=== PATIENT | female | born 1990 | race Caucasian/White ===

== ENCOUNTER 2017-03-15 13:04 | Outpatient (CLI) | payer OTHER, SELFPAY | END 2017-03-15 13:45 | disposition home or self-care (01) | LOC: WPOUT 13:05 → WP 13:06 | PROVIDERS: Family Provider Family Medicine; PCP Family Medicine; Visit Provider Obstetrics & Gynecology | DX: Z39.1 Encounter for care and examination of lactating mother (principal) | CPT/HCPCS: 96152 ==

== ENCOUNTER → 2017-04-11 11:10 | Outpatient (CLI) | payer OTHER, SELFPAY ==
[2017-04-11 12:10] LABS: Platelet Count 112 K/mm3 (150-450)
== END ==
PROVIDERS: Family Provider Family Medicine; PCP Family Medicine; Visit Provider Obstetrics & Gynecology
DX: D69.59 Other secondary thrombocytopenia (principal)
CPT/HCPCS: 36415; 85049

== ENCOUNTER → 2018-04-13 16:50 | Outpatient (CLI) | payer OTHER, SELFPAY ==
[2018-04-12 11:21] VITALS: BMI 21.3
[2018-04-18 08:17] LABS: HPV Reflexed? NOT INDICATED
== END ==
PROVIDERS: Visit Provider Obstetrics & Gynecology
DX: Z12.4 Encounter for screening for malignant neoplasm of cervix (principal)
CPT/HCPCS: 87624; 88175; G0145

== ENCOUNTER → 2018-11-09 13:09 | Outpatient (CLI) | payer OTHER, SELFPAY ==
[2018-04-12 11:21] VITALS: BMI 21.3
--- NOTE | 2018-11-09 13:13 | US_ITS ---
STUDY: THYROID ULTRASOUND REASON FOR EXAM: Female, 28 years old. Graves disease TECHNIQUE: Ultrasound evaluation of the thyroid was performed with real-time and static roca-scale imaging. COMPARISON: None. FINDINGS: RIGHT LOBE: The right lobe of the thyroid gland measures 4.5 x 1.4 x 1.4 cm. There is a homogeneous echotexture. There are no demonstrated solid, cystic or complex lesions. LEFT LOBE: The left lobe of the thyroid gland measures 4.1 x 1.6 x 1.1 cm. There is a homogeneous echotexture. There are no demonstrated solid, cystic or complex lesions. ISTHMUS: The isthmus measures 2 mm . The regional lymph nodes are normal. US/Thyroid IMPRESSION: Normal ultrasound examination of the thyroid. Electronically Signed: Neel Delacruz MD at 17:08 EDT , Service support ,
== END ==
PROVIDERS: Family Provider Family Medicine; PCP Family Medicine; Referring Provider Family Medicine; Visit Provider Family Medicine
DX: E05.00 Thyrotoxicosis with diffuse goiter without thyrotoxic crisis or storm (principal)
CPT/HCPCS: 76536

== ENCOUNTER → 2018-12-04 07:10 | Outpatient (CLI) | payer OTHER, SELFPAY ==
[2018-04-12 11:21] VITALS: BMI 21.3
[2018-12-04 08:06] LABS: Glucose 75GTT - Fasting 87 mg/dL (70-99)
[2018-12-04 09:18] LABS: Insulin 75GTT - Fasting 2.9 mU/L (2.6-37.6)
[2018-12-04 09:39] LABS: Glucose 75GTT - 60 minutes 155 mg/dL (100-160)
[2018-12-04 09:39] LABS: Glucose 75GTT - 30 minutes 139 mg/dL (100-160)
[2018-12-04 09:49] LABS: Insulin 75GTT - 60 min 28.4 mU/L (Not Estab)
[2018-12-04 10:20] LABS: Glucose 75GTT - 120 minutes 94 mg/dL (70-140)
[2018-12-04 10:28] LABS: Insulin 75GTT - 120 min 21.3 mU/L (Not Estab.)
== END ==
PROVIDERS: Family Provider Family Medicine; PCP Family Medicine; Referring Provider Obstetrics & Gynecology; Visit Provider Obstetrics & Gynecology
DX: N91.1 Secondary amenorrhea (principal)
CPT/HCPCS: 36415; 82951; 82952; 83525

== ENCOUNTER → 2019-02-19 10:00 | Outpatient (CLI) | payer OTHER, SELFPAY ==
[2018-04-12 11:21] VITALS: BMI 21.3
== END ==
PROVIDERS: Visit Provider Obstetrics & Gynecology
DX: N91.1 Secondary amenorrhea (principal)
CPT/HCPCS: 36415; 82670

== ENCOUNTER → 2019-02-23 09:05 | Outpatient (CLI) | payer OTHER, SELFPAY ==
[2018-04-12 11:21] VITALS: BMI 21.3
[2019-02-23 12:09] LABS: Estradiol 29.6 pg/mL
== END ==
PROVIDERS: Visit Provider Obstetrics & Gynecology
DX: N91.2 Amenorrhea, unspecified (principal); E23.3 Hypothalamic dysfunction, not elsewhere classified
CPT/HCPCS: 36415; 82670

== ENCOUNTER → 2019-02-26 10:56 | Outpatient (CLI) | payer OTHER, SELFPAY ==
[2018-04-12 11:21] VITALS: BMI 21.3
[2019-02-26 14:05] LABS: Estradiol 30.1 pg/mL
== END ==
PROVIDERS: Visit Provider Obstetrics & Gynecology
DX: N91.2 Amenorrhea, unspecified (principal); E23.3 Hypothalamic dysfunction, not elsewhere classified
CPT/HCPCS: 36415; 82670

== ENCOUNTER → 2019-03-15 15:33 | Outpatient (CLI) | payer OTHER, SELFPAY ==
[2018-04-12 11:21] VITALS: BMI 21.3
[2019-03-15 17:45] LABS: Progesterone Level 3.22 ng/mL (See Comment)
== END ==
PROVIDERS: PCP Family Medicine; Referring Provider Obstetrics & Gynecology; Visit Provider Obstetrics & Gynecology
DX: N91.2 Amenorrhea, unspecified (principal)
CPT/HCPCS: 36415; 84144

== ENCOUNTER → 2019-04-10 16:18 | Outpatient (CLI) | payer OTHER, SELFPAY ==
[2018-04-12 11:21] VITALS: BMI 21.3
[2019-04-10 17:59] LABS: Progesterone Level 1.67 ng/mL (See Comment)
== END ==
PROVIDERS: PCP Family Medicine; Visit Provider Obstetrics & Gynecology
DX: N97.0 Female infertility associated with anovulation (principal)
CPT/HCPCS: 36415; 84144

== ENCOUNTER → 2019-05-15 14:25 | Outpatient (CLI) | payer OTHER, SELFPAY ==
[2019-04-12 13:27] VITALS: BMI 22.1
[2019-05-15 16:22] LABS: Anion Gap 3 (5-15); BUN 29 mg/dL (7-18); BUN/Creat Ratio 47.4 RATIO (10-20); Calcium,Total 8.4 mg/dL (8.5-10.1); Chloride 109 mmol/L (98-107); Creatinine, Serum 0.61 mg/dL (0.55-1.02); EST Glomerular Filtration Rate 122 mL/min (>60); Est Glom Filt Rate - Afr Amer 147 mL/min (>60); Glucose 55 mg/dL (74-106); Potassium 4.1 mmol/L (3.5-5.1); Sodium Level 142 mmol/L (136-145)
[2019-05-15 16:27] LABS: hCG Titer Quant., Serum < 1 mIU/mL (1-3)
== END ==
PROVIDERS: PCP Family Medicine; Referring Provider Internal Medicine Hematology & Oncology; Visit Provider Obstetrics & Gynecology
DX: N91.2 Amenorrhea, unspecified (principal); D69.3 Immune thrombocytopenic purpura; D69.6 Thrombocytopenia, unspecified; D75.89 Other specified diseases of blood and blood-forming organs
CPT/HCPCS: 36415; 80048; 84702

== ENCOUNTER → 2019-12-17 09:19 | Outpatient (CLI) | payer OTHER, SELFPAY ==
[2019-04-12 13:27] VITALS: BMI 22.1
[2019-12-17 11:41] LABS: hCG Titer Quant., Serum 408 mIU/mL (1-3)
[2019-12-17 14:05] LABS: Progesterone Level 26.68 ng/mL (See Comment)
== END ==
PROVIDERS: PCP Family Medicine; Visit Provider Obstetrics & Gynecology
DX: N91.2 Amenorrhea, unspecified (principal)
CPT/HCPCS: 36415; 82670; 84144; 84702

== ENCOUNTER → 2019-12-24 10:50 | Outpatient (CLI) | payer OTHER, SELFPAY ==
[2019-04-12 13:27] VITALS: BMI 22.1
[2019-12-24 11:26] LABS: Progesterone Level 21.75 ng/mL (See Comment)
[2019-12-24 11:50] LABS: hCG Titer Quant., Serum 5371 mIU/mL (1-3)
[2019-12-25 12:58] LABS: Estradiol 354.6 pg/mL
== END ==
PROVIDERS: PCP Family Medicine; Visit Provider Obstetrics & Gynecology
DX: N91.2 Amenorrhea, unspecified (principal); N97.0 Female infertility associated with anovulation; E02 Subclinical iodine-deficiency hypothyroidism
CPT/HCPCS: 36415; 82670; 82672; 84144; 84702

== ENCOUNTER → 2019-12-31 16:13 | Outpatient (CLI) | payer OTHER, SELFPAY ==
[2019-04-12 13:27] VITALS: BMI 22.1
[2019-12-31 18:04] LABS: Estradiol 346.5 pg/mL
[2019-12-31 18:20] LABS: hCG Titer Quant., Serum 34583 mIU/mL (1-3)
[2019-12-31 19:19] LABS: Progesterone Level > 60.00 ng/mL (See Comment)
== END ==
PROVIDERS: PCP Family Medicine; Visit Provider Obstetrics & Gynecology
DX: N91.2 Amenorrhea, unspecified (principal); N97.0 Female infertility associated with anovulation; E02 Subclinical iodine-deficiency hypothyroidism; Z79.899 Other long term (current) drug therapy
CPT/HCPCS: 36415; 82670; 84144; 84702

== ENCOUNTER → 2020-01-08 10:50 | Outpatient (CLI) | payer OTHER, SELFPAY ==
[2019-04-12 13:27] VITALS: BMI 22.1
[2020-01-08 13:44] LABS: Color, Urine Yellow (Yellow); Glucose, Dipstick Normal (Normal); Ketone-Dipstick Negative (Negative); Leukocyte Esterase-Dipstick 25 /ul (Negative); Nitrite-Dipstick Negative (Negative); Occult Blood-Urine Negative /ul (Negative); Protein-Dipstick Negative (Negative); Urine Bilirubin Dipstick Negative (Negative); Urine Clarity Clear (Clear); Urine Urobilinogen Normal (Normal)
[2020-01-08 13:58] LABS: Absolute Lymphocyte Count 1.46 X10^3/uL (0.83-4.51); Absolute Neutrophil Count 3.5 X10^3/uL (2.0-7.7); Basophil# 0.02 X10^3/uL; Basophil% 0.4 % (0-1); Eosinophil# 0.02 X10^3/uL; Eosinophils% 0.4 % (0-5); Hemoglobin 13.3 g/dL (12.0-15.0); Lymphocyte # 1.46 X10^3/ul (4.0); Lymphocyte % 27.2 % (19-41); Mean Corp Hgb Conc 31.7 g/dL (32-36); Mean Corpuscular Hgb 32.9 pg (27.0-32.0); Mean Platelet Vol. 13.2 fl (6.2-12.0); Monocyte# 0.32 X10^3/uL; NRBC Flagged by Analyzer 0 % (0-5); Neutrophil # 3.54 X10^3/uL (2.7-7.7); Platelet Count 116 K/mm3 (150-450); RBC Distribution Width SD 46.3 fl (35.1-43.9); Red Blood Count 4.04 M/mm3 (4.2-5.4); White Blood Count 5.4 K/mm3 (4.4-11.0)
[2020-01-08 13:59] LABS: Amphetamine Urine VISTA NEGATIVE (<1000 ng/mL); Barbiturate Urine VISTA NEGATIVE (< 200 ng/mL); Benzodiazepine Urine VISTA NEGATIVE (< 200 ng/mL); Cocaine Urine VISTA NEGATIVE (< 300 ng/mL); Ecstacy Urine VISTA NEGATIVE (< 500 ng/mL); Methadone Urine VISTA NEGATIVE (< 300 ng/mL); PCP Urine VISTA NEGATIVE (< 25 ng/mL); THC Urine VISTA NEGATIVE (< 50 ng/mL); Vista UDS pH Range 5
[2020-01-08 14:05] LABS: Thyroid Stim Hormone (TSH) 1.53 uIU/mL (0.358-3.74)
[2020-01-08 14:36] LABS: HIV - WCH Non-Reactive (Nonreactive); Hepatitis B Surface Antigen Non-Reactive (Nonreactive); Hepatitis C Antibody Non-Reactive (Nonreactive); Rubella IgG Reactive (Nonreactive)
[2020-01-10 02:51] LABS: Prenatal RPR NONREACTIVE (NONREACTIVE)
[2020-01-10 20:07] LABS: Chlamydia By Nucleic Acid AMP Negative (Negative)
[2020-01-10 21:31] LABS: Gonococcus By Nucleic Acid AMP Negative (Negative)
== END ==
PROVIDERS: PCP Family Medicine; Visit Provider Obstetrics & Gynecology
DX: Z34.81 Encounter for supervision of other normal pregnancy, first trimester (principal)
CPT/HCPCS: 36415; 80307; 81002; 84443; 85025; 86703; 86762; 86803; 87340; 87491; 87591

== ENCOUNTER → 2020-03-04 14:48 | Outpatient (CLI) | payer OTHER, SELFPAY ==
[2019-04-12 13:27] VITALS: BMI 22.1
[2020-03-04 15:48] LABS: Hematocrit 37.3 % (37-47); Hemoglobin 12.1 g/dL (12.0-15.0); Mean Corp Hgb Conc 32.4 g/dL (32-36); Mean Corpuscular Hgb 32.8 pg (27.0-32.0); Mean Corpuscular Volume 101.1 fL (81-99); Mean Platelet Vol. 12.6 fl (6.2-12.0); Platelet Count 131 K/mm3 (150-450); RBC Distribution Width CV 12.7 % (11.6-14.6); RBC Distribution Width SD 47.1 fl (35.1-43.9); Red Blood Count 3.69 M/mm3 (4.2-5.4); White Blood Count 7.4 K/mm3 (4.4-11.0)
[2020-03-05 09:45] LABS: Absolute Lymphocyte Count 1.79 X10^3/uL (0.83-4.51); Absolute Neutrophil Count 5.5 X10^3/uL (2.0-7.7); Basophil# 0.02 X10^3/uL; Basophil% 0.3 % (0-1); Eosinophil# 0.04 X10^3/uL; Eosinophils% 0.5 % (0-5); Lymphocyte # 1.79 X10^3/ul (4.0); Lymphocyte % 23.2 % (19-41); Monocyte# 0.37 X10^3/uL; Monocyte% 4.8 % (0-10); NRBC Flagged by Analyzer 0 % (0-5); Neutrophil # 5.48 X10^3/uL (2.7-7.7); Neutrophil % 71.1 % (47-70)
== END ==
PROVIDERS: PCP Family Medicine; Visit Provider Obstetrics & Gynecology
DX: D69.6 Thrombocytopenia, unspecified (principal)
CPT/HCPCS: 36415; 85025; 85027

== ENCOUNTER → 2020-05-26 09:59 | Outpatient (CLI) | payer OTHER, SELFPAY ==
[2020-03-05 11:11] VITALS: BMI 23.6
[2020-05-26 11:32] LABS: Hematocrit 38.3 % (37-47); Hemoglobin 12.4 g/dL (12.0-15.0); Mean Corp Hgb Conc 32.4 g/dL (32-36); Mean Corpuscular Hgb 33.9 pg (27.0-32.0); Mean Corpuscular Volume 104.6 fL (81-99); Mean Platelet Vol. 12.9 fl (6.2-12.0); Platelet Count 108 K/mm3 (150-450); RBC Distribution Width CV 12.8 % (11.6-14.6); RBC Distribution Width SD 48.8 fl (35.1-43.9); Red Blood Count 3.66 M/mm3 (4.2-5.4); White Blood Count 7.2 K/mm3 (4.4-11.0)
[2020-05-26 11:39] LABS: Glucose Challenge Gest 1H 50g 76 mg/dL (70-140)
== END ==
PROVIDERS: PCP Family Medicine; Visit Provider Student in an Organized Health Care Education/Training Program
DX: Z34.82 Encounter for supervision of other normal pregnancy, second trimester (principal)
CPT/HCPCS: 36415; 82950; 85027

== ENCOUNTER → 2020-07-09 13:45 | Outpatient (CLI) | payer OTHER, SELFPAY ==
[2020-03-05 11:11] VITALS: BMI 23.6
[2020-07-09 15:08] LABS: T4 Total, Thyroxin 11.2 ug/dL (4.8-13.9); Thyroid Stim Hormone (TSH) 1.72 uIU/mL (0.358-3.74)
[2020-07-10 11:32] LABS: T4 Free Direct 0.91 ng/dL (0.76-1.46)
== END ==
PROVIDERS: PCP Family Medicine; Visit Provider Obstetrics & Gynecology
DX: O99.283 Endocrine, nutritional and metabolic diseases complicating pregnancy, third trimester (principal); E02 Subclinical iodine-deficiency hypothyroidism; Z3A.00 Weeks of gestation of pregnancy not specified
CPT/HCPCS: 36415; 84436; 84439; 84443

== ENCOUNTER → 2020-07-25 14:24 | Outpatient (CLI) | payer OTHER, SELFPAY ==
[2020-03-05 11:11] VITALS: BMI 23.6
[2020-07-25 14:44] LABS: Platelet Count 132 K/mm3 (150-450)
== END ==
PROVIDERS: PCP Family Medicine; Visit Provider Obstetrics & Gynecology
DX: Z36.85 Encounter for antenatal screening for Streptococcus B (principal); O99.119 Other diseases of the blood and blood-forming organs and certain disorders involving the immune mechanism complicating pregnancy, unspecified trimester; D69.6 Thrombocytopenia, unspecified; Z3A.00 Weeks of gestation of pregnancy not specified
CPT/HCPCS: 36415; 85049; 87081

== ENCOUNTER 2020-08-10 20:34 | Outpatient (CLI) | payer OTHER, SELFPAY ==
[2020-03-05 11:11] VITALS: BMI 23.6
[2020-08-10 20:55] VITALS: BP 107/55; PULSE 71
[2020-08-10 20:56] VITALS: TEMP 36.4; O2SAT 98
[2020-08-10 21:12] VITALS: BMI 27.1
[2020-08-10 21:55] LABS: ROM Internal Control Test YES-OK TO RESULT pt. (Internal QC); ROM Patient Test Negative (Negative)
--- NOTE | 2020-08-24 14:28 | OB.TRI.HP_ITS ---
HPI - General HPI Narrative ARMANI MAHONEY, is a 29 F who presents at 38 3/7wga with c/o leaking of fluid PFSH PFSH Medical History (Updated 08/27/20 @ 08:[address] Abby Don MD) Thrombocytopenia Home Medications vit,[id number] 1 tab PO DAILY 04/12/19 [History Last Taken 08/09/20 20:00] naltrexone 50 mg PO DAILY 03/05/20 [History Last Taken Unknown] cetirizine [Zyrtec] 10 mg PO DAILY 08/10/20 [History Last Taken 08/09/20 20:00] levothyroxine [Synthroid] 50 mcg PO DAILY 08/10/20 [History Last Taken 08/10/20 08:00] Allergy/AdvReac Type Severity Reaction Status Date / Time No Known Allergies Allergy Verified 08/10/20 21:14 Family History Father Skin cancer Grandfather Colon cancer Uncle Colon cancer Surgical History (Updated 03/05/20 @ 13:[address] Ozzy Murry MD) No history of previous surgery [place] teeth extracted Social History Smoking Status: Never smoker History Elective abortions Hx Para 0 Spontaneous abortions Hx # Term Pregnancies Ectopic pregnancies Hx # Pregnancies Multiple births # of living children NST FHR Rate Baby A Baseline: 130 Variability:: Moderate Accelerations:: 15 x 15 Decelerations:: None NST Reactive:: Yes FHR Category:: Category I Uterine Activity:: 0/10 Assessment & Plan (1) 38 weeks gestation of : PLAN: ROM plus negative No contractions d/c home
== END 2020-08-10 22:40 | disposition home or self-care (01) ==
LOC: WPOUT 20:42 → WP 20:43
PROVIDERS: PCP Family Medicine; Visit Provider Obstetrics & Gynecology
DX: O99.113 Other diseases of the blood and blood-forming organs and certain disorders involving the immune mechanism complicating pregnancy, third trimester (principal); D69.6 Thrombocytopenia, unspecified; Z3A.38 38 weeks gestation of pregnancy
CPT/HCPCS: 59025; 59050; 84112; 99218; G0378

== ENCOUNTER 2020-08-29 00:22 | Inpatient (IN) | payer OTHER, SELFPAY ==
[2020-08-29] VITALS (33 sets, daily range): BP systolic 85–132; BP diastolic 41–86; PULSE 53–112; RESP 14–18; TEMP 36.2–36.8; O2SAT 91–100; BMI 25.8
[2020-08-29] MEDS: Lactated Ringers 1,000 ML 50 ML IV (01:30)
[2020-08-29 02:10] LABS: Absolute Lymphocyte Count 1.99 X10^3/uL (0.83-4.51); Absolute Neutrophil Count 6.2 X10^3/uL (2.0-7.7); Basophil# 0.02 X10^3/uL; Basophil% 0.2 % (0-1); Eosinophil# 0.03 X10^3/uL; Eosinophils% 0.3 % (0-5); Hematocrit 43.4 % (37-47); Hemoglobin 13.9 g/dL (12.0-15.0); Lymphocyte # 1.99 X10^3/ul (0.83-4.51); Lymphocyte % 22.7 % (19-41); Mean Corpuscular Hgb 32.8 pg (27.0-32.0); Mean Corpuscular Volume 102.4 fL (81-99); Mean Platelet Vol. 13.5 fl (6.2-12.0); Monocyte# 0.47 X10^3/uL; Monocyte% 5.4 % (0-10); NRBC Flagged by Analyzer 0 % (0-5); Neutrophil # 6.24 X10^3/uL (2.7-7.7); Neutrophil % 71.1 % (47-70); Platelet Count 102 K/mm3 (150-450); RBC Distribution Width CV 12.6 % (11.6-14.6); Red Blood Count 4.24 M/mm3 (4.2-5.4); White Blood Count 8.8 K/mm3 (4.4-11.0)
--- NOTE | 2020-08-29 02:52 | HP.PCM.OB_ITS ---
HPI - General General Date of Admission: 08/29/20 HPI Narrative IDALMIS MAHONEY, is a 29 F who presents at 41 1/7 weeks gestation in labor. Maternal Data Information EROS Calculator Estimated Delivery Date Method Current WG Current Estimate 08/21/20 LMP (Certain) 41w 1d [facility] Medical History (Updated 08/29/20 @ 03:[address] Abby Don MD) Thrombocytopenia Home Medications vit,[id number] 1 tab PO DAILY 04/12/19 [History Last Taken 08/28/20 22:00 1 tablet] naltrexone 50 mg PO DAILY 03/05/20 [History Last Taken Unknown] cetirizine [Zyrtec] 10 mg PO DAILY 08/10/20 [History Last Taken 08/28/20 22:00 10 mg] levothyroxine [Synthroid] 50 mcg PO DAILY 08/10/20 [History Last Taken 08/28/20 06:00 50 mg] Allergy/AdvReac Type Severity Reaction Status Date / Time No Known Allergies Allergy Verified 08/10/20 21:14 Family History Father Skin cancer Grandfather Colon cancer Uncle Colon cancer Surgical History No history of previous surgery Brickeys teeth extracted Social History Smoking Status: Never smoker History 2 Elective abortions 0 Hx Para 1 Spontaneous abortions 0 Hx # Term Pregnancies 1 Ectopic pregnancies 0 Hx # Pregnancies 0 Multiple births 0 # of living children 1 Past Pregnancies Del. Date Name GA/Weeks Outcome Route Bth Weight Gen Labor Lgth Anesthesia Del Locatn Provider FOB 02/24/17 Idamarie 40 live - full term 6lb 4oz Female 23 none [facility] Alanna Sotomayor NST FHR Rate Baby A Baseline: 120 Variability:: Moderate Accelerations:: 15 x 15 Decelerations:: None NST Reactive:: Yes FHR Category:: Category I Uterine Activity:: 3-4/10 min Vital Signs Vital Signs Vital Signs: 08/29/20 00:30 08/29/20 00:51 08/29/20 00:53 Temperature 97.9 F 97.9 F Temperature Source Temporal Pulse Rate 63 Blood Pressure BP Systolic BP Diastolic Pulse Ox 97 08/29/20 01:30 08/29/20 02:30 08/29/20 02:31 Temperature 97.5 F L 97.5 F L Temperature Source Temporal Pulse Rate Blood Pressure 116/86 H 109/76 BP Systolic 116 109 BP Diastolic 86 76 Pulse Ox 08/29/20 02:32 Temperature Temperature Source Pulse Rate 62 Blood Pressure BP Systolic BP Diastolic Pulse Ox 100 Weight Weight: 74.8 kg Body Mass Index (BMI) 25.8 Physical Exam Const alert, oriented x3 and no apparent distress HEENT normocephalic Resp normal respiratory effort, normal air movement and clear to auscultation bilaterally Cardio regular rate and regular rhythm GI normal to inspection, nondistended, normoactive bowel sounds, soft to palpation, non-tender and non-distended Inspection: gravid Narrative: /-1 per RN exam Labs Labs Labs: Blood Type A POSITIVE Antibody Screen NEGATIVE Hct 43.4 % (37-47) Hgb 13.9 g/dL (12.0-15.0) VZV IgG Antibody 3255 index (Immune >165) Rubella IgG Antibody Reactive (Nonreactive) Hep Bs Antigen Non-Reactive (Nonreactive) Neisseria gonorrhoeae DNA (AISHA) Negative (Negative) HIV 1&2 Antibody Non-Reactive (Nonreactive) Glucose 1 Hr 50 gm 76 mg/dL (70-140) Group B Strep DNA Negative (Negative) Rhogam given: No ACOG ANTEPARTUM RECORD - HISTORY AND PHYSICAL (08/29/2020) Name: DENZEL IDALMIS History of this : This is a 29 year old [id number] presents at 41 wks + 1 days gestation. OB Physician: Abby Don MD [facility] Phys[facility]: [facility] ...................................................................... : 1990 Age: 29 Address: [address] [place] [address] Phone: ([phone] Insurance Carrier: [employer] [phone] Emergency Contact: BRAN DENZEL [phone] ...................................................................... Final EROS: 08/21/20 By Ultrasound: 6 weeks 4 days PARITY: (G-Total Pregnancies P-Fullterm,Premature,Induced AB,Spont AB, Ectopics, Multiple,Living) EROS CONFIRMATION: By LMP: 11/15/19 Final EROS: 08/21/20 OB PROBLEM LIST: Carrier screening declined. Had Tdap and Covid vaccine No plans for an epidural Plt 116 --> 131 --> 108 Thrombocytopenia followed by Hematology Pt's Great Grandfather was Confucianism, no hx of Eloy-Sachs ALLERGIES: No Known Allergies MEDICATIONS: Colace 100 mg capsule 1 PO QD 28 mg-800 mcg tablet 1 PO QD Supplement (s) [No Strength] Synthroid 50 mcg tablet 1 tab PO daily triamcinolone acetonide 0.025 % topical cream apply thin layer to affected areas and massage in over 2 minutes 1 to 2 times daily as needed SOCIAL HISTORY: Smoking - Never Alcohol Use - denies drinking Diet - balanced Diet Lifestyle - low stress lifestyle and Exercise - very active 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 Spouse-Sig Other Phone No - [phone] Children Name(s) - Giancarlo PRIOR DELIVERY HISTORY DEL DATE GEST LAB WT LB WT OZ TYPE ANES LABOR TX 10 Mar 10 40 23 6 4 Vag None No ANTEPARTUM FLOW CHART VISIT GE RTC FU F F MD U U DATE WK MD WKS HT PN HR M SS BP ED WT MD GL D EF ST __ ____ ___ __ __ ___ __ __ __ ___ __ __ __ ___ __ 08 Demar 41 SHM 1 37 V + + 104/60 168 tr - 3+ 50 -3 06 Demar 40 SHM 1 37 V + + 100/72 0 169 - - 3 50 -3 29 Ulysses 39 SHM 1 37 V + + 100/70 0 170 ne ne 2 50 -3 22 Ulysses 38 SHM 1 38 V + + 120/66 0 167 15 Uylsses 37 SHM 1 37 V + + 118/68 0 172 - - 08 Ulysses 36 SHM 1 36 V + + 102/70 0 168 ne ne 04 Ulysses 36 SHM 1 35 V + + 110/68 sl 172 tr - 19 May 33 SHM 2 32 V + + 112/70 0 168 ne ne 04 May 31 CM 2 31 + + 102/60 sl 166 ne ne 20 Apr 29 CM 2 29 + + 102/60 0 167 - - 05 Apr 27 CM 2 + + 102/60 0 159 11 Mar 24 CM 4 24 + + 102/62 0 161 - - 10 Feb 19 SHM 4 20 + + 90/60 0 159 - - 12 John 15 SHM 4 15 + + 106/60 0 154 - - 16 Jan 31 SHM 5 on US 96/58 0 152 - - ANTEPARTUM NOTE(S): Aug 28 2020: wants membrane sweep Aug 26 2020: wants to discuss recommendations Aug 19 2020: Aug 12 2020: will l eave specimen prior to leaving, doing nwell Aug 05 2020: doing well Jul 29 2020: Jul 25 2020: GBS today Jul 09 2020: feeling well Jun 24 2020: Jun 10 2020: May 26 2020: May 01 2020: Apr 02 2020: feeling well. US today. AM Mar 04 2020: Feb 06 2020: COMPREHENSIVE ANTEPARTUM NOTE(S): Aug 28 2020: Cervix SOFT, midposition. Membranes stripped again today. Return for NST tomorrow. Aug 26 2020: Cervix POSTERIOR, MODERATE. Membranes stripped. US - LUKAS 10cm with BPP 09/28 performed by myself. Discussed with pt and r/b IOL at 41wga versus expectant management including low but increased risk for loss. Pt and considering options further. Plan for NST in 3-4 days if undelivered. Labor, FM precautions. Aug 19 2020: Idalmis is her for PNV. Started with some ctx earlier today. They were pretty regular but they have stopped. No LOF. Continues to have good FM. Would like cervix check then will decide if to proceed with IOL. LSS Aug 12 2020: Was seen in L triage on 08/10/20 and ruled out for ROM. Exam 1cm dilation then. Deferred today. -5lb, pt denies, nausea, vomiting, diarrhea. Will monitor. Aug 05 2020: Reviewed FM, labor, SROM. GBS negative and Plt ct increased from prior. LMT Jul 31 2020: H taken to OB. tkg Jul 29 2020: Idalmis is here for PNV. Feeling well with good FM. Voices no concerns today. No edema noted at this visit. Did receive her second COVID vaccine with no problems. Urine neg/neg. LSS Jul 29 2020: GBS neg, plt 132 reviewed. Discussed indications for IOL. Will d/c LDN at 37weeks later this week. Inquires about use of LDN . Recommend resuming LDN after 12 months nursing and increasing to higher doses as needed at that time based on cycle. Jul 25 2020: Platelet count today. Reviewed TFTs wnl. Plan to d/c Naltrexone next week. GBS obtained. , her mom and MIL with alternate staying home the first few weeks after childbirth for support. Jul 09 2020: Reviewed PTL, FM. Had Tdap and Covid vaccine. No complaints or concerns today. LMT Jul 09 2020: TFTs today. Will do platelets at next visit. Jun 24 2020: Idalmis is here for PNV. States she is feeling well with good FM. Some slight swelling in lower legs but none in hands. Did receive first covid vaccine with no reaction. No concerns today. Urine neg/neg. LSS Jun 24 2020: 31/5w. Thrombocytopenia - repeat CBC 36w. Resolved previa. Repeat thyroid labs next visit. F/u 2w. CM Jun 10 2020: Idalmis reports feeling well. Good FM. Received TDap 05/27/20. Plans Moderns COVID Vaccine 06/12/20 @ [facility]. [facility] Jun 10 2020: 29/5w visit. COVID updates given. Resolved previa. F/u 2w. CM May 26 2020: Idalmis is here w/her . Good FM. 1 Hr Glucose, CBC drawn this morning. US to follow posterior marginal previa. May 26 2020: 27/4w visit. Growth AGA, previa resolved. Planning to get COVID vaccine. Discussed TDAP and timing at length. Thrombocytopenia. CBC drawn today with glucola. F/u 2w. CM May 01 2020: Idalmis reporting good FM. Glucoal bottle and instructions given to be done next visit. Voicing no concerns. May 01 2020: 24/0w visit. Thrombocytopenia - plan for CBC at 28 and 36w. Saw heme, no further input. Glucola bottle given. F/u 4w. CM Apr 02 2020: Anatomy US today, wnl. EFW 40th%. Placenta 5mm from os. Discussed findings and bleeding precautions. Pt to maintain current activity level. Repeat US at 28-32 weeks to reassess placentation. Saw vice president of finance after last visit and plt count 131 - Heme not concerned. Will plan no epidural again per patient preference and due to ?platelet count. Discussed COVID19 vaccination r/b, limitations of curren Mar 04 2020: Idalmis is her for 15 + 5 PNV. Reports she is feeling well with no concerns. States that she might be feeling baby move but not sure. No edema present. She has questions about COVID and being . Medications and allergies reviewed. ZENA Mar 04 2020: No complaints. CBC today, will f/u with Hematology tomorrow - ITP vs. gestational thrombocytopenia. Discussed COVID19 related precautions. Aneuploidy screening and msAFP declined. Anatomy scan next visit. Feb 07 2020: TELEHEALTH NOB VISIT, 30 MINUTE DURATION. Idalmis is a 29 year old with an EROS of 08/21/2020, current GA is 12 w 0 d. She resides with he , Bran, and their nearly 3 year old daughter, Giancarlo. She states that they are all very happy and excited about the . Past history updated. Idalmis plans delivery without an epidural at [facility], and she will breast feed. She state st Feb 06 2020: Idalmis is her with So for 1 + 6 PNV. US done today. Reports she is feeling well with no complaints. No edema present. Expressed wanting to know how long she should be on the progesterone. Medications and allergies reviewed. [facility] New Feb 06 2020: US c/w dates, EROS 08/21/20. Feels well, no complaints. d/c progesterone in 1 week. Traveling for holidays - discussed precautions. Reviewed labs significant for recurrent gestational thrombocytopenia. Idalmis is followed by Hematology and will reach out to them for additional f/u this . Ruled out for immune causes previously. REVIEW OF SYSTEMS: GENERAL - Denies fever, or chills SKIN - Denies rash, new skin lesions, or change in moles EYES - Denies blurred vision, or change in visual acuity EARS - Denies ear pain, or difficulty hearing NOSE - Denies nasal congestion, discharge, or bleeding MOUTH - Denies sore throat, or difficulty swallowing NECK - Denies pain or swelling RESPIRATORY - Denies shortness of breath, cough, wheezing CARDIOVASCULAR - Denies palpitations, chest pain, orthopnea, PND, peripheral edema, syncope or claudication GASTROINTESTINAL - Denies nausea, vomiting, diarrhea, constipation, Denies abdominal pain, melena and or bright red blood GENITOURINARY - Denies dysuria, frequency of urination, urgency, or hesitancy MUSCULOSKELETAL - Denies joint or muscle pain, or back pain NEUROLOGICAL - Denies localized numbness, weakness, or tingling PSYCHIATRIC - Denies depression, anxiety, substance abuse or suicide attempts ENDOCRINE - Denies heat or cold intolerance, weight loss or gain, increasing thirst HEMATO-IMMUNOLOGIC - Denies easy bruising, bleeding, oral ulcerations or recurrent infections GENETICS SCREENING: Age 35+ years: No Thalassemia: No Neural Tube Defect: No Down Syndrome: No ELOY-SACHS: No Sickle Cell Disease: No Hemophilia: No Musc. Dystrophy: No Cystic Fibrosis: No-declines screening Musa Chorea: No Mental Retardation: No Fragile X: No Other genetic: No Other defects: No SABs/still births: No Drugs since LMP: No Comments: pts brother CF carrier INFECTION HISTORY: High risk AIDS: No High risk Hepatitis: No Exposed to TB: No Exposed to Herpes: No Rash/viral illness since LMP: No History of STD: No MENSTRUAL HISTORY: *Menarche (Age Onset): 14* PAST SUMMARY: PARITY: 1. Total Pregnancies............ 2 2. Full Term Pregnancies........ 1 3. Premature.................... 0 4. Abortions - Induced.......... 0 5. Abortions - Spontaneous...... 0 6. Ectopics..................... 0 7. Multiple Births.............. 0 8. Living Children.............. 1 PAST #1: Date of :.................. 03/02/17 Gestation Weeks:................ 40 Length of labor(hours):......... 23 Sex:............................ F Weight-lbs:............... 6 Weight-oz:................ 4 Type of Delivery:............... Vag Type of Anesthesia:............. None Place of Delivery:.............. [place] Treatment of Labor?:.... No Comment: PHYSICAL EXAMINATION General Appearence: 29 yo female in no acute distress Vital Signs: AF, VSS Heart: RRR without rubs or gallops Lungs: CTA x 2 Breasts: deferred Abdomen: gravid Pelvis: Cervix: Presentation: cephalic Station: Fetus: Size: AGA Movement: present Heart: present LAB TEST(S) ORDERED SINCE:11/25/19 01/10/2020 RPR 01/10/2020 CHLAMYDIA/GC AISHA APTIMA 01/08/2020 URINE DRUG SCREEN (VISTA) 01/08/2020 URINALYSIS, ROUTINE (DIPSTICK) 01/08/2020 THYROID STIM HORMONE (TSH) 01/08/2020 RUBELLA IGG 01/08/2020 T AND S-NO CHARGE W/PNP 01/08/2020 HIV - [facility] 01/08/2020 HEPATITIS C ANTIBODY 01/08/2020 HEPATITIS B SURFACE ANTIGEN 01/08/2020 CBC W/DIFF, AUTOMATED 12/31/2019 PROGESTERONE LEVEL 12/31/2019 HCG TITER QUANT., SERUM 12/31/2019 ESTRADIOL 12/25/2019 ESTRADIOL 12/24/2019 PROGESTERONE LEVEL 12/24/2019 HCG TITER QUANT., SERUM 12/17/2019 PROGESTERONE LEVEL 12/17/2019 HCG TITER QUANT., SERUM 12/17/2019 ESTRADIOL 08/29/2020 COVID 19 AG RAPID (RN COLLECT) 08/29/2020 CBC W/DIFF, AUTOMATED 08/11/2020 (ROM) RUPTURE OF MEMBRANES 07/28/2020 RULE OUT BETA STREP (GRP. B) 07/25/2020 PLATELET COUNT 07/10/2020 T4 FREE DIRECT 07/09/2020 THYROID STIM HORMONE (TSH) 07/09/2020 T4 TOTAL, THYROXIN 05/26/2020 GLUCOSE CHALLENGE GEST 1H 50G 05/26/2020 CBC-COMPLETE BLOOD CNT NO DIFF 03/05/2020 CBC W/DIFF, AUTOMATED 03/04/2020 CBC-COMPLETE BLOOD CNT NO DIFF == ==== Order Observation Description Value Ref_Range A* Site == ==== COVID 19 AG RAP NOTE JAMES CBC W/DIFF, AUT NOTE JAMES CBC W/DIFF, AUT WBC 8.8 K/mm3 4.4-11.0 ML CBC W/DIFF, AUT RBC 4.24 M/mm3 4.2-5.4 ML CBC W/DIFF, AUT HGB 13.9 g/dL 12.0-15.0 ML CBC W/DIFF, AUT HCT 43.4 37-47 ML CBC W/DIFF, AUT MCV 102.4 fL 81-99 H ML CBC W/DIFF, AUT MCH 32.8 pg 27.0-32.0 H ML CBC W/DIFF, AUT MCHC 32.0 g/dL 32-36 ML CBC W/DIFF, AUT RDW CV 12.6 11.6-14.6 ML CBC W/DIFF, AUT RDW SD 47.0 fl 35.1-43.9 H ML CBC W/DIFF, AUT PLT 102 K/mm3 150-450 L ML CBC W/DIFF, AUT MPV 13.5 fl 6.2-12.0 H ML CBC W/DIFF, AUT NEUT% 71.1 47-70 H ML CBC W/DIFF, AUT LY% 22.7 19-41 ML CBC W/DIFF, AUT MONO% 5.4 0-10 ML CBC W/DIFF, AUT EO% 0.3 0-5 ML CBC W/DIFF, AUT BASO% 0.2 0-1 ML CBC W/DIFF, AUT IG% 0.300 0.0-0.9 ML IG% - Immature Granulocytes (promyelocytes, myelocytes and metamyelocytes) > 1% indicates that a LEFT SHIFT is Present. CBC W/DIFF, AUT ABSOLUTE NEUT 6.2 X10 3/uL 2.0-7.7 ML CBC W/DIFF, AUT ABSOLUTE LYMPH 1.99 X10 3/uL 0.83-4.51 ML CBC W/DIFF, AUT NUCLEATED RBC 0 0-5 ML (ROM) RUPTURE O NOTE JAMES (ROM) RUPTURE O ROM Negative Negative ML Amniotic fluid not present indicates No Rupture of Membranes at time of specimen collection. (ROM) RUPTURE O NOTE JAMES (ROM) RUPTURE O C-LINE PRESENT? Internal QC ML This specimen has been REJECTED due to Laboratory criteria: MisHandled. [facility] has been notified of need of recollection. 08/10/202120 Nyasia Clapper (ROM) RUPTURE O ROM Negative ML This specimen has been REJECTED due to Laboratory criteria: MisHandled. [facility] has been notified of need of recollection. 08/10/202120 Nyasia Clapper (ROM) RUPTURE O RECORD KIT LOT# ML This specimen has been REJECTED due to Laboratory criteria: MisHandled. [facility] has been notified of need of recollection. 08/10/202120 Nyasia Clapper PLATELET COUNT NOTE JAMES PLATELET COUNT PLT 132 K/mm3 150-450 L ML RULE OUT BETA S NOTE JAMES T4 FREE DIRECT NOTE JAMES T4 FREE DIRECT T4 FREE DIRECT 0.91 ng/dL 0.76-1.46 ML THYROID STIM HO NOTE JAMES THYROID STIM HO TSH 1.72 uIU/mL 0.358-3.74 ML T4 TOTAL, THYRO NOTE JAMES T4 TOTAL, THYRO T4 THYROXIN 11.2 ug/dL 4.8-13.9 ML GLUCOSE CHALLEN NOTE JAMES GLUCOSE CHALLEN GLU GEST 50G 1H 76 mg/dL 70-140 ML CBC-COMPLETE BL NOTE JAMES CBC-COMPLETE BL WBC 7.2 K/mm3 4.4-11.0 ML CBC-COMPLETE BL RBC 3.66 M/mm3 4.2-5.4 L ML CBC-COMPLETE BL HGB 12.4 g/dL 12.0-15.0 ML CBC-COMPLETE BL HCT 38.3 37-47 ML CBC-COMPLETE BL MCV 104.6 fL 81-99 H ML CBC-COMPLETE BL MCH 33.9 pg 27.0-32.0 H ML CBC-COMPLETE BL MCHC 32.4 g/dL 32-36 ML CBC-COMPLETE BL RDW CV 12.8 11.6-14.6 ML CBC-COMPLETE BL RDW SD 48.8 fl 35.1-43.9 H ML CBC-COMPLETE BL PLT 108 K/mm3 150-450 L ML CBC-COMPLETE BL MPV 12.9 fl 6.2-12.0 H ML CBC W/DIFF, AUT NOTE JAMES CBC W/DIFF, AUT WBC 7.4 K/mm3 4.4-11.0 ML CBC W/DIFF, AUT RBC 3.69 M/mm3 4.2-5.4 L ML CBC W/DIFF, AUT HGB 12.1 g/dL 12.0-15.0 ML CBC W/DIFF, AUT HCT 37.3 % 37-47 ML CBC W/DIFF, AUT MCV 101.1 fL 81-99 H ML CBC W/DIFF, AUT MCH 32.8 pg 27.0-32.0 H ML CBC W/DIFF, AUT MCHC 32.4 g/dL 32-36 ML CBC W/DIFF, AUT RDW CV 12.7 % 11.6-14.6 ML CBC W/DIFF, AUT RDW SD 47.1 fl 35.1-43.9 H ML CBC W/DIFF, AUT PLT 131 K/mm3 150-450 L ML CBC W/DIFF, AUT MPV 12.6 fl 6.2-12.0 H ML CBC W/DIFF, AUT NEUT% 71.1 % 47-70 H ML CBC W/DIFF, AUT LY% 23.2 % 19-41 ML CBC W/DIFF, AUT MONO% 4.8 % 0-10 ML CBC W/DIFF, AUT EO% 0.5 % 0-5 ML CBC W/DIFF, AUT BASO% 0.3 % 0-1 ML CBC W/DIFF, AUT IM GRAN % 0.100 % 0.0-0.9 ML IG% - Immature Granulocytes (promyelocytes, myelocytes and metamyelocytes) > 1% indicates that a LEFT SHIFT is Present. CBC W/DIFF, AUT ABSOLUTE NEUT 5.5 X10 3/uL 2.0-7.7 ML CBC W/DIFF, AUT ABSOLUTE LYMPH 1.79 X10 3/uL 0.83-4.51 ML CBC W/DIFF, AUT NRBC, FLAGGED 0 % 0-5 ML CBC-COMPLETE BL NOTE JAMES CBC-COMPLETE BL WBC 7.4 K/mm3 4.4-11.0 ML CBC-COMPLETE BL RBC 3.69 M/mm3 4.2-5.4 L ML CBC-COMPLETE BL HGB 12.1 g/dL 12.0-15.0 ML CBC-COMPLETE BL HCT 37.3 % 37-47 ML CBC-COMPLETE BL MCV 101.1 fL 81-99 H ML CBC-COMPLETE BL MCH 32.8 pg 27.0-32.0 H ML CBC-COMPLETE BL MCHC 32.4 g/dL 32-36 ML CBC-COMPLETE BL RDW CV 12.7 % 11.6-14.6 ML CBC-COMPLETE BL RDW SD 47.1 fl 35.1-43.9 H ML CBC-COMPLETE BL PLT 131 K/mm3 150-450 L ML CBC-COMPLETE BL MPV 12.6 fl 6.2-12.0 H ML CHLAMYDIA/GC NA NOTE JAMES CHLAMYDIA/GC NA CHLAMY,NUC ACID Negative Negative LC CHLAMYDIA/GC NA GC BY NUC ACID Negative Negative LC Performed at: = - [facility] [address], [place] [id number] Tassel Snipper: Jaqui Doshi MD, Phone: [phone] RPR NOTE JAMES RPR RPR NONREACTIVE NONREACTIVE ML Reason for Type AND Screen/Red Cells: Surgery? [facility]~[address] [place], [address]~ T AND BLOOD TYPE GEL A POSITIVE N ML T AND AB SCREEN GEL NEGATIVE N ML HEPATITIS C ANT NOTE JAMES HEPATITIS C ANT HEPATITIS C AB Non-Reactive Nonreactive ML Non Reactive: < 0.8 Equivocal: >/= 0.8 to < 1.0 Reactive: >/= 1.0 The CDC recommends that a reactive/equivocal HCV antibody result be followed up by the HCV Nucleic Acid Amplification test ([id number]) HEPATITIS B RIGOBERTO NOTE JAMES HEPATITIS B RIGOBERTO HEPB SURFACE AG Non-Reactive Nonreactive ML HIV - [facility] NOTE JAMES HIV - [facility] HIV - [facility] Non-Reactive Nonreactive ML RUBELLA IGG NOTE JAMES RUBELLA IGG RUBELLA IGG Reactive Nonreactive ML Antibody Results Interpretation of Immune Status Non Reactive Presumed Non-Immune Equivocal Equivocal Reactive Presumed Immune THYROID STIM HO NOTE JAMES THYROID STIM HO TSH 1.53 uIU/mL 0.358-3.74 ML URINE DRUG SCRE NOTE JAMES URINE DRUG SCRE TO BE CONFIRMED ML CONFIRMATORY TESTING FOR ALL POSITIVE URINE DRUG SCREEN RESULTS WILL ONLY BE SENT OUT UPON PHYSICIAN ORDER. VISTA Urine Drug Screen methods provide only preliminary analytical test results. A more specific alternate chemical method must be used in order to obtain a confirmed analytical result. Gas chromatography/mass spectrometery (GC/MS) is the preferred confirmatory method. Clinical consideration and professional judgement should be applied to any drug of abuse test result, particularly when preliminary positive results are used. URINE TCA TESTING MUST BE ORDERED SEPARATELY. USE TEST MNEMONIC: UTCA URINE DRUG SCRE VISTA UDS PH 5 ML URINE DRUG SCRE AMPHETAMINES NEGATIVE <1000 ng/mL ML URINE DRUG SCRE BARBITIURATES NEGATIVE < 200 ng/mL ML URINE DRUG SCRE BENZODIAZIPINE NEGATIVE < 200 ng/mL ML URINE DRUG SCRE COCAINE NEGATIVE < 300 ng/mL ML URINE DRUG SCRE ECSTACY NEGATIVE < 500 ng/mL ML URINE DRUG SCRE METHADONE NEGATIVE < 300 ng/mL ML URINE DRUG SCRE OPIATES NEGATIVE < 300 ng/mL ML URINE DRUG SCRE PCP NEGATIVE < 25 ng/mL ML URINE DRUG SCRE THC NEGATIVE < 50 ng/mL ML CBC W/DIFF, AUT NOTE JAMES CBC W/DIFF, AUT WBC 5.4 K/mm3 4.4-11.0 ML CBC W/DIFF, AUT RBC 4.04 M/mm3 4.2-5.4 L ML CBC W/DIFF, AUT HGB 13.3 g/dL 12.0-15.0 ML CBC W/DIFF, AUT HCT 42.0 % 37-47 ML CBC W/DIFF, AUT MCV 104.0 fL 81-99 H ML CBC W/DIFF, AUT MCH 32.9 pg 27.0-32.0 H ML CBC W/DIFF, AUT MCHC 31.7 g/dL 32-36 L ML CBC W/DIFF, AUT RDW CV 12.0 % 11.6-14.6 ML CBC W/DIFF, AUT RDW SD 46.3 fl 35.1-43.9 H ML CBC W/DIFF, AUT PLT 116 K/mm3 150-450 L ML CBC W/DIFF, AUT MPV 13.2 fl 6.2-12.0 H ML CBC W/DIFF, AUT NEUT% 66.0 % 47-70 ML CBC W/DIFF, AUT LY% 27.2 % 19-41 ML CBC W/DIFF, AUT MONO% 6.0 % 0-10 ML CBC W/DIFF, AUT EO% 0.4 % 0-5 ML CBC W/DIFF, AUT BASO% 0.4 % 0-1 ML CBC W/DIFF, AUT IM GRAN % 0.000 % 0.0-0.9 ML IG% - Immature Granulocytes (promyelocytes, myelocytes and metamyelocytes) > 1% indicates that a LEFT SHIFT is Present. CBC W/DIFF, AUT ABSOLUTE NEUT 3.5 X10 3/uL 2.0-7.7 ML CBC W/DIFF, AUT ABSOLUTE LYMPH 1.46 X10 3/uL 0.83-4.51 ML CBC W/DIFF, AUT NRBC, FLAGGED 0 % 0-5 ML URINALYSIS, ROU NOTE JAMES URINALYSIS, ROU COLOR Yellow Yellow ML URINALYSIS, ROU CLARITY Clear Clear ML URINALYSIS, ROU GLUCOSE, UR Normal mg/dl Normal ML URINALYSIS, ROU BILIRUBIN URINE Negative mg/dL Negative ML URINALYSIS, ROU KETONE UR Negative mg/dl Negative ML URINALYSIS, ROU SP.GR. DIPSTX 1.020 1.002-1.030 ML URINALYSIS, ROU PH UR 6.0 5.0 - 8.0 ML URINALYSIS, ROU PROT DIPSTX Negative mg/dl Negative ML URINALYSIS, ROU UROBILI Normal mg/dl Normal ML URINALYSIS, ROU NITRITE UR Negative Negative ML URINALYSIS, ROU OCCULT BLOOD-UR Negative /ul Negative ML URINALYSIS, ROU LEUK ESTERASE 25 /ul Negative H ML PROGESTERONE LE NOTE JAMES PROGESTERONE LE PROGESTERONE > 60.00 ng/mL See Comment ML Progesterone Reference Table: UNITS Female: Follicular 0.15 - 1.40 ng/mL Luteal 3.34 - 25.56 ng/mL Mid-luteal 4.44 - 28.03 ng/mL Postmenopausal 0.0 - 0.73 ng/mL : 1st Trimester 11.22 - 90.00 ng/mL 2nd Trimester 25.55 - 89.40 ng/mL 3rd Trimester 48.40 -422.50 ng/mL HCG TITER QUANT NOTE JAMES HCG TITER QUANT HCG QUANT. 52916 mIU/mL 1-3 H ML hCG levels with Gestational Age Gestational Age hCG mIU/mL (IU/L) 0.2 - 1 week 5 - 50 1-2 weeks 50 - 500 2-3 weeks 100 - 5000 3-4 weeks 500 - 17284 4-5 weeks 1000 - 24493 5-6 weeks 23641 - 100,000 6-8 weeks 49514 - 200,000 2-3 months 60605 - 100,000 ESTRADIOL NOTE JAMES ESTRADIOL ESTRADIOL 346.5 pg/mL ML NORMAL REFERENCE RANGES FEMALE FOLLICULAR 21.4 - 164.8 pg/mL MID-CYCLE PEAK 49.9 - 367.2 pg/mL LUTEAL 40.2 - 259.0 pg/mL POST-MENOPAUSAL ON MHT <11.0 - 462.1 pg/mL NOT ON MHT <11.0 - 58.3 pg/mL MALE <11.0 - 52.5 pg/mL NOTE: [facility] HAS CONFIRMED THE DRUG FULVETRANT (FASLODEX) MAY CAUSE FALSELY ELEVATED ESTRADIOL RESULTS WHEN USING THIS TEST METHOD. IF PATIENT IS TAKING FULVESTRANT AN ALTERNATIVE METHOD SHOULD BE USED TO DETERMINE ESTRADIOL CONCENTRATION. ESTRADIOL NOTE JAMES ESTRADIOL ESTRADIOL 354.6 pg/mL ML NORMAL REFERENCE RANGES FEMALE FOLLICULAR 21.4 - 164.8 pg/mL MID-CYCLE PEAK 49.9 - 367.2 pg/mL LUTEAL 40.2 - 259.0 pg/mL POST-MENOPAUSAL ON MHT <11.0 - 462.1 pg/mL NOT ON MHT <11.0 - 58.3 pg/mL MALE <11.0 - 52.5 pg/mL NOTE: [facility] HAS CONFIRMED THE DRUG FULVETRANT (FASLODEX) MAY CAUSE FALSELY ELEVATED ESTRADIOL RESULTS WHEN USING THIS TEST METHOD. IF PATIENT IS TAKING FULVESTRANT AN ALTERNATIVE METHOD SHOULD BE USED TO DETERMINE ESTRADIOL CONCENTRATION. HCG TITER QUANT NOTE JAMES HCG TITER QUANT HCG QUANT. 5371 mIU/mL 1-3 H ML hCG levels with Gestational Age Gestational Age hCG mIU/mL (IU/L) 0.2 - 1 week 5 - 50 1-2 weeks 50 - 500 2-3 weeks 100 - 5000 3-4 weeks 500 - 51631 4-5 weeks 1000 - 53738 5-6 weeks 27490 - 100,000 6-8 weeks 25548 - 200,000 2-3 months 96179 - 100,000 PROGESTERONE LE NOTE JAMES PROGESTERONE LE PROGESTERONE 21.75 ng/mL See Comment ML Progesterone Reference Table: UNITS Female: Follicular 0.15 - 1.40 ng/mL Luteal 3.34 - 25.56 ng/mL Mid-luteal 4.44 - 28.03 ng/mL Postmenopausal 0.0 - 0.73 ng/mL : 1st Trimester 11.22 - 90.00 ng/mL 2nd Trimester 25.55 - 89.40 ng/mL 3rd Trimester 48.40 -422.50 ng/mL PROGESTERONE LE NOTE JAMES PROGESTERONE LE PROGESTERONE 26.68 ng/mL See Comment ML Progesterone Reference Table: UNITS Female: Follicular 0.15 - 1.40 ng/mL Luteal 3.34 - 25.56 ng/mL Mid-luteal 4.44 - 28.03 ng/mL Postmenopausal 0.0 - 0.73 ng/mL : 1st Trimester 11.22 - 90.00 ng/mL 2nd Trimester 25.55 - 89.40 ng/mL 3rd Trimester 48.40 -422.50 ng/mL HCG TITER QUANT NOTE JAMES HCG TITER QUANT HCG QUANT. 408 mIU/mL 1-3 H ML hCG levels with Gestational Age Gestational Age hCG mIU/mL (IU/L) 0.2 - 1 week 5 - 50 1-2 weeks 50 - 500 2-3 weeks 100 - 5000 3-4 weeks 500 - 85164 4-5 weeks 1000 - 10427 5-6 weeks 57566 - 100,000 6-8 weeks 44652 - 200,000 2-3 months 03698 - 100,000 ESTRADIOL NOTE JAMES ESTRADIOL ESTRADIOL 232.0 pg/mL ML NORMAL REFERENCE RANGES FEMALE FOLLICULAR 21.4 - 164.8 pg/mL MID-CYCLE PEAK 49.9 - 367.2 pg/mL LUTEAL 40.2 - 259.0 pg/mL POST-MENOPAUSAL ON MHT <11.0 - 462.1 pg/mL NOT ON MHT <11.0 - 58.3 pg/mL MALE <11.0 - 52.5 pg/mL NOTE: [facility] HAS CONFIRMED THE DRUG FULVETRANT (FASLODEX) MAY CAUSE FALSELY ELEVATED ESTRADIOL RESULTS WHEN USING THIS TEST METHOD. IF PATIENT IS TAKING FULVESTRANT AN ALTERNATIVE METHOD SHOULD BE USED TO DETERMINE ESTRADIOL CONCENTRATION. *Negative results from patients with symptom onset beyond five days should be treated as presumptive and confirmed by a molecular assay if clinically necessary. Negative results should not be used as the sole basis for treatment or for patient management. COVID 19 AG RAPID (RN COLLECT) *Positive results do not differentiate between SARS-CoV and SARS-CoV-2. If differentation of the specific SARS virus is desired an additional sample and an additional order is required. COVID 19 AG RAPID (RN COLLECT) * This test has not been FDA cleared or approved; the test has been authorized by FDA under an Emergency Use Authorization (EAU) for use by laboratories certified under CLIA that meet the requirements to perform moderate, high, or waived complexity tests. COVID 19 AG RAPID (RN COLLECT) Normal Reference Range: Negative Testing performed on Spurfly[employer] analyzer JUSTIN (lateral flow immunofluorescent assay) SARS-CoV-2 (COVID 19) Negative Group B Beta Streptococcus is not isolated. == ==== Impression /Plan: 41 wks + 1 days intrauterine . Preparations in progress for delivery. Assessment & Plan (1) 41 weeks gestation of : COMMENT: in labor PLAN: Expectant management Cat I FHR (2) Immune thrombocytopenic purpura: PLAN: Plt 102 Pt plans no epidural.
[2020-08-29] MEDS: Oxytocin 30 units/NS 500 ml 30 UNITS/500 ML IV.SOLN 334 UNITS IV (05:32)
--- NOTE | 2020-08-29 05:52 | EX.PCM.OBRPT ---
Assessment & Plan (1) 41 weeks gestation of : (2) (spontaneous vaginal delivery): Maternal Data Information EROS Calculator Estimated Delivery Date Method Current WG Current Estimate 08/21/20 LMP (Certain) 41w 1d Vaginal Delivery Maternal Presentation Maternal Presentation: Active Labor Operative Information Date of Procedure: 08/29/20 Pre-Operative Diagnosis: 41 1/7 weeks gestation Post-Operative Diagnosis: 41 1/7 weeks gestation Surgery / Procedure Performed: Spontaneous Vaginal Delivery Type of Anesthesia: None Estimated Blood Loss: 250 ml Findings Time of Membrane Rupture: 0454h 08/29/20 Amniotic Fluid Description: Clear Placental Delivery Description: Spontaneous Placenta Disposition: [facility] Cord Vessel Description: 3 Vessels Cord Entanglement: None Nuchal Cord Compression: With compression A Gender: Female (1 minute): 9 (5 minute): 9 Delayed Cord Clamping: Yes Post Vaginal Delivery Medications Given After Delivery: IV Pitocin Episiotomy Description: None Laceration: None Complication Complications: None
--- NOTE | 2020-08-29 05:55 | PCM.DC ---
Discharge Instructions Diet Discharge Diet: No restrictions Activity Discharge Activity: Return to Normal Activity May resume sexual activity in: 4-6 weeks Lifting Restrictions: 20-25lb Dressing / Incision Call your doctor if your incision/area has: Sudden Increased Bleeding and Foul Smelling Discharge Call your doctor if you observe: Inability to urinate, Shortness of breath, Chest pain, Calf discomfort and Uncontrolled pain Follow Up Care Please Follow Up With: Abby Don MD When: 3 weeks for telehealth follow up 6 weeks for visit Test Results: Test results from this visit will be discussed in further detail at your follow-up appointment, if applicable. Discharge Plan Admission Admit Date/Time: 08/29/20 00:22 Primary Reason for Your Visit: Vaginal delivery Attending Provider: Abby Douglas Primary Care Provider: Vern Leyva Instructions Patient Instructions: After a Vaginal Discharge Orders/Prescriptions Prescriptions: New ibuprofen 600 mg tablet 600 mg PO Q8H PRN (Reason: pain) Qty: 30 RF: 0 Continued vit,[id number] 1 TABLET tablet 1 tab PO DAILY RF: 0 levothyroxine [Synthroid] 50 mcg Tablet 50 mcg PO DAILY RF: 0 Zyrtec 10 mg Capsule 10 mg PO DAILY RF: 0 Discontinued naltrexone 50 MG tablet 50 mg PO DAILY RF: 0 Referrals / Follow Up: Vern Leyva MD [Primary Care Provider] - Disposition Disposition (needs filled in before D/C Order can be placed): Home, Self Care
[2020-08-29] MEDS: 0.9% Saline Lock 10 ML Syringe IV (08:14)
--- NOTE | 2020-08-29 19:45 | NURSING ---
1830- passed large clot when up to bathroom, back to bed, fundus firm u/1 with no active bleeding. aware to call nurse if further clots or increased bleeding
[2020-08-30 04:45] VITALS: BP 104/54; PULSE 61; RESP 14; TEMP 36.4
[2020-08-30 08:37] VITALS: BP 103/59; PULSE 64; RESP 16; TEMP 36.3
--- NOTE | 2020-08-30 10:27 | PN.OBGYN_ITS ---
Subjective Subjective No overnight complaints. Pain well controlled. Objective Data Objective Data Vital Signs: Vital Signs Temp Pulse Resp BP Pulse Ox 97.3 F L 64 16 103/59 L 100 08/30/20 08:37 08/30/20 08:37 08/30/20 08:37 08/30/20 08:37 08/29/20 07:50 Oxygen Delivery Method Room Air Weight: 164 lb 14.492 oz Body Mass Index (BMI) 25.8 Intake & Output: Intake and Output for Last 24 Hours 08/28/20 08/29/20 08/30/20 23:59 23:59 23:59 Intake Total 1303.33 / 1303.33 Output Total 1550 / 1550 Balance -246.67 / -246.67 Lab / Micro Data Result Diagrams: 08/29/20 01:30 Micro: Microbiology 08/29/20 02:00 Mucosa - Nose SARS-CoV-2 Antigen (Rapid) - Final Physical Exam Const alert, oriented x3, no apparent distress, average body habitus, healthy appearing and well nourished HEENT normocephalic and moist oral mucous membranes Head and Scalp: atraumatic Face and Sinus: normal facial exam Neck full ROM Resp normal respiratory effort, no retractions and no use of accessory muscles GI normal to inspection, nondistended, normoactive bowel sounds Narrative: Uterus firm and below umbilicus Extremity normal to inspection, full ROM and no clubbing, cyanosis or edema Skin no rashes or lesions noted Psych mental status grossly normal, affect normal, speech normal and activity/motor behavior normal Assessment & Plan (1) (spontaneous vaginal delivery): PLAN: day 1. Breast-feeding. Pain well controlled. 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 Follow-up telehealth in 2 weeks, follow-up in office 4 to 6 weeks
--- NOTE | 2020-08-30 10:27 | PCM.DC ---
Discharge Instructions Diet Discharge Diet: No restrictions Activity May resume sexual activity in: 4-6 weeks Dressing / Incision Call your doctor if your incision/area has: Sudden Increased Bleeding and Foul Smelling Discharge Call your doctor if you observe: Inability to urinate, Shortness of breath, Chest pain, Calf discomfort and Uncontrolled pain Follow Up Care Please Follow Up With: Abby Don MD Test Results: Test results from this visit will be discussed in further detail at your follow-up appointment, if applicable. Discharge Plan Admission Admit Date/Time: 08/29/20 00:22 Primary Reason for Your Visit: Vaginal delivery Attending Provider: Abby Douglas Primary Care Provider: Vern Leyva Instructions Patient Instructions: After a Vaginal Discharge Orders/Prescriptions Prescriptions: New ibuprofen 600 mg tablet 600 mg PO Q8H PRN (Reason: pain) Qty: 30 RF: 0 Continued vit,[id number] 1 TABLET tablet 1 tab PO DAILY RF: 0 levothyroxine [Synthroid] 50 mcg Tablet 50 mcg PO DAILY RF: 0 Zyrtec 10 mg Capsule 10 mg PO DAILY RF: 0 Discontinued naltrexone 50 MG tablet 50 mg PO DAILY RF: 0 Referrals / Follow Up: Vern Leyva MD [Primary Care Provider] - Disposition Discharge Orders: Discharge Patient (Routine); Ordered 08/30/20 Ordered By: Dr. Karan Catherine
--- NOTE | 2020-09-04 15:51 | NURSING ---
Mother's nursing well , milk in. Really liked Aminah Odell
== END 2020-08-30 11:35 | disposition home or self-care (01) | DRG 807 ==
PROVIDERS: Admitting Provider Obstetrics & Gynecology; PCP Family Medicine; Visit Provider Obstetrics & Gynecology
DX: O99.12 Other diseases of the blood and blood-forming organs and certain disorders involving the immune mechanism complicating childbirth (principal); Z37.0 Single live birth; D69.6 Thrombocytopenia, unspecified; O69.1XX0 Labor and delivery complicated by cord around neck, with compression, not applicable or unspecified; Z3A.41 41 weeks gestation of pregnancy
CPT/HCPCS: 59025; 59050; 85025; 86850; 86900; 86901; 87426; 99218; J7120; A4216; G0378

== ENCOUNTER → 2020-10-14 12:05 | Outpatient (CLI) | payer OTHER, SELFPAY ==
[2020-10-14 14:34] LABS: T4 Free Direct 0.79 ng/dL (0.76-1.46); Thyroid Stim Hormone (TSH) 1.02 uIU/mL (0.358-3.74)
== END ==
PROVIDERS: PCP Family Medicine; Visit Provider Obstetrics & Gynecology
DX: E03.9 Hypothyroidism, unspecified (principal)
CPT/HCPCS: 36415; 84439; 84443

== ENCOUNTER → 2021-08-25 | Outpatient (CLI) | payer OTHER, SELFPAY ==
[2021-08-25 09:40] LABS: T3 Total - Triiodothyronine 0.79 ng/mL (0.6-1.81)
[2021-08-25 09:45] LABS: Estradiol 23.2 pg/mL; Follicle Stimulating Hormone 7.1 mIU/mL; Prolactin 2.9 ng/mL; T4 Free Direct 0.66 ng/dL (0.76-1.46); Thyroid Stim Hormone (TSH) 2.37 uIU/mL (0.358-3.74)
[2021-08-29 02:07] LABS: Insulin Like Growth Factor 237 ng/mL (84-281)
[2021-08-30 13:06] LABS: DHEA Sulfate 52.2 ug/dL (84.8-378.0)
[2021-08-30 13:31] LABS: Sex Hormone-binding Globulin 51.7 nmol/L (24.6-122.0); T3 Reverse 8.9 ng/dL (9.2-24.1)
== END | disposition home or self-care (01) ==
LOC: LAB 08:00
PROVIDERS: PCP Family Medicine; Visit Provider Obstetrics & Gynecology
DX: N91.2 Amenorrhea, unspecified (principal); E23.3 Hypothalamic dysfunction, not elsewhere classified; D35.2 Benign neoplasm of pituitary gland
CPT/HCPCS: 36415; 82533; 82627; 82670; 83001; 84146; 84270; 84305; 84403; 84439; 84443; 84480; 84482; 82626

== ENCOUNTER → 2021-10-15 | Outpatient (CLI) | payer OTHER, SELFPAY ==
--- NOTE | 2021-10-15 07:32 | MRI_ITS ---
STUDY: MRI BRAIN WITH AND WITHOUT CONTRAST (ATTENTION PITUITARY GLAND) REASON FOR EXAM: Female, 31 years old. PITUITARY ADENOMA TECHNIQUE: Standardized multiplanar fat and water weighted pulse sequences were obtained. 12 mL of IV Clariscan was administered for the contrast portion of the examination. COMPARISON: None. FINDINGS: Normal size of the pituitary gland for the patient?s age and gender. Normal enhancement of the pituitary gland, without a demonstrated intrapituitary lesion. Normal infundibular stalk and suprasellar cistern. Normal optic chiasm and hypothalamus. Normal size of the ventricles and extra-axial spaces for the patient''s age. Normal white matter tracts of the supratentorial brain. Normal bilateral basal ganglia. Normal thalami. Normal flow voids within the major intracranial circulation suggesting patency by spin echo criteria. Normal venous enhancement. There is no enhancing intra-axial or extra-axial abnormality. There is no extra-axial fluid accumulation. Normal tectal plate and pineal gland. Normal midbrain, danny and medulla. Normal cerebellum. Normal basal cisterns. Normal bilateral temporal bones. Normal bilateral internal auditory canals. No demonstrated orbital abnormality, within the constraints of a routine brain study. Normal visualized paranasal sinuses. Normal calvarium and skull base. Normal visualized upper cervical spine. Normal visualized soft tissue structures. MRI/Brain W/WO Contrast IMPRESSION: 1. Normal unenhanced and enhanced MRI of the brain and pituitary gland. 2. No interval change when compared to 09/18/2014. Electronically Signed: Woody Puckett MD at 9:50 EDT ,
== END | disposition home or self-care (01) ==
PROVIDERS: PCP Family Medicine; Referring Provider Obstetrics & Gynecology; Visit Provider Obstetrics & Gynecology
DX: D35.2 Benign neoplasm of pituitary gland (principal)
CPT/HCPCS: 70553; A9575

== ENCOUNTER → 2022-01-20 | Outpatient (CLI) | payer OTHER, SELFPAY | END | disposition home or self-care (01) | LOC: LAB 12:52 | PROVIDERS: PCP Family Medicine; Visit Provider Obstetrics & Gynecology | DX: N91.2 Amenorrhea, unspecified (principal) | CPT/HCPCS: 36415; 84144 ==

== ENCOUNTER 2022-05-18 07:58 | Outpatient (CLI) | payer OTHER, SELFPAY ==
[2022-05-18 09:16] LABS: Progesterone Level 21.11 ng/mL (See Comment)
== END 2022-05-18 23:59 | disposition home or self-care (01) ==
LOC: LAB 08:01
PROVIDERS: PCP Family Medicine; Referring Provider Obstetrics & Gynecology
DX: R87.1 Abnormal level of hormones in specimens from female genital organs (principal)
CPT/HCPCS: 36415; 84144

== ENCOUNTER 2022-08-15 10:59 | Emergency (ER) | payer OTHER, SELFPAY ==
[2022-08-15 11:00] VITALS: BP 107/79; PULSE 60; RESP 15; TEMP 36.8; O2SAT 100; BMI 21.6
--- NOTE | 2022-08-15 11:09 | EX.ED.DYSGE1 ---
HPI <RAVEN Cano - Last Filed: 08/15/22 17:13> History of Present Illness Chief Complaint: Abd Pain Narrative Narrative: 31-year-old female presents with right lower pelvic pain. She had transient pain in this area couple days ago but today at 7 AM the pain returned and is sharp and severe. She is nauseous with no vomiting. No fever or chills. She is having normal urination and today some loose nonbloody stools. She takes hCG trigger shots monthly to induce ovulation and took 1 on 08/10. She has never had an issue with these before and was not sure if it is related. She has no abdominal surgical history. Does not smoke or drink alcohol frequently. PFSH <RAVEN Cano - Last Filed: 08/15/22 17:13> [facility], [facility] Medical History Macrocytic anemia Thrombocytopenia Home Medications vits,calcium no.78-iron fumarate-folic acid 29 mg-1 mg tablet 1 tab PO DAILY Check with primary doctor 04/12/19 [History Last Taken 08/28/20 22:00 1 tablet] cetirizine 10 mg capsule (Zyrtec) 10 mg PO DAILY Check with primary doctor 08/10/20 [History Last Taken 08/28/20 22:00 10 mg] ibuprofen 600 mg tablet 600 mg PO Q8H PRN pain #30 tabs 08/29/20 [Rx Last Taken Unknown] naltrexone 50 mg tablet 4.5 mg PO DAILY 09/24/21 [History Last Taken Unknown] hydrocodone-acetaminophen 5-325mg 5mg-325mg 1 tab PO Q6H PRN PRN Pain 3 days #10 TABLETS 08/15/22 [Rx Last Taken Unknown] Allergy/AdvReac Type Severity Reaction Status Date / Time No Known Allergies Allergy Verified 08/15/22 11:02 Family History Father Skin cancer Grandfather Colon cancer Uncle Colon cancer Surgical History History of removal of skin mole No history of previous surgery [place] teeth extracted Social History Smoking Status: Never smoker ROS <RAVEN Cano - Last Filed: 08/15/22 17:13> ROS ED ROS Narrative Constitutional: Negative for fever, chills, malaise. CVS: Negative for palpitations, chest pain, syncope. Respiratory: Negative for shortness of breath, cough. GI: Positive for abdominal pain, nausea, diarrhea. Negative for vomiting, constipation, melena, hematochezia. : Negative for dysuria, hematuria or frequency. EXAM <RAVEN Cano - Last Filed: 08/15/22 17:13> Physical Exam Narrative Exam Narrative: CONST: Patient appears uncomfortable but nontoxic. EYES: Normal inspection. NECK: Normal inspection. RESP: No respiratory distress, CTAB. CVS: Regular rate and rhythm, no murmur, no gallop. ABD: Soft and nontender, no guarding or rebound, nondistended, no hepatosplenomegaly.. SKIN: Color normal, no rash, warm, dry, intact. EXTREMITIES: Normal appearance, no pedal edema. NEURO: Oriented x4. PSYCH: Normal affect. Const Vital Signs: 08/15/22 11:00 08/15/22 13:06 08/15/22 15:21 Temperature 98.2 F Temperature Source Temporal Pulse Rate 60 60 60 Respiratory Rate 15 16 16 Blood Pressure 107/79 114/70 114/65 Blood Pressure Mean 88 84 81 Pulse Ox 100 99 98 Oxygen Delivery Method Room Air Room Air Room Air <Dr. Mio Kingston MD - Last Filed: 08/15/22 11:39> Physical Exam Const Vital Signs: 08/15/22 11:00 08/15/22 13:06 08/15/22 15:21 Temperature 98.2 F Temperature Source Temporal Pulse Rate 60 60 60 Respiratory Rate 15 16 16 Blood Pressure 107/79 114/70 114/65 Blood Pressure Mean 88 84 81 Pulse Ox 100 99 98 Oxygen Delivery Method Room Air Room Air Room Air MDM <RAVEN Cano - Last Filed: 08/15/22 17:13> MDM MDM Narrative Medical decision making narrative: Patient presents with right lower pelvic pain. She appears well and nontoxic and is afebrile with normal vital signs. She appears uncomfortable but there is no reproducible RLQ tenderness. CBC is within normal limits other than chronic macrocytosis. BMP unremarkable. Serum test is positive although since she is taking hCG trigger shots to cause ovulation this may be a false positive. Quant is 102. Ultrasound shows right ovarian cyst, no intrauterine sac identified. I spoke with the on-call HORTICULT[employer] SERVICES SUPERVISOR Dr. Harjinder Don who takes care of the patient. She states the test is positive due to the shots and its not likely this is an early or ectopic. She added LFTs which are normal. Urinalysis is also negative. I prescribed [place] for pain and OB is comfortable with close follow-up in the office and will contact her tomorrow. Patient was discharged in stable condition. Differential: Ovarian cyst, ectopic , appendicitis, kidney stone, UTI I considered a CT of her abdomen/pelvis but pain is very low in the pelvic region and she has a normal white count and I do not suspect acute appendicitis. Lab Data Labs: Laboratory Results - last 24 hr 08/15/22 08/15/22 08/15/22 11:10 11:10 11:10 WBC 5.2 RBC 4.32 Hgb 14.1 Hct 43.8 MCV 101.4 H MCH 32.6 H MCHC 32.2 RDW Std Deviation 45.3 H RDW Coeff of [place] 12.0 Plt Count 107 L MPV 12.3 H Immature Gran % (Auto) 0.200 Neut % (Auto) 81.1 H Lymph % (Auto) 14.4 L [place] % (Auto) 3.7 Eos % (Auto) 0.2 Baso % (Auto) 0.4 Absolute Neuts (auto) 4.2 Absolute Lymphs (auto) 0.75 L Nucleated RBC % 0 Sodium 139 Potassium 3.9 Chloride 107 Carbon Dioxide 25.0 Anion Gap 7 BUN 25 H Creatinine 0.72 Estim Creat Clear Calc 108.07 Est GFR (MDRD) Af Amer 120 Est GFR (MDRD) Non-Af 99 BUN/Creatinine Ratio 34.9 H Glucose 133 H Calcium 8.4 L Total Bilirubin Direct Bilirubin AST ALT Alkaline Phosphatase Total Protein Albumin Globulin HCG, Quant Serum , Qual POSITIVE H Urine Color Urine Clarity Urine pH Ur Specific [place] Urine Protein Urine Glucose (UA) Urine Ketones Urine Occult Blood Urine Nitrite Urine Bilirubin Urine Urobilinogen Ur Leukocyte Esterase Urine RBC Urine WBC Ur Squamous Epith Cells Urine Bacteria Urine Mucus 08/15/22 08/15/22 08/15/22 11:10 11:10 14:25 WBC RBC Hgb Hct MCV MCH MCHC RDW Std Deviation RDW Coeff of [place] Plt Count MPV Immature Gran % (Auto) Neut % (Auto) Lymph % (Auto) [place] % (Auto) Eos % (Auto) Baso % (Auto) Absolute Neuts (auto) Absolute Lymphs (auto) Nucleated RBC % Sodium Potassium Chloride Carbon Dioxide Anion Gap BUN Creatinine Estim Creat Clear Calc Est GFR (MDRD) Af Amer Est GFR (MDRD) Non-Af BUN/Creatinine Ratio Glucose Calcium Total Bilirubin 0.40 Direct Bilirubin 0.12 AST 24 ALT 28 Alkaline Phosphatase 39 L Total Protein 7.3 Albumin 4.1 Globulin 3.2 HCG, Quant 102 H Serum , Qual Urine Color Yellow Urine Clarity Clear Urine pH 6.0 Ur Specific [place] 1.020 Urine Protein 15 H Urine Glucose (UA) Normal Urine Ketones 15 H Urine Occult Blood Negative Urine Nitrite Negative Urine Bilirubin Negative Urine Urobilinogen Normal Ur Leukocyte Esterase Negative Urine RBC 0 SEEN Urine WBC 0 SEEN Ur Squamous Epith Cells 0 SEEN Urine Bacteria 0 SEEN Urine Mucus 0 SEEN Radiography Diagnostic Testing: Clinical Impression(s) from Imaging Studies Obstetrics Ultrasound 08/15/22 11:32 IMPRESSION: No intrauterine gestational sac identified. Recommend correlation with serial beta hCG levels and follow-up ultrasound to assess for ectopic or spontaneous miscarriage versus very early intrauterine . 2.4 cm right ovarian corpus luteal cyst with moderate free fluid in the pelvis. Ruptured ectopic not excluded. Electronically Signed: Delmy Kirkpatrick MD at 13:49 EDT Reading Location ID and State: [facility] Tel , Service support , ADDENDUM: 08/15/22 1415 IMPRESSION: No intrauterine gestational sac identified. Recommend correlation with serial beta hCG levels and follow-up ultrasound to assess for ectopic or spontaneous miscarriage versus very early intrauterine . 2.4 cm right ovarian corpus luteal cyst with moderate free fluid in the pelvis. Ruptured ectopic not excluded. N.B. : Quynh Aranda OT, confirmed on 08/15/2022 14:08:35 (ET) that the healthcare facility has received the radiology report. Electronically Signed: Delmy Kirkpatrick MD at 13:49 EDT , <Dr. Mio Kingston MD - Last Filed: 08/15/22 11:39> [facility] Lab Data Attestation: I reviewed the patient's lab results. Labs: Laboratory Results - last 24 hr 08/15/22 08/15/22 08/15/22 11:10 11:10 11:10 WBC 5.2 RBC 4.32 Hgb 14.1 Hct 43.8 MCV 101.4 H MCH 32.6 H MCHC 32.2 RDW Std Deviation 45.3 H RDW Coeff of [place]alle 12.0 Plt Count 107 L MPV 12.3 H Immature Gran % (Auto) 0.200 Neut % (Auto) 81.1 H Lymph % (Auto) 14.4 L [place] % (Auto) 3.7 Eos % (Auto) 0.2 Baso % (Auto) 0.4 Absolute Neuts (auto) 4.2 Absolute Lymphs (auto) 0.75 L Nucleated RBC % 0 Sodium 139 Potassium 3.9 Chloride 107 Carbon Dioxide 25.0 Anion Gap 7 BUN 25 H Creatinine 0.72 Estim Creat Clear Calc 108.07 Est GFR (MDRD) Af Amer 120 Est GFR (MDRD) Non-Af 99 BUN/Creatinine Ratio 34.9 H Glucose 133 H Calcium 8.4 L Total Bilirubin Direct Bilirubin AST ALT Alkaline Phosphatase Total Protein Albumin Globulin HCG, Quant Serum , Qual POSITIVE H Urine Color Urine Clarity Urine pH Ur Specific [place] Urine Protein Urine Glucose (UA) Urine Ketones Urine Occult Blood Urine Nitrite Urine Bilirubin Urine Urobilinogen Ur Leukocyte Esterase Urine RBC Urine WBC Ur Squamous Epith Cells Urine Bacteria Urine Mucus 08/15/22 08/15/22 08/15/22 11:10 11:10 14:25 WBC RBC Hgb Hct MCV MCH MCHC RDW Std Deviation RDW Coeff of [place]alle Plt Count MPV Immature Gran % (Auto) Neut % (Auto) Lymph % (Auto) [place] % (Auto) Eos % (Auto) Baso % (Auto) Absolute Neuts (auto) Absolute Lymphs (auto) Nucleated RBC % Sodium Potassium Chloride Carbon Dioxide Anion Gap BUN Creatinine Estim Creat Clear Calc Est GFR (MDRD) Af Amer Est GFR (MDRD) Non-Af BUN/Creatinine Ratio Glucose Calcium Total Bilirubin 0.40 Direct Bilirubin 0.12 AST 24 ALT 28 Alkaline Phosphatase 39 L Total Protein 7.3 Albumin 4.1 Globulin 3.2 HCG, Quant 102 H Serum , Qual Urine Color Yellow Urine Clarity Clear Urine pH 6.0 Ur Specific [place] 1.020 Urine Protein 15 H Urine Glucose (UA) Normal Urine Ketones 15 H Urine Occult Blood Negative Urine Nitrite Negative Urine Bilirubin Negative Urine Urobilinogen Normal Ur Leukocyte Esterase Negative Urine RBC 0 SEEN Urine WBC 0 SEEN Ur Squamous Epith Cells 0 SEEN Urine Bacteria 0 SEEN Urine Mucus 0 SEEN Radiography Diagnostic Testing: Clinical Impression(s) from Imaging Studies Obstetrics Ultrasound 08/15/22 11:32 IMPRESSION: No intrauterine gestational sac identified. Recommend correlation with serial beta hCG levels and follow-up ultrasound to assess for ectopic or spontaneous miscarriage versus very early intrauterine . 2.4 cm right ovarian corpus luteal cyst with moderate free fluid in the pelvis. Ruptured ectopic not excluded. Electronically Signed: Delmy Kirkpatrick MD at 13:49 EDT , ADDENDUM: 08/15/22 1415 IMPRESSION: No intrauterine gestational sac identified. Recommend correlation with serial beta hCG levels and follow-up ultrasound to assess for ectopic or spontaneous miscarriage versus very early intrauterine . 2.4 cm right ovarian corpus luteal cyst with moderate free fluid in the pelvis. Ruptured ectopic not excluded. N.B. : Quynh Aranda OT, confirmed on 08/15/2022 14:08:35 (ET) that the healthcare facility has received the radiology report. Electronically Signed: Delmy Kirkpatrick MD at 13:49 EDT , Treatment and Re-Evaluation Comments:: Seen and evaluated independently and in conjunction with physician assistant administrator. Agree with notes above unless documented otherwise. Gradual onset of right pelvic pain day or 2 ago but much worse today. Is on Clomid, and hCG trigger shots, she did the shot 5 days ago. She has been doing the cycle since February but never had pain like this. Menstrual cycles are irregular, last 1 started just over 3 weeks ago July 22. No vaginal discharge or bleeding. No urinary symptoms. Exam: No distress but uncomfortable in pain, really no tenderness in the right lower quadrant or anywhere else. Soft nondistended no palpable mass. No CVA tenderness. Labs and ultrasound. Her hCG qualitative is positive, this is potentially due to the shots of hCG she is getting, in order to evaluate for ectopic we will add a quant and evaluate ultrasound and discussed with OB. Kidney stone, GI etiologies also in the differential thought to be less likely but possible. Poor exam for appendicitis. Discharge Plan Triage Chief Complaint: Abd Pain ED Midlevel Provider: Yulia Duran ED Provider: Mio Kingston Dx/Rx/DC Orders Clinical Impression: Pelvic pain, Cyst of right ovary Instructions: Ovarian Cysts Prescriptions: New hydrocodone-acetaminophen 5-325 mg tablet 1 tab PO Q6H PRN PRN (Reason: Pain) 3 Days Qty: 10 0RF No Action naltrexone 50 mg tablet 4.5 mg PO DAILY vit,[id number] 1 TABLET tablet 1 tab PO DAILY Zyrtec 10 mg Capsule 10 mg PO DAILY ibuprofen 600 mg tablet 600 mg PO Q8H PRN (Reason: pain) Qty: 30 0RF Primary Care Provider: Vern Leyva Referrals: Vern Leyva MD [Primary Care Provider] - Activity Restrictions/Additional Instructions: Your ultrasound showed a right sided ovarian cyst. Please follow up with your OBGYN or return to ER if symptoms worsen. Disposition Disposition: Home, Self Care
[2022-08-15] MEDS: Ondansetron 4 MG/2 ML Vial IV (11:18)
[2022-08-15] MEDS: 0.9% Normal Saline 1,000 ML 999 ML IV (11:18)
[2022-08-15] MEDS: Morphine 4 MG/ML Syringe IV ×2 (11:18→13:15)
[2022-08-15 11:20] LABS: Absolute Lymphocyte Count 0.75 X10^3/uL (0.83-4.51); Absolute Neutrophil Count 4.2 X10^3/uL (2.0-7.7); Basophil# 0.02 X10^3/uL; Basophil% 0.4 % (0-1); Eosinophil# 0.01 X10^3/uL; Eosinophils% 0.2 % (0-5); Hematocrit 43.8 % (37-47); Hemoglobin 14.1 g/dL (12.0-15.0); Lymphocyte # 0.75 X10^3/ul (0.83-4.51); Lymphocyte % 14.4 % (19-41); Mean Corp Hgb Conc 32.2 g/dL (32-36); Mean Corpuscular Hgb 32.6 pg (27.0-32.0); Mean Corpuscular Volume 101.4 fL (81-99); Mean Platelet Vol. 12.3 fl (6.2-12.0); Monocyte# 0.19 X10^3/uL; Monocyte% 3.7 % (0-10); NRBC Flagged by Analyzer 0 % (0-5); Neutrophil # 4.22 X10^3/uL (2.7-7.7); Neutrophil % 81.1 % (47-70); Platelet Count 107 K/mm3 (150-450); RBC Distribution Width SD 45.3 fl (35.1-43.9); Red Blood Count 4.32 M/mm3 (4.2-5.4); White Blood Count 5.2 K/mm3 (4.4-11.0)
[2022-08-15 11:26] LABS: Internal QC Validated? YES +Cl - CLEAR BKGD; Pregnancy, Serum, hCG Quali. POSITIVE Negative
[2022-08-15 11:30] LABS: Anion Gap 7 (5-15); BUN 25 mg/dL (7-18); BUN/Creat Ratio 34.9 RATIO (10-20); Calcium,Total 8.4 mg/dL (8.5-10.1); Chloride 107 mmol/L (98-107); Creatinine, Serum 0.72 mg/dL (0.55-1.02); EST Glomerular Filtration Rate 99 mL/min (>60); Est Glom Filt Rate - Afr Amer 120 mL/min (>60); Estimated Creatinine Clearance 108.07 ml/min; Glucose 133 mg/dL (74-106); Potassium 3.9 mmol/L (3.5-5.1); Sodium Level 139 mmol/L (136-145)
--- NOTE | 2022-08-15 11:32 | US_ITS ---
ACR Level 3 findings have been noted. An addendum which confirms receipt of the report will follow. HISTORY: pelvic pain. LMP 07/24/2022. TECHNIQUE: Transvaginal pelvic ultrasound was performed. 109 images. COMPARISON: None. FINDINGS: UTERUS: 8.9 x 4.8 x 6.3 cm. ENDOMETRIAL COMPLEX: 10 mm in thickness. No intrauterine gestational sac identified. RIGHT OVARY: 2.7 x 5.5 x 3.4 cm with vascular flow demonstrated. 2.4 cm complex cyst. LEFT OVARY: 2 x 4.1 x 6.3 cm with vascular flow demonstrated. No adnexal masses. FREE FLUID: Moderate free fluid particularly in the right adnexal region. US/Transvaginal w/Preg US IMPRESSION: No intrauterine gestational sac identified. Recommend correlation with serial beta hCG levels and follow-up ultrasound to assess for ectopic or spontaneous miscarriage versus very early intrauterine . 2.4 cm right ovarian corpus luteal cyst with moderate free fluid in the pelvis. Ruptured ectopic not excluded. Electronically Signed: Delmy Kirkpatrick MD at 13:49 EDT ,
[2022-08-15 11:51] LABS: hCG Titer Quant., Serum 102 mIU/mL (1-3)
[2022-08-15 13:06] VITALS: BP 114/70; PULSE 60; RESP 16; O2SAT 99
[2022-08-15 13:59] LABS: AST(SGOT) 24 U/L (15-37); Alanine Aminotransfer ALT/SGPT 28 U/L (13-56); Albumin, Serum 4.1 g/dL (3.2-5.0); Alkaline Phosphatase 39 U/L (45-117); Bilirubin, Direct 0.12 mg/dL (0.00-0.30); Globulin 3.2 g/dL (2.2-4.2); Protein, Total 7.3 g/dL (6.4-8.2)
[2022-08-15] MEDS: Ketorolac 30 MG/ML Syringe IV (14:06)
[2022-08-15 14:32] LABS: Bacteria 0 SEEN /hpf (None Seen); Mucous, Urine 0 SEEN /hpf (<or=2+); Red Blood Cells-Urine 0 SEEN /hpf (0-5); Squamous Epithelial Cells - UA 0 SEEN /hpf (5-10); White Blood Cells 0 SEEN /hpf (0-5)
[2022-08-15 14:36] LABS: Color, Urine Yellow (Yellow); Glucose, Dipstick Normal (Normal); Ketone-Dipstick 15 mg/dl (Negative); Leukocyte Esterase-Dipstick Negative /ul (Negative); Nitrite-Dipstick Negative (Negative); Occult Blood-Urine Negative /ul (Negative); Protein-Dipstick 15 mg/dl (Negative); Urine Bilirubin Dipstick Negative (Negative); Urine Clarity Clear (Clear); Urine Urobilinogen Normal (Normal)
[2022-08-15 15:21] VITALS: BP 114/65; PULSE 60; RESP 16; O2SAT 98
== END 2022-08-15 15:48 | disposition home or self-care (01) ==
PROVIDERS: Obstetrics & Gynecology; Physician Assistant; Emergency Provider Emergency Medicine; PCP Family Medicine; Visit Provider Emergency Medicine
DX: N83.201 Unspecified ovarian cyst, right side (principal); R10.2 Pelvic and perineal pain
CPT/HCPCS: 76817; 80048; 80076; 81001; 84702; 84703; 85025; 93976; 96361; 96372; 96374; 96375; 99282; J7030; A4216; J2405

== ENCOUNTER 2022-08-15 23:42 | Emergency (ER) | payer OTHER, SELFPAY ==
[2022-08-15 23:43] VITALS: BP 117/58; PULSE 52; RESP 16; TEMP 36.8; O2SAT 95; BMI 22.5
[2022-08-16] MEDS: Ondansetron 4 MG/2 ML Vial IV ×2 (00:51→02:49)
[2022-08-16] MEDS: 0.9% Normal Saline 1,000 ML 999 ML IV (00:51)
--- NOTE | 2022-08-16 00:51 | EX.ED.DYSGE1 ---
HPI History of Present Illness Chief Complaint: Abd Pain Informant: patient and spouse/S.O. Narrative Narrative: Patient is a 31-year-old female with no significant past medical history other than she has been having difficulty becoming and is currently undergoing fertility treatment. She was seen earlier today secondary to abdominal pain and found to have a ruptured right-sided ovarian cyst. She states that this evening she spiked a low-grade temperature of approximately 99 and had increasing right-sided pain and was concerned about her appendix and secondary to this returns for repeat evaluation. She states she has been no vaginal bleeding or discharge she denies any dysuria or nausea or vomiting but does admit to loose stool/diarrhea PFSH PFSH Medical History Macrocytic anemia Ovarian cyst Thrombocytopenia Home Medications vits,calcium no.78-iron fumarate-folic acid 29 mg-1 mg tablet 1 tab PO DAILY Check with primary doctor 04/12/19 [History Last Taken 08/28/20 22:00 1 tablet] cetirizine 10 mg capsule (Zyrtec) 10 mg PO DAILY Check with primary doctor 08/10/20 [History Last Taken 08/28/20 22:00 10 mg] ibuprofen 600 mg tablet 600 mg PO Q8H PRN pain #30 tabs 08/29/20 [Rx Last Taken Unknown] naltrexone 50 mg tablet 4.5 mg PO DAILY 09/24/21 [History Last Taken Unknown] hydrocodone-acetaminophen 5-325mg 5mg-325mg 1 tab PO Q6H PRN PRN Pain 3 days #10 TABLETS 08/15/22 [Rx Last Taken Unknown] oxycodone-acetaminophen 5 mg-325 mg tablet (Percocet) 1 tab PO Q6H PRN pain 3 days #12 tabs 08/16/22 [Rx Last Taken Unknown] Allergy/AdvReac Type Severity Reaction Status Date / Time No Known Allergies Allergy Verified 08/15/22 11:02 Family History Father Skin cancer Grandfather Colon cancer Uncle Colon cancer Surgical History History of removal of skin mole No history of previous surgery [place] teeth extracted Social History (Reviewed 08/04/22 @ 10:31 by Maricarmen Crabtree Smoking Status: Never smoker ROS ROS ED Constitutional Constitutional ED: Reports fever(s) and subjective; Denies chills ENT ENT ED: Denies sore throat Cardiovascular Cardiovascular: Denies chest pain Respiratory/Chest Respiratory/Chest: Denies cough or dyspnea Gastrointestinal Gastrointestinal: Reports abdominal pain and diarrhea; Denies nausea or vomiting Genitourinary Genitourinary ED: Denies dysuria, hematuria or urinary frequency Musculoskeletal Musculoskeletal: Denies myalgias Integumentary Denies rash Neurologic Neurologic: Denies headache(s) Hematologic/Lymphatic Hematologic/Lymphatic: Denies easy bleeding or easy bruising EXAM Physical Exam Const Vital Signs: 08/15/22 23:43 Temperature 98.3 F Temperature Source Temporal Pulse Rate 52 L Respiratory Rate 16 Blood Pressure 117/58 L Blood Pressure Mean 77 Pulse Ox 95 Positive well nourished and well developed General Appearance ED: well developed HEENT HEENT Narrative: Normocephalic atraumatic Eyes PERRL and EOMs intact bilaterally General Eye ED: Negative for scleral icterus Neck supple Resp normal respiratory effort and clear to auscultation bilaterally Cardio regular rate and regular rhythm GI normal to inspection, nondistended, normoactive bowel sounds, non-tender, non-distended and no masses GI Narrative: No voluntary guarding or rigidity. No pulsatile mass or fluid wave. No pain with palpation over top McBurney's point. Negative heel strike psoas and obturator signs Auscultation: normoactive bowel sounds Palpation: soft Back/Spine no CVA tenderness Extremity normal to inspection Neuro oriented x3 and CN's II-XII intact bilaterally Sensorium / Orientation: alert Psych mental status grossly normal Skin no rashes or lesions noted General Skin Exam: Negative for jaundice MDM MDM MDM Narrative Medical decision making narrative: Patient presented to the ER with stable vitals. She was seen earlier today and ultrasound showed ovarian cyst with free fluid along the right side concerning for ruptured ovarian cyst versus ectopic. There is also concerned this could be a presentation for spontaneous bacterial peritonitis acute appendicitis or kidney stone. Based on the patient's history of fertility treatment and recent hCG injection we did repeat basic blood work. Her white count went from 5.1-6.3 which is not clinically significant. Moreover her lactic acid and procalcitonin are normal going against infection. Urine does not show any sterile pyuria either going against acute appendicitis. Patient does not have any CVA pain going against acute kidney stone. Also on exam I could palpate and McBurney's point without any rigidity or guarding and she was negative heel strike psoas and obturator signs going against acute appendicitis as well. Patient did have improvement of her pain with morphine and Dilaudid and this correlates with the fact has been roughly 24 hours since her naltrexone use. I discussed the case with her [employer] MECHANICAL TECHNICIAN. She is in agreement at this time that as I have low concern that this is an infectious process and the patient's pain has been improving that she can follow-up on an outpatient basis. I discussed this treatment option/plan with the patient and her spouse and both are agreeable to it. History & Record Review Discussion w/independent historian: Patient Lab Data Attestation: I reviewed the patient's lab results. Labs: Laboratory Results - last 24 hr 08/16/22 08/16/22 08/16/22 00:25 00:25 00:25 WBC 6.3 RBC 4.04 L Hgb 13.1 Hct 39.8 MCV 98.5 MCH 32.4 H MCHC 32.9 RDW Std Deviation 43.6 RDW Coeff of [place] 11.9 Plt Count 112 L MPV 12.9 H Immature Gran % (Auto) 0.300 Neut % (Auto) 78.7 H Lymph % (Auto) 15.9 L [place] % (Auto) 4.8 Eos % (Auto) 0.0 Baso % (Auto) 0.3 Absolute Neuts (auto) 5.0 Absolute Lymphs (auto) 1.00 Nucleated RBC % 0 Sodium 139 Potassium 4.1 Chloride 108 H Carbon Dioxide 25.0 Anion Gap 6 BUN 15 Creatinine 0.65 Estim Creat Clear Calc 119.71 Est GFR (MDRD) Af Amer 135 Est GFR (MDRD) Non-Af 112 BUN/Creatinine Ratio 23.2 H Glucose 111 H Lactic Acid 1.1 Calcium 7.9 L Total Bilirubin 0.50 Direct Bilirubin 0.18 AST 20 ALT 23 Alkaline Phosphatase 34 L Total Protein 6.1 L Albumin 3.2 Globulin 2.9 Lipase 28 Procalcitonin HCG, Quant Urine Color Urine Clarity Urine pH Ur Specific [place] Urine Protein Urine Glucose (UA) Urine Ketones Urine Occult Blood Urine Nitrite Urine Bilirubin Urine Urobilinogen Ur Leukocyte Esterase Urine RBC Urine WBC Ur Squamous Epith Cells Urine Bacteria Urine Mucus 08/16/22 08/16/22 08/16/22 00:25 00:25 01:35 WBC RBC Hgb Hct MCV MCH MCHC RDW Std Deviation RDW Coeff of [place] Plt Count MPV Immature Gran % (Auto) Neut % (Auto) Lymph % (Auto) [place] % (Auto) Eos % (Auto) Baso % (Auto) Absolute Neuts (auto) Absolute Lymphs (auto) Nucleated RBC % Sodium Potassium Chloride Carbon Dioxide Anion Gap BUN Creatinine Estim Creat Clear Calc Est GFR (MDRD) Af Amer Est GFR (MDRD) Non-Af BUN/Creatinine Ratio Glucose Lactic Acid Calcium Total Bilirubin Direct Bilirubin AST ALT Alkaline Phosphatase Total Protein Albumin Globulin Lipase Procalcitonin < 0.01 HCG, Quant 66 H Urine Color Yellow Urine Clarity Clear Urine pH 6.5 Ur Specific [place] 1.010 Urine Protein 15 H Urine Glucose (UA) Normal Urine Ketones 15 H Urine Occult Blood Negative Urine Nitrite Negative Urine Bilirubin Negative Urine Urobilinogen Normal Ur Leukocyte Esterase Negative Urine RBC 0 SEEN Urine WBC 0 SEEN Ur Squamous Epith Cells 0-5 SEEN Urine Bacteria 0 SEEN Urine Mucus 0 SEEN Discharge Plan Triage Chief Complaint: Abd Pain ED Provider: Jez Goodwin Dx/Rx/DC Orders Clinical Impression: Cyst of right ovary Instructions: ED Ovarian Cyst Prescriptions: New oxycodone-acetaminophen [Percocet] 5-325 mg tablet 1 tab PO Q6H PRN (Reason: pain) 3 Days Qty: 12 0RF No Action naltrexone 50 mg tablet 4.5 mg PO DAILY vit,[id number] 1 TABLET tablet 1 tab PO DAILY Zyrtec 10 mg Capsule 10 mg PO DAILY ibuprofen 600 mg tablet 600 mg PO Q8H PRN (Reason: pain) Qty: 30 0RF hydrocodone-acetaminophen 5-325 mg tablet 1 tab PO Q6H PRN PRN (Reason: Pain) 3 Days Qty: 10 0RF Primary Care Provider: Vern Leyva Referrals: Vern Leyva MD [Primary Care Provider] - Abby Douglas MD [Med Staff - Active Staff] - Activity Restrictions/Additional Instructions: Please stop taking your naltrexone as well as the [place]. Begin taking the oxycodone/Percocet as directed for improved pain control. Contact your OPTO MECHANICAL TECHNICIAN office today to schedule an appointment for later this week and return to the ER should you have any further concerns. Disposition Disposition: Home, Self Care
[2022-08-16] MEDS: Morphine 4 MG/ML Syringe IV (00:52)
[2022-08-16 00:55] LABS: Basophil# 0.02 X10^3/uL; Basophil% 0.3 % (0-1); Hematocrit 39.8 % (37-47); Hemoglobin 13.1 g/dL (12.0-15.0); Lymphocyte % 15.9 % (19-41); Mean Corp Hgb Conc 32.9 g/dL (32-36); Mean Corpuscular Hgb 32.4 pg (27.0-32.0); Mean Corpuscular Volume 98.5 fL (81-99); Mean Platelet Vol. 12.9 fl (6.2-12.0); Monocyte% 4.8 % (0-10); NRBC Flagged by Analyzer 0 % (0-5); Neutrophil # 4.95 X10^3/uL (2.7-7.7); Neutrophil % 78.7 % (47-70); Platelet Count 112 K/mm3 (150-450); RBC Distribution Width CV 11.9 % (11.6-14.6); RBC Distribution Width SD 43.6 fl (35.1-43.9); Red Blood Count 4.04 M/mm3 (4.2-5.4); White Blood Count 6.3 K/mm3 (4.4-11.0)
[2022-08-16 01:12] LABS: AST(SGOT) 20 U/L (15-37); Alanine Aminotransfer ALT/SGPT 23 U/L (13-56); Albumin, Serum 3.2 g/dL (3.2-5.0); Alkaline Phosphatase 34 U/L (45-117); Anion Gap 6 (5-15); BUN 15 mg/dL (7-18); BUN/Creat Ratio 23.2 RATIO (10-20); Bilirubin, Direct 0.18 mg/dL (0.00-0.30); Calcium,Total 7.9 mg/dL (8.5-10.1); Chloride 108 mmol/L (98-107); Creatinine, Serum 0.65 mg/dL (0.55-1.02); EST Glomerular Filtration Rate 112 mL/min (>60); Est Glom Filt Rate - Afr Amer 135 mL/min (>60); Estimated Creatinine Clearance 119.71 ml/min; Globulin 2.9 g/dL (2.2-4.2); Glucose 111 mg/dL (74-106); Lactic Acid 1.1 mmol/L (0.4-1.9); Lipase 28 U/L (13-75); Potassium 4.1 mmol/L (3.5-5.1); Protein, Total 6.1 g/dL (6.4-8.2); Sodium Level 139 mmol/L (136-145)
[2022-08-16 01:14] LABS: hCG Titer Quant., Serum 66 mIU/mL (1-3)
[2022-08-16 01:26] LABS: Procalcitonin < 0.01 ng/mL (0.00-0.09)
[2022-08-16 01:41] LABS: Bacteria 0 SEEN /hpf (None Seen); Mucous, Urine 0 SEEN /hpf (<or=2+); Red Blood Cells-Urine 0 SEEN /hpf (0-5); White Blood Cells 0 SEEN /hpf (0-5)
[2022-08-16 01:45] LABS: Color, Urine Yellow (Yellow); Glucose, Dipstick Normal (Normal); Ketone-Dipstick 15 mg/dl (Negative); Leukocyte Esterase-Dipstick Negative /ul (Negative); Nitrite-Dipstick Negative (Negative); Occult Blood-Urine Negative /ul (Negative); Protein-Dipstick 15 mg/dl (Negative); Urine Bilirubin Dipstick Negative (Negative); Urine Clarity Clear (Clear); Urine Urobilinogen Normal (Normal); Urine pH 6.5 (5.0 - 8.0)
[2022-08-16 01:58] LABS: Squamous Epithelial Cells - UA 0-5 SEEN /hpf (5-10)
[2022-08-16] MEDS: HYDROmorphone 1 MG/ML Syringe IV (02:51)
== END 2022-08-16 03:10 | disposition home or self-care (01) ==
PROVIDERS: Emergency Provider Emergency Medicine; PCP Family Medicine; Visit Provider Emergency Medicine
DX: N83.201 Unspecified ovarian cyst, right side (principal); R19.7 Diarrhea, unspecified
CPT/HCPCS: 80048; 80076; 81001; 83605; 83690; 84145; 84702; 85025; 96361; 96374; 96375; 96376; 99283; J7030; A4216; J2405

== ENCOUNTER → 2022-08-17 | Outpatient (CLI) | payer OTHER, SELFPAY ==
[2022-08-17 11:06] LABS: Progesterone Level 20.23 ng/mL (See Comment)
[2022-08-17 11:19] LABS: hCG Titer Quant., Serum 43 mIU/mL (1-3)
[2022-08-17 11:20] LABS: Estradiol 96.1 pg/mL
== END | disposition home or self-care (01) ==
LOC: LAB 10:16
PROVIDERS: PCP Family Medicine; Referring Provider Obstetrics & Gynecology; Visit Provider Obstetrics & Gynecology
DX: N91.2 Amenorrhea, unspecified (principal)
CPT/HCPCS: 36415; 82670; 84144; 84702

== ENCOUNTER → 2022-08-20 | Outpatient (CLI) | payer OTHER, SELFPAY ==
[2022-08-20 14:23] LABS: hCG Titer Quant., Serum 15 mIU/mL (1-3)
== END | disposition home or self-care (01) ==
LOC: LAB 13:02
PROVIDERS: PCP Family Medicine; Referring Provider Obstetrics & Gynecology; Visit Provider Obstetrics & Gynecology
DX: O02.81 Inappropriate change in quantitative human chorionic gonadotropin (hCG) in early pregnancy (principal)
CPT/HCPCS: 36415; 84702

== ENCOUNTER → 2022-11-29 | Outpatient (CLI) | payer OTHER, SELFPAY ==
[2022-11-29 08:28] LABS: Follicle Stimulating Hormone 6.7 mIU/mL; Free T3 1.7 pg/mL (2.18-3.98); Luteinizing Hormone 2.6 mIU/mL; T4 Free Direct 0.68 ng/dL (0.76-1.46); Thyroid Stim Hormone (TSH) 3.21 uIU/mL (0.358-3.74)
[2022-11-29 08:29] LABS: hCG Titer Quant., Serum < 1 mIU/mL (1-3)
[2022-11-29 09:11] LABS: Progesterone Level 0.26 ng/mL (See Comment); T3 Total - Triiodothyronine 0.82 ng/mL (0.6-1.81)
[2022-11-30 15:16] LABS: Estradiol 18.2 pg/mL
[2022-12-01 08:25] LABS: Ferritin 34 ng/mL (8-252); Iron 67 ug/dL (50-170); Iron Binding Capacity,Total 315 ug/dL (250-450); PERCENT IRON SATURATION 21.3 % (15.0-55.0)
[2022-12-03 10:09] LABS: DHEA Sulfate 72.5 ug/dL (84.8-378.0); Testosterone, Free < 0.05 ng/dL (0.10-0.85); Testosterone, Total < 3 ng/dL (8-60)
== END | disposition home or self-care (01) ==
LOC: LAB 07:05
PROVIDERS: PCP Family Medicine; Referring Provider Obstetrics & Gynecology; Visit Provider Obstetrics & Gynecology
DX: E23.6 Other disorders of pituitary gland (principal); E03.9 Hypothyroidism, unspecified; E28.9 Ovarian dysfunction, unspecified
CPT/HCPCS: 36415; 82627; 82670; 82728; 83001; 83002; 83540; 83550; 84144; 84402; 84403; 84439; 84443; 84480; 84481; 84702; 82626

== ENCOUNTER → 2022-12-13 | Outpatient (CLI) | payer OTHER, SELFPAY ==
--- NOTE | 2022-12-13 12:03 | RAD_ITS ---
INDICATION: INFERTILITY MANAGEMENT EXAMINATION/TECHNIQUE: Routine hysterosalpingography was performed. Total Fluoroscopic Time: 12 AND number of Fluoroscopic Images: 1 OR Radiation dosage index: 13.81 mGy COMPARISON: No relevant prior comparison study available FINDINGS: The uterine cavity contour is unremarkable. There are no filling defects or abnormalities. Both fallopian tubes are patent with free peritoneal spillage bilaterally. RAD/Salpingogram IMPRESSION: Negative hysterosalpingogram. Electronically Signed: James Beebe MD at 14:09 EDT ,
== END | disposition home or self-care (01) ==
PROVIDERS: PCP Family Medicine; Referring Provider Obstetrics & Gynecology; Visit Provider Obstetrics & Gynecology
DX: Z31.9 Encounter for procreative management, unspecified (principal)
CPT/HCPCS: 58340; 74740; Q9967

== ENCOUNTER → 2023-01-12 | Outpatient (CLI) | payer OTHER, SELFPAY ==
[2023-01-12 14:48] LABS: Estradiol 16.5 pg/mL; Follicle Stimulating Hormone 8.8 mIU/mL; Free T3 2.2 pg/mL (2.18-3.98); T4 Free Direct 1.03 ng/dL (0.76-1.46); Thyroid Stim Hormone (TSH) 0.19 uIU/mL (0.358-3.74)
[2023-01-13 12:05] LABS: Luteinizing Hormone 4.1 mIU/mL
[2023-01-20 17:07] LABS: Sex Hormone-binding Globulin 34.9 nmol/L (24.6-122.0); Testosterone, % Free 2.33 % (0.50-2.80); Testosterone, Free 1.28 ng/dL (0.10-0.85); Testosterone, Total 55 ng/dL (8-60)
== END | disposition home or self-care (01) ==
LOC: LAB 11:42
PROVIDERS: PCP Family Medicine; Referring Provider Obstetrics & Gynecology; Visit Provider Obstetrics & Gynecology
DX: E03.9 Hypothyroidism, unspecified (principal); R79.89 Other specified abnormal findings of blood chemistry
CPT/HCPCS: 36415; 82627; 82670; 83001; 83002; 84270; 84402; 84403; 84439; 84443; 84481; 82626

== ENCOUNTER → 2023-03-04 | Outpatient (CLI) | payer OTHER, SELFPAY ==
[2023-03-14 10:07] LABS: Anti-Cardiolipin Ab, IgG, Qn < 9 GPL U/mL (0-14); Anti-Cardiolipin Ab, IgM, Qn < 9 MPL U/mL (0-12); Testosterone, % Free 2.84 % (0.50-2.80); Testosterone, Total 14 ng/dL (8-60); Thyroid Peroxidase AB < 9 IU/mL (0-34)
== END | disposition home or self-care (01) ==
LOC: LAB 12:03
PROVIDERS: PCP Family Medicine; Referring Provider Obstetrics & Gynecology; Visit Provider Obstetrics & Gynecology
DX: E28.1 Androgen excess (principal); E03.9 Hypothyroidism, unspecified
CPT/HCPCS: 36415; 82627; 84402; 84403; 86147; 86376; 82626

== ENCOUNTER → 2023-03-19 | Outpatient (CLI) | payer OTHER, SELFPAY ==
[2023-03-19 11:08] LABS: hCG Titer Quant., Serum 46 mIU/mL (1-3)
[2023-03-19 11:14] LABS: Estradiol 68.6 pg/mL
[2023-03-21 09:01] LABS: Progesterone Level 18.45 ng/mL (See Comment)
== END | disposition home or self-care (01) ==
LOC: LAB 10:08
PROVIDERS: PCP Family Medicine; Referring Provider Obstetrics & Gynecology; Visit Provider Obstetrics & Gynecology
DX: N91.2 Amenorrhea, unspecified (principal)
CPT/HCPCS: 36415; 82627; 82670; 84144; 84702; 82626

== ENCOUNTER → 2023-03-21 | Outpatient (CLI) | payer OTHER, SELFPAY ==
[2023-03-21 08:44] LABS: hCG Titer Quant., Serum 99 mIU/mL (1-3)
== END | disposition home or self-care (01) ==
LOC: LAB 07:40
PROVIDERS: PCP Family Medicine; Referring Provider Obstetrics & Gynecology; Visit Provider Obstetrics & Gynecology
DX: N91.2 Amenorrhea, unspecified (principal)
CPT/HCPCS: 36415; 84702

== ENCOUNTER → 2023-03-23 | Outpatient (CLI) | payer OTHER, SELFPAY ==
[2023-03-23 09:52] LABS: hCG Titer Quant., Serum 253 mIU/mL (1-3)
== END | disposition home or self-care (01) ==
LOC: LAB 08:19
PROVIDERS: PCP Family Medicine; Visit Provider Obstetrics & Gynecology
DX: N91.2 Amenorrhea, unspecified (principal)
CPT/HCPCS: 36415; 84702

== ENCOUNTER → 2023-03-25 | Outpatient (CLI) | payer OTHER, SELFPAY ==
[2023-03-25 10:28] LABS: Estradiol 100.7 pg/mL
[2023-03-25 10:31] LABS: Progesterone Level 25.09 ng/mL (See Comment)
[2023-03-25 10:50] LABS: hCG Titer Quant., Serum 658 mIU/mL (1-3)
== END | disposition home or self-care (01) ==
LOC: LAB 09:33
PROVIDERS: PCP Family Medicine; Referring Provider Obstetrics & Gynecology; Visit Provider Obstetrics & Gynecology
DX: N91.2 Amenorrhea, unspecified (principal)
CPT/HCPCS: 36415; 82670; 84144; 84702

== ENCOUNTER → 2023-04-01 | Outpatient (CLI) | payer OTHER, SELFPAY ==
[2023-04-01 08:37] LABS: hCG Titer Quant., Serum 7034 mIU/mL (1-3)
[2023-04-01 17:19] LABS: Estradiol 248.3 pg/mL
== END | disposition home or self-care (01) ==
LOC: LAB 07:01
PROVIDERS: PCP Family Medicine; Referring Provider Obstetrics & Gynecology; Visit Provider Obstetrics & Gynecology
DX: N91.2 Amenorrhea, unspecified (principal)
CPT/HCPCS: 36415; 82627; 82670; 84144; 84702; 82626

== ENCOUNTER → 2023-04-08 | Outpatient (CLI) | payer OTHER, SELFPAY ==
[2023-04-08 09:14] LABS: Estradiol 772.6 pg/mL
== END | disposition home or self-care (01) ==
LOC: LAB 07:34
PROVIDERS: PCP Family Medicine; Referring Provider Obstetrics & Gynecology; Visit Provider Obstetrics & Gynecology
DX: N91.2 Amenorrhea, unspecified (principal)
CPT/HCPCS: 36415; 82670; 84144; 84403

== ENCOUNTER → 2023-04-11 | Outpatient (CLI) | payer OTHER, SELFPAY ==
--- NOTE | 2023-04-11 18:12 | US_ITS ---
INDICATION: Dates EXAMINATION: Ultrasound US OB Transvaginal TECHNIQUE: Transvaginal (for optimal evaluation of the adnexa) pelvic ultrasound was performed. Grayscale, spectral waveform, and color flow Doppler evaluation of the adnexa. COMPARISON: None. LMP: [02/22/2023 Beta-hCG: Unknown FINDINGS: UTERUS: 10.5 x 7.4 x 7.2 cm. RIGHT OVARY: 3.7 x 1.8 x 1.7 cm. Normal. LEFT OVARY: 4.0 x 2.7 x 2.2 cm. Normal. FREE FLUID: None. INTRAUTERINE GESTATIONAL SAC: Single. Mean sac diameter 2.48 cm corresponding 7 weeks 4 days EGA. YOLK SAC: Identified POLE: Identified CRL 0.94 cm. ESTIMATED GESTATION AGE: 7 weeks 0 days. HEART MOTION: 154 bpm. PLACENTA: Not visualized due to age. SUBCHORIONIC HEMORRHAGE: Small. AMNIOTIC FLUID: Qualitatively normal. US/Transvaginal w/Preg US IMPRESSION: Single live intrauterine . Estimated gestational age is 7 weeks 0 days with EROS 11/28/2023. Electronically Signed: Olegario Chand MD at 19:56 EST ,
== END | disposition home or self-care (01) ==
PROVIDERS: PCP Family Medicine; Visit Provider Obstetrics & Gynecology
DX: N91.1 Secondary amenorrhea (principal)
CPT/HCPCS: 76817

== ENCOUNTER → 2023-04-21 | Outpatient (CLI) | payer OTHER, SELFPAY ==
[2023-04-26 05:07] LABS: Chlamydia By Nucleic Acid AMP Negative (Negative); Gonococcus By Nucleic Acid AMP Negative (Negative)
[2023-04-26 15:08] LABS: HPV APTIMA, High Risk Negative (Negative)
== END | disposition home or self-care (01) ==
LOC: LABSPEC 15:47
PROVIDERS: PCP Family Medicine; Referring Provider Advanced Practice Midwife; Visit Provider Advanced Practice Midwife
DX: Z34.90 Encounter for supervision of normal pregnancy, unspecified, unspecified trimester (principal)
CPT/HCPCS: 87491; 87591; 87624; 88175; G0145

== ENCOUNTER → 2023-04-22 | Outpatient (CLI) | payer OTHER, SELFPAY ==
[2023-04-22 06:43] LABS: Absolute Lymphocyte Count 1.52 X10^3/uL (0.83-4.51); Absolute Neutrophil Count 3.8 X10^3/uL (2.0-7.7); Basophil# 0.03 X10^3/uL; Basophil% 0.5 % (0-1); Eosinophil# 0.04 X10^3/uL; Eosinophils% 0.7 % (0-5); Hematocrit 40.6 % (37-47); Hemoglobin 13.4 g/dL (12.0-15.0); Lymphocyte # 1.52 X10^3/ul (0.83-4.51); Lymphocyte % 26.5 % (19-41); Mean Corpuscular Hgb 32.4 pg (27.0-32.0); Mean Corpuscular Volume 98.1 fL (81-99); Mean Platelet Vol. 12.4 fl (6.2-12.0); Monocyte# 0.34 X10^3/uL; Monocyte% 5.9 % (0-10); NRBC Flagged by Analyzer 0 % (0-5); Neutrophil % 66.2 % (47-70); Platelet Count 129 K/mm3 (150-450); RBC Distribution Width CV 12.7 % (11.6-14.6); RBC Distribution Width SD 45.7 fl (35.1-43.9); Red Blood Count 4.14 M/mm3 (4.2-5.4); White Blood Count 5.7 K/mm3 (4.4-11.0)
[2023-04-22 07:17] LABS: T4 Free Direct 0.85 ng/dL (0.76-1.46); Thyroid Stim Hormone (TSH) 0.59 uIU/mL (0.358-3.74)
[2023-04-22 09:58] LABS: HIV - WCH Non-Reactive (Nonreactive); Hepatitis B Surface Antigen Non-Reactive (Nonreactive); Hepatitis C Antibody Non-Reactive (Nonreactive); Rubella IgG Reactive (Nonreactive); Syphilis Antibodies Non-reactive
== END | disposition home or self-care (01) ==
LOC: LAB 06:10
PROVIDERS: PCP Family Medicine; Referring Provider Advanced Practice Midwife; Visit Provider Advanced Practice Midwife
DX: O99.280 Endocrine, nutritional and metabolic diseases complicating pregnancy, unspecified trimester (principal); E03.9 Hypothyroidism, unspecified; Z3A.00 Weeks of gestation of pregnancy not specified
CPT/HCPCS: 36415; 84439; 84443; 85025; 86703; 86762; 86780; 86803; 86850; 86900; 86901; 87340

== ENCOUNTER → 2023-05-31 | Outpatient (CLI) | payer OTHER, SELFPAY ==
[2023-05-31 09:57] LABS: Absolute Lymphocyte Count 1.39 X10^3/uL (0.83-4.51); Absolute Neutrophil Count 5.5 X10^3/uL (2.0-7.7); Basophil# 0.02 X10^3/uL; Basophil% 0.3 % (0-1); Eosinophil# 0.04 X10^3/uL; Eosinophils% 0.5 % (0-5); Hematocrit 37.3 % (37-47); Hemoglobin 12.2 g/dL (12.0-15.0); Lymphocyte # 1.39 X10^3/ul (0.83-4.51); Lymphocyte % 19.1 % (19-41); Mean Corp Hgb Conc 32.7 g/dL (32-36); Mean Corpuscular Hgb 32.4 pg (27.0-32.0); Mean Corpuscular Volume 99.2 fL (81-99); Mean Platelet Vol. 12.2 fl (6.2-12.0); Monocyte# 0.31 X10^3/uL; Monocyte% 4.3 % (0-10); NRBC Flagged by Analyzer 0 % (0-5); Neutrophil % 75.5 % (47-70); Platelet Count 120 K/mm3 (150-450); RBC Distribution Width CV 13.1 % (11.6-14.6); RBC Distribution Width SD 47.6 fl (35.1-43.9); Red Blood Count 3.76 M/mm3 (4.2-5.4); White Blood Count 7.3 K/mm3 (4.4-11.0)
== END | disposition home or self-care (01) ==
PROVIDERS: Advanced Practice Midwife; PCP Family Medicine; Referring Provider Registered Nurse; Visit Provider Registered Nurse
DX: E03.9 Hypothyroidism, unspecified (principal); D69.6 Thrombocytopenia, unspecified
CPT/HCPCS: 36415; 85025

== ENCOUNTER → 2023-06-28 | Outpatient (CLI) | payer OTHER, SELFPAY | END | disposition home or self-care (01) | PROVIDERS: PCP Family Medicine; Visit Provider Obstetrics & Gynecology | DX: O99.280 Endocrine, nutritional and metabolic diseases complicating pregnancy, unspecified trimester (principal); Z3A.00 Weeks of gestation of pregnancy not specified; E03.9 Hypothyroidism, unspecified; O99.119 Other diseases of the blood and blood-forming organs and certain disorders involving the immune mechanism complicating pregnancy, unspecified trimester; D75.839 Thrombocytosis, unspecified | CPT/HCPCS: 87086 ==

== ENCOUNTER → 2023-07-25 | Outpatient (CLI) | payer OTHER, SELFPAY ==
[2023-07-25 13:01] LABS: Absolute Lymphocyte Count 1.32 X10^3/uL (0.83-4.51); Absolute Neutrophil Count 5.8 X10^3/uL (2.0-7.7); Basophil# 0.02 X10^3/uL; Basophil% 0.3 % (0-1); Eosinophil# 0.03 X10^3/uL; Eosinophils% 0.4 % (0-5); Hematocrit 38.1 % (37-47); Hemoglobin 12.1 g/dL (12.0-15.0); Lymphocyte # 1.32 X10^3/ul (0.83-4.51); Lymphocyte % 17.4 % (19-41); Mean Corp Hgb Conc 31.8 g/dL (32-36); Mean Corpuscular Hgb 33.5 pg (27.0-32.0); Mean Corpuscular Volume 105.5 fL (81-99); Mean Platelet Vol. 12.8 fl (6.2-12.0); Monocyte# 0.39 X10^3/uL; Monocyte% 5.1 % (0-10); NRBC Flagged by Analyzer 0 % (0-5); Neutrophil # 5.81 X10^3/uL (2.7-7.7); Neutrophil % 76.4 % (47-70); Platelet Count 121 K/mm3 (150-450); RBC Distribution Width CV 12.8 % (11.6-14.6); RBC Distribution Width SD 49.7 fl (35.1-43.9); Red Blood Count 3.61 M/mm3 (4.2-5.4); White Blood Count 7.6 K/mm3 (4.4-11.0)
[2023-07-25 14:23] LABS: Thyroid Stim Hormone (TSH) 1.06 uIU/mL (0.358-3.74)
== END | disposition home or self-care (01) ==
LOC: LAB 11:43
PROVIDERS: PCP Family Medicine; Referring Provider Obstetrics & Gynecology; Visit Provider Obstetrics & Gynecology
DX: E03.9 Hypothyroidism, unspecified (principal); D69.6 Thrombocytopenia, unspecified
CPT/HCPCS: 36415; 84443; 85025

== ENCOUNTER → 2023-08-24 | Outpatient (CLI) | payer OTHER, SELFPAY ==
[2023-08-24 08:43] LABS: Absolute Lymphocyte Count 1.36 X10^3/uL (0.83-4.51); Absolute Neutrophil Count 6.2 X10^3/uL (2.0-7.7); Basophil# 0.03 X10^3/uL; Basophil% 0.4 % (0-1); Eosinophil# 0.05 X10^3/uL; Eosinophils% 0.6 % (0-5); Hematocrit 35.9 % (37-47); Hemoglobin 11.7 g/dL (12.0-15.0); Lymphocyte # 1.36 X10^3/ul (0.83-4.51); Lymphocyte % 16.9 % (19-41); Mean Corp Hgb Conc 32.6 g/dL (32-36); Mean Corpuscular Volume 104.4 fL (81-99); Monocyte# 0.37 X10^3/uL; Monocyte% 4.6 % (0-10); NRBC Flagged by Analyzer 0 % (0-5); Neutrophil # 6.18 X10^3/uL (2.7-7.7); Neutrophil % 76.9 % (47-70); Platelet Count 125 K/mm3 (150-450); RBC Distribution Width CV 12.7 % (11.6-14.6); RBC Distribution Width SD 48.9 fl (35.1-43.9); Red Blood Count 3.44 M/mm3 (4.2-5.4)
[2023-08-24 09:05] LABS: Glucose Challenge Gest 1H 50g 85 mg/dL (70-140)
[2023-08-25 16:01] LABS: HIV - WCH Non-Reactive (Nonreactive); Syphilis Antibodies Non-reactive
== END | disposition home or self-care (01) ==
LOC: PAVLAB 08:06
PROVIDERS: PCP Family Medicine; Referring Provider Obstetrics & Gynecology; Visit Provider Obstetrics & Gynecology
DX: O09.90 Supervision of high risk pregnancy, unspecified, unspecified trimester (principal); Z3A.00 Weeks of gestation of pregnancy not specified; Z13.1 Encounter for screening for diabetes mellitus
CPT/HCPCS: 36415; 82950; 85025; 86703; 86780

== ENCOUNTER 2023-10-27 15:30 | Outpatient (CLI) | payer OTHER, SELFPAY | END 2023-10-27 23:59 | disposition home or self-care (01) | LOC: LABSPEC 15:31 | PROVIDERS: PCP Family Medicine; Referring Provider Advanced Practice Midwife; Visit Provider Advanced Practice Midwife | DX: O09.93 Supervision of high risk pregnancy, unspecified, third trimester (principal); Z3A.36 36 weeks gestation of pregnancy | CPT/HCPCS: 87081 ==

== ENCOUNTER → 2023-10-28 | Outpatient (CLI) | payer OTHER, SELFPAY ==
--- NOTE | 2023-10-28 12:16 | US_ITS ---
STUDY: SECOND AND THIRD TRIMESTER OBSTETRICAL ULTRASOUND - LIMITED REASON FOR EXAM: Female, 33 years old AMA -- GROWTH LMP: PRIOR ULTRASOUND: None. TECHNIQUE: Transabdominal TECHNICAL QUALITY: April 11, 2023. FINDINGS: There is a single intrauterine fetus. The fetus is in a breech presentation. There is demonstrated cardiac activity with a heart rate of 136 bpm. There is a normal amniotic fluid volume. The largest amniotic fluid pocket measures 7.52 x 3.6 cm. The amniotic fluid index (LUKAS) is 25.4 cm. The placenta is anterior There are Grade 2 placental changes. The cervix measures 3.3 cm in length. BIOMETRY: BPD: 9.18 cm: 37 weeks, 2 days HC: 34.25 cm: 39 weeks, 4 days AC: 32.79 cm: 36 weeks, 5 days FL: 6.73 cm: 34 weeks, 4 days Age by LMP: 36 weeks, 2 days. EROS by LMP: November 23, 2023. age by prior US: 35 weeks, 6 days. EROS by prior US: November 26, 2023. age by current US: 37 weeks, 2 days. EROS by current US: November 16, 2023. Estimated weight: 2922 grams, +/- 438 grams, 54.96 percentile. US/OB Limited With Biometrics IMPRESSION: Viable intrauterine gestation with fetus currently in breech position approximating 37-38 weeks gestational age Electronically Signed: Neel Delacruz MD at 20:54 EDT ,
== END | disposition home or self-care (01) ==
LOC: OPUS 12:16
PROVIDERS: PCP Family Medicine; Referring Provider Obstetrics & Gynecology; Visit Provider Obstetrics & Gynecology
DX: O09.522 Supervision of elderly multigravida, second trimester (principal); Z3A.00 Weeks of gestation of pregnancy not specified
CPT/HCPCS: 76816

== ENCOUNTER 2023-11-17 11:00 | Outpatient (CLI) | payer OTHER, SELFPAY ==
[2023-11-17 11:17] VITALS: RESP 16; TEMP 36.8
[2023-11-17 11:20] VITALS: BP 112/67; PULSE 67
[2023-11-17] MEDS: Lactated Ringers 1,000 ML 999 ML IV (11:51)
[2023-11-17 11:53] VITALS: BMI 27.1
--- NOTE | 2023-11-17 23:27 | OB.TRI.HP_ITS ---
HPI - General HPI Narrative ARMANI MAHONEY, is a 33 y/o @ 39 weeks 1 day who presents to L&D for contractions. Maternal Data Information EROS Calculator Estimated Delivery Date Method Current WG Current Estimate 11/23/23 Ultrasound #1 39w 5d Other Estimates 11/29/23 LMP (Certain) 38w 6d PFSH PFS Medical History Blood disorder Non-smoker Thyroid disease (11/22/19) Skin cancer (11/21/20) Macrocytosis without anemia Ovarian cyst Thrombocytopenia Home Medications ?Medication ?Instructions ?Recorded ?Last Taken ?Type vits,calcium no.78-iron 1 tab PO DAILY Check with primary 04/12/19 08/28/20 22:00 History fumarate-folic acid 29 mg-1 mg doctor 1 tablet tablet cholecalciferol (vitamin D3) 50 50 mcg PO DAILY 04/12/23 Unknown History mcg (2,000 unit) capsule levothyroxine 75 mcg tablet 75 mcg PO DAILY 04/21/23 Unknown History (Synthroid) Allergy/AdvReac Type Severity Reaction Status Date / Time No Known Allergies Allergy Verified 11/17/23 11:26 Family History Father Skin cancer Grandfather Colon cancer Uncle Colon cancer Surgical History History of removal of skin mole [place] teeth extracted Social History adopted: No household members: spouse and children number of children: 2 current occupational status: employed 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 [employer] current occupational exposures/hazards: No pets and animals: Yes pets and animals: dog(s) and farm animals history of recent travel: Yes ([place] in [place]) out of state: Yes out of country: No sexually active: Yes Smoking Status: Never smoker alcohol intake: never substance use type: does not use diet: low carbohydrate well-balanced diet: daily or most days caffeine: No eating out: rarely or never during the past year weight has: remained stable what type of physical activity do you participate in: walking and weight training frequency: daily duration: 45-60 minutes/day corina/samaritan: Muslim seatbelt use: always do you feel safe at home: Yes additional social history: [employer] History 3 Elective abortions 0 Hx Para 2 Spontaneous abortions 0 Hx # Term Pregnancies 2 Ectopic pregnancies 0 Hx # Pregnancies 0 Multiple births 0 # of living children 2 Past Pregnancies Del. Date Name GA/Weeks Outcome Route Bth Weight Gen Labor Lgth Anesthesia Del Locatn Provider FOB 02/24/17 Idamarie 40 live - full term 6lb 4oz Female 23 none [facility] Seals Bran 08/29/20 Tamara 41 live - full term 7#12oz Female n one [facility] Lorrie Arian Bran Visit Details Expected Delivery Route/Plan Labor Preferences- CB/BF classes: no labor support person: Bran labor intervention preferences: [] pain management options preferred: limited cut cord/dad catch: yes : yes PP control planned: yes discussed possible routes of delivery and associated risks: [] special requests: [] Plans Covid status: [] Flu vaccine: [] Tdap vaccine:given Rhogam: na LARC form signed: yes movement and labor precautions reviewed. Problem list reviewed and updated with the most current plan of care details and appropriate orders placed. Relevant counseling for the gestational age provided. Continue routine care and follow up unless otherwise noted in visit notes/problem list details OB Flowsheet Initial Weight: 153 lb Date -?-?-?-?-?-?-?-?-?-?-?-?- EGA Weight BP Urine Prot -?-?-?-?-?-?-?-?-?-?-?-?- Glucose FHR FuHt Pres Dilation -?-?-?-?-?-?-?-?-?-?-?-?- Effaced St Visit Note 04/21/23 -?-?-?-?-?-?-?-?-?-?-?-?- 9w 1d 153 lb (+0 oz) 103/45 -?-?-?-?-?-?-?-?-?-?-?-?- 175 -?-?-?-?--?-?-?-?-?-?-?-?- KW- CRL not cons with dates. EROS changed. Declines NIPT. NAltrexone and progesterone ordered by Dr Harjinder Don. Thyroid labs ordered. 05/06/23 -?-?-?-?-?-?-?-?--?-?-?-?- 11w 2d 153 lb 4 oz (+4 oz) 114/66 Negative -?-?-?-?-?-?-?-?-?-?-?-?- Negative 160 -?-?-?-?-?-?-?-?-?-?-?-?- LC- pt with x1 h x of lower abdominal cramping. no vb. traveling on tuesday- wanted reassurance for wellbeing. 05/16/23 -?-?-?-?-?-?-?-?-?-?-?-?- 12w 5d 154 lb 8 oz (+1 lb 8 oz) 97/63 Negative -?-?-?-?-?-?-?-?-?-?-?-?- Negative 160 -?-?-?-?-?-?-?-?-?-?-?-?- LC- no vb/crampi ng. 1st trimester screening with MFM obtained. 05/31/23 -?-?-?-?-?-?-?-?-?-?-?-?- 14w 6d 154 lb 2 oz (+1 lb 2 oz) 94/61 -?-?-?-?-?-?-?-?-?-?-?-?- 150 -?-?-?-?-?-?-?-?-?-?-?-?- KW- work in for spotting while on vacation. one episode of light pink spotting and went to ER in [place]. reports everything normal on US. No additional bleeding or cramping. 06/28/23 -?-?-?-?-?-?-?-?-?-?-?-?- 18w 6d 158 lb 8 oz (+5 lb 8 oz) 92/56 Negative -?-?-?-?-?-?-?-?-?-?-?-?- Negative 145 -?-?-?-?-?-?-?-?-?-?-?-?- JV- no lof, vagi nal bleeding, or cramping. does not have her anatomy scan until 22 weeks and is ok with this. needs cbc and tsh 07/27/23 -?-?-?-?-?-?-?-?-?-?-?-?- 23w 0d 163 lb (+10 lb) 96/57 Negative -?-?-?-?-?-?-?-?-?-?-?-?- Negative 150 -?-?-?-?-?-?-?-?-?-?-?-?- SM- discussed me dications with patient, will stop DHEA. discussed ITP diagnosis, need approval for delivery here. 08/24/23 -?-?-?-?-?-?-?-?-?-?-?--?- 27w 0d 165 lb (+12 lb) 94/60 Negative -?-?-?-?-?-?-?-?-?-?-?-?- Negative 148 -?-?-?-?-?-?-?-?-?-?-?-?- MH-No VB, LOF. G ood FM. 28 wk labs pending. Larc done 09/05/23 -?-?-?-?-?-?-?-?-?-?-?-?- 28w 5d 164 lb 4 oz (+11 lb 4 oz) 95/60 Negative -?-?-?-?-?-?-?-?-?-?-?-?- Negative 140 29 -?-?-?-?-?-?-?-?-?-?-?-?- kw-no vb/lof/ctx . good fm. tdap today. 09/28/23 -?-?-?-?-?-?-?-?-?-?-?-?- 32w 0d 196 lb (+43 lb) 93/63 Negative -?-?-?-?-?-?-?-?-?-?-?-?- Negative 130 32 -?-?-?-?-?-?-?-?-?-?-?-?- SM- no vb lof go od fm no regular ctx growth US ordered 10/13/23 -?-?-?-?-?-?-?-?-?-?-?-?- 34w 1d 170 lb (+17 lb) 95/66 Negative -?-?-?-?-?-?-?-?-?-?-?-?- Negative 120 34 -?-?-?-?-?-?-?-?-?-?-?-?- KW- no vb/lof/ct x. good fm. US next tuesday. 10/27/23 -?-?-?-?-?-?-?-?-?-?-?-?- 36w 1d 172 lb (+19 lb) 96/62 Negative -?-?-?-?-?-?-?-?-?-?-?-?- Negative 135 36 -?-?-?-?-?-?-?-?-?-?-?-?- KW- no vb/lof/ct x. good fm. GBS today. US tomorrow. FMLA forms to nursing. 11/02/23 -?-?-?-?-?-?-?-?-?-?-?-?- 37w 0d 172 lb (+19 lb) 106/67 Negative -?-?-?-?-?-?-?-?-?-?-?-?- Negative 140 37 Cephalic -?-?-?-?-?-?-?-?-?-?-?-?- SM- no vb lof go od fm no regular ctx infant spontaneously converted 11/09/23 -?-?-?-?-?-?-?-?-?--?-?-?- 38w 0d 171 lb (+18 lb) 108/66 Negative -?-?-?-?-?-?-?-?-?-?-?-?- Negative 140 37 Cephalic 1 -?-?-?-?-?-?-?-?-?-?-?-?- 20 -4 SM- no vb lof good fm no regular ctx 11/17/23 -?-?-?-?-?-?-?-?-?-?-?-?- 39w 1d 174 lb 8 oz (+21 lb 8 oz) 111/68 Negative -?-?-?-?-?-?-?-?-?-?-?-?- Negative 139 38 Cephalic 1 -?-?-?-?-?-?-?-?-?-?-?-?- 50 -3 JV- no lof , vaginal bleeding, or dec fm. patient declines membrane sweep today or IOL. NST is reactive but having contractions every 30 seconds. sending to L&D for IV fluids. I would like to plan for IOL by tuesday next week. She wants to come in tuesday or tuesday for a membrane sweep. ROS Constitutional Constitutional: Reports systems reviewed and no addt'l complaints, except as documented Gastrointestinal Gastrointestinal: Denies bloating, constipation, cramping, diarrhea, nausea or vomiting Genitourinary Genitourinary: Reports other Details: Denies vaginal odor, vaginal bleeding, or vaginal discharge ; Denies difficulty urinating or flank pain NST FHR Rate Baby A Baseline: 140 Variability:: Moderate Accelerations:: 15 x 15 Decelerations:: None NST Reactive:: Yes FHR Category:: Category I Assessment & Plan (1) Chronic ITP (idiopathic thrombocytopenia): COMMENT: has seen heme onc in the past, mild, last two deliveries were here and didn't want regional anesthesia but may not be approved for delivery here because of anesthesia. consult placed, 08/02/23 approved for delivery at [facility] if >100K. 28w:121k. Recheck 4 wk (2) AMA (advanced maternal age) multigravida 35+: QUALIFIERS: Trimester: second trimester Qualified Code(s): O09.522 - Supervision of elderly multigravida, second trimester COMMENT: discussed NST at 39 weeks IOL by 40, HC measuring large. (3) Supervision of high-risk : QUALIFIERS: Trimester: second trimester Qualified Code(s): O09.92 - Supervision of high risk , unspecified, second trimester COMMENT: PRR, , EROS 11/29/23, PC Tamara Mondragon, Bran. Head 90%ile, breech (4) : QUALIFIERS: Weeks of gestation: 39 weeks Qualified Code(s): Z3A.39 - 39 weeks gestation of COMMENT: GBS neg, declines genetic & carrier testing (5) Hypothyroidism: QUALIFIERS: Hypothyroidism type: acquired Qualified Code(s): E03.9 - Hypothyroidism, unspecified COMMENT: synthroid Labs with NOB (6) Infertility: COMMENT: 2yrs to conceive used letrazole and Naltrexone- had MFM consult. Harjinder Don to wean off of Naltrexone. (7) Macrocytosis without anemia: (8) False labor after 37 completed weeks of gestation: PLAN: Plan false labor, reactive NST. ok to dc to home Charges/Coding Multi Select Codes Urinary/Genital Urinary/Genital CPT Codes: 22909-20 non-stress test Interp
== END 2023-11-17 13:11 | disposition home or self-care (01) ==
LOC: WPOUT 11:07 → WP 11:07
PROVIDERS: PCP Family Medicine; Referring Provider Obstetrics & Gynecology; Visit Provider Obstetrics & Gynecology
DX: O47.1 False labor at or after 37 completed weeks of gestation (principal); D69.3 Immune thrombocytopenic purpura; O99.113 Other diseases of the blood and blood-forming organs and certain disorders involving the immune mechanism complicating pregnancy, third trimester; O09.523 Supervision of elderly multigravida, third trimester; O99.283 Endocrine, nutritional and metabolic diseases complicating pregnancy, third trimester; E03.9 Hypothyroidism, unspecified; D75.89 Other specified diseases of blood and blood-forming organs; Z3A.39 39 weeks gestation of pregnancy; O09.03 Supervision of pregnancy with history of infertility, third trimester
CPT/HCPCS: 96360; 59025; 59050; 99221; J7120; G0378

== ENCOUNTER → 2023-11-22 | Outpatient (CLI) | payer OTHER, SELFPAY ==
[2023-11-22 09:46] LABS: Hematocrit 39.4 % (37-47); Hemoglobin 12.7 g/dL (12.0-15.0); Mean Corp Hgb Conc 32.2 g/dL (32-36); Mean Corpuscular Hgb 33.9 pg (27.0-32.0); Mean Corpuscular Volume 105.1 fL (81-99); Mean Platelet Vol. 12.5 fl (6.2-12.0); Platelet Count 122 K/mm3 (150-450); RBC Distribution Width CV 12.3 % (11.6-14.6); RBC Distribution Width SD 48.1 fl (35.1-43.9); Red Blood Count 3.75 M/mm3 (4.2-5.4); White Blood Count 8.5 K/mm3 (4.4-11.0)
== END | disposition home or self-care (01) ==
LOC: LAB 09:11
PROVIDERS: PCP Family Medicine; Referring Provider Obstetrics & Gynecology; Visit Provider Obstetrics & Gynecology
DX: D69.3 Immune thrombocytopenic purpura (principal)
CPT/HCPCS: 36415; 85027

== ENCOUNTER 2023-11-25 07:19 | Inpatient (IN) | payer OTHER, SELFPAY ==
[2023-11-25] VITALS (20 sets, daily range): BP systolic 104–129; BP diastolic 54–70; PULSE 56–75; RESP 14–16; TEMP 36.6–36.9; O2SAT 95–100; BMI 27.4
--- NOTE | 2023-11-25 07:37 | HP.PCM.OB_ITS ---
HPI - General General Date of Admission: 11/25/23 Date of Service: 11/25/23 HPI Narrative ARMANI MAHONEY, is a 33 F 40.2 weeks who presents to unit for induction of labor due to AMA and ITP. plts stable with last cbc. admission orders placed. Maternal Data Information EROS Calculator Estimated Delivery Date Method Current WG Current Estimate 11/23/23 Ultrasound #1 40w 2d Other Estimates 11/29/23 LMP (Certain) 39w 3d Final EROS: 11/23/23 Final EROS Source: US >20 weeks Gestational age: 40.2 PFSH PFS Medical History Blood disorder Non-smoker Thyroid disease (11/22/19) Skin cancer (11/21/20) Macrocytosis without anemia Ovarian cyst Thrombocytopenia Home Medications ?Medication ?Instructions ?Recorded ?Last Taken ?Type vits,calcium no.78-iron 1 tab PO DAILY Check with primary 04/12/19 11/24/23 08:30 History fumarate-folic acid 29 mg-1 mg doctor tablet cholecalciferol (vitamin D3) 50 50 mcg PO DAILY 04/12/23 11/24/23 08:30 History mcg (2,000 unit) capsule levothyroxine 75 mcg tablet 75 mcg PO DAILY 04/21/23 11/25/23 06:00 History (Synthroid) Allergy/AdvReac Type Severity Reaction Status Date / Time No Known Allergies Allergy Verified 11/25/23 07:20 Family History Father Skin cancer Grandfather Colon cancer Uncle Colon cancer Surgical History History of removal of skin mole [place] teeth extracted Social History adopted: No household members: spouse and children number of children: 2 current occupational status: employed 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 [employer] current occupational exposures/hazards: No pets and animals: Yes pets and animals: dog(s) and farm animals history of recent travel: Yes ([place] in February) out of state: Yes out of country: No sexually active: Yes Smoking Status: Never smoker alcohol intake: never substance use type: does not use diet: low carbohydrate well-balanced diet: daily or most days caffeine: No eating out: rarely or never during the past year weight has: remained stable what type of physical activity do you participate in: walking and weight training frequency: daily duration: 45-60 minutes/day corina/bahai: Confucianism seatbelt use: always do you feel safe at home: Yes additional social history: Bran[employer] History 3 Elective abortions 0 Hx Para 2 Spontaneous abortions 0 Hx # Term Pregnancies 2 Ectopic pregnancies 0 Hx # Pregnancies 0 Multiple births 0 # of living children 2 Past Pregnancies Del. Date Name GA/Weeks Outcome Route Bth Weight Gen Labor Lgth Anesthesia Del Locatn Provider FOB 02/24/17 Idamarie 40 live - full term 6lb 4oz Female 23 none [facility] Seals Bran 08/29/20 Tamara 41 live - full term 7#12oz Female n one [facility] Lorrie Sotomayor Visit Details Expected Delivery Route/Plan Labor Preferences- CB/BF classes: no labor support person: Bran labor intervention preferences: [] pain management options preferred: limited cut cord/dad catch: yes : yes PP control planned: yes discussed possible routes of delivery and associated risks: [] special requests: [] Plans Covid status: [] Flu vaccine: [] Tdap vaccine:given Rhogam: na LARC form signed: yes movement and labor precautions reviewed. Problem list reviewed and updated with the most current plan of care details and appropriate orders placed. Relevant counseling for the gestational age provided. Continue routine care and follow up unless otherwise noted in visit notes/problem list details OB Flowsheet Initial Weight: 153 lb Date -?-?-?-?-?-?-?-?-?-?-?-?- EGA Weight BP Urine Prot -?-?-?-?-?-?-?-?-?-?-?-?- Glucose FHR FuHt Pres Dilation -?-?-?-?-?-?-?-?-?-?-?-?- Effaced St Visit Note 04/21/23 -?-?-?-?-?-?-?-?-?-?-?-?- 9w 1d 153 lb (+0 oz) 103/45 -?-?-?-?-?-?-?-?-?-?-?-?- 175 -?-?-?-?-?-?-?-?-?-?-?-?- KW- CRL not cons with dates. EROS changed. Declines NIPT. NAltrexone and progesterone ordered by Dr Harjinder Don. Thyroid labs ordered. 05/06/23 -?-?-?-?-?-?-?-?-?-?-?-?- 11w 2d 153 lb 4 oz (+4 oz) 114/66 Negative -?-?-?-?-?-?-?-?-?-?-?-?- Negative 160 -?-?-?-?-?-?-?-?-?-?-?-?- LC- pt with x1 h x of lower abdominal cramping. no vb. traveling on tuesday- wanted reassurance for wellbeing. 05/16/23 -?-?-?-?-?-?-?-?-?-?-?-?- 12w 5d 154 lb 8 oz (+1 lb 8 oz) 97/63 Negative -?-?-?-?-?-?-?-?-?-?-?-?- Negative 160 -?-?-?-?-?-?-?-?-?-?-?-?- LC- no vb/crampi ng. 1st trimester screening with MFM obtained. 05/31/23 -?-?-?-?-?-?-?-?-?-?-?-?- 14w 6d 154 lb 2 oz (+1 lb 2 oz) 94/61 -?-?-?-?-?-?-?-?-?-?-?-?- 150 -?-?-?--?-?-?-?-?-?-?-?-?- KW- work in for spotting while on vacation. one episode of light pink spotting and went to ER in [place]. reports everything normal on US. No additional bleeding or cramping. 06/28/23 -?-?-?-?-?-?-?-?-?-?-?-?- 18w 6d 158 lb 8 oz (+5 lb 8 oz) 92/56 Negative -?-?-?-?-?-?-?-?-?-?-?-?- Negative 145 -?-?-?-?-?-?-?-?-?-?-?-?- JV- no lof, vagi nal bleeding, or cramping. does not have her anatomy scan until 22 weeks and is ok with this. needs cbc and tsh 07/27/23 -?-?-?-?-?-?-?-?-?-?-?-?- 23w 0d 163 lb (+10 lb) 96/57 Negative -?-?-?-?-?-?-?-?-?-?-?-?- Negative 150 -?-?-?-?-?-?-?-?-?-?-?-?- SM- discussed me dications with patient, will stop DHEA. discussed ITP diagnosis, need approval for delivery here. 08/24/23 -?-?-?-?-?-?-?-?-?-?-?-?- 27w 0d 165 lb (+12 lb) 94/60 Negative -?-?-?-?-?-?-?-?-?-?-?-?- Negative 148 -?-?-?-?-?-?-?-?-?-?-?-?- MH-No VB, LOF. G ood FM. 28 wk labs pending. Larc done 09/05/23 -?-?-?-?-?-?-?-?-?-?-?-?- 28w 5d 164 lb 4 oz (+11 lb 4 oz) 95/60 Negative -?-?-?-?-?-?-?-?-?-?-?-?- Negative 140 29 -?-?-?-?-?-?-?-?-?-?-?-?- kw-no vb/lof/ctx . good fm. tdap today. 09/28/23 -?-?-?-?-?-?-?-?-?-?-?-?- 32w 0d 196 lb (+43 lb) 93/63 Negative -?-?-?-?-?-?-?-?-?-?-?-?- Negative 130 32 -?-?-?-?-?-?-?-?-?-?-?-?- SM- no vb lof go od fm no regular ctx growth US ordered 10/13/23 -?-?-?-?-?-?-?-?-?-?-?-?- 34w 1d 170 lb (+17 lb) 95/66 Negative -?-?-?-?-?-?-?-?-?-?-?-?- Negative 120 34 -?-?-?-?-?-?-?-?-?-?-?-?- KW- no vb/lof/ct x. good fm. US next tuesday. 10/27/23 -?-?-?-?-?-?-?-?-?-?-?-?- 36w 1d 172 lb (+19 lb) 96/62 Negative -?-?-?-?-?-?-?-?-?-?-?-?- Negative 135 36 -?-?-?-?-?-?-?-?-?-?-?-?- KW- no vb/lof/ct x. good fm. GBS today. US tomorrow. FMLA forms to nursing. 11/02/23 -?-?-?-?-?-?-?-?-?-?-?-?- 37w 0d 172 lb (+19 lb) 106/67 Negative -?-?-?-?-?-?-?-?-?-?-?-?- Negative 140 37 Cephalic -?-?-?-?-?-?-?-?-?-?-?-?- SM- no vb lof go od fm no regular ctx infant spontaneously converted 11/09/23 -?-?-?-?-?-?-?-?-?-?-?-?- 38w 0d 171 lb (+18 lb) 108/66 Negative -?-?-?-?-?-?-?-?-?-?-?-?- Negative 140 37 Cephalic 1 -?-?-?-?-?-?-?-?-?-?-?-?- 20 -4 SM- no vb lof good fm no regular ctx 11/17/23 -?-?-?-?-?-?-?-?-?-?-?-?- 39w 1d 174 lb 8 oz (+21 lb 8 oz) 111/68 Negative -?-?-?-?-?-?-?-?-?-?-?-?- Negative 139 38 Cephalic 1 -?-?-?-?-?-?-?-?-?-?-?-?- 50 -3 JV- no lof , vaginal bleeding, or dec fm. patient declines membrane sweep today or IOL. NST is reactive but having contractions every 30 seconds. sending to L&D for IV fluids. I would like to plan for IOL by tuesday next week. She wants to come in tuesday or tuesday for a membrane sweep. 11/22/23 -?-?-?-?-?-?-?-?-?-?-?-?- 39w 6d 172 lb (+19 lb) 118/72 Negative -?-?-?-?-?-?-?-?-?-?-?-?- Negative 140 Cephalic 1 -?-?-?-?-?-?-?-?-?-?-?-?- 70 -2 JV- needs stat cbc to determine need for plts before we can strip membranes or set up IOL. NST reactive. Patient is hesitant to have iOL and wants membrane strip. will need to return tomorrow for that pending plts. 11/23/23 -?-?-?-?-?-?-?-?-?-?-?-?- 40w 0d 175 lb (+22 lb) 103/67 Negative -?--?-?-?-?-?-?-?-?-?-?-?- Negative 140 36 3 -?-?-?-?-?-?-?-?-?-?-?-?- 50 -3 SM- no vb lof good fm no regular ctx SM- no vb lof good fm no reg ular ctx membranes swept LUKAS- 11cm NST FHR Rate Baby A Baseline: 135 Variability:: Moderate Accelerations:: 15 x 15 Decelerations:: None NST Reactive:: Yes FHR Category:: Category I Uterine Activity:: irritability ROS Constitutional Constitutional: Denies change in weight, fatigue, fever(s), headache(s), poor appetite or weakness Eyes Eyes: Denies blurry vision, change in vision, floaters, seeing flashes or spots in vision ENT HEENT: Denies dizziness, headache(s), loss taste/smell or sore throat Cardiovascular Cardiovascular: Denies chest pain, dizziness, dyspnea, irregular heart rhythm, lightheadedness, palpitations or rapid heart rate Respiratory/Chest Respiratory/Chest: Denies change in mental status, chest tightness, cough, dyspnea or breast pain Gastrointestinal Gastrointestinal: Denies anorexia, chewing difficulty, constipation, diarrhea or weight changes Genitourinary Genitourinary: Denies difficulty urinating, dysuria, flank pain, genital pain, urinary frequency or urinary urgency Musculoskeletal Musculoskeletal: Denies back pain, difficulty walking, extremity pain, joint pain, muscle cramps or muscle weakness Integumentary Integumentary: Denies lesions or unusual bruising Neurologic Neurologic: Denies abnormal movements, abnormal speech, dizziness, numbness, seizure-like activity, syncope or weakness Psychiatric Psychiatric: Denies behavioral changes, change in appetite, confusion, depression, homicidal ideation, suicidal ideation or suicidal thoughts Endocrine Endocrinology: Denies excessive sweating, polydipsia or polyuria Hematologic/Lymphatic Hematologic/Lymphatic: Denies anemia Allergic/Immunologic Allergic/Immunologic: Denies itchy eyes, lip swelling, throat swelling, tongue swelling or wheezing Vital Signs Vital Signs Vital Signs: 11/25/23 07:25 11/25/23 07:25 11/25/23 07:26 Pulse Rate 72 72 Blood Pressure 117/69 BP Systolic 117 BP Diastolic 69 Pulse Ox 11/25/23 07:26 Pulse Rate Blood Pressure BP Systolic BP Diastolic Pulse Ox 100 Weight Weight: 175 lb 4.28 oz Body Mass Index (BMI) 27.4 Physical Exam Const alert, oriented x3 and no apparent distress General Appearance: cooperative Orientation / Consciousness: awake HEENT normocephalic Neck full ROM Lymph Lymphatic: no lymphadenopathy noted Chest inspection of chest normal Resp normal respiratory effort and normal air movement Effort and Inspection: able to speak in complete sentences and symmetric chest movement GI soft to palpation and non-tender Inspection: gravid Palpation: soft; Negative for tender external exam normal Manual OB Exam: dilated 4, effaced 70 and station -2 Back/Spine normal to inspection Extremity normal to inspection and full ROM Skin no rashes or lesions noted Psych mental status grossly normal Appearance: grossly normal Speech: normal speech Labs Labs Labs: Blood Type A POSITIVE Antibody Screen NEGATIVE Hct 39.4 % (37-47) Hgb 12.7 g/dL (12.0-15.0) Obstetrics Ultrasound Syphilis Total Ab Non-reactive VZV IgG Antibody 3255 index (Immune >165) Rubella IgG Antibody Reactive (Nonreactive) Hep Bs Antigen Non-Reactive (Nonreactive) Hepatitis C Antibody Non-Reactive (Nonreactive) Hepatitis C Ab (EIA) <0.1 s/co ratio (0.0-0.9) Chlamydia DNA (AISHA) Negative (Negative) N.gonorrhoeae DNA (AISHA) Negative (Negative) HIV 1&2 Antibody Non-Reactive (Nonreactive) Glucose 1 Hr 50 gm 85 mg/dL (70-140) Group B Strep DNA Negative (Negative) Rhogam given: No Miscellaneous Test Assessment & Plan (1) Encounter for induction of labor: PLAN: Patient presents IOL, plan management for with pitocin/AROM. Pain management: plans no epidural. GBS negative. Management of any complications: see above I have reviewed the [facility] and made any clinically relevant updates. Dr Rivera aware of assessment and plan. Agrees with admission (2) Chronic ITP (idiopathic thrombocytopenia): COMMENT: has seen heme onc in the past, mild, last two deliveries were here and didn't want regional anesthesia but may not be approved for delivery here because of anesthesia. consult placed, 08/02/23 approved for delivery at [facility] if >100K. 28w:121k. Recheck 4 wk (3) AMA (advanced maternal age) multigravida 35+: QUALIFIERS: Trimester: second trimester Qualified Code(s): O09.522 - Supervision of elderly multigravida, second trimester COMMENT: discussed NST at 39 weeks IOL by 40, HC measuring large. (4) Supervision of high-risk : QUALIFIERS: Trimester: second trimester Qualified Code(s): O09.92 - Supervision of high risk , unspecified, second trimester COMMENT: PRR, , EROS 11/29/23, PC MelvajennaTamara, Bran. Head 90%ile, breech (5) : QUALIFIERS: Weeks of gestation: 40 weeks Qualified Code(s): Z3A.40 - 40 weeks gestation of COMMENT: GBS neg, declines genetic & carrier testing (6) Hypothyroidism: QUALIFIERS: Hypothyroidism type: acquired Qualified Code(s): E03.9 - Hypothyroidism, unspecified COMMENT: synthroid Labs with NOB (7) Infertility: COMMENT: 2yrs to conceive used letrazole and Naltrexone- had MFM consult. Harjinder Don to wean off of Naltrexone. (8) Macrocytosis without anemia: Charges/Coding Multi Select Codes Urinary/Genital Urinary/Genital CPT Codes: No Charge
[2023-11-25] MEDS: Lactated Ringers 1,000 ML 50 ML IV (07:40)
[2023-11-25] MEDS: Oxytocin 15 Units/NS 250ml 15 UNITS/250 ML IV.SOLN 2 UNITS IV (07:41)
[2023-11-25 07:53] LABS: Absolute Lymphocyte Count 1.52 X10^3/uL (0.83-4.51); Absolute Neutrophil Count 6.3 X10^3/uL (2.0-7.7); Basophil# 0.03 X10^3/uL; Basophil% 0.4 % (0-1); Eosinophil# 0.04 X10^3/uL; Eosinophils% 0.5 % (0-5); Hematocrit 41.8 % (37-47); Hemoglobin 13.6 g/dL (12.0-15.0); Lymphocyte # 1.52 X10^3/ul (0.83-4.51); Lymphocyte % 18.3 % (19-41); Mean Corp Hgb Conc 32.5 g/dL (32-36); Mean Corpuscular Hgb 34.2 pg (27.0-32.0); Mean Platelet Vol. 12.4 fl (6.2-12.0); Monocyte# 0.38 X10^3/uL; Monocyte% 4.6 % (0-10); NRBC Flagged by Analyzer 0 % (0-5); Neutrophil % 75.7 % (47-70); Platelet Count 120 K/mm3 (150-450); RBC Distribution Width CV 12.3 % (11.6-14.6); Red Blood Count 3.98 M/mm3 (4.2-5.4); White Blood Count 8.3 K/mm3 (4.4-11.0)
[2023-11-25 08:48] LABS: Syphilis Antibodies Non-reactive
--- NOTE | 2023-11-25 11:46 | PN_ITS ---
Progress Note Coping well with contractions current tracing: FHT: 140 Moderate variability reactive no decelerations category I tracing Dobson: 3-4 minute Contractions Membranes: Ruptured SVE: 5/70/-2 A/P: Continue with position changes Titrate pitocin per protocol Epidural per anesthesia GBS neg Anticipate Dr Rivear aware of above assessment and agrees with plan of care Assessment & Plan Assessment/Plan (1) Encounter for induction of labor: (2) False labor after 37 completed weeks of gestation: (3) Chronic ITP (idiopathic thrombocytopenia): (4) AMA (advanced maternal age) multigravida 35+: QUALIFIERS: Trimester: second trimester Qualified Code(s): O09.522 - Supervision of elderly multigravida, second trimester (5) Supervision of high-risk : QUALIFIERS: Trimester: second trimester Qualified Code(s): O09.92 - Supervision of high risk , unspecified, second trimester (6) : QUALIFIERS: Weeks of gestation: 40 weeks Qualified Code(s): Z3A.40 - 40 weeks gestation of (7) Hypothyroidism: QUALIFIERS: Hypothyroidism type: acquired Qualified Code(s): E03.9 - Hypothyroidism, unspecified (8) Infertility: (9) Macrocytosis without anemia: Multi Select Codes Urinary/Genital Urinary/Genital CPT Codes: No Charge
[2023-11-25] MEDS: Methylergonovine 0.2 MG/ML Ampul IM (13:31)
--- NOTE | 2023-11-25 13:43 | EX.PCM.OBRPT ---
Assessment & Plan (1) Vaginal delivery: COMMENT: KW girl IOL AMA (2) Encounter for induction of labor: (3) False labor after 37 completed weeks of gestation: (4) Chronic ITP (idiopathic thrombocytopenia): COMMENT: has seen heme onc in the past, mild, last two deliveries were here and didn't want regional anesthesia but may not be approved for delivery here because of anesthesia. consult placed, 08/02/23 approved for delivery at [facility] if >100K. 28w:121k. Recheck 4 wk (5) AMA (advanced maternal age) multigravida 35+: QUALIFIERS: Trimester: second trimester Qualified Code(s): O09.522 - Supervision of elderly multigravida, second trimester COMMENT: discussed NST at 39 weeks IOL by 40, HC measuring large. (6) Supervision of high-risk : QUALIFIERS: Trimester: second trimester Qualified Code(s): O09.92 - Supervision of high risk , unspecified, second trimester COMMENT: PRR, , EROS 11/29/23, PC Tamara Mondragon, Bran. Head 90%ile, breech (7) : QUALIFIERS: Weeks of gestation: 40 weeks Qualified Code(s): Z3A.40 - 40 weeks gestation of COMMENT: GBS neg, declines genetic & carrier testing (8) Hypothyroidism: QUALIFIERS: Hypothyroidism type: acquired Qualified Code(s): E03.9 - Hypothyroidism, unspecified COMMENT: synthroid Labs with NOB (9) Infertility: COMMENT: 2yrs to conceive used letrazole and Naltrexone- had MFM consult. Harjinder Don to wean off of Naltrexone. (10) Macrocytosis without anemia: Maternal Data Information EROS Calculator Estimated Delivery Date Method Current WG Current Estimate 11/23/23 Ultrasound #1 40w 2d Other Estimates 11/29/23 LMP (Certain) 39w 3d Final EROS: 11/23/23 Final EROS Source: US >20 weeks Gestational age: 40.2 Vaginal Delivery Maternal Presentation Maternal Presentation: Medically Indicated Induction (AMA ITP) Maternal Presentation: Progressed well to 10cm dilated and made steady progress with effective maternal pushing. Delivered the head in TAWANDA presentation. The head was delivered atraumatically and a loose nuchal cord was identified and delivered through. The anterior and posterior shoulders delivered without complication followed by the rest of the infant and the infant was placed on the maternal abdomen. Delayed cord clamping was employed for approximately 3 minutes. Cord was clamped and cut and gentle traction was applied to the cord and the placenta delivered spontaneously. Immediately following, it was noted to be intact with a 3 vessel cord. IV Pitocin started and vaginal bleeding noted to be brisk at this time. IM Methergine given and uterus remains firm. The perineum and vagina were inspected and noted to have no laceration. EBL was 400cc. Apgars 8/9. Patient and infant tolerated delivery well. Bonding skin to skin during recovery. Dr Rivera notified of vaginal delivery and orders reviewed. Physician agrees with current plan of care. Type of Induction: Pitocin Medical Reason for Induction: Maternal Medical Condition: list: (ama, itp) Operative Information Date of Procedure: 11/25/23 Pre-Operative Diagnosis: See AP comments Post-Operative Diagnosis: Same Surgery / Procedure Performed: Spontaneous Vaginal Delivery needle valve operator #1: Cely Baker Type of Anesthesia: Epidural Estimated Blood Loss: 400 Time of Delivery: 13:23 Findings Presentation: Vertex Amniotic Membrane Rupture Type: Artificial Amniotic Fluid Description: Clear Placental Delivery Description: Spontaneous Placenta Disposition: [facility] Cord Vessel Description: 3 Vessels Cord Entanglement: Around neck x 1, loose Infant A Gender: Female (1 minute): 8 (5 minute): 9 Delayed Cord Clamping: Yes Post Vaginal Delivery Medications Given After Delivery: IV Pitocin and IM Methergin Episiotomy Description: None Laceration: None Complication Complications: None Multi Select Codes Urinary/Genital Urinary/Genital CPT Codes: 56703 Vaginal Delivery [facility]
--- NOTE | 2023-11-25 13:47 | DCINST_ITS ---
Discharge Instructions Diet Discharge Diet: No restrictions Activity Discharge Activity: Return to Normal Activity May resume sexual activity in: 6-8 weeks Dressing / Incision Call your doctor if you observe: Fever of 101 or Higher, Coldness, Increased Pain, Numbness or Tingling, Change in Color, Inability to urinate, Inability to have a bowel movement, Using more than 1 pad per hour, Shortness of breath, Dizziness, Fainting spells, Swelling in the ankles, Chest pain, Increased palpitations (irregular heartbeat), Calf discomfort and Uncontrolled pain Follow Up Care Please Follow Up With: Cely Baker CNM When: Please call the office to schedule your follow up appointment in 6 weeks. If you had high blood pressure please call to schedule an appointment in 2 weeks. Test Results: Test results from this visit will be discussed in further detail at your follow- up appointment, if applicable. Discharge Plan Admission Admit Date/Time: 11/25/23 07:19 Attending Provider: Cely Baker Primary Care Provider: Vern Leyva Discharge Orders/Prescriptions Prescriptions: No Action cholecalciferol (vitamin D3) 50 mcg (2,000 unit) capsule 50 mcg PO DAILY levothyroxine [Synthroid] 75 mcg tablet 75 mcg PO DAILY [id number] 1 TABLET tablet 1 tab PO DAILY Referrals / Follow Up: Vern Leyva MD [Primary Care Provider] -
[2023-11-25] MEDS: Oxytocin 15 Units/NS 250ml 15 UNITS/250 ML IV.SOLN 83 UNITS IV (14:00)
[2023-11-26] VITALS (7 sets, daily range): BP systolic 97–115; BP diastolic 51–55; PULSE 56–68; RESP 14–16; TEMP 36.4–36.7; O2SAT 97–98
[2023-11-26] MEDS: Levothyroxine 75 MCG Tablet PO (06:06)
--- NOTE | 2023-11-26 09:30 | PN.OBGYN_ITS ---
Subjective Subjective Patient doing well without complaints. Tolerating PO. Ambulating and voiding without difficulty. Feeding well. Denies chest pain, shortness of breath, calf pain/swelling, fevers, chills, lightheadedness. Objective Data Objective Data Vital Signs: Vital Signs Temp Pulse Resp BP Pulse Ox O2 Del Method 97.6 F L 58 L 16 115/55 L 98 Room Air 11/26/23 08:00 11/26/23 08:00 11/26/23 08:00 11/26/23 08:00 11/26/23 08:00 11/26/23 08:00 Oxygen Delivery Method Room Air Weight: 175 lb 4.28 oz Body Mass Index (BMI) 27.4 Intake & Output: Intake and Output for Last 24 Hours 11/24/23 11/25/23 11/26/23 23:59 23:59 23:59 Intake Total 736.14 / 736.14 Output Total 550 / 550 Balance 186.14 / 186.14 Lab / Micro Data Attestation: I reviewed the patient's lab results. 11/25/23 07:30 ROS Constitutional Constitutional: Reports systems reviewed and no addt'l complaints, except as documented; Denies anorexia or headache(s) Cardiovascular Cardiovascular: Reports systems reviewed and no addt'l complaints, except as documented; Denies dizziness, dyspnea, nausea or tachypnea Respiratory/Chest Respiratory/Chest: Reports systems reviewed and no addt'l complaints, except as documented; Denies cough, dyspnea, shortness of breath at rest or tachypnea Gastrointestinal Gastrointestinal: Reports systems reviewed and no addt'l complaints, except as documented; Denies abdominal pain, constipation or nausea Genitourinary Genitourinary: Reports systems reviewed and no addt'l complaints, except as documented; Denies burning urination, difficulty urinating, dysuria, urinary frequency or urinary incontinence Musculoskeletal Musculoskeletal: Reports systems reviewed and no addt'l complaints, except as documented Integumentary Integumentary: Reports systems reviewed and no addt'l complaints, except as documented Neurologic Neurologic: Reports systems reviewed and no addt'l complaints, except as documented; Denies abnormal speech, dizziness or headache(s) Psychiatric Psychiatric: Reports systems reviewed and no addt'l complaints, except as documented Endocrine Endocrinology: Reports systems reviewed and no addt'l complaints, except as documented Hematologic/Lymphatic Hematologic/Lymphatic: Reports systems reviewed and no addt'l complaints, except as documented Physical Exam Const alert, oriented x3 and no apparent distress Neck full ROM Resp normal respiratory effort, normal air movement and no retractions Effort and Inspection: able to speak in complete sentences and symmetric chest movement GI soft to palpation Bladder / Kidney Exam: bladder normal to palpation Uterus Palpation: uterus fundus firm Extremity normal to inspection and full ROM Psych mental status grossly normal, thought process normal and cooperative Assessment & Plan (1) Vaginal delivery: COMMENT: KW girl IOL AMA PLAN: s/p PPD # 1 1. routine post delivery care 2. breast feeding- support given 3. rh positive 4. rubella immune 5. Discharge HOme (2) Encounter for induction of labor: (3) False labor after 37 completed weeks of gestation: (4) Chronic ITP (idiopathic thrombocytopenia): COMMENT: has seen heme onc in the past, mild, last two deliveries were here and didn't want regional anesthesia but may not be approved for delivery here because of anesthesia. consult placed, 08/02/23 approved for delivery at [facility] if >100K. 28w:121k. Recheck 4 wk (5) AMA (advanced maternal age) multigravida 35+: QUALIFIERS: Trimester: second trimester Qualified Code(s): O 09.522 - Supervision of elderly multigravida, second trimester COMMENT: discussed NST at 39 weeks IOL by 40, HC measuring large. (6) Supervision of high-risk : QUALIFIERS: Trimester: second trimester Qualified Code(s): O09.92 - Supervision of high risk , unspecified, second trimester COMMENT: PRR, , EROS 11/29/23, PC Tamara Mondragon, Bran. Head 90%ile, breech (7) : QUALIFIERS: Weeks of gestation: 40 weeks Qualified Code(s): Z 3A.40 - 40 weeks gestation of COMMENT: GBS neg, declines genetic & carrier testing (8) Hypothyroidism: QUALIFIERS: Hypothyroidism type: acquired Qualified Code(s): E 03.9 - Hypothyroidism, unspecified COMMENT: synthroid Labs with NOB (9) Infertility: COMMENT: 2yrs to conceive used letrazole and Naltrexone- had MFM consult. Harjinder Don to wean off of Naltrexone. (10) Macrocytosis without anemia: Charges/Coding Multi Select Codes Urinary/Genital Urinary/Genital CPT Codes: No Charge
[2023-11-26] MEDS: FLU VACC 2024-25(6MOS UP)/PF 45 MCG/0.5 ML SYRINGE IM (10:49)
== END 2023-11-26 15:10 | disposition home or self-care (01) | DRG 806 ==
PROVIDERS: Admitting Provider Advanced Practice Midwife; PCP Family Medicine; Referring Provider Advanced Practice Midwife; Visit Provider Advanced Practice Midwife
DX: O99.12 Other diseases of the blood and blood-forming organs and certain disorders involving the immune mechanism complicating childbirth (principal); Z37.0 Single live birth; D69.3 Immune thrombocytopenic purpura; E03.9 Hypothyroidism, unspecified; D75.89 Other specified diseases of blood and blood-forming organs; O99.284 Endocrine, nutritional and metabolic diseases complicating childbirth; Z3A.40 40 weeks gestation of pregnancy; O69.81X0 Labor and delivery complicated by cord around neck, without compression, not applicable or unspecified; O48.0 Post-term pregnancy; Z79.890 Hormone replacement therapy; Z79.899 Other long term (current) drug therapy
CPT/HCPCS: 59025; 59050; 85025; 86780; 86850; 86900; 86901; 90656; 99221; J7120; G0378

== ENCOUNTER → 2024-01-23 | Outpatient (CLI) | payer OTHER, SELFPAY ==
[2024-01-23 16:06] LABS: T4 Total, Thyroxin 8.5 ug/dL (4.8-13.9); Thyroid Stim Hormone (TSH) 0.315 uIU/mL (0.358-3.740)
== END | disposition home or self-care (01) ==
LOC: MFPLAB 11:36
PROVIDERS: PCP Family Medicine; Visit Provider Family Medicine
DX: E03.9 Hypothyroidism, unspecified (principal)
CPT/HCPCS: 36415; 84436; 84443

== ENCOUNTER → 2024-05-04 | Outpatient (CLI) | payer OTHER, SELFPAY ==
[2024-05-04 10:50] LABS: Hemoglobin A1c 5.1 % (<=5.6)
[2024-05-04 11:05] LABS: Anion Gap 12 (5-15); BUN 14 mg/dL (4-19); BUN/Creat Ratio 15.4 RATIO (10-20); Carbon Dioxide 24.9 mmol/L (21.0-32.0); Chloride 101 mmol/L (98-108); Cholesterol 155 mg/dL (<=200); EST Glomerular Filtration Rate 85 (>60); Glucose 94 mg/dL (70-99); HIV Nonreactive (Nonreactive); High Density Lipoprotein 80 mg/dL; Low Density Lipoprotein Calc. 69 mg/dL; Potassium 4.4 mmol/L (3.3-5.1); Sodium Level 138 mmol/L (133-145); Thyroid Stim Hormone (TSH) 0.563 uIU/mL (0.300-4.200); Triglycerides 29 mg/dL; Very Low Density Lipoprotein 6 mg/dL (5-40); cholesterol:hdl ratio screen 1.94
[2024-05-04 13:33] LABS: Microalbumin,Random Urine < 12.0 mg/L (NO RANGE EST.); Microalbumin:Creatinine Ratio UNABLE TO CALCULATE mg/g CRE
[2024-05-08 09:08] LABS: Cotinine Screen Urine Negative ng/mL (Cutoff=300)
== END | disposition home or self-care (01) ==
LOC: MFPLAB 09:22
PROVIDERS: PCP Family Medicine; Referring Provider Family Medicine; Visit Provider Family Medicine
DX: Z00.00 Encounter for general adult medical examination without abnormal findings (principal); E03.9 Hypothyroidism, unspecified
CPT/HCPCS: 36415; 80048; 80061; 80307; 82043; 82570; 83036; 84443; 86703

== ENCOUNTER → 2024-08-31 | Outpatient (CLI) | payer OTHER, SELFPAY ==
[2024-08-31 12:01] LABS: Hematocrit 44.4 % (37-47); Hemoglobin 14.3 g/dL (12.0-15.0); Mean Corp Hgb Conc 32.2 g/dL (32-36); Mean Corpuscular Volume 101.8 fL (81-99); Mean Platelet Vol. 13.3 fl (6.2-12.0); Platelet Count 101 K/mm3 (150-450); RBC Distribution Width CV 12.2 % (11.6-14.6); RBC Distribution Width SD 45.9 fl (35.1-43.9); Red Blood Count 4.36 M/mm3 (4.2-5.4); White Blood Count 2.9 K/mm3 (4.4-11.0)
[2024-08-31 13:24] LABS: AST(SGOT) 39 U/L (<=31); Alanine Aminotransfer ALT/SGPT 45 U/L (<=34); Albumin, Serum 4.7 g/dL (3.5-5.0); Alkaline Phosphatase 54 U/L (35-104); Anion Gap 10 (5-15); BUN 25 mg/dL (4-19); BUN/Creat Ratio 34.0 RATIO (10-20); Calcium,Total 9.4 mg/dL (7.6-11.0); Carbon Dioxide 26.5 mmol/L (21.0-32.0); Chloride 102 mmol/L (98-108); Globulin 2.5 g/dL (2.2-4.2); Glucose 78 mg/dL (70-99); Potassium 4.3 mmol/L (3.3-5.1)
[2024-08-31 13:29] LABS: CORTISOL AM 11.20 ug/dL (6.02-18.40); Ferritin 87 ng/mL (22-378); Follicle Stimulating Hormone 5.8 mIU/mL; Free T3 2.0 pg/mL (2.18-3.98); T3 Total - Triiodothyronine 0.54 ng/mL (0.80-2.00); Vitamin B12 1154 pg/mL (180-914); Vitamin D,25 Hydroxy 64.6 ng/mL (30-100)
--- OUTSIDE RECORDS SUMMARY | 2024-08-31 19:09 | XMS RPT_ITS | CCD ---
Author Organization [facility] Care Team Providers Care Project Manager Name Role Phone Dr. Suzanne Leyva Primary Care Provider Dr. Suzanne Leyva Referring Provider Dr. Ozzy Murry Attending Provider Dr. Suzanne Leyva Primary Care Provider Dr. Suzanne Leyva Referring Provider [phone] SCHUYLER Leslie Attending Provider Dr. Suzanne Leyva Primary Care Provider Dr. Suzanne Leyva Referring Provider [phone] SCHUYLER Leslie Attending Provider [phone] SCHUYLER Hawkins Attending Provider [phone] Dr. Tyesha Bowman Attending Provider [phone] SUZANNE LEYVA Primary Care Unavailable JENNIFER RAMIREZ Attending Unavailable CHRIS LESLIE Referring Unavailable CHU MANNING Attending Unavailable LEYVA, SUZANNE SURYA Primary Care Unavailable CHRIS LESLIE Referring Unavailable LEYVA, SUZANNE SURYA Primary Care Unavailable CHRIS LESLIE Attending Unavailable CHRIS LESLIE Referring Unavailable CHU MANNING Attending Unavailable LEYVA, SUZANNE SURYA Primary Care Unavailable GISELA APARICIO Referring UnavailGisela William Referring Unavailable Gisela Aparicio Attending Unavailable Gordon, Suzanne Primary Care Unavailable Tyesha Bowman Referring UnavailTyesha Galan Attending Unavailhermes Leyva Suzanne Primary Care Unavailable LeyvaSuzanne Referring Unavailable Suzanne Leyva Attending Unavailable Leyva, Suzanne Primary Care Unavailable Tyesha Bowman Attending Unavailabl e Leyva, Suzanne Primary Care Unavailable Chris Leslie Attending Unavailable Leyva, Suzanne Primary Care Unavailable Chris Leslie Referring Unavailable Samuel, Chris Admitting Unavailable Chris Leslie Consulting Unavailable Chris Leslie Attending Unavailable Leyva, Suzanne Primary Care Unavailable Chris Leslie Referring Unavailable Chris eLslie Admitting Unavailable Chris Leslie Consulting Unavailable Vande Velestuardo, Tyesha Referring Unavailabl e Vande VelTyesha marte Consulting Unavailabl e Sabihae Tyesha Perez Attending Unavailabl e Leyva, Suzanne Primary Care Unavailable Tyesha Bowman Attending Unavailabl e Leyva, Suzanne Referring Unavailable Leyva, Suzanne Primary Care Unavailable Elyva, Suzanne Referring Unavailable Chris Leslie Attending Unavailable Leyva, Suzanne Primary Care Unavailable Leyva, Suzanne Referring Unavailable Leyva, Suzanne Primary Care Unavailable Gisela Aparicio Attending Unavailable Leyva, Suzanne Referring Unavailable Chris Leslie Attending Unavailable Leyva, Suzanne Primary Care Unavailable Tyesha Bowman Attending Unavailabl e Leyva, Suzanne Referring Unavailable Leyva, Suzanne Primary Care Unavailable Nikos STITCHING MACHINE SETTEREnma Attending Unavailable Leyva, Suzanne Referring Unavailable Leyva, Suzanne Primary Care Unavailable Leyva, Suzanne Referring Unavailable Chris Leslie Attending Unavailable Leyva, Suzanne Primary Care Unavailable Gisela Aparicio Attending Unavailable Leyva, Suzanne Referring Unavailable Leyva, Suzanne Primary Care Unavailable Tyesha Bowman Attending Unavailabl e Leyva, Suzanne Referring Unavailable Leyva, Suzanne Primary Care Unavailable Gisela Aparicio Attending Unavailable Leyva, Suzanne Referring Unavailable Leyva, Suzanne Primary Care Unavailable Gisela Aparicio Referring Unavailable Leyva, Suzanne Primary Care Unavailable Gisela Aparicio Attending Unavailable Chris Leslie Referring Unavailable Chris Leslie Attending Unavailable Leyva, Suzanne Primary Care Unavailable Tyesha Bowman Referring Unavailabl e Vande Tyesha Perez Attending Unavailabl e Leyva, Suzanne Primary Care Unavailable Laureen Hawkins Attending Unavailable Laureen Hawkins Referring Unavailable Leyva, Suzanne Primary Care Unavailable Leyva, Suzanne Referring Unavailable Chris Leslie Attending Unavailable Leyva, Suzanne Primary Care Unavailable Leyva, Suzanne Referring Unavailable Leyva, Suzanne Primary Care Unavailable Hallie STITCHING MACHINE SETTERJeannette Attending Unavailable Leyva, Suzanne Referring Unavailable Leyva, Suzanne Primary Care Unavailable Gisela Aparicio Attending Unavailable Gisela Aparicio Attending Unavailable Leyva, Suzanne Referring Unavailable Leyva, Suzanne Primary Care Unavailable Leyva, Suzanne Referring Unavailable Chris Leslie Attending Unavailable Leyva, Suzanne Primary Care Unavailable Malorie Wilkins Attending Unavailable Suzanne Leyva Primary Care Unavailable Suzanne Leyva Referring Unavailable Ozzy Murry Attending Unavailable Suzanne Leyva Primary Care Unavailable Suzanne Leyva Primary Care Unavailable Chris Leslie Attending Unavailable Chris Leslie Referring Unavailable Chris Leslie Admitting Unavailable Tyesha Bowman Attending UnavailTyesha Galan Referring UnavailSuzanne Chinchilla Primary Care Unavailable Gordon REYES, Dr. Porras Primary Care Provider Claudette REYES, Dr. Malorie Barksdale Attending Provider Gordon REYES, Dr. Porras Referring Provider Enma Kiran Attending Provider Gordon REYES, Dr. Porras Attending Provider Medications Current Medications Medication Drug Class(es) Dates Sig (Normalized) Sig (Original) cholecalciferol 0.05 mg oral capsule (20 sources) Vitamin D Start: 04-12-2023 take 1 capsule by mouth once daily Cholecalciferol (Vitamin D3) 50 mcg (2,000 unit) capsule Active 50 ug PO DAILY April 12, 2023 1:00am Start: 03-11-2021 End: 09-24-2021 take 1 capsule by mouth once daily Cholecalciferol (Vitamin D3) 125 mcg (5,000 unit) capsule Discontinued 125 ug PO DAILY March 11, 2021 1:00am September 24, 2021 10:37am dicloxacillin 500 mg oral capsule (1 source) Penicillin-class Antibacterial Start: 02-29-2024 take 1 tablet by mouth every six hours Dicloxacillin 500 mg capsule Active 500 mg PO EVERY 6 HOURS February 29, 2024 1:00am Take 1 tablet PO q 6 hours for 10 days levothyroxine sodium 0.075 mg oral tablet (20 sources) l-Thyroxine Start: 04-21-2023 End: 12-26-2023 take 1 tablet by mouth once daily Levothyroxine (Synthroid) 75 mcg tablet Active 75 ug PO DAILY December 26, 2023 10:06am Start: 08-10-2020 End: 03-11-2021 take 1 tablet by mouth once daily Levothyroxine (Synthroid) 50 mcg Tablet Discontinued 50 ug PO DAILY August 10, 2020 12:00am March 11, 2021 2:24pm Vit,Obmd82-Glbf-Jwyon (20 sources) Start: 04-12-2019 take 1 tablet by mouth once daily Vit,Rbuu69-Dxfp-Nqpmn Active 1 TABLET PO DAILY April 12, 2019 12:00am Start: 04-12-2019 take 1 tablet by jeaneth th once daily Vit,Amxr94-Yhbo-Kqabu Active 1 TABLET PO DAILY April 12, 2019 1:00am Vit,Znde65-Tgtj-Epqhe 1 TABLET tablet (1 source) Start: 04-12-2019 take 1 tablet by mouth once daily Vit,Rien51-Havl-Akucc 1 TABLET tablet Active 1 {tbl} PO DAILY April 12, 2019 1:00am Completed/Discontinued Medications Medication Drug Class(es) Dates Sig (Normalized) Sig (Original) acetaminophen 325 mg / HYDROcodone bitartrate 5 mg oral tablet (18 sources) Opioid Agonist Start: 08-15-2022 End: 04-12-2023 Hydrocodone-Acetami nophen 5-325 mg tablet Discontinued 1 {tbl} PO EVERY 6 HOURS NEEDED as needed for Pain 10 3 August 15, 2022 April 12, 2023 10:40am Start: 08-15-2022 End: 04-12-2023 take 1 tablet by mouth every six hours as needed Hydrocodone-Acetaminophen Discontinued 1 TABLET PO EVERY 6 HOURS NEEDED 10 3 August 15, 2022 April 12, 2023 10:40am acetaminophen 325 mg / oxyCODONE hydrochloride 5 mg oral tablet (18 sources) Opioid Agonist Start: 08-16-2022 End: 04-12-2023 Oxycodone-Acetaminophen (Percocet) 5-325 mg tablet Discontinued 1 {tbl} PO EVERY 6 HOURS as needed for pain 12 3 August 16, 2022 April 12, 2023 10:42am cetirizine hydrochloride 10 mg oral capsule (20 sources) Histamine-1 Receptor Antagonist Start: 08-10-2020 End: 04-12-2023 take 1 capsule by mouth once daily Cetirizine (Zyrtec) 10 mg Capsule Discontinued 10 mg PO DAILY August 10, 2020 12:00am April 12, 2023 10:40am Flaxseed extract (7 sources) Non-Standardize d Food Allergenic Extract, Non-Standardize d Plant Allergenic Extract Start: 04-12-2023 End: 07-29-2023 take 1 capsule by mouth once daily Flaxseed 1,000 mg capsule Discontinued 3000 mg PO DAILY April 12, 2023 1:00am July 29, 2023 1:57pm Start: 04-12-2023 take 3000 mg by mouth once grant ly Flaxseed Active 3000 MG PO DAILY April 12, 2023 1:00am Start: 04-12-2023 take 3000 mg by mouth once grant ly Flaxseed Active 3000 MG PO DAILY April 12, 2023 12:00am ibuprofen 600 mg oral tablet (20 sources) Nonsteroidal Anti-inflammatory Drug Start: 08-29-2020 End: 04-12-2023 take 1 tablet by mouth every eight hours as needed for pain Ibuprofen 600 mg tablet Discontinued 600 mg PO Q8H as needed for pain August 29, 2020 12:00am April 12, 2023 10:41am naltrexone hydrochloride 50 mg oral tablet (20 sources) Opioid Antagonist Start: 04-12-2023 End: 07-27-2023 take 1 tablet by mouth twice daily Naltrexone 50 mg tablet Discontinued 25 mg PO TWICE A DAY April 12, 2023 10:41am July 27, 2023 2:32pm Start: 04-12-2023 take 25 mg by mouth twice bradley y Naltrexone Active 25 MG PO TWICE A DAY April 12, 2023 10:41am Start: 09-24-2021 End: 04-12-2023 take 1 tablet by mouth once daily Naltrexone 50 mg tablet Discontinued 4.5 mg PO DAILY September 24, 2021 12:00am April 12, 2023 10:45am Start: 09-24-2021 End: 04-12-2023 take 4.5 mg by mouth once daily Naltrexone Discontinue d 4.5 MG PO DAILY September 24, 2021 12:00am April 12, 2023 10:45am Start: 03-05-2020 End: 08-29-2020 take 1 tablet by mouth once daily Naltrexone 50 MG tablet Discontinued 50 mg PO DAILY March 05, 2020 1:00am August 29, 2020 5:57am dose not confirmed ondansetron 4 mg disintegrating oral tablet (18 sources) Serotonin-3 Receptor Antagonist Start: 08-16-2022 End: 04-12-2023 take 1 tablet by mouth three times daily as needed for nausea and vomiting Ondansetron 4 mg tablet,disintegrating Discontinued 4 mg PO THREE TIMES A DAY as needed for nausea and vomiting August 16, 2022 2:46am April 12, 2023 10:42am prasterone 25 mg oral tablet (7 sources) Start: 04-12-2023 End: 07-27-2023 take 1 tablet by mouth once daily Prasterone (Dhea) (Dhea) 25 mg tablet Discontinued 25 mg PO DAILY April 12, 2023 1:00am July 27, 2023 2:32pm progesterone 200 mg oral capsule (5 sources) Progesterone Start: 04-21-2023 End: 07-27-2023 Progesterone Micronized 200 mg capsule Discontinued 200 mg VAGINAL TWICE A DAY April 21, 2023 1:00am July 27, 2023 2:32pm Problems Active Problems Problem Classification Problem Date Documented Date Episodic/Chronic Abdominal pain (18 sources) Pain in pelvis; Translations: [Pelvic and perineal pain] 08-15-2022 Episodic Coagulation and hemorrhagic disorders (20 sources) Platelet count below reference range; Translations: [Thrombocytopenia, unspecified] Onset: 06-28-2023 Chronic Comment on above: has seen heme onc in the past, mild, last two deliveries were here and didn't want regional anesthesia but may not be approved for delivery here because of anesthesia. consult placed, 08/02/23 approved for delivery at [facility] if >100K. 28w:121k. Recheck 4 wk Deficiency and other anemia (7 sources) Macrocytic anemia; Translations: [Nutritional anemia, unspecified] 03-11-2021 Episodic Deficiency and other anemia (1 source) Nutritional anemia, unspecified; Translations: [Unspecified deficiency anemia] Episodic Nonmalignant breast conditions (1 source) Inflammatory disorder of breast; Translations: [Mastitis without abscess] 03-04-2024 Episodic Other complications of (7 sources) High risk ; Translations: [Supervision of high risk , unspecified, unspecified trimester] 04-12-2023 Episodic Comment on above: PRR, , EROS , PC Tamara Mondragon, Bran. Head 90%ile, breech Other complications of (5 sources) Multigravida of advanced maternal age; Translations: [Supervision of elderly multigravida, unspecified trimester] 04-21-2023 Episodic Comment on above: discussed NST at 39 weeks IOL by 40, HC measuring large. Other complications of (11 sources) Supervision of elderly multigravida, unspecified trimester; Translations: [Elderly multigravida, unspecified as to episode of care or not applicable] 04-21-2023 Episodic Other hematologic conditions (15 sources) Macrocytosis - no anemia; Translations: [Other specified diseases of blood and blood-forming organs] 10-19-2022 Chronic Other hematologic conditions (15 sources) Other specified diseases of blood and blood-forming organs; Translations: [Other specified diseases of blood and blood-forming organs] Onset: 11-23-2023 10-19-2022 Chronic Ovarian cyst (18 sources) Cyst of ovary; Translations: [Unspecified ovarian cyst, right side] 08-16-2022 Episodic Residual codes; unclassified (20 sources) Gestation period, 38 weeks; Translations: [38 weeks gestation of ] 08-29-2020 Episodic Residual codes; unclassified (20 sources) Gestation period, 41 weeks; Translations: [41 weeks gestation of ] 09-07-2020 Episodic Residual codes; unclassified (1 source) Infertile 05-16-2023 Episodic Comment on above: 2yrs to conceive use d letrazole and Naltrexone- had MFM consult. Harjinder Don to wean off of Naltrexone. Thyroid disorders (20 sources) Hypothyroidism; Translations: [Hypothyroidism, unspecified] Onset: 12-20-2023 04-12-2023 Chronic Comment on above: synthroidLabs with N OB Unclassified (17 sources) Infertile; Translations: [Infertility] 04-12-2023 Past or Other Problems Problem Classification Problem Date Documented Date Episodic/Chronic Early or threatened labor (3 sources) False labor at or after 37 completed weeks of gestation; Translations: [False labor at or after 37 completed weeks of gestation] Onset: 12-14-2023 11-29-2023 Episodic Immunizations and screening for infectious disease (1 source) Encounter for immunization; Translations: [Encounter for immunization] Onset: 09-05-2023 Episodic Other complications of (12 sources) Supervision of high risk , unspecified, unspecified trimester; Translations: [Supervision of unspecified high-risk ] Onset: 09-05-2023 04-21-2023 Episodic Other complications of (2 sources) Supervision of elderly multigravida, second trimester; Translations: [Supervision of elderly multigravida, second trimester] Onset: 11-23-2023 Episodic Other complications of (2 sources) Supervision of high risk , unspecified, second trimester; Translations: [Supervision of high risk , unspecified, second trimester] Onset: 11-23-2023 Episodic Other complications of (1 source) Supervision of elderly multigravida, third trimester; Translations: [Supervision of elderly multigravida, third trimester] Onset: 12-20-2023 Episodic Other complications of (1 source) Supervision of high risk , unspecified, third trimester; Translations: [Supervision of high risk , unspecified, third trimester] Onset: 11-17-2023 Episodic Other complications of (1 source) Endocrine, nutritional and metabolic diseases complicating , unspecified trimester; Translations: [Endocrine, nutritional and metabolic diseases complicating , unspecified trimester] Onset: 07-04-2023 Episodic Other non-epithelial cancer of skin (5 sources) Malignant neoplasm of skin; Translations: [Unspecified malignant neoplasm of skin, unspecified] Onset: 11-21-2020 04-21-2023 Episodic Other and delivery including normal (20 sources) Vaginal delivery; Translations: [Encounter for full-term uncomplicated delivery] Onset: 12-20-2023 08-29-2020 Episodic Comment on above: KW girl IOL AMA GBS neg, declines ge netic & carrier testing Residual codes; unclassified (2 sources) 40 weeks gestation of ; Translations: [40 weeks gestation of ] Onset: 11-23-2023 Episodic Residual codes; unclassified (2 sources) 39 weeks gestation of ; Translations: [39 weeks gestation of ] Onset: 11-23-2023 Episodic Residual codes; unclassified (1 source) 36 weeks gestation of ; Translations: [36 weeks gestation of ] Onset: 11-02-2023 Episodic Residual codes; unclassified (1 source) 34 weeks gestation of ; Translations: [34 weeks gestation of ] Onset: 10-13-2023 Episodic Thyroid disorders (5 sources) Disorder of thyroid gland; Translations: [Disorder of thyroid, unspecified] Onset: 11-22-2019 04-21-2023 Episodic Comment on above: ON MED Results Test Name Value Interpretation Reference Range Facility Nicotine Screen Urine SENDOU Ton 05-08-2024 COMMENT Comment Normal . [facility] Comment on above: Result Comment: This analysis is performed by immunoassay. Positive findings are unconfirmed analytical test results; if results do not support expected clinical finding, confirmation by an alternate methodology is recommended. Patient metabolic variables, specific drug chemistry, and specimen characteristics can affect test outcome. Technical consultation is available at [email or web address], or call toll free [phone]. Performed at: [facility] [address] [place], [place] [id number] [employer] Professor: Marquita Handley PhD, Phone: [phone] Performed By: #### L [id number], L501.9310 #### [facility] [address] [place], [place], [id number] COTININE SCR UR Negative Normal Gxnhpa=089 [facility] Comment on above: Result Comment: AVANI ER FOR ACTIVE SMOKING. COTININE IS THE MAJOR METABOLITE OF NICOTINE AND MAY BE DETECTED FOR LONG 7 DAYS AFTER EXPOSURE. CUTOFF IS SET HIGH TO RULE OUT PASSIVE INHALATION. Performed By: #### L [id number], [id number] #### [facility] [address] [place], [place], [address] Albumin DL <= 20 mg/L (U) [M ass/Vol]Ordered By: Suzanne Leyva on 05-04-2024 Urine Random Microalbumin < 12.0 mg/L NO RANGE EST. [facility] Anion gap in Serum or Plasma Ordered By: Suzanne Leyva on 05-04-2024 Anion gap [Moles/Vol] 12 mmol/L 07-05 [facility] BUN/creatinine ratioOrdered By: Suzanne Leyva on 05-04-2024 Urea nitrogen/Creatinine [Mass ratio] 15.4 mg/mg - [facility] Basic Metabolic Profile (BMP )on 05-04-2024 BUN/CRE 15.4 RATIO Normal 12-10 [facility] Comment on above: Performed By: #### L [id number], [id number] #### [facility] [address] [place], [address] Calcium [Mass/Vol] 9.0 mg/dL Normal 7.6-11.0 [facility] Comment on above: Performed By: #### L [id number], [id number] #### [facility] [address] [place], [address] Chloride [Moles/Vol] 101 mmol/L Normal 98-108 [facility] Comment on above: Performed By: #### L [id number], [id number] #### [facility] [address] [place], [address] CO2 [Moles/Vol] 24.9 mmol/L Normal 21.0-32.0 [facility] Comment on above: Performed By: #### L [id number], [id number] #### [facility] [address] [place], [address] Creatinine [Mass/Vol] 0.90 mg/dL Normal 0.70-1.20 [facility] Comment on above: Performed By: #### L [id number], [id number] #### [facility] [address] [place], [address] GAP 12 Normal 5-15 [facility] Comment on above: Performed By: #### L [id number], [id number] #### [facility] [address] [place], [address] GFR/1.73 sq M.predicted among non-blacks MDRD (S/P/Bld) [Vol rate/Area] 85 mL/min/{1.73_m2} Normal >60 [facility] Comment on above: Result Comment: mL/m in/1.73m2 CKD-EPI Creatinine Equation (2020) Performed By: #### L [id number], [id number] #### [facility] [address] [place], [address] Glucose [Mass/Vol] 94 mg/dL Normal 70-99 [facility] Comment on above: Performed By: #### L [id number], [id number] #### [facility] [address] [place], [address] Potassium [Moles/Vol] 4.4 mmol/L Normal 3.3-5.1 [facility] Comment on above: Performed By: #### L [id number], [id number] #### [facility] [address] [place], [address] Sodium [Moles/Vol] 138 mmol/L Normal 133-145 [facility] Comment on above: Performed By: #### L [id number], [id number] #### [facility] [address] [place], [address] Urea nitrogen [Mass/Vol] 14 mg/dL Normal 4-19 [facility] Comment on above: Performed By: #### L [id number], [id number] #### [facility] [address] [place], [address] Calculated very low density lipoprotein (VLDL) cholesterol measurementOrdered By: Suzanne Leyva on 05-04-2024 VLDL Cholesterol 6 mg/dL 5-40 [facility] Carbon dioxide, total [Moles /volume] in Central venous bloodOrdered By: Suzanne Leyva on 05-04-2024 CO2 [Moles/Vol] 24.9 mmol/L 21.0-32.0 [facility] Chloride assayOrdered By: Darrell Leyva on 05-04-2024 Chloride [Moles/Vol] 101 mmol/L 98-108 [facility] Cotinine Screen Ql (U)Ordere d By: Suzanne Levya on 05-04-2024 Urine Nicotine & Cotinine Negative Inlhjg=116 [facility] Comment on above: MARKER FOR ACTIVE SM OKING. COTININE IS THE MAJOR METABOLITEOF NICOTINE AND MAY BE DETECTED FOR LONG 7 DAYS AFTEREXPOSURE. CUTOFF IS SET HIGH TO RULE OUT PASSIVE INHALATION. Creatinine Unsp time (U) [Ma ss/Vol]Ordered By: Suzanne Leyva on 05-04-2024 Creatinine (U) [Mass/Vol] 108.00 mg/dL 28-217 [facility] GFR/1.73 sq M.predicted tre g non-blacks MDRD (S/P/Bld) [Vol rate/Area]Ordered By: Suzanne Leyva on 05-04-2024 Estimated GFR (MDRD) Non-Af Amer 85 >60 [facility] Comment on above: mL/min/1.73m2 CKD-EP I Creatinine Equation (2020) Hemoglobin A1con 05-04-2024 HbA1c (Bld) [Mass fraction] 5.1 % Low <=5.6 [facility] Comment on above: Performed By: #### M [id number] #### [facility] [address] [place], [address] Hemoglobin A1c percentageOrd ered By: Suzanne Leyva on 05-04-2024 HbA1c (Bld) [Mass fraction] 5.1 % Low >5.7 [facility] [id number] 05-04-2024 HIV Non-Reactive Normal Nonreactive [facility] Comment on above: Result Comment: Non- Reactive Reactive Repeatedly reactive samples must be confirmed according to CDC recommended confirmatory algorithms. The subresults for either HIVAG or AHIV can be used as an aid in the selection of the confirmation algorithm for reactive samples. Send out specimens with Reactive results to [facility] for confirmation. Order the HIV antibody detection and differentiation: [id number] Performed By: #### L [id number], [id number] #### [facility] [address] [place], [address] LDL calc ser/plasOrdered By: Suzanne Leyva on 05-04-2024 LDL Cholesterol, Calculated 69 mg/dL [facility] Comment on above: Ozqjypedbl=979-111 m g/dL & Higher Xjls=089 mg/dL or greater Lipid Profileon 05-04-2024 CHOL:HDL 1.94 Normal [facility] Comment on above: Performed By: #### L [id number], [id number] #### [facility] [address] [place], [address] Cholesterol [Mass/Vol] 155 mg/dL Normal <=200 [facility] Comment on above: Result Comment: Chol esterol level, Desirable <200 mg/dL Borderline high cholesterol 200-239 mg/dL High cholesterol >=240 mg/dL Recommendations of the NCEP Adult Treatment Panel for the following risk-cutoff thresholds for the [place] population. Performed By: #### L [id number], [id number] #### [facility] [address] [place], [address] Cholesterol in HDL [Mass/Vol] 80 mg/dL Normal [facility] Comment on above: Result Comment: Rosanne onal Cholesterol Education Program (NCEP) guidelines: <40 mg/dL: Low HDL-cholesterol (major risk factor for CHD) >= 60 mg/dL: High HDL-cholesterol (negative risk factor for CHD) HDL-cholesterol is affected by a number of factors, e.g. smoking, exercise, hormones, sex and age. Performed By: #### L [id number], [id number] #### [facility] [address] [place], [address] Cholesterol in LDL [Mass/Vol] 69 mg/dL Normal [facility] Comment on above: Result Comment: Bord qysbow=492-702 mg/dL Higher Wbss=326 mg/dL or greater Performed By: #### L [id number], [id number] #### [facility] [address] [place], [address] Cholesterol in VLDL [Mass/Vol] 6 mg/dL Normal 5-40 [facility] Comment on above: Performed By: #### L [id number], [id number] #### [facility] [address] [place], [address] Triglyceride [Mass/Vol] 29 mg/dL Normal [facility] Comment on above: Result Comment: The drugs N-Acetylcysteine and Metamizole may falsely depress this assay. Normal range: <150 mg/dL Borderline High: 150-199 mg/dL High: 200-499 mg/dL Very High: >500 mg/dL Performed By: #### L 501.9520, L501.9310 #### [facility] [address] [place], [address] Microalb:Creat Ratio,Random URon 05-04-2024 Creatinine [Mass/Vol] 108.00 mg/dL Normal 28-217 [facility] Comment on above: Performed By: #### L 501.9520, L501.9310 #### [facility] [address] [place], [address] MALB:CREAT UNABLE TO CALCULATE Normal [facility] Comment on above: Performed By: #### L 501.9520, L501.9310 #### [facility] [address] [place], [address] MICROALBUMIN,UR < 12.0 Normal NO RANGE EST. [facility] Comment on above: Performed By: #### L 501.9520, L501.9310 #### [facility] [address] [place], [address] Microalbumin/creat ratio urO rdered By: Suzanne Leyva on 05-04-2024 Urine Microalbumin/Creatinine Ratio UNABLE TO CALCULATE mg/g CRE [facility] No Panel InformationOrdered By: Suzanne Leyva on 05-04-2024 HIV (1&2) Antibody Non-Reactive Nonreactive [facility] Comment on above: Non-ReactiveReactive Repeatedly reactive samples must be confirmed according to CDC recommended confirmatory algorithms. The subresults for either HIVAG or AHIV can be used as an aid in the selection of the confirmation algorithm for reactive samples.[facility].Order the HIV antibody detection and differentiation: #[id number] Potassium (Unsp spec) [Mass/ Vol]Ordered By: Suzanne Leyva on 05-04-2024 Potassium [Moles/Vol] 4.4 mmol/L 3.3-5.1 [facility] Screening total cholesterol/ high density lipoprotein (HDL) cholesterol ratioOrdered By: Suzanne Leyva on 05-04-2024 Cholesterol.total/Paola sterol in HDL [Mass ratio] 1.94 {ratio} [facility] Serum creatinine measurement (mass/volume)Ordered By: Suzanne Leyva on 05-04-2024 Creatinine [Mass/Vol] 0.90 mg/dL 0.70-1.20 [facility] Serum glucose measurement (m ass/volume)Ordered By: Suzanne Leyva on 05-04-2024 Glucose [Mass/Vol] 94 mg/dL 70-99 [facility] Serum or plasma calcium sunshine urement (mass/volume)Ordered By: Suzanne Leyva on 05-04-2024 Calcium [Mass/Vol] 9.0 mg/dL 7.6-11.0 [facility] Serum or plasma cholesterol in HDL measurement (mass/volume)Ordered By: Suzanne Leyva on 05-04-2024 Cholesterol in HDL [Mass/Vol] 80 mg/dL >40 [facility] Comment on above: National Cholesterol Education Program (NCEP) guidelines:<40 mg/dL: Low HDL-cholesterol (major risk factor for CHD)>= 60 mg/dL: High HDL-cholesterol (negative risk factor for CHD)HDL-cholesterol is affected by a number of factors, e.g. smoking, exercise, hormones, sex and age. Serum or plasma cholesterol measurement (mass/volume)Ordered By: Suzanne Leyva on 05-04-2024 Cholesterol [Mass/Vol] 155 mg/dL <201 [facility] Comment on above: Cholesterol level, D esirable <200 mg/dLBorderline high cholesterol 200-239 mg/dLHigh cholesterol >=240 mg/dLRecommendations of the NCEP Adult Treatment Panel for the following risk-cutoff thresholds for the [place] population. Serum or plasma urea nitroge n measurement (mass/volume)Ordered By: Suzanne Leyva on 05-04-2024 Urea nitrogen [Mass/Vol] 14 mg/dL 4-19 [facility] Sodium levelOrdered By: Suzanne Leyva on 05-04-2024 Sodium [Moles/Vol] 138 mmol/L 133-145 [facility] TSH DL <= 0.005 mIU/L QnOrde red By: Suzanne Leyva on 05-04-2024 Thyroid Stimulating Hormone (TSH) 0.563 uIU/mL 0.300-4.200 [facility] Thyroid Stim Hormone (TSH)on 05-04-2024 TSH 0.563 uIU/mL Normal 0.300-4.200 [facility] Comment on above: Performed By: #### L 501.9520, L501.9310 #### [facility] [address] [place], [place], [address] Triglycerides measurementOrd ered By: Suzanne Leyva on 05-04-2024 Triglyceride [Mass/Vol] 29 mg/dL <199 [facility] Comment on above: The drugs N-Acetylcy steine and Metamizole may falsely depress this assay. Normal range: <150 mg/dLBorderline High: 150-199 mg/dLHigh: 200-499 mg/dLVery High: >500 mg/dL Virtual Office Visiton 03-04 Virtual Office Visit [facility] [address] [place] [address] OFFICE VISIT Date of Service: 03/04/24 MR#: [id number] Acct: [id number] Patient: IDALMIS MAHONEY Rep #: [id number] : 1990 Provider: Enma Knott NP Age/Sex: 33/F Location: [facility] Status: Signed Intake Vital Signs 01/03/24 15:22 Height 5 ft 7 in Intake Visit Reasons: phone visit, mastitis follow Chief Complaint: mastitis follow up Allergies No Known Allergies Allergy (Verified 01/03/24 15:27) [facility] Medical History Supervision of high-risk AMA (advanced maternal age) multigravida 35+ False labor after 37 completed weeks of gestation Encounter for induction of labor Blood disorder Non-smoker Thyroid disease (11/22/19) Skin cancer (11/21/20) Macrocytosis without anemia Ovarian cyst Thrombocytopenia Surgical History History of removal of skin mole [place] teeth extracted Family History Father Skin cancer Grandfather Colon cancer Uncle Colon cancer Social History adopted: No household members: spouse and children number of children: 2 current occupational status: employed 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 occupational exposures/hazards: No pets and animals: Yes pets and animals: dog(s) and farm animals history of recent travel: Yes ([place] in February) out of state: Yes out of country: No sexually active: Yes Smoking Status: Never smoker alcohol intake: never substance use type: does not use diet: low carbohydrate well-balanced diet: daily or most days caffeine: No eating out: rarely or never during the past year weight has: remained stable what type of physical activity do you participate in: walking and weight training frequency: daily duration: 45-60 minutes/day corina/islam: Uatsdin seatbelt use: always do you feel safe at home: Yes additional social history: [employer] Female Reproductive History Menstrual Ab induced: 0 Ab spontaneous: 0 Ectopics: 0 HPI HPI Chief Complaint: mastitis follow up Details: Patient was informed that today's visit charges, even if billed to insurance may still be the patient's responsibility to pay. IDALMIS MAHONEY, is a 33 F who presents to the office today for mastitis follow up. History provided by the patient. ROS Const Constitutional: No fever(s) or headache(s) ENT ENT: No headache(s) Breast Breast: Positive for breast pain (left breast pain improved, no longer red or painful to touch ); No breast skin changes or nipple discharge Neuro Neurology: No headache(s) Exam Details: Details:: Exam was limited due to phone visit with no video. Coding Level of Care Code Level 1 Telephone Diagnoses Mastitis N61.0 Care and examination of lactating mother Z39.1 Assessment and Plan Assessment and Plan (1) Mastitis: Plan: Significant improvement, no fevers or redness to breast per patient. Continue full course of antibiotic. Patient still reports clogged duct is present, educated on ice, motrin, sunflower lecithin and pointing baby's nose toward clog. Follow up if no improvement or for any new/worsening symptoms. (2) Care and examination of lactating mother: Plan: Plan as above. 03/05/24 1015 Date Enma Fortune STITCHING MACHINE SETTER STITCHING MACHINE SETTER-C Cosigner Signature: Date (if applicable) CC: Normal [facility] Serum or plasma thyroxine (T 4) measurement (mass/volume)Ordered By: Malorie Wilkins on 01-23-2024 T4 [Mass/Vol] 8.5 ug/dL 4.8-13.9 [facility] T4 Total, Thyroxinon 024 T4 [Mass/Vol] 8.5 ug/dL Normal 4.8-13.9 [facility] Comment on above: Performed By: #### L 501.9520, L501.9310 #### [facility] [address] [place], [place], [address] TSH QnOrdered By: Malorie mott on 01-23-2024 Thyroid Stimulating Hormone (TSH) 0.315 uIU/mL Low 0.358-3.740 [facility] Thyroid Stim Hormone (TSH)on 01-23-2024 TSH 0.315 uIU/mL Low 0.358-3.740 [facility] Comment on above: Performed By: #### L 501.9520, L501.9310 #### [facility] [address] [place], [place], [address] Bee Producer Office Visit Reporton 01-03-2024 Bee Producer Office Visit Report [facility] [address], [address] [place] [address] OFFICE VISIT Date of Service: 01/03/24 MR#: [id number] Acct: [id number] Name: IDALMIS MAHONEY Rep #: [id number] : 1990 Provider: SCHUYLER Garzon ams Age/Sex: 33/F Location: [facility] Status: Signed Intake Vital Signs 11/25/23 07:16 01/03/24 15:22 Height 5 ft 7 in 5 ft 7 in Weight: 149 lb 4 oz BMI 23.3 BP 108/68 Intake Visit Reasons: visit (obstetrics) Social And Human Services Assistant Required: No Is patient in pain?: No Feel stressed/tense/nervous/an xious/difficulty sleeping: not at all Allergies No Known Allergies Allergy (Verified 01/03/24 15:27) Medications ???Medication ???Instructions ???Recorded ???Confirmed ???Type vits,calcium no.78-iron 1 tab PO DAILY Check with primary 04/12/19 01/03/24 History fumarate-folic acid 29 mg-1 mg doctor tablet cholecalciferol (vitamin D3) 50 50 mcg PO DAILY 04/12/23 01/03/24 History mcg (2,000 unit) capsule levothyroxine 75 mcg tablet 75 mcg PO DAILY #30 tabs 12/26/23 01/03/24 Rx (Synthroid) : Yes PFSH Medical History Supervision of high-risk AMA (advanced maternal age) multigravida 35+ False labor after 37 completed weeks of gestation Encounter for induction of labor Blood disorder Non-smoker Thyroid disease (11/22/19) Skin cancer (11/21/20) Macrocytosis without anemia Ovarian cyst Thrombocytopenia Surgical History History of removal of skin mole [place] teeth extracted Family History Father Skin cancer Grandfather Colon cancer Uncle Colon cancer Social History adopted: No household members: spouse and children number of children: 2 current occupational status: employed 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 occupational exposures/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: No pets and animals: Yes pets and animals: dog(s) and farm animals history of recent travel: Yes ([place] in February) out of state: Yes out of country: No sexually active: Yes Smoking Status: Never smoker alcohol intake: never substance use type: does not use diet: low carbohydrate well-balanced diet: daily or most days caffeine: No eating out: rarely or never during the past year weight has: remained stable what type of physical activity do you participate in: walking and weight training frequency: daily duration: 45-60 minutes/day corina/islam: Uatsdin seatbelt use: always do you feel safe at home: Yes additional social history: [employer] History 3 Elective abortions 0 Hx Para 3 Spontaneous abortions 0 Hx # Term Pregnancies 3 Ectopic pregnancies 0 Hx # Pregnancies 0 Multiple births 0 # of living children 3 Past Pregnancies Del. Date Name GA/Weeks Outcome Route Bth Weight Gen Labor Lgth Anesthesia Del Locatn Provider FOB 02/24/17 Idamarie 40 live - full term 6lb 4oz Female 23 none [facility] Se als Bran 08/29/20 Tamara 41 live - full term 7#12oz Female none [facility] Hol mes-Arian Bran 11/25/23 Renita 40 live - full term Female epidural [facility] KW Bran Delivery Date: 11/25/23 Last Updated by: Karen Heard RN See problem list for complications, and KW IOL AMA, girl Depression Screen PHQ-2/9 PHQ-2 Over the last 2 weeks, how often have you been bothered by any of the following problems? 1. Little interest or pleasure in doing things: not at all 2. Feeling down, depressed, or hopeless: not at all Total score: 0 Post HPI Routine Follow-Up: Details: IDALMIS MAHONEY is a 33 year old who presents for her post visit. Infant Feeding: Breast Menses resumed: No [place] since delivery: No Emotional Support: Yes Last Pap:: 04/21/23 Control Method: condoms ROS Const All systems reviewed are unremarkable except as noted in H Reports system reviewed and no additional complaints, except as documented Card Reports system reviewed and no additional complaints, except as documented GI Reports system reviewed and no additional complaints, except as documented Neuro Yes system reviewed and no additional complaints, except as documented Psych Reports system reviewed and no additional complaints, except as documented, Denies anhedonia, Denies depression, Denies homicidal ideation and Denies suicidal ideation Exam Const General: cooperative, healthy appearing and comfortable Nutritional Appearance: average body habitus Orientation: alert, awake and oriented x3 (more content not included)... Normal [facility] CBC W/Diff, Automatedon 10-0 -2023 Absolute Lymph 1.52 X10 3/uL Normal 0.83-4.51 [facility] Comment on above: Performed By: #### M 100.2200 #### [facility] [address] [place], [address] Absolute Neut 6.3 X10 3/uL Normal 2.0-7.7 [facility] Comment on above: Performed By: #### M 100.2200 #### [facility] [address] [place], [address] Basophils/100 WBC (Bld) 0.4 % Normal 0-1 [facility] Comment on above: Performed By: #### M 100.2200 #### [facility] [address] [place], [address] Eosinophils/100 WBC (Bld) 0.5 % Normal 0-5 [facility] Comment on above: Performed By: #### M 100.2200 #### [facility] [address] [place], [address] Erythrocyte distribution width (RBC) [Ratio] 12.3 % Normal 11.6-14.6 [facility] Comment on above: Performed By: #### M 100.2200 #### [facility] [address] [place], [address] Hematocrit (Bld) [Volume fraction] 41.8 % Normal 37-47 [facility] Comment on above: Performed By: #### M 100.2200 #### [facility] [address] [place], [address] Hemoglobin (Bld) [Mass/Vol] 13.6 g/dL Normal 12.0-15.0 [facility] Comment on above: Performed By: #### M 100.2200 #### [facility] [address] [place], [address] IG% 0.500 Normal 0.0-0.9 [facility] Comment on above: Result Comment: IG% - Immature Granulocytes (promyelocytes, myelocytes and metamyelocytes) > 1% indicates that a LEFT SHIFT is Present. Performed By: #### M 100.2200 #### [facility] [address] [place], [address] Lymphocytes/100 WBC (Bld) 18.3 % Low 19-41 [facility] Comment on above: Performed By: #### M 100.2200 #### [facility] [address] [place], [address] MCH (RBC) [Entitic mass] 34.2 pg High 27.0-32.0 [facility] Comment on above: Performed By: #### M 100.2200 #### [facility] [address] [place], [address] MCHC (RBC) [Mass/Vol] 32.5 g/dL Normal 32-36 [facility] Comment on above: Performed By: #### M 100.2200 #### [facility] [address] [place], [address] MCV (RBC) [Entitic vol] 105.0 fL High 81-99 [facility] Comment on above: Performed By: #### M 100.2200 #### [facility] [address] [place], [address] Monocytes/100 WBC (Bld) 4.6 % Normal 0-10 [facility] Comment on above: Performed By: #### M 100.2200 #### [facility] [address] [place], [address] Neutrophils/100 WBC (Bld) 75.7 % High 47-70 [facility] Comment on above: Performed By: #### M 100.2200 #### [facility] [address] [place], [address] Nucleated RBC (Bld) [#/Vol] 0 10*3/uL Normal 0-5 [facility] Comment on above: Performed By: #### M 100.2200 #### [facility] [address] [place], [address] Platelet mean volume (Bld) [Entitic vol] 12.4 fL High 6.2-12.0 [facility] Comment on above: Performed By: #### M 100.2200 #### [facility] [address] [place], [address] Platelets (Bld) [#/Vol] 120 10*3/uL Low 150-450 [facility] Comment on above: Performed By: #### M 100.2200 #### [facility] [address] [place], [address] RBC (Bld) [#/Vol] 3.98 10*6/uL Low 4.2-5.4 [facility] Comment on above: Performed By: #### M 100.2200 #### [facility] [address] [place], [address] RDW SD 48.0 fl High 35.1-43.9 [facility] Comment on above: Performed By: #### M 100.2200 #### [facility] [address] [place], [address] WBC (Bld) [#/Vol] 8.3 10*3/uL Normal 4.4-11.0 [facility] Comment on above: Performed By: #### M 100.2200 #### [facility] [address] [place], [address] Discharge Instructionon Discharge Instruction [facility] Medical Records Department [address] [place] [address] Instructions for Home/Discharge Instructions 11/25/23 1347 MR#: [id number] Acct: [id number] Name: IDALMIS MAHONEY Rep #: [id number] : 1990 33 From: Chris Leslie CNM PCP: Dr. Suzanne Leyva MD Status:ADM IN Discharge Instructions Diet Discharge Diet: No restrictions Activity Discharge Activity: Return to Normal Activity May resume sexual activity in: 6-8 weeks Dressing / Incision Call your doctor if you observe: Fever of 101 or Higher, Coldness, Increased Pain, Numbness or Tingling, Change in Color, Inability to urinate, Inability to have a bowel movement, Using more than 1 pad per hour, Shortness of breath, Dizziness, Fainting spells, Swelling in the ankles, Chest pain, Increased palpitations (irregular heartbeat), Calf discomfort and Uncontrolled pain Follow Up Care Please Follow Up With: Chris Leslie CNM When: Please call the office to schedule your follow up appointment in 6 weeks. If you had high blood pressure please call to schedule an appointment in 2 weeks. Test Results: Test results from this visit will be discussed in further detail at your follow-up appointment, if applicable. Discharge Plan Admission Admit Date/Time: 11/25/23 07:19 Attending Provider: Chris Leslie Primary Care Provider: Suzanne Leyva Discharge Orders/Prescriptions Prescriptions: No Action cholecalciferol (vitamin D3) 50 mcg (2,000 unit) capsule 50 mcg PO DAILY levothyroxine [Synthroid] 75 mcg tablet 75 mcg PO DAILY vit,[id number] 1 TABLET tablet 1 tab PO DAILY Referrals / Follow Up: Suzanne Leyva MD [Primary Care Provider] - 11/25/231346 Chris Leslie CNM CC: Dr. Suzanne Leyva MD Signed Normal [facility] H AND P Exam - OB/GYNon H&P Exam - [employer] [facility] Medical Records Department [address] [place] [address] H P Exam - [employer] 11/25/23 0737 MR#: [id number] Acct: [id number] Name: IDALMIS MAHONEY Rep #: [id number] : 1990 33 From: Chris Leslie CNM PCP: Dr. Suzanne Leyva MD Status:ADM IN Location: [id number] HPI - General General Date of Admission: 11/25/23 Date of Service: 11/25/23 HPI Narrative IDALMIS MAHONEY, is a 33 F 40.2 weeks who presents to unit for induction of labor due to AMA and ITP. plts stable with last cbc. admission orders placed. Maternal Data Information EROS Calculator Estimated Delivery Date Method Current WG Current Estimate 11/23/23 Ultrasound #1 40w 2d Other Estimates 11/29/23 LMP (Certain) 39w 3d Final EROS: 11/23/23 Final EROS Source: US >20 weeks Gestational age: 40.2 PFSH PFSH Medical History Blood disorder Non-smoker Thyroid disease (11/22/19) Skin cancer (11/21/20) Macrocytosis without anemia Ovarian cyst Thrombocytopenia Home Medications ???Medication ???Instructions ???Recorded ???Last Taken ???Type vits,calcium no.78-iron 1 tab PO DAILY Check with primary 04/12/19 11/24/23 08:30 History fumarate-folic acid 29 mg-1 mg doctor tablet cholecalciferol (vitamin D3) 50 50 mcg PO DAILY 04/12/23 11/24/23 08:30 History mcg (2,000 unit) capsule levothyroxine 75 mcg tablet 75 mcg PO DAILY 04/21/23 11/25/23 06:00 History (Synthroid) Allergy/AdvReac Type Severity Reaction Status Date / Time No Known Allergies Allergy Verified 11/25/23 07:20 Family History Father Skin cancer Grandfather Colon cancer Uncle Colon cancer Surgical History History of removal of skin mole [place] teeth extracted Social History adopted: No household members: spouse and children number of children: 2 current occupational status: employed 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 occupational exposures/hazards: No pets and animals: Yes pets and animals: dog(s) and farm animals history of recent travel: Yes ([place] in February) out of state: Yes out of country: No sexually active: Yes Smoking Status: Never smoker alcohol intake: never substance use type: does not use diet: low carbohydrate well-balanced diet: daily or most days caffeine: No eating out: rarely or never during the past year weight has: remained stable what type of physical activity do you participate in: walking and weight training frequency: daily duration: 45-60 minutes/day corina/islam: Uatsdin seatbelt use: always do you feel safe at home: Yes 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 Date Name GA/Weeks Outcome Route Bth Weight Gen Labor Lgth Anesthesia Del Locatn Provider FOB 02/24/17 Idamarie 40 live - full term 6lb 4oz Female 23 none [facility] Se als Bran 08/29/20 Tamara 41 live - full term 7#12oz Female none [facility] Hol kathy-Arian Sotmoayor Visit Details Expected Delivery Route/Plan Labor Preferences- CB/BF classes: no labor support person: Bran labor intervention preferences: [] pain management options preferred: limited cut cord/dad catch: yes : yes PP control planned: yes discussed possible routes of delivery and associated risks: [] special requests: [] Plans Covid status: [] Flu vaccine: [] Tdap vaccine:given Rhogam: na LARC form signed: yes movement and labor precautions reviewed. Problem list reviewed and updated with the most current plan of care details and appropriate orders placed. Relevant counseling for the gestational age provided. Continue routine care and follow up unless otherwise noted in visit notes/problem list details OB Flowsheet Initial Weight: 153 lb Date -???-???-???-???-???-???- ???-???-???-???-???-???- EGA Weight BP Urine Prot -???-???-???-???-???-???- ???-???-???-???-???-???- Glucose FHR FuHt Pres Dilation -???-???-???-???-???-???- ???-???-???-???-???-???- Effaced St Visit Note 04/21/23 -???-???-???-???-???-???- ???-???-???-???-???-???- 9w 1d 153 lb (+0 oz) 103/45 -???-???-???-???-???-???- ???-???-???-???-???-???- 175 -???-???-???-???-???-???- ???-???-???-???-???-???- KW- CRL not cons with dates. EROS changed. Declines NIPT. NAltrexone and progesterone ordered by Dr Harjinder Don. Th (more content not included)... Normal [facility] L509.8000on 11-25-2023 Syphilis Abs Non-Reactive Normal [facility] Comment on above: Performed By: #### L 509.8000 #### [facility] [address] [place], [address] Operative Reporton 4 Operative Report [facility] Medical Records Department [address] [place] [address] Operative Report 11/25/23 1343 MR#: [id number] Acct: [id number] Name: IDALMIS MAHONEY Rep #: [id number] : 1990 33 From: Chris Leslie CNM PCP: Dr. Suzanne Leyva MD Status:ADM IN Location: [id number] Assessment Plan (1) Vaginal delivery: COMMENT: KW girl IOL AMA (2) Encounter for induction of labor: (3) False labor after 37 completed weeks of gestation: (4) Chronic ITP (idiopathic thrombocytopenia): COMMENT: has seen heme onc in the past, mild, last two deliveries were here and didn't want regional anesthesia but may not be approved for delivery here because of anesthesia. consult placed, 08/02/23 approved for delivery at [facility] if >100K. 28w:121k. Recheck 4 wk (5) AMA (advanced maternal age) multigravida 35+: QUALIFIERS: Trimester: second trimester Qualified Code(s): O09.522 - Supervision of elderly multigravida, second trimester COMMENT: discussed NST at 39 weeks IOL by 40, HC measuring large. (6) Supervision of high-risk : QUALIFIERS: Trimester: second trimester Qualified Code(s): O09.92 - Supervision of high risk , unspecified, second trimester COMMENT: PRR, , EROS 11/29/23, PC Tamara Mondragon, Bran. Head 90%ile, breech (7) : QUALIFIERS: Weeks of gestation: 40 weeks Qualified Code(s): Z3A.40 - 40 weeks gestation of COMMENT: GBS neg, declines genetic carrier testing (8) Hypothyroidism: QUALIFIERS: Hypothyroidism type: acquired Qualified Code(s): E03.9 - Hypothyroidism, unspecified COMMENT: synthroid Labs with NOB (9) Infertility: COMMENT: 2yrs to conceive used letrazole and Naltrexone- had MFM consult. Harjinder Don to wean off of Naltrexone. (10) Macrocytosis without anemia: Maternal Data Information EROS Calculator Estimated Delivery Date Method Current WG Current Estimate 11/23/23 Ultrasound #1 40w 2d Other Estimates 11/29/23 LMP (Certain) 39w 3d Final EROS: 11/23/23 Final EROS Source: US >20 weeks Gestational age: 40.2 Vaginal Delivery Maternal Presentation Maternal Presentation: Medically Indicated Induction (AMA ITP) Maternal Presentation: Progressed well to 10cm dilated and made steady progress with effective maternal pushing. Delivered the head in TAWANDA presentation. The head was delivered atraumatically and a loose nuchal cord was identified and delivered through. The anterior and posterior shoulders delivered without complication followed by the rest of the infant and the infant was placed on the maternal abdomen. Delayed cord clamping was employed for approximately 3 minutes. Cord was clamped and cut and gentle traction was applied to the cord and the placenta delivered spontaneously. Immediately following, it was noted to be intact with a 3 vessel cord. IV Pitocin started and vaginal bleeding noted to be brisk at this time. IM Methergine given and uterus remains firm. The perineum and vagina were inspected and noted to have no laceration. EBL was 400cc. Apgars 8/9. Patient and infant tolerated delivery well. Bonding skin to skin during recovery. Dr Aparicio notified of vaginal delivery and orders reviewed. Physician agrees with current plan of care. Type of Induction: Pitocin Medical Reason for Induction: Maternal Medical Condition: list: (ama, itp) Operative Information Date of Procedure: 11/25/23 Pre-Operative Diagnosis: See AP comments Post-Operative Diagnosis: Same Surgery / Procedure Performed: Spontaneous Vaginal Delivery project manager #1: Chris Leslie Type of Anesthesia: Epidural Estimated Blood Loss: 400 Time of Delivery: 13:23 Findings Presentation: Vertex Amniotic Membrane Rupture Type: Artificial Amniotic Fluid Description: Clear Placental Delivery Description: Spontaneous Placenta Disposition: [facility] Cord Vessel Description: 3 Vessels Cord Entanglement: Around neck x 1, loose Infant A Gender: Female (1 minute): 8 (5 minute): 9 Delayed Cord Clamping: Yes Post Vaginal Delivery Medications Given After Delivery: IV Pitocin and IM Methergin Episiotomy Description: None Laceration: None Complication Complications: None Multi Select Codes Urinary/Genital Urinary/Genital CPT Codes: 49193 Vaginal Delivery [facility] 11/25/23 1347 Cosigner Signature (if applicable): CC: SCHUYLER Leslie; Dr. Suzanne Leyva MD Signed ADDENDUM by SCHUYLER Leslie on 11/25/23 at 1650 Addendum 11/25/23 1650 Cosigner Signature (if applicable): cc: SCHUYLER Leslie; Dr. Suzanne Leyva MD * Signed [facility] Type AND Screenon 11-25-2023 Ab SCREEN GEL Negative [facility] Comment on above: Order Comment: Labor Performed By: #### M [id number] #### [facility] [address] [place], [place], [address] ABO and Rh group Nom (Bld) Blood group A Rh(D) positive Normal [facility] Comment on above: Order Comment: Labor Performed By: #### M 100.2200 #### [facility] [address] [place], [address] Bee Producer Office Visit Reporton 11-23-2023 Bee Producer Office Visit Report [facility] [address], [address] [place] [address] OFFICE VISIT Date of Service: 11/23/23 MR#: [id number] Acct: [id number] Name: IDALMIS MAHONEY Rep #: [id number] : 1990 Provider: Dr. Gisela badillo MD Age/Sex: 33/F Location: [facility] [place] Status: Signed Intake Vital Signs 11/22/23 08:28 11/23/23 08:24 11/23/23 08:29 Height 5 ft 7 in 5 ft 7 in 5 ft 7 in Weight: 175 lb BMI 27.3 BP 103/67 Intake Visit Reasons: membrane sweep Social And Human Services Assistant Required: No Is patient in pain?: No Allergies No Known Allergies Allergy (Verified 11/23/23 08:25) Medications ???Medication ???Instructions ???Recorded ???Confirmed ???Type vits,calcium no.78-iron 1 tab PO DAILY Check with primary 04/12/19 11/23/23 History fumarate-folic acid 29 mg-1 mg doctor tablet cholecalciferol (vitamin D3) 50 50 mcg PO DAILY 04/12/23 11/23/23 History mcg (2,000 unit) capsule levothyroxine 75 mcg tablet 75 mcg PO DAILY 04/21/23 11/23/23 History (Synthroid) Last Menstrual Period: 02/22/23 Zika: Zika virus screening: Negative : No PFSH PFSH Medical History Blood disorder Non-smoker Thyroid disease (11/22/19) Skin cancer (11/21/20) Macrocytosis without anemia Ovarian cyst Thrombocytopenia Surgical History History of removal of skin mole [place] teeth extracted Family History Father Skin cancer Grandfather Colon cancer Uncle Colon cancer Social History adopted: No household members: spouse and children number of children: 2 current occupational status: employed 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 occupational exposures/hazards: No pets and animals: Yes pets and animals: dog(s) and farm animals history of recent travel: Yes ([place] in February) out of state: Yes out of country: No sexually active: Yes Smoking Status: Never smoker alcohol intake: never substance use type: does not use diet: low carbohydrate well-balanced diet: daily or most days caffeine: No eating out: rarely or never during the past year weight has: remained stable what type of physical activity do you participate in: walking and weight training frequency: daily duration: 45-60 minutes/day corina/islam: Uatsdin seatbelt use: always do you feel safe at home: Yes 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 Date Name GA/Weeks Outcome Route Bth Weight Gen Labor Lgth Anesthesia Del Locatn Provider FOB 02/24/17 Idamarie 40 live - full term 6lb 4oz Female 23 none [facility] Se als Bran 08/29/20 Tamara 41 live - full term 7#12oz Female none [facility] Hol [facility]-Arian Bran HPI membrane sweep Details: IDALMIS MAHONEY is a 33 year old who presents for routine OB visit. OB Visit EROS Calculator Estimated Delivery Date Method Current WG Current Estimate 11/23/23 Ultrasound #1 40w 0d Other Estimates 11/29/23 LMP (Certain) 39w 1d Expected Delivery Route/Plan Labor Preferences- CB/BF classes: no labor support person: Bran labor intervention preferences: [] pain management options preferred: limited cut cord/dad catch: yes : yes PP control planned: yes discussed possible routes of delivery and associated risks: [] special requests: [] Specific Issue/Plans Covid status: [] Flu vaccine: [] Tdap vaccine:given Rhogam: na LARC form signed: yes movement and labor precautions reviewed. Problem list reviewed and updated with the most current plan of care details and appropriate orders placed. Relevant counseling for the gestational age provided. Continue routine care and follow up unless otherwise noted in visit notes/problem list details Initial Weight: 153 lb Date -???-???-???-???-???-???- ???-???-???-???-???-???- EGA Weight BP Urine Prot -???-???-???-???-???-???- ???-???-???-???-???-???- Glucose FHR FuHt Pres Dilation -???-???-???-???-???-???- ???-???-???-???-???-???- Effaced St Visit Note 04/21/23 -???-???-???-???-???-???- ???-???-???-???-???-???- 9w 1d 153 lb (+0 oz) 103/45 -???-???-???-???-???-???- ???-???-???-???-???-???- 175 -???-???-???-???-???-???- ???-???-???-???-???-???- KW- CRL not cons with dates. EROS changed. Declines NIPT. NAltrexone and progesterone ordered by (more content not included)... Normal [facility] CBC-Complete Blood Cnt No Di ffon 11-22-2023 Erythrocyte distribution width (RBC) [Ratio] 12.3 % Normal 11.6-14.6 [facility] Comment on above: Performed By: #### L 100.0500 #### [facility] [address] [place], [address] Hematocrit (Bld) [Volume fraction] 39.4 % Normal 37-47 [facility] Comment on above: Performed By: #### L 100.0500 #### [facility] [address] [place], [address] Hemoglobin (Bld) [Mass/Vol] 12.7 g/dL Normal 12.0-15.0 [facility] Comment on above: Performed By: #### L 100.0500 #### [facility] [address] [place], [address] MCH (RBC) [Entitic mass] 33.9 pg High 27.0-32.0 [facility] Comment on above: Performed By: #### L 100.0500 #### [facility] [address] [place], [address] MCHC (RBC) [Mass/Vol] 32.2 g/dL Normal 32-36 [facility] Comment on above: Performed By: #### L 100.0500 #### [facility] [address] [place], [address] MCV (RBC) [Entitic vol] 105.1 fL High 81-99 [facility] Comment on above: Performed By: #### L 100.0500 #### [facility] [address] [place], [address] Platelet mean volume (Bld) [Entitic vol] 12.5 fL High 6.2-12.0 [facility] Comment on above: Performed By: #### L 100.0500 #### [facility] [address] [place], [address] Platelets (Bld) [#/Vol] 122 10*3/uL Low 150-450 [facility] Comment on above: Performed By: #### L 100.0500 #### [facility] [address] [place], [address] RBC (Bld) [#/Vol] 3.75 10*6/uL Low 4.2-5.4 [facility] Comment on above: Performed By: #### L 100.0500 #### [facility] [address] [place], [address] RDW SD 48.1 fl High 35.1-43.9 [facility] Comment on above: Performed By: #### L 100.0500 #### [facility] [address] [place], [address] WBC (Bld) [#/Vol] 8.5 10*3/uL Normal 4.4-11.0 [facility] Comment on above: Performed By: #### L 100.0500 #### [facility] [address] [place], [address] Bee Producer Office Visit Reporton 11-22-2023 Bee Producer Office Visit Report [facility], [address] [place] [address] OFFICE VISIT Date of Service: 11/22/23 MR#: [id number] Acct: [id number] Name: DENZELIDALMISTIESHA MUÑIZ Rep #: [id number] : 1990 Provider: Dr. Tyesha Baker DO Age/Sex: 33/F Location: [facility] [place] Status: Signed Intake Vital Signs 10/13/23 10:48 11/17/23 09:51 11/17/23 11:53 11/22/23 08:27 11/22/23 08:28 Height 5 ft 7 in 5 ft 7 in 5 ft 7 in 5 ft 7 in 5 ft 7 in Weight: 172 lb BMI 26.9 BP 118/72 Intake Visit Reasons: 40 WK OB MEMBRANE SWEEP Social And Human Services Assistant Required: No Is patient in pain?: No Allergies No Known Allergies Allergy (Verified 11/22/23 08:26) Medications ???Medication ???Instructions ???Recorded ???Confirmed ???Type vits,calcium no.78-iron 1 tab PO DAILY Check with primary 04/12/19 11/22/23 History fumarate-folic acid 29 mg-1 mg doctor tablet cholecalciferol (vitamin D3) 50 50 mcg PO DAILY 04/12/23 11/22/23 History mcg (2,000 unit) capsule levothyroxine 75 mcg tablet 75 mcg PO DAILY 04/21/23 11/22/23 History (Synthroid) Last Menstrual Period: 02/22/23 Zika: Zika virus screening: Negative : No PFSH PFSH Medical History Blood disorder Non-smoker Thyroid disease (11/22/19) Skin cancer (11/21/20) Macrocytosis without anemia Ovarian cyst Thrombocytopenia Surgical History History of removal of skin mole [place] teeth extracted Family History Father Skin cancer Grandfather Colon cancer Uncle Colon cancer Social History adopted: No household members: spouse and children number of children: 2 current occupational status: employed 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 occupational exposures/hazards: No pets and animals: Yes pets and animals: dog(s) and farm animals history of recent travel: Yes ([place] in February) out of state: Yes out of country: No sexually active: Yes Smoking Status: Never smoker alcohol intake: never substance use type: does not use diet: low carbohydrate well-balanced diet: daily or most days caffeine: No eating out: rarely or never during the past year weight has: remained stable what type of physical activity do you participate in: walking and weight training frequency: daily duration: 45-60 minutes/day corina/islam: Uatsdin seatbelt use: always do you feel safe at home: Yes 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 Date Name GA/Weeks Outcome Route Bth Weight Gen Labor Lgth Anesthesia Del Locatn Provider FOB 02/24/17 Giancarlo 40 live - full term 6lb 4oz Female 23 none [facility] Se als Bran 08/29/20 Tamara 41 live - full term 7#12oz Female none [facility] Hol mes-Arian Bran HPI 40 WK OB MEMBRANE SWEEP Details: IDALMIS MAHONEY is a 33 year old who presents for routine OB visit. OB Visit EROS Calculator Estimated Delivery Date Method Current WG Current Estimate 11/23/23 Ultrasound #1 39w 6d Other Estimates 11/29/23 LMP (Certain) 39w 0d Expected Delivery Route/Plan Labor Preferences- CB/BF classes: no labor support person: Bran labor intervention preferences: [] pain management options preferred: limited cut cord/dad catch: yes : yes PP control planned: yes discussed possible routes of delivery and associated risks: [] special requests: [] Specific Issue/Plans Covid status: [] Flu vaccine: [] Tdap vaccine:given Rhogam: na LARC form signed: yes movement and labor precautions reviewed. Problem list reviewed and updated with the most current plan of care details and appropriate orders placed. Relevant counseling for the gestational age provided. Continue routine care and follow up unless otherwise noted in visit notes/problem list details Initial Weight: 153 lb Date -???-???-???-???-???-???- ???-???-???-???-???-???- EGA Weight BP Urine Prot -???-???-???-???-???-???- ???-???-???-???-???-???- Glucose FHR FuHt Pres Dilation -???-???-???-???-???-???- ???-???-???-???-???-???- Effaced St Visit Note 04/21/23 -???-???-???-???-???-???- ???-???-???-???-???-???- 9w 1d 153 lb (+0 oz) 103/45 -???-???-???-???-???-???- ???-???-???-???-???-???- 175 -???-???-???-???-???-???- ???-???-???-???-???-???- KW- CRL not cons w (more content not included)... Normal [facility] OB Triage Physician Noteon 0 11-17-2023 OB Triage Physician Note [facility] Medical Records Department [address] [place] [address] OB Triage Physician Note 11/17/23 2327 MR#: [id number] Acct: [id number] Name: IDALMIS MAHONEY Rep #: [id number] : 1990 33 From: Tyesha Bowman DO PCP: Dr. Suzanne Leyva MD Status:DEP CLI Y Location: [facility]OUT HPI - General HPI Narrative IDALMIS MAHONEY, is a 33 y/o @ 39 weeks 1 day who presents to L D for contractions. Maternal Data Information EROS Calculator Estimated Delivery Date Method Current WG Current Estimate 11/23/23 Ultrasound #1 39w 5d Other Estimates 11/29/23 LMP (Certain) 38w 6d PFSH PFSH Medical History Blood disorder Non-smoker Thyroid disease (11/22/19) Skin cancer (11/21/20) Macrocytosis without anemia Ovarian cyst Thrombocytopenia Home Medications ???Medication ???Instructions ???Recorded ???Last Taken ???Type vits,calcium no.78-iron 1 tab PO DAILY Check with primary 04/12/19 08/28/20 22:00 History fumarate-folic acid 29 mg-1 mg doctor 1 tablet tablet cholecalciferol (vitamin D3) 50 50 mcg PO DAILY 04/12/23 Unknown History mcg (2,000 unit) capsule levothyroxine 75 mcg tablet 75 mcg PO DAILY 04/21/23 Unknown History (Synthroid) Allergy/AdvReac Type Severity Reaction Status Date / Time No Known Allergies Allergy Verified 11/17/23 11:26 Family History Father Skin cancer Grandfather Colon cancer Uncle Colon cancer Surgical History History of removal of skin mole [place] teeth extracted Social History adopted: No household members: spouse and children number of children: 2 current occupational status: employed 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 occupational exposures/hazards: No pets and animals: Yes pets and animals: dog(s) and farm animals history of recent travel: Yes ([place] in February) out of state: Yes out of country: No sexually active: Yes Smoking Status: Never smoker alcohol intake: never substance use type: does not use diet: low carbohydrate well-balanced diet: daily or most days caffeine: No eating out: rarely or never during the past year weight has: remained stable what type of physical activity do you participate in: walking and weight training frequency: daily duration: 45-60 minutes/day corina/islam: Uatsdin seatbelt use: always do you feel safe at home: Yes 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 Date Name GA/Weeks Outcome Route Bth Weight Infant Gen Labor Lgth Anesthesia Del Locatn Provider FOB 02/24/17 Mattie 40 live - full term 6lb 4oz Female 23 none [facility] Se phil Sotomayor 08/29/20 Tamara 41 live - full term 7#12oz Female none [facility] Maxine Sotomayor Visit Details Expected Delivery Route/Plan Labor Preferences- CB/BF classes: no labor support person: Bran labor intervention preferences: [] pain management options preferred: limited cut cord/dad catch: yes : yes PP control planned: yes discussed possible routes of delivery and associated risks: [] special requests: [] Plans Covid status: [] Flu vaccine: [] Tdap vaccine:given Rhogam: na LARC form signed: yes movement and labor precautions reviewed. Problem list reviewed and updated with the most current plan of care details and appropriate orders placed. Relevant counseling for the gestational age provided. Continue routine care and follow up unless otherwise noted in visit notes/problem list details OB Flowsheet Initial Weight: 153 lb Date -???-???-???-???-???-???- ???-???-???-???-???-???- EGA Weight BP Urine Prot -???-???-???-???-???-???- ???-???-???-???-???-???- Glucose FHR FuHt Pres Dilation -???-???-???-???-???-???- ???-???-???-???-???-???- Effaced St Visit Note 04/21/23 -???-???-???-???-???-???- ???-???-???-???-???-???- 9w 1d 153 lb (+0 oz) 103/45 -???-???-???-???-???-???- ???-???-???-???-???-???- 175 -???-???-???-???-???-???- ???-???-???-???-???-???- KW- CRL not cons with dates. EROS changed. Declines NIPT. NAltrexone and progesterone ordered by Dr Harjinder Don. Thyroid labs ordered. 05/06/23 -???-???-???-???-???-???- ???-???-???-???-???-???- 11w 2d 153 lb 4 oz (+4 oz) 114/66 Negative -???-???-???-???-???-???- ???-???-???-???-???-???- Negative 160 -???-???-???-???-???-???- ???-???-???-???-?? (more content not included)... Normal [facility] Bee Producer Office Visit Reporton 11-17-2023 Bee Producer Office Visit Report [facility] [address], [address] [place] [address] OFFICE VISIT Date of Service: 11/17/23 MR#: [id number] Acct: [id number] Name: IDALMIS MAHONEY Rep #: [id number] : 1990 Provider: Dr. Tyesha Baker DO Age/Sex: 33/F Location: [facility] [place] Status: Signed Intake Vital Signs 10/13/23 10:48 11/09/23 10:20 11/17/23 09:49 11/17/23 09:51 Height 5 ft 7 in 5 ft 7 in 5 ft 7 in 5 ft 7 in Weight: 174 lb 8 oz BMI 27.3 BP 111/68 Intake Visit Reasons: 39 WK OB/NST Social And Human Services Assistant Required: No Is patient in pain?: No Allergies No Known Allergies Allergy (Verified 11/17/23 09:49) Medications ???Medication ???Instructions ???Recorded ???Confirmed ???Type vits,calcium no.78-iron 1 tab PO DAILY Check with primary 04/12/19 11/17/23 History fumarate-folic acid 29 mg-1 mg doctor tablet cholecalciferol (vitamin D3) 50 50 mcg PO DAILY 04/12/23 11/17/23 History mcg (2,000 unit) capsule levothyroxine 75 mcg tablet 75 mcg PO DAILY 04/21/23 11/17/23 History (Synthroid) Last Menstrual Period: 02/22/23 Zika: Zika virus screening: Negative : No PFSH PFSH Medical History Blood disorder Non-smoker Thyroid disease (11/22/19) Skin cancer (11/21/20) Macrocytosis without anemia Ovarian cyst Thrombocytopenia Surgical History History of removal of skin mole [place] teeth extracted Family History Father Skin cancer Grandfather Colon cancer Uncle Colon cancer Social History adopted: No household members: spouse and children number of children: 2 current occupational status: employed 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 occupational exposures/hazards: No pets and animals: Yes pets and animals: dog(s) and farm animals history of recent travel: Yes ([place] in February) out of state: Yes out of country: No sexually active: Yes Smoking Status: Never smoker alcohol intake: never substance use type: does not use diet: low carbohydrate well-balanced diet: daily or most days caffeine: No eating out: rarely or never during the past year weight has: remained stable what type of physical activity do you participate in: walking and weight training frequency: daily duration: 45-60 minutes/day corina/islam: Uatsdin seatbelt use: always do you feel safe at home: Yes 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 Date Name GA/Weeks Outcome Route Bth Weight Infant Gen Labor Lgth Anesthesia Del Locatn Provider FOB 02/24/17 Idamarie 40 live - full term 6lb 4oz Female 23 none [facility] Se als Bran 08/29/20 Tamara 41 live - full term 7#12oz Female none [facility] Hol mes-Arian Bran HPI 39 WK OB/NST Details: IDALMIS MAHONEY is a 33 year old who presents for routine OB visit. OB Visit EROS Calculator Estimated Delivery Date Method Current WG Current Estimate 11/23/23 Ultrasound #1 39w 1d Other Estimates 11/29/23 LMP (Certain) 38w 2d Expected Delivery Route/Plan Labor Preferences- CB/BF classes: no labor support person: Bran labor intervention preferences: [] pain management options preferred: limited cut cord/dad catch: yes : yes PP control planned: yes discussed possible routes of delivery and associated risks: [] special requests: [] Specific Issue/Plans Covid status: [] Flu vaccine: [] Tdap vaccine:given Rhogam: na LARC form signed: yes movement and labor precautions reviewed. Problem list reviewed and updated with the most current plan of care details and appropriate orders placed. Relevant counseling for the gestational age provided. Continue routine care and follow up unless otherwise noted in visit notes/problem list details Initial Weight: 153 lb Date -???-???-???-???-???-???- ???-???-???-???-???-???- EGA Weight BP Urine Prot -???-???-???-???-???-???- ???-???-???-???-???-???- Glucose FHR FuHt Pres Dilation -???-???-???-???-???-???- ???-???-???-???-???-???- Effaced St Visit Note 04/21/23 -???-???-???-???-???-???- ???-???-???-???-???-???- 9w 1d 153 lb (+0 oz) 103/45 -???-???-???-???-???-???- ???-???-???-???-???-???- 175 -???-???-???-???-???-???- ???-???-???-???-???-???- KW- CRL not cons with dates. EROS changed. Declines NIPT. NAltr (more content not included)... Normal [facility] Bee Producer Office Visit Reporton 11-09-2023 Bee Producer Office Visit Report [facility] [address], [address] [place] [address] OFFICE VISIT Date of Service: 11/09/23 MR#: [id number] Acct: [id number] Name: IDALMIS MAHONEY Rep #: [id number] : 1990 Provider: Dr. Gisela badillo MD Age/Sex: 33/F Location: [facility] [place] Status: Signed Intake Vital Signs 09/28/23 11:43 11/02/23 14:53 11/09/23 10:17 11/09/23 10:20 Height 5 ft 7 in 5 ft 7 in 5 ft 7 in 5 ft 7 in Weight: 171 lb BMI 26.7 BP 108/66 Intake Visit Reasons: 38 WK OB Social And Human Services Assistant Required: No Is patient in pain?: No Allergies No Known Allergies Allergy (Verified 11/09/23 10:20) Medications ???Medication ???Instructions ???Recorded ???Confirmed ???Type vits,calcium no.78-iron 1 tab PO DAILY Check with primary 04/12/19 11/09/23 History fumarate-folic acid 29 mg-1 mg doctor tablet cholecalciferol (vitamin D3) 50 50 mcg PO DAILY 04/12/23 11/09/23 History mcg (2,000 unit) capsule levothyroxine 75 mcg tablet 75 mcg PO DAILY 04/21/23 11/09/23 History (Synthroid) Last Menstrual Period: 02/22/23 Zika: Zika virus screening: Negative Have you fallen in the past year?: No PFSH PFSH Medical History Blood disorder Non-smoker Thyroid disease (11/22/19) Skin cancer (11/21/20) Macrocytosis without anemia Ovarian cyst Thrombocytopenia Surgical History History of removal of skin mole [place] teeth extracted Family History Father Skin cancer Grandfather Colon cancer Uncle Colon cancer Social History adopted: No household members: spouse and children number of children: 2 current occupational status: employed 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 occupational 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/hazards: No pets and animals: Yes pets and animals: dog(s) and farm animals history of recent travel: Yes ([place] in February) out of state: Yes out of country: No sexually active: Yes Smoking Status: Never smoker alcohol intake: never substance use type: does not use diet: low carbohydrate well-balanced diet: daily or most days caffeine: No eating out: rarely or never during the past year weight has: remained stable what type of physical activity do you participate in: walking and weight training frequency: daily duration: 45-60 minutes/day corina/islam: Uatsdin seatbelt use: always do you feel safe at home: Yes 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 Date Name GA/Weeks Outcome Route Bth Weight Gen Labor Lgth Anesthesia Del Locatn Provider FOB 02/24/17 Idamarie 40 live - full term 6lb 4oz Female 23 none [facility] Se als Bran 08/29/20 Tamara 41 live - full term 7#12oz Female none [facility] Hol mes-Arian Bran HPI 38 WK OB Details: IDALMIS MAHONEY is a 33 year old who presents for routine OB visit. OB Visit EROS Calculator Estimated Delivery Date Method Current WG Current Estimate 11/23/23 Ultrasound #1 38w 0d Other Estimates 11/29/23 LMP (Certain) 37w 1d Expected Delivery Route/Plan Labor Preferences- CB/BF classes: no labor support person: Bran labor intervention preferences: [] pain management options preferred: limited cut cord/dad catch: yes : yes PP control planned: yes discussed possible routes of delivery and associated risks: [] special requests: [] Specific Issue/Plans Covid status: [] Flu vaccine: [] Tdap vaccine:given Rhogam: na LARC form signed: yes movement and labor precautions reviewed. Problem list reviewed and updated with the most current plan of care details and appropriate orders placed. Relevant counseling for the gestational age provided. Continue routine care and follow up unless otherwise noted in visit notes/problem list details Initial Weight: 153 lb Date -???-???-???-???-???-???- ???-???-???-???-???-???- EGA Weight BP Urine Prot -???-???-???-???-???-???- ???-???-???-???-???-???- Glucose FHR FuHt Pres Dilation -???-???-???-???-???-???- ???-???-???-???-???-???- Effaced St Visit Note 04/21/23 -???-???-???-???-???-???- ???-???-???-???-???-???- 9w 1d 153 lb (+0 oz) 103/45 -???-???-???-???-???-???- ???-???-???-???-???-???- 175 -???-???-???-???-???-???- ???-???-???-???-???-???- KW- CRL not cons with dates. EROS changed. Declines NIPT. NAltrexo (more content not included)... Normal [facility] Bee Producer Office Visit Reporton 11-02-2023 Bee Producer Office Visit Report [facility] [address], [address] [place] [address] OFFICE VISIT Date of Service: 11/02/23 MR#: [id number] Acct: [id number] Name: IDALMIS MAHONEY Rep #: [id number] : 1990 Provider: Dr. Gisela badillo MD Age/Sex: 33/F Location: [facility] [place] Status: Signed Intake Vital Signs 10/13/23 10:48 10/27/23 14:12 11/02/23 14:52 11/02/23 14:53 Height 5 ft 7 in 5 ft 7 in 5 ft 7 in 5 ft 7 in Weight: 172 lb BMI 26.9 BP 106/67 Intake Visit Reasons: 37 WK OB Social And Human Services Assistant Required: No Allergies No Known Allergies Allergy (Verified 11/02/23 14:55) Medications ???Medication ???Instructions ???Recorded ???Confirmed ???Type vits,calcium no.78-iron 1 tab PO DAILY Check with primary 04/12/19 11/02/23 History fumarate-folic acid 29 mg-1 mg doctor tablet cholecalciferol (vitamin D3) 50 50 mcg PO DAILY 04/12/23 11/02/23 History mcg (2,000 unit) capsule levothyroxine 75 mcg tablet 75 mcg PO DAILY 04/21/23 11/02/23 History (Synthroid) Last Menstrual Period: 02/22/23 Zika: Zika virus screening: Negative [facility] Medical History Blood disorder Non-smoker Thyroid disease (11/22/19) Skin cancer (11/21/20) Macrocytosis without anemia Ovarian cyst Thrombocytopenia Surgical History History of removal of skin mole [place] teeth extracted Family History Father Skin cancer Grandfather Colon cancer Uncle Colon cancer Social History adopted: No household members: spouse and children number of children: 2 current occupational status: employed 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 occupational exposures/hazards: No pets and animals: Yes pets and animals: dog(s) and farm animals history of recent travel: Yes ([place] in February) out of state: Yes out of country: No sexually active: Yes Smoking Status: Never smoker alcohol intake: never substance use type: does not use diet: low carbohydrate well-balanced diet: daily or most days caffeine: No eating out: rarely or never during the past year weight has: remained stable what type of physical activity do you participate in: walking and weight training frequency: daily duration: 45-60 minutes/day corina/islam: Uatsdin seatbelt use: always do you feel safe at home: Yes 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 Date Name GA/Weeks Outcome Route Bth Weight Gen Labor Lgth Anesthesia Del Locatn Provider FOB 02/24/17 Idamarie 40 live - full term 6lb 4oz Female 23 none [facility] Se als Bran 08/29/20 Tamara 41 live - full term 7#12oz Female none [facility] Hol mes-Arian Bran HPI 37 WK OB Details: IDALMIS MAHONEY is a 33 year old who presents for routine OB visit. OB Visit EROS Calculator Estimated Delivery Date Method Current WG Current Estimate 11/23/23 Ultrasound #1 37w 0d Other Estimates 11/29/23 LMP (Certain) 36w 1d Expected Delivery Route/Plan Labor Preferences- CB/BF classes: no labor support person: Bran labor intervention preferences: [] pain management options preferred: limited cut cord/dad catch: yes : yes PP control planned: yes discussed possible routes of delivery and associated risks: [] special requests: [] Specific Issue/Plans Covid status: [] Flu vaccine: [] Tdap vaccine: [] Rhogam: [] LARC form signed: yes Problem list reviewed and updated with the most current plan of care details and appropriate orders placed. Relevant counseling for the gestational age provided. Continue routine care and follow up unless otherwise noted in visit notes/problem list details Initial Weight: 153 lb Date -???-???-???-???-???-???- ???-???-???-???-???-???- EGA Weight BP Urine Prot -???-???-???-???-???-???- ???-???-???-???-???-???- Glucose FHR FuHt Pres Dilation -???-???-???-???-???-???- ???-???-???-???-???-???- Effaced St Visit Note 04/21/23 -???-???-???-???-???-???- ???-???-???-???-???-???- 9w 1d 153 lb (+0 oz) 103/45 -???-???-???-???-???-???- ???-???-???-???-???-???- 175 -???-???-???-???-???-???- ???-???-???-???-???-???- KW- CRL not cons with dates. EROS changed. Declines NIPT. NAltrexone and progesterone ordered by Dr Harjinder Don. Thyroid labs ordered. 05/06/23 -???-???-???-???-???-???- ???-???-??? (more content not included)... Normal [facility] Rule out Beta Strep (Grp. B) on 10-29-2023 DARRION Group B Beta Streptococcus is not isolated. Normal [facility] Comment on above: Performed By: #### M [id number] #### [facility] [address] [place], [place], [address] OB Limited With Biometricson 10-28-2023 OB Limited With Biometrics [facility] Services [address] [place], [place] [address] OB Limited With Biometrics MR#: [id number] Acct: [id number] Name: IDALMIS MAHONEY Rep #: [id number] : 1990 F 33 From: Neel Delacruz MD PCP: Dr. Suzanne Leyva MD Status: REG CLI Study: OB Limited With Biometrics Date of Exam: 10/27 Exam# [id number] Ordering Dr: Gisela Aparicio ADDENDUM by Dr. Neel Delacruz MD on 11/03/23 at 1600 ADDENDUM [id number] ADDENDUM: Biparietal diameter 9.18 cm 83.79% OFD: 12.1 cm 99.99% HC: 34.25 cm 90.35% Abdominal circumference: 32.79 cm 72.75% Femoral length: 6.73 cm 10.65% Electronically Signed: Neel Delacruz MD at 16:00 EDT , 11/03/23 1600 Date cc: Dr. Suzanne Leyva MD; Dr. Gisela Aparicio MD * Signed ADDENDUM by Dr. Neel Delacruz MD on 11/02/23 at 1609 ADDENDUM [id number] ADDENDUM: Biparietal diameter 9.18 cm +/- 47.7 percent OFD: 12.1 cm +/- 45 percent HC 6:34.25 cm +/- 47.7 percent Abdominal circumference: 32.79 cm _/-47.7% Femoral length: 6.73 cm +/- 47.7% Electronically Signed: Neel Delacruz MD at 16:09 EDT Reading Location ID and State: [address] [place] [address] Tel [phone], Service support , 11/02/23 1607 Date cc: Dr. Suzanne Leyva MD; Dr. Gisela Aparicio MD * Signed ADDENDUM by Dr. Neel Delacruz MD on 11/01/23 at 1606 ADDENDUM [id number] ADDENDUM: FL/AC 20.53% FL/BPD 73.37% FL/HC 19.66% CI 76.44% HC/AC 1.04 Electronically Signed: Neel Delacruz MD at 16:06 EDT Reading Location ID and State: [facility] [place] [facility] [place] Tel [phone], Service support , 11/01/23 160 Date cc: Dr. Suzanne Leyva MD; Dr. Gisela Aparicio MD * Signed ADDENDUM by Dr. Neel Delacruz MD on 11/03/23 at 1600 US/OB Limited With Biometrics IMPRESSION: undefined 11/03/23 1607 Date cc: Dr. Suzanne Leyva MD; Dr. Gisela Aparicio MD * Signed ADDENDUM by Dr. Neel Delacruz MD on 11/02/23 at 1609 US/OB Limited With Biometrics IMPRESSION: undefined 11/02/23 1616 Date cc: Dr. Suzanne Leyva MD; Dr. Gisela Aparicio MD * Signed ADDENDUM by Dr. Neel Delacruz MD on 11/01/23 at 1606 US/OB Limited With Biometrics IMPRESSION: undefined 11/01/23 1613 Date cc: Dr. Suzanne Leyva MD; Dr. Gisela Aparicio MD * Signed [id number] STUDY: SECOND AND THIRD TRIMESTER OBSTETRICAL ULTRASOUND - LIMITED REASON FOR EXAM: Female, 33 years old AMA -- GROWTH LMP: PRIOR ULTRASOUND: None. TECHNIQUE: Transabdominal TECHNICAL QUALITY: April 11, 2023. FINDINGS: There is a single intrauterine fetus. The fetus is in a breech presentation. There is demonstrated cardiac activity with a heart rate of 136 bpm. There is a normal amniotic fluid volume. The largest amniotic fluid pocket measures 7.52 x 3.6 cm. The amniotic fluid index (LUKAS) is 25.4 cm. The placenta is anterior There are Grade 2 placental changes. The cervix measures 3.3 cm in length. BIOMETRY: BPD: 9.18 cm: 37 weeks, 2 days HC: 34.25 cm: 39 weeks, 4 days AC: 32.79 cm: 36 weeks, 5 days FL: 6.73 cm: 34 weeks, 4 days Age by LMP: 36 weeks, 2 days. EROS by LMP: November 23, 2023. age by prior US: 35 weeks, 6 days. EROS by prior US: November 26, 2023. age by current US: 37 weeks, 2 days. EROS by current US: November 16, 2023. Estimated weight: 2922 grams, +/- 438 grams, 54.96 percentile. US/OB Limited With Biometrics IMPRESSION: Viable intrauterine gestation with fetus currently in breech position approximating 37-38 weeks gestational age Electronically Signed: Neel Delacruz MD at 20:54 EDT Reading Location ID and State: [address] [place] [address] Tel , Service support , CC: Dr. Suzanne Leyva MD; Dr. Gisela Aparicio MD Pcu Rn: Signed Normal [facility] Bee Producer Office Visit Reporton 10-27-2023 Bee Producer Office Visit Report [facility] [address], [address] [place] [address] OFFICE VISIT Date of Service: 10/27/23 MR#: [id number] Acct: [id number] Name: IDALMIS MAHONEY Rep #: [id number] : 1990 Provider: SCHUYLER Garzon ams Age/Sex: 33/F Location: [facility] [place] Status: Signed Intake Vital Signs 09/28/23 11:43 10/19/23 11:29 10/27/23 14:12 Height 5 ft 7 in 5 ft 7 in 5 ft 7 in Weight: 172 lb BMI 26.9 BP 96/62 Intake Visit Reasons: 36 WK OB Social And Human Services Assistant Required: No Is patient in pain?: No Allergies No Known Allergies Allergy (Verified 10/27/23 14:16) Medications ???Medication ???Instructions ???Recorded ???Confirmed ???Type vits,calcium no.78-iron 1 tab PO DAILY Check with primary 04/12/19 10/27/23 History fumarate-folic acid 29 mg-1 mg doctor tablet cholecalciferol (vitamin D3) 50 50 mcg PO DAILY 04/12/23 10/27/23 History mcg (2,000 unit) capsule levothyroxine 75 mcg tablet 75 mcg PO DAILY 04/21/23 10/27/23 History (Synthroid) Last Menstrual Period: 02/22/23 Zika: Zika virus screening: Negative Have you fallen in the past year?: No PFSH PFSH Medical History Blood disorder Non-smoker Thyroid disease (11/22/19) Skin cancer (11/21/20) Macrocytosis without anemia Ovarian cyst Thrombocytopenia Surgical History History of removal of skin mole [place] teeth extracted Family History Father Skin cancer Grandfather Colon cancer Uncle Colon cancer Social History adopted: No household members: spouse and children number of children: 2 current occupational status: employed 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 occupational exposures/hazards: No pets and animals: Yes pets and animals: dog(s) and farm animals history of recent travel: Yes ([place] in February) out of state: Yes out of country: No sexually active: Yes Smoking Status: Never smoker alcohol intake: never substance use type: does not use diet: low carbohydrate well-balanced diet: daily or most days caffeine: No eating out: rarely or never during the past year weight has: remained stable what type of physical activity do you participate in: walking and weight training frequency: daily duration: 45-60 minutes/day corina/islam: Uatsdin seatbelt use: always do you feel safe at home: Yes 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 Date Name GA/Weeks Outcome Route Bth Weight Infant Gen Labor Lgth Anesthesia Del Locatn Provider FOB 02/24/17 Giancarlo 40 live - full term 6lb 4oz Female 23 none [facility] Se als Bran 08/29/20 Tamara 41 live - full term 7#12oz Female none [facility] Hol kathy-Arian Sotomayor HPI 36 WK OB Details: IDALMIS MAHONEY is a 33 year old who presents for routine OB visit. OB Visit EROS Calculator Estimated Delivery Date Method Current WG Current Estimate 11/23/23 Ultrasound #1 36w 1d Other Estimates 11/29/23 LMP (Certain) 35w 2d Expected Delivery Route/Plan Labor Preferences- CB/BF classes: no labor support person: Bran labor intervention preferences: [] pain management options preferred: limited cut cord/dad catch: yes : yes PP control planned: yes discussed possible routes of delivery and associated risks: [] special requests: [] Specific Issue/Plans Covid status: [] Flu vaccine: [] Tdap vaccine: [] Rhogam: [] LARC form signed: yes Problem list reviewed and updated with the most current plan of care details and appropriate orders placed. Relevant counseling for the gestational age provided. Continue routine care and follow up unless otherwise noted in visit notes/problem list details Initial Weight: 153 lb Date -???-???-???-???-???-???- ???-???-???-???-???-???- EGA Weight BP Urine Prot -???-???-???-???-???-???- ???-???-???-???-???-???- Glucose FHR FuHt Pres Dilation -???-???-???-???-???-???- ???-???-???-???-???-???- Effaced St Visit Note 04/21/23 -???-???-???-???-???-???- ???-???-???-???-???-???- 9w 1d 153 lb (+0 oz) 103/45 -???-???-???-???-???-???- ???-???-???-???-???-???- 175 -???-???-???-???-???-???- ???-???-???-???-???-???- KW- CRL not cons with dates. EROS changed. Declines NIPT. NAltrexone and progesterone ordered by Dr Harjinder Don. Thyroid labs ordered. 05/06/23 -???-? (more content not included)... Normal [facility] Oncology Visit Reporton 09-22 Oncology Visit Report [facility] [address] [place] [address] OFFICE VISIT Date of Service: 10/19/23 1125 MR#: [id number] Acct: [id number] Name: IDALMIS MAHONEY Rep #: [id number] : 1990 From: Ozzy Murry MD Age/Sex: 33/F [place] [facility] Status: Signed HPI Subjective Date of Service 10/19/23 Chief Complaint Low platelet count History of Present Illness Patient is a 33 year-old female with mild (over 100 K) chronic thrombocytopenia that was first noted during her first but persistent consistent with chronic ITP. She has a mild persistent unexplained macrocytosis and intermittent mild leukopenia/neutropenia. Patient is asymptomatic, does not consume alcohol in excess or regularly, and on replacement therapy for hypothyroidism. 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: No pets and animals: Yes pets and animals: dog(s) and farm animals history of recent travel: Yes ([place] in February) out of state: Yes out of country: No sexually active: Yes Smoking Status: Never smoker alcohol intake: never substance use type: does not use diet: low carbohydrate well-balanced diet: daily or most days caffeine: No eating out: rarely or never during the past year weight has: remained stable what type of physical activity do you participate in: walking and weight training frequency: daily duration: 45-60 minutes/day corina/islam: Uatsdin seatbelt use: always do you feel safe at home: Yes additional social history: [employer]- [employer]ist [employer] Female Reproductive History Menstrual Ab induced: 0 Ab spontaneous: 0 Ectopics: 0 ROS ROS Narrative In 3rd trimester of a noncomplicated Intake Vital Signs 07/27/23 14:14 09/28/23 11:43 10/13/23 10:48 10/19/23 11:26 10/19/23 11:29 Height 5 ft 7 in 5 ft 7 in 5 ft 7 in 5 ft 7 in 5 ft 7 in Weight: 77.337 kg BMI 26.6 BP 103/67 Blood Pressure Location Lt brachial Position Sitting Respiration 18 Pulse 77 Pulse Source Monitor Temp 98.6 F Temperature Source Temporal Artery Pulse Oximetry (%) 97 Oxygen Delivery Method room air Intake Is patient in pain?: No Allergies No Known Allergies Allergy (Verified 10/19/23 11:27) Medications ???Medication ???Instructions ???Recorded ???Confirmed ???Type vits,calcium no.78-iron 1 tab PO DAILY Check with primary 04/12/19 10/19/23 History fumarate-folic acid 29 mg-1 mg doctor tablet cholecalciferol (vitamin D3) 50 50 mcg PO DAILY 04/12/23 10/19/23 History mcg (2,000 unit) capsule levothyroxine 75 mcg tablet 75 mcg PO DAILY 04/21/23 10/19/23 History (Synthroid) Have you fallen in the past year?: No Central Venous Access Central Venous Access: No Laboratory Results 08/24/23 10/19/22 09/24/21 08:15 10:29 09:54 WBC 8.0 4.2 L 3.2 L Hgb 11.7 L 13.0 13.3 MCV 104.4 H 102.5 H 100.7 H Plt Count 125 L 115 L 115 L Absolute Neuts (auto) 6.2 2.0 1.2 L 03/11/21 08/29/20 07/25/20 13:12 01:30 14:26 WBC 5.0 8.8 Hgb 11.7 L 13.9 MCV 99.7 H 102.4 H Plt Count 132 L 102 L 132 L Absolute Neuts (auto) 2.8 6.2 05/26/20 03/04/20 01/08/20 10:01 14:54 10:52 WBC 7.2 7.4 5.4 Hgb 12.4 12.1 13.3 MCV 104.6 H 101.1 H 104.0 H Plt Count 108 L 131 L 116 L Absolute Neuts (auto) 5.5 3.5 04/12/19 04/12/18 10/11/17 13:19 11:08 09:13 WBC 4.7 4.3 L Hgb 13.3 13.5 13.3 MCV 101.0 H 100.0 H 100.7 H Plt Count 129 L 139 L 150 Absolute Neuts (auto) 2.4 2.2 1.9 L 04/11/17 03/02/17 02/17/17 11:12 22:15 14:44 WBC 10.4 Hgb 13.6 MCV 101.5 H Plt Count 112 L 114 L 92 L Absolute Neuts (auto) 01/31/17 12/27/16 12/03/16 11:05 09:58 10:12 WBC 6.5 6.4 Hgb 12.2 12.9 MCV 103.6 H 104.6 H Plt Count 121 L 105 L 119 L Absolute Neuts (auto) 5.0 09/10/16 15:03 WBC 6.6 Hgb 12.5 MCV 101.9 H Plt Count 117 L Absolute Neuts (auto) Exam Physical Exam Const healthy appearing Coding (more content not included)... Normal [facility] Bee Producer Office Visit Reporton 10-13-2023 Bee Producer Office Visit Report [facility] [address], [address] [place] [address] OFFICE VISIT Date of Service: 10/13/23 MR#: [id number] Acct: [id number] Name: IDALMIS MAHONEY Rep #: [id number] : 1990 Provider: SCHUYLER Garzon ams Age/Sex: 32/F Location: [facility] [place] Status: Signed Intake Vital Signs 08/24/23 08:26 09/28/23 11:43 10/13/23 10:41 10/13/23 10:48 Height 5 ft 7 in 5 ft 7 in 5 ft 7 in 5 ft 7 in Weight: 170 lb BMI 26.6 BP 95/66 Intake Visit Reasons: 32 WK OB Social And Human Services Assistant Required: No Allergies No Known Allergies Allergy (Verified 10/13/23 10:49) Medications ???Medication ???Instructions ???Recorded ???Confirmed ???Type vits,calcium no.78-iron 1 tab PO DAILY Check with primary 04/12/19 10/13/23 History fumarate-folic acid 29 mg-1 mg doctor tablet cholecalciferol (vitamin D3) 50 50 mcg PO DAILY 04/12/23 10/13/23 History mcg (2,000 unit) capsule levothyroxine 75 mcg tablet 75 mcg PO DAILY 04/21/23 10/13/23 History (Synthroid) Last Menstrual Period: 02/22/23 Zika: Zika virus screening: Negative [facility] Medical History Blood disorder Non-smoker Thyroid disease (11/22/19) Skin cancer (11/21/20) Macrocytosis without anemia Ovarian cyst Thrombocytopenia Surgical History History of removal of skin mole [place] teeth extracted Family History Father Skin cancer Grandfather Colon cancer Uncle Colon cancer Social History adopted: No household members: spouse and children number of children: 2 current occupational status: employed 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 occupational exposures/hazards: No pets and animals: Yes pets and animals: dog(s) and farm animals history of recent travel: Yes ([place] in February) out of state: Yes out of country: No sexually active: Yes Smoking Status: Never smoker alcohol intake: never substance use type: does not use diet: low carbohydrate well-balanced diet: daily or most days caffeine: No eating out: rarely or never during the past year weight has: remained stable what type of physical activity do you participate in: walking and weight training frequency: daily duration: 45-60 minutes/day corina/islam: Uatsdin seatbelt use: always do you feel safe at home: Yes 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 Date Name GA/Weeks Outcome Route Bth Weight Infant Gen Labor Lgth Anesthesia Del Locatn Provider FOB 02/24/17 Idamarie 40 live - full term 6lb 4oz Female 23 none WC Se als Bran 08/29/20 Tamara 41 live - full term 7#12oz Female none [facility] Hol mes-Arian Bran HPI 32 WK OB Details: IDALMIS MAHONEY is a 32 year old who presents for routine OB visit. OB Visit EROS Calculator Estimated Delivery Date Method Current WG Current Estimate 11/23/23 Ultrasound #1 34w 1d Other Estimates 11/29/23 LMP (Certain) 33w 2d Expected Delivery Route/Plan Labor Preferences- CB/BF classes: no labor support person: Bran labor intervention preferences: [] pain management options preferred: limited cut cord/dad catch: yes : yes PP control planned: yes discussed possible routes of delivery and associated risks: [] special requests: [] Specific Issue/Plans Covid status: [] Flu vaccine: [] Tdap vaccine: [] Rhogam: [] LARC form signed: yes Problem list reviewed and updated with the most current plan of care details and appropriate orders placed. Relevant counseling for the gestational age provided. Continue routine care and follow up unless otherwise noted in visit notes/problem list details Initial Weight: 153 lb Date -???-???-???-???-???-???- ???-???-???-???-???-???- EGA Weight BP Urine Prot -???-???-???-???-???-???- ???-???-???-???-???-???- Glucose FHR FuHt Pres Dilation -???-???-???-???-???-???- ???-???-???-???-???-???- Effaced St Visit Note 04/21/23 -???-???-???-???-???-???- ???-???-???-???-???-???- 9w 1d 153 lb (+0 oz) 103/45 -???-???-???-???-???-???- ???-???-???-???-???-???- 175 -???-???-???-???-???-???- ???-???-???-???-???-???- KW- CRL not cons with dates. EROS changed. Declines NIPT. NAltrexone and progesterone ordered by Dr Harjinder Don. Thyroid labs ordered. 05/06/23 -???-???-???-???-???-???- ???-???-???-???-???-???- 1 (more content not included)... Normal [facility] Bee Producer Office Visit Reporton 09-28-2023 Bee Producer Office Visit Report [facility] [address] [place] [address]. [address] [place] [address] OFFICE VISIT Date of Service: 09/28/23 MR#: [id number] Acct: [id number] Name: IDALMIS MAHONEY Rep #: [id number] : 1990 Provider: Dr. Gisela badillo MD Age/Sex: 32/F Location: [facility] [place] Status: Signed Intake Vital Signs 08/24/23 08:26 09/05/23 10:34 09/28/23 11:43 Height 5 ft 7 in 5 ft 7 in 5 ft 7 in Weight: 196 lb BMI 30.7 BP 93/63 Intake Visit Reasons: 30 WK OB Social And Human Services Assistant Required: No Is patient in pain?: No Allergies No Known Allergies Allergy (Verified 09/28/23 11:44) Medications ???Medication ???Instructions ???Recorded ???Confirmed ???Type vits,calcium no.78-iron 1 tab PO DAILY Check with primary 04/12/19 09/28/23 History fumarate-folic acid 29 mg-1 mg doctor tablet cholecalciferol (vitamin D3) 50 50 mcg PO DAILY 04/12/23 09/28/23 History mcg (2,000 unit) capsule levothyroxine 75 mcg tablet 75 mcg PO DAILY 04/21/23 09/28/23 History (Synthroid) Last Menstrual Period: 02/22/23 Zika: Zika virus screening: Negative : No Have you fallen in the past year?: No PFSH PFSH Medical History Blood disorder Non-smoker Thyroid disease (11/22/19) Skin cancer (11/21/20) Macrocytosis without anemia Ovarian cyst Thrombocytopenia Surgical History History of removal of skin mole [place] teeth extracted Family History Father Skin cancer Grandfather Colon cancer Uncle Colon cancer Social History adopted: No household members: spouse and children number of children: 2 current occupational status: employed 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 occupational exposures/hazards: No pets and animals: Yes pets and animals: dog(s) and farm animals history of recent travel: Yes ([place] in February) out of state: Yes out of country: No sexually active: Yes Smoking Status: Never smoker alcohol intake: never substance use type: does not use diet: low carbohydrate well-balanced diet: daily or most days caffeine: No eating out: rarely or never during the past year weight has: remained stable what type of physical activity do you participate in: walking and weight training frequency: daily duration: 45-60 minutes/day corina/islam: Uatsdin seatbelt use: always do you feel safe at home: Yes 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 Date Name GA/Weeks Outcome Route Bth Weight Infant Gen Labor Lgth Anesthesia Del Locatn Provider FOB 02/24/17 Giancarlo 40 live - full term 6lb 4oz Female 23 none [facility] Se als Bran 08/29/20 Tamara 41 live - full term 7#12oz Female none [facility] Hol mes-Arian Bran HPI 30 WK OB Details: IDALMIS MAHONEY is a 32 year old who presents for routine OB visit. OB Visit EROS Calculator Estimated Delivery Date Method Current WG Current Estimate 11/23/23 Ultrasound #1 32w 0d Other Estimates 11/29/23 LMP (Certain) 31w 1d Expected Delivery Route/Plan Labor Preferences- CB/BF classes: no labor support person: Bran labor intervention preferences: [] pain management options preferred: limited cut cord/dad catch: yes : yes PP control planned: yes discussed possible routes of delivery and associated risks: [] special requests: [] Specific Issue/Plans Covid status: [] Flu vaccine: [] Tdap vaccine: [] Rhogam: [] LARC form signed: yes Problem list reviewed and updated with the most current plan of care details and appropriate orders placed. Relevant counseling for the gestational age provided. Continue routine care and follow up unless otherwise noted in visit notes/problem list details Initial Weight: 153 lb Date -???-???-???-???-???-???- ???-???-???-???-???-???- EGA Weight BP Urine Prot -???-???-???-???-???-???- ???-???-???-???-???-???- Glucose FHR FuHt Pres Dilation -???-???-???-???-???-???- ???-???-???-???-???-???- Effaced St Visit Note 04/21/23 -???-???-???-???-???-???- ???-???-???-???-???-???- 9w 1d 153 lb (+0 oz) 103/45 -???-???-???-???-???-???- ???-???-???-???-???-???- 175 -???-???-???-???-???-???- ???-???-???-???-???-???- KW- CRL not cons with dates. EROS changed. Declines NIPT. NAltrexone and progesterone ordered by Dr Harjinder Don. Thyroid lab (more content not included)... Normal [facility] Bee Producer Office Visit Reporton 09-05-2023 Bee Producer Office Visit Report [facility] [address] [place] [address] OFFICE VISIT Date of Service: 09/05/23 MR#: [id number] Acct: [id number] Name: IDALMIS MAHONEY Rep #: [id number] : 1990 Provider: SCHUYLER Garzon ams Age/Sex: 32/F Location: [facility] [place] Status: Signed Intake Vital Signs 08/24/23 08:26 09/05/23 10:32 09/05/23 10:34 Height 5 ft 7 in 5 ft 7 in 5 ft 7 in Weight: 164 lb 4 oz BMI 25.7 BP 95/60 Intake Visit Reasons: 27 WK OB Social And Human Services Assistant Required: No Is patient in pain?: No Allergies No Known Allergies Allergy (Verified 09/05/23 10:32) Medications ???Medication ???Instructions ???Recorded ???Confirmed ???Type vits,calcium no.78-iron 1 tab PO DAILY Check with primary 04/12/19 09/05/23 History fumarate-folic acid 29 mg-1 mg doctor tablet cholecalciferol (vitamin D3) 50 50 mcg PO DAILY 04/12/23 09/05/23 History mcg (2,000 unit) capsule levothyroxine 75 mcg tablet 75 mcg PO DAILY 04/21/23 09/05/23 History (Synthroid) Last Menstrual Period: 02/22/23 Zika: Zika virus screening: Negative : No PFSH PFSH Medical History Blood disorder Non-smoker Thyroid disease (11/22/19) Skin cancer (11/21/20) Macrocytosis without anemia Ovarian cyst Thrombocytopenia Surgical History History of removal of skin mole [place] teeth extracted Family History Father Skin cancer Grandfather Colon cancer Uncle Colon cancer Social History adopted: No household members: spouse and children number of children: 2 current occupational status: employed 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 occupational exposures/hazards: No pets and animals: Yes pets and animals: dog(s) and farm animals history of recent travel: Yes ([place] in February) out of state: Yes out of country: No sexually active: Yes Smoking Status: Never smoker alcohol intake: never substance use type: does not use diet: low carbohydrate well-balanced diet: daily or most days caffeine: No eating out: rarely or never during the past year weight has: remained stable what type of physical activity do you participate in: walking and weight training frequency: daily duration: 45-60 minutes/day corina/islam: Uatsdin seatbelt use: always do you feel safe at home: Yes 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 Date Name GA/Weeks Outcome Route Bth Weight Infant Gen Labor Lgth Anesthesia Del Locatn Provider FOB 02/24/17 Giancarlo 40 live - full term 6lb 4oz Female 23 none [facility] Se phil Sotomayor 08/29/20 Tamara 41 live - full term 7#12oz Female none [facility] Hol kathy-Arian Sotomayor HPI 27 WK OB Details: IDALMIS MAHONEY is a 32 year old who presents for routine OB visit. OB Visit EROS Calculator Estimated Delivery Date Method Current WG Current Estimate 11/23/23 Ultrasound #1 28w 5d Other Estimates 11/29/23 LMP (Certain) 27w 6d Expected Delivery Route/Plan Labor Preferences- CB/BF classes: no labor support person: Bran labor intervention preferences: [] pain management options preferred: limited cut cord/dad catch: yes : yes PP control planned: yes discussed possible routes of delivery and associated risks: [] special requests: [] Specific Issue/Plans Covid status: [] Flu vaccine: [] Tdap vaccine: [] Rhogam: [] LARC form signed: yes Problem list reviewed and updated with the most current plan of care details and appropriate orders placed. Relevant counseling for the gestational age provided. Continue routine care and follow up unless otherwise noted in visit notes/problem list details Initial Weight: 153 lb Date -???-???-???-???-???-???- ???-???-???-???-???-???- EGA Weight BP Urine Prot -???-???-???-???-???-???- ???-???-???-???-???-???- Glucose FHR FuHt Pres Dilation -???-???-???-???-???-???- ???-???-???-???-???-???- Effaced St Visit Note 04/21/23 -???-???-???-???-???-???- ???-???-???-???-???-???- 9w 1d 153 lb (+0 oz) 103/45 -???-???-???-???-???-???- ???-???-???-???-???-???- 175 -???-???-???-???-???-???- ???-???-???-???-???-???- KW- CRL not cons with dates. EROS changed. Declines NIPT. NAltrexone and progesterone ordered by Dr Harjinder Don. Thyroid labs ordered. 05/06/23 - (more content not included)... Normal [facility] HIV - WCHon 08-25-2023 HIV Non-Reactive Normal Nonreactive [facility] Comment on above: Performed By: #### L 509.8000, L3890.6005, L100.0100, L501.0250 #### [facility] [address] [place], [address] L509.8000on 08-25-2023 Syphilis Abs Non-Reactive Normal [facility] Comment on above: Performed By: #### L 509.8000, L3890.6005, L100.0100, L501.0250 #### [facility] [address] [place], [address] CBC W/Diff, Automatedon 07-0 Absolute Lymph 1.36 X10 3/uL Normal 0.83-4.51 [facility] Comment on above: Performed By: #### L 509.8000, L3890.6005, L100.0100, L501.0250 #### [facility] [address] [place], [address] Absolute Neut 6.2 X10 3/uL Normal 2.0-7.7 [facility] Comment on above: Performed By: #### L 509.8000, L3890.6005, L100.0100, L501.0250 #### [facility] [address] [place], [address] Basophils/100 WBC (Bld) 0.4 % Normal 0-1 [facility] Comment on above: Performed By: #### L 509.8000, L3890.6005, L100.0100, L501.0250 #### [facility] [address] [place], [address] Eosinophils/100 WBC (Bld) 0.6 % Normal 0-5 [facility] Comment on above: Performed By: #### L 509.8000, L3890.6005, L100.0100, L501.0250 #### [facility] [address] [place], [address] Erythrocyte distribution width (RBC) [Ratio] 12.7 % Normal 11.6-14.6 [facility] Comment on above: Performed By: #### L 509.8000, L3890.6005, L100.0100, L501.0250 #### [facility] [address] [place], [address] Hematocrit (Bld) [Volume fraction] 35.9 % Low 37-47 [facility] Comment on above: Performed By: #### L 509.8000, L3890.6005, L100.0100, L501.0250 #### [facility] [address], [address] Hemoglobin (Bld) [Mass/Vol] 11.7 g/dL Low 12.0-15.0 [facility] Comment on above: Performed By: #### L 509.8000, L3890.6005, L100.0100, L501.0250 #### [facility] [address] [place], [address] IG% 0.600 Normal 0.0-0.9 [facility] Comment on above: Result Comment: IG% - Immature Granulocytes (promyelocytes, myelocytes and metamyelocytes) > 1% indicates that a LEFT SHIFT is Present. Performed By: #### L 509.8000, L3890.6005, L100.0100, L501.0250 #### [facility] [address], [address] Lymphocytes/100 WBC (Bld) 16.9 % Low 19-41 [facility] Comment on above: Performed By: #### L 509.8000, L3890.6005, L100.0100, L501.0250 #### [facility] [address] [place], [address] MCH (RBC) [Entitic mass] 34.0 pg High 27.0-32.0 [facility] Comment on above: Performed By: #### L 509.8000, L3890.6005, L100.0100, L501.0250 #### [facility] [address] [place], [address] MCHC (RBC) [Mass/Vol] 32.6 g/dL Normal 32-36 [facility] Comment on above: Performed By: #### L 509.8000, L3890.6005, L100.0100, L501.0250 #### [facility] [address] [place], [address] MCV (RBC) [Entitic vol] 104.4 fL High 81-99 [facility] Comment on above: Performed By: #### L 509.8000, L3890.6005, L100.0100, L501.0250 #### [facility] [address] [place], [address] Monocytes/100 WBC (Bld) 4.6 % Normal 0-10 [facility] Comment on above: Performed By: #### L 509.8000, L3890.6005, L100.0100, L501.0250 #### [facility] [address] [place], [address] Neutrophils/100 WBC (Bld) 76.9 % High 47-70 [facility] Comment on above: Performed By: #### L 509.8000, L3890.6005, L100.0100, L501.0250 #### [facility] [address] [place], [address] Nucleated RBC (Bld) [#/Vol] 0 10*3/uL Normal 0-5 [facility] Comment on above: Performed By: #### L 509.8000, L3890.6005, L100.0100, L501.0250 #### [facility] [address] [place], [address] Platelet mean volume (Bld) [Entitic vol] 12.0 fL Normal 6.2-12.0 [facility] Comment on above: Performed By: #### L 509.8000, L3890.6005, L100.0100, L501.0250 #### [facility] [address] [place], [address] Platelets (Bld) [#/Vol] 125 10*3/uL Low 150-450 [facility] Comment on above: Performed By: #### L 509.8000, L3890.6005, L100.0100, L501.0250 #### [facility] [address] [place], [address] RBC (Bld) [#/Vol] 3.44 10*6/uL Low 4.2-5.4 [facility] Comment on above: Performed By: #### L 509.8000, L3890.6005, L100.0100, L501.0250 #### [facility] [address] [place], [address] RDW SD 48.9 fl High 35.1-43.9 [facility] Comment on above: Performed By: #### L 509.8000, L3890.6005, L100.0100, L501.0250 #### [facility] [address] [place], [address] WBC (Bld) [#/Vol] 8.0 10*3/uL Normal 4.4-11.0 [facility] Comment on above: Performed By: #### L 509.8000, L3890.6005, L100.0100, L501.0250 #### [facility] [address] [place], [address] Glucose Challenge Gest 1H 50 anjum 08-24-2023 GLU GEST 50g 1H 85 mg/dL Normal 70-140 [facility] Comment on above: Performed By: #### L 509.8000, L3890.6005, L100.0100, L501.0250 #### [facility] [address] [place], [address] Bee Producer Office Visit Reporton 08-24-2023 Bee Producer Office Visit Report [facility] [address] [place] [address] OFFICE VISIT Date of Service: 08/24/23 MR#: [id number] Acct: [id number] Name: IDALMIS MAHONEY Rep #: [id number] : 1990 Provider: ROSARIO garza Age/Sex: 32/F [place] [facility] [place] Status: Signed Intake Vital Signs 07/27/23 14:14 08/24/23 08:26 Height 5 ft 7 in 5 ft 7 in Weight: 165 lb BMI 25.8 BP 94/60 Intake Visit Reasons: 25 WK OB Chief Complaint: 25 Week OB Social And Human Services Assistant Required: No Is patient in pain?: No Allergies No Known Allergies Allergy (Verified 08/24/23 08:25) Medications ???Medication ???Instructions ???Recorded ???Confirmed ???Type vits,calcium no.78-iron 1 tab PO DAILY Check with primary 04/12/19 08/24/23 History fumarate-folic acid 29 mg-1 mg doctor tablet cholecalciferol (vitamin D3) 50 50 mcg PO DAILY 04/12/23 08/24/23 History mcg (2,000 unit) capsule levothyroxine 75 mcg tablet 75 mcg PO DAILY 04/21/23 08/24/23 History (Synthroid) Last Menstrual Period: 02/22/23 Zika: Zika virus screening: Negative : No PFSH PFSH Medical History Blood disorder Non-smoker Thyroid disease (11/22/19) Skin cancer (11/21/20) Macrocytosis without anemia Ovarian cyst Thrombocytopenia Surgical History History of removal of skin mole [place] teeth extracted Family History Father Skin cancer Grandfather Colon cancer Uncle Colon cancer Social History adopted: No household members: spouse and children number of children: 2 current occupational status: employed 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 occupational exposures/hazards: No pets and animals: Yes pets and animals: dog(s) and farm animals history of recent travel: Yes ([place] in February) out of state: Yes out of country: No sexually active: Yes Smoking Status: Never smoker alcohol intake: never substance use type: does not use diet: low carbohydrate well-balanced diet: daily or most days caffeine: No eating out: rarely or never during the past year weight has: remained stable what type of physical activity do you participate in: walking and weight training frequency: daily duration: 45-60 minutes/day corina/islam: Uatsdin seatbelt use: always do you feel safe at home: Yes 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 Date Name GA/Weeks Outcome Route Bth Weight Infant Gen Labor Lgth Anesthesia Del Locatn Provider FOB 02/24/17 Idamarie 40 live - full term 6lb 4oz Female 23 none [facility] Se als Bran 08/29/20 Tamara 41 live - full term 7#12oz Female none [facility] Hol mes-Arian Bran HPI 25 WK OB Details: IDALMIS MAHONEY is a 32 year old who presents for routine OB visit. OB Visit EROS Calculator Estimated Delivery Date Method Current WG Current Estimate 11/23/23 Ultrasound #1 27w 0d Other Estimates 11/29/23 LMP (Certain) 26w 1d Expected Delivery Route/Plan Labor Preferences- CB/BF classes: no labor support person: Bran labor intervention preferences: [] pain management options preferred: limited cut cord/dad catch: yes : yes PP control planned: yes discussed possible routes of delivery and associated risks: [] special requests: [] Specific Issue/Plans Covid status: [] Flu vaccine: [] Tdap vaccine: [] Rhogam: [] LARC form signed: yes Problem list reviewed and updated with the most current plan of care details and appropriate orders placed. Relevant counseling for the gestational age provided. Continue routine care and follow up unless otherwise noted in visit notes/problem list details Initial Weight: 153 lb Date -???-???-???-???-???-???- ???-???-???-???-???-???- EGA Weight BP Urine Prot -???-???-???-???-???-???- ???-???-???-???-???-???- Glucose FHR FuHt Pres Dilation -???-???-???-???-???-???- ???-???-???-???-???-???- Effaced St Visit Note 04/21/23 -???-???-???-???-???-???- ???-???-???-???-???-???- 9w 1d 153 lb (+0 oz) 103/45 -???-???-???-???-???-???- ???-???-???-???-???-???- 175 -???-???-???-???-???-???- ???-???-???-???-???-???- KW- CRL not cons with dates. EROS changed. Declines NIPT. NAltrexone and progesterone ordered by Dr Harjinder Don. Thyroid labs ordered. 05/06/23 (more content not included)... Normal [facility] Bee Producer Office Visit Reporton 07-27-2023 Bee Producer Office Visit Report [facility] [address] [place] [address] OFFICE VISIT Date of Service: 07/27/23 MR#: [id number] Acct: [id number] Name: IDALMIS MAHONEY Rep #: [id number] : 1990 Provider: Dr. Gisela badillo MD Age/Sex: 32/F Location: [facility] [place] Status: Signed Intake Vital Signs 06/28/23 16:01 07/27/23 14:10 07/27/23 14:14 Height 5 ft 7 in 5 ft 7 in 5 ft 7 in Weight: 163 lb BMI 25.5 BP 96/57 L Intake Visit Reasons: 21 WK OB Social And Human Services Assistant Required: No Is patient in pain?: No Allergies No Known Allergies Allergy (Verified 07/27/23 14:11) Medications ???Medication ???Instructions ???Recorded ???Confirmed ???Type vits,calcium no.78-iron 1 tab PO DAILY Check with primary 04/12/19 07/27/23 History fumarate-folic acid 29 mg-1 mg doctor tablet cholecalciferol (vitamin D3) 50 50 mcg PO DAILY 04/12/23 07/27/23 History mcg (2,000 unit) capsule flaxseed 1,000 mg capsule 3,000 mg PO DAILY 04/12/23 07/27/23 History levothyroxine 75 mcg tablet 75 mcg PO DAILY 04/21/23 07/27/23 History (Synthroid) Last Menstrual Period: 02/22/23 Zika: Zika virus screening: Negative : No PFSH PFSH Medical History Thyroid disease (11/22/19) Skin cancer (11/21/20) Macrocytosis without anemia Ovarian cyst Thrombocytopenia Surgical History History of removal of skin mole No history of previous surgery [place] teeth extracted Family History Father Skin cancer Grandfather Colon cancer Uncle Colon cancer Social History adopted: No household members: spouse and children number of children: 2 current occupational status: employed 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 occupational exposures/hazards: No pets and animals: Yes pets and animals: dog(s) and farm animals history of recent travel: Yes ([place] in February) out of state: Yes out of country: No sexually active: Yes Smoking Status: Never smoker alcohol intake: never substance use type: does not use diet: low carbohydrate well-balanced diet: daily or most days caffeine: No eating out: rarely or never during the past year weight has: remained stable what type of physical activity do you participate in: walking and weight training frequency: daily duration: 45-60 minutes/day corina/islam: Uatsdin seatbelt use: always do you feel safe at home: Yes 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 Date Name GA/Weeks Outcome Route Bth Weight Gen Labor Lgth Anesthesia Del Locatn Provider FOB 02/24/17 Idamarie 40 live - full term 6lb 4oz Female 23 none [facility] Se als Bran 08/29/20 Tamara 41 live - full term 7#12oz Female none [facility] Hol [facility]-Arian Bran HPI 21 WK OB Details: IDALMIS MAHONEY is a 32 year old who presents for routine OB visit. OB Visit EROS Calculator Estimated Delivery Date Method Current WG Current Estimate 11/23/23 Ultrasound #1 23w 0d Other Estimates 11/29/23 LMP (Certain) 22w 1d Expected Delivery Route/Plan Labor Preferences- CB/BF classes: [] labor support person: [] labor intervention preferences: [] pain management options preferred: [] cut cord/dad catch: [] : [] PP control planned: [] discussed possible routes of delivery and associated risks: [] special requests: [] Specific Issue/Plans Covid status: [] Flu vaccine: [] Tdap vaccine: [] Rhogam: [] LARC form signed: [] Problem list reviewed and updated with the most current plan of care details and appropriate orders placed. Relevant counseling for the gestational age provided. Continue routine care and follow up unless otherwise noted in visit notes/problem list details Initial Weight: 153 lb Date -???-???-???-???-???-???- ???-???-???-???-???-???- EGA Weight BP Urine Prot -???-???-???-???-???-???- ???-???-???-???-???-???- Glucose FHR FuHt Pres Dilation -???-???-???-???-???-???- ???-???-???-???-???-???- Effaced St Visit Note 04/21/23 -???-???-???-???-???-???- ???-???-???-???-???-???- 9w 1d 153 lb (+0 oz) 103/45 -???-???-???-???-???-???- ???-???-???-???-???-???- 175 -???-???-???-???-???-???- ???-???-???-???-???-???- KW- CRL not cons with dates. EROS changed. Declines NIPT. NAltrexone and progesterone ord (more content not included)... Normal [facility] CBC W/Diff, Automatedon 06-0 -2023 Absolute Lymph 1.32 X10 3/uL Normal 0.83-4.51 [facility] Comment on above: Performed By: #### M 100.2200 #### [facility] [address] [place], [address] Absolute Neut 5.8 X10 3/uL Normal 2.0-7.7 [facility] Comment on above: Performed By: #### M 100.2200 #### [facility] [address] [place], [address] Basophils/100 WBC (Bld) 0.3 % Normal 0-1 [facility] Comment on above: Performed By: #### M 100.2200 #### [facility] [address] [place], [address] Eosinophils/100 WBC (Bld) 0.4 % Normal 0-5 [facility] Comment on above: Performed By: #### M 100.2200 #### [facility] [address] [place], [address] Erythrocyte distribution width (RBC) [Ratio] 12.8 % Normal 11.6-14.6 [facility] Comment on above: Performed By: #### M 100.2200 #### [facility] [address] [place], [address] Hematocrit (Bld) [Volume fraction] 38.1 % Normal 37-47 [facility] Comment on above: Performed By: #### M 100.2200 #### [facility] [address] [place], [address] Hemoglobin (Bld) [Mass/Vol] 12.1 g/dL Normal 12.0-15.0 [facility] Comment on above: Performed By: #### M 100.2200 #### [facility] [address] [place], [address] IG% 0.400 Normal 0.0-0.9 [facility] Comment on above: Result Comment: IG% - Immature Granulocytes (promyelocytes, myelocytes and metamyelocytes) > 1% indicates that a LEFT SHIFT is Present. Performed By: #### M 100.2200 #### [facility] [address] [place], [address] Lymphocytes/100 WBC (Bld) 17.4 % Low 19-41 [facility] Comment on above: Performed By: #### M 100.2200 #### [facility] [address] [place], [address] MCH (RBC) [Entitic mass] 33.5 pg High 27.0-32.0 [facility] Comment on above: Performed By: #### M 100.2200 #### [facility] [address] [place], [address] MCHC (RBC) [Mass/Vol] 31.8 g/dL Low 32-36 [facility] Comment on above: Performed By: #### M 100.2200 #### [facility] [address] [place], [address] MCV (RBC) [Entitic vol] 105.5 fL High 81-99 [facility] Comment on above: Performed By: #### M 100.2200 #### [facility] [address] [place], [address] Monocytes/100 WBC (Bld) 5.1 % Normal 0-10 [facility] Comment on above: Performed By: #### M 100.2200 #### [facility] [address] [place], [address] Neutrophils/100 WBC (Bld) 76.4 % High 47-70 [facility] Comment on above: Performed By: #### M 100.2200 #### [facility] [address] [place], [address] Nucleated RBC (Bld) [#/Vol] 0 10*3/uL Normal 0-5 [facility] Comment on above: Performed By: #### M 100.2200 #### [facility] [address] [place], [address] Platelet mean volume (Bld) [Entitic vol] 12.8 fL High 6.2-12.0 [facility] Comment on above: Performed By: #### M 100.2200 #### [facility] [address] [place], [address] Platelets (Bld) [#/Vol] 121 10*3/uL Low 150-450 [facility] Comment on above: Performed By: #### M 100.2200 #### [facility] [address] [place], [address] RBC (Bld) [#/Vol] 3.61 10*6/uL Low 4.2-5.4 [facility] Comment on above: Performed By: #### M 100.2200 #### [facility] [address] [place], [address] RDW SD 49.7 fl High 35.1-43.9 [facility] Comment on above: Performed By: #### M 100.2200 #### [facility] [address] [place], [address] WBC (Bld) [#/Vol] 7.6 10*3/uL Normal 4.4-11.0 [facility] Comment on above: Performed By: #### M 100.2200 #### [facility] [address] [place], [address] Thyroid Stim Hormone (TSH)on 07-25-2023 TSH 1.06 uIU/mL Normal 0.358-3.74 [facility] Comment on above: Performed By: #### M 100.2200 #### [facility] [address] [place], [address] Urine Cultureon 06-29-2023 URC Culture exhibits no growth. Normal [facility] Comment on above: Performed By: #### M 100.2200 #### [facility] [address] [place], [address] Culture, urineOrdered By: Hieu Perez on 06-28-2023 Bacteria identified Cx Nom (U) Culture exhibits no growth. [facility] - Chemistry and C hemistry - challengeon 06-28-2023 Glucose Ql (U) Negative [facility] - Urinalysison Protein Ql (U) Negative [facility] Bee Producer Office Visit Reporton 06-28-2023 Bee Producer Office Visit Report [facility] [address] [place] [address] OFFICE VISIT Date of Service: 06/28/23 MR#: [id number] Acct: [id number] Name: IDALMIS MAHONEY Rep #: [id number] : 1990 Provider: Dr. Tyesha Baker DO Age/Sex: 32/F Location: [facility] [place] Status: Signed Intake Vital Signs 05/16/23 09:20 05/31/23 09:24 06/28/23 16:01 06/28/23 16:01 Height 5 ft 7 in 5 ft 7 in 5 ft 7 in 5 ft 7 in Weight: 158 lb 8 oz BMI 24.8 BP 92/56 L Intake Visit Reasons: 17 WK OB Social And Human Services Assistant Required: No Is patient in pain?: No Allergies No Known Allergies Allergy (Verified 06/28/23 16:01) Medications vits,calcium no.78-iron fumarate-folic acid 29 mg-1 mg tablet 1 tab PO DAILY Check with primary doctor 04/12/19 [History Confirmed 06/28/23] cholecalciferol (vitamin D3) 50 mcg (2,000 unit) capsule 50 mcg PO DAILY 04/12/23 [History Confirmed 06/28/23] flaxseed 1,000 mg capsule 3,000 mg PO DAILY 04/12/23 [History Confirmed 06/28/23] naltrexone 50 mg tablet 25 mg PO BID 04/12/23 [History Confirmed 06/28/23] prasterone (dhea) 25 mg tablet (DHEA) 25 mg PO DAILY 04/12/23 [History Confirmed 06/28/23] levothyroxine 75 mcg tablet (Synthroid) 75 mcg PO DAILY 04/21/23 [History Confirmed 06/28/23] progesterone micronized 200 mg capsule 200 mg vaginal BID 04/21/23 [History Confirmed 06/28/23] Last Menstrual Period: 02/22/23 Zika: Zika virus screening: Negative : No PFSH PFSH Medical History Macrocytosis without anemia Ovarian cyst Skin cancer (11/21/20) Thrombocytopenia Thyroid disease (11/22/19) Surgical History History of removal of skin mole No history of previous surgery [place] teeth extracted Family History Father Skin cancer Grandfather Colon cancer Uncle Colon cancer Social History adopted: No household members: spouse and children number of children: 2 current occupational status: employed 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 occupational exposures/hazards: No pets and animals: Yes pets and animals: dog(s) and farm animals history of recent travel: Yes ([place] in February) out of state: Yes out of country: No sexually active: Yes Smoking Status: Never smoker alcohol intake: never substance use type: does not use diet: low carbohydrate well-balanced diet: daily or most days caffeine: No eating out: rarely or never during the past year weight has: remained stable what type of physical activity do you participate in: walking and weight training frequency: daily duration: 45-60 minutes/day corina/islam: Uatsdin seatbelt use: always do you feel safe at home: Yes 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 Date Name GA/Weeks Outcome Route Bth Weight Infant Gen Labor Lgth Anesthesia Del Locatn Provider AARON 02/24/17 Melvamarie 40 live - full term 6lb 4oz Female 23 none [facility] Se phil Sotomayor 08/29/20 Tamara 41 live - full term 7#12oz Female none [facility] Hol mes-Arian Sotomayor HPI 17 WK OB Details: IDALMIS MAHONEY is a 32 year old who presents for routine OB visit. OB Visit EROS Calculator Estimated Delivery Date Method Current WG Current Estimate 11/23/23 Ultrasound #1 18w 6d Other Estimates 11/29/23 LMP (Certain) 18w 0d Expected Delivery Route/Plan Labor Preferences- CB/BF classes: [] labor support person: [] labor intervention preferences: [] pain management options preferred: [] cut cord/dad catch: [] : [] PP control planned: [] discussed possible routes of delivery and associated risks: [] special requests: [] Specific Issue/Plans Covid status: [] Flu vaccine: [] Tdap vaccine: [] Rhogam: [] LARC form signed: [] Problem list reviewed and updated with the most current plan of care details and appropriate orders placed. Relevant counseling for the gestational age provided. Continue routine care and follow up unless otherwise noted in visit notes/problem list details Initial Weight: 153 lb Date -???-???-???-???-???-???- ???-???-???-???-???-???- EGA Weight BP Urine Prot -???-???-???-???-???-???- ???-???-???-???-???-???- Glucose FHR FuHt Pres Dilation -???-???-???-???-???-???- ???-???-???-???-???-???- Effaced St Visit Note 04/21/23 -???-???- (more content not included)... Normal [facility] Miscellaneous Lab Procedureo n 06-26-2023 [facility] TEST Normal [facility] Comment on above: Order Comment: TSH R AB [id number] TSH RECEPTOR AB RED SERUM FRZlc [id number] TSH RECEPTOR AB RED SERUM FRZ Result Comment: TEST RESULTS LIMITS Thyrotropin Receptor Ab, Serum <1.10 IU/L 0.00-1.75 TESTING PERFORMED AT [facility]. ORIGINAL REPORT ON FILE IN LAB CONTAINS ADDITIONAL TEST SITE INFORMATION. Performed By: #### M 100.1810 #### [facility] [address] [place], [address] Absolute lymphocyte countOrd ered By: Laureen Hawkins on 05-31-2023 Lymphocytes Auto (Unsp spec) [#/Vol] 1.39 10*3/uL 0.83-4.51 [facility] Automated lymphocyte count a s percentage of total leukocytesOrdered By: Laureen Hawkins on 05-31-2023 Lymphocytes/100 WBC Auto (Unsp spec) 19.1 % 19-41 [facility] Basophil percentageOrdered B y: Laureen Hawkins on 05-31-2023 Basophils/100 WBC (Bld) 0.3 % 0-1 [facility] Eosinophils/100 WBC (Bld) 0.5 % 0-5 [facility] Hemoglobin (Bld) [Mass/Vol] 12.2 g/dL 12.0-15.0 [facility] Monocytes/100 WBC (Bld) 4.3 % 0-10 [facility] Neutrophils (Bld) [#/Vol] 5.5 10*3/uL 2.0-7.7 [facility] Neutrophils/100 WBC (Bld) 75.5 % 47-70 [facility] WBC (Bld) [#/Vol] 7.3 10*3/uL 4.4-11.0 [facility] CBC W/Diff, Automatedon 04-0 Absolute Lymph 1.39 X10 3/uL Normal 0.83-4.51 [facility] Comment on above: Performed By: #### M 100.2200 #### [facility] [address] [place], [address] Absolute Neut 5.5 X10 3/uL Normal 2.0-7.7 [facility] Comment on above: Performed By: #### M 100.2200 #### [facility] [address] [place], [address] Basophils/100 WBC (Bld) 0.3 % Normal 0-1 [facility] Comment on above: Performed By: #### M 100.2200 #### [facility] [address] [place], [address] Eosinophils/100 WBC (Bld) 0.5 % Normal 0-5 [facility] Comment on above: Performed By: #### M 100.2200 #### [facility] [address] [place], [address] Erythrocyte distribution width (RBC) [Ratio] 13.1 % Normal 11.6-14.6 [facility] Comment on above: Performed By: #### M 100.2200 #### [facility] [address] [place], [address] Hematocrit (Bld) [Volume fraction] 37.3 % Normal 37-47 [facility] Comment on above: Performed By: #### M 100.2200 #### [facility] [address] [place], [address] Hemoglobin (Bld) [Mass/Vol] 12.2 g/dL Normal 12.0-15.0 [facility] Comment on above: Performed By: #### M 100.2200 #### [facility] [address] [place], [address] IG% 0.300 Normal 0.0-0.9 [facility] Comment on above: Result Comment: IG% - Immature Granulocytes (promyelocytes, myelocytes and metamyelocytes) > 1% indicates that a LEFT SHIFT is Present. Performed By: #### M 100.2200 #### [facility] [address] [place], [address] Lymphocytes/100 WBC (Bld) 19.1 % Normal 19-41 [facility] Comment on above: Performed By: #### M 100.2200 #### [facility] [address] [place], [address] MCH (RBC) [Entitic mass] 32.4 pg High 27.0-32.0 [facility] Comment on above: Performed By: #### M 100.2200 #### [facility] [address] [place], [address] MCHC (RBC) [Mass/Vol] 32.7 g/dL Normal 32-36 [facility] Comment on above: Performed By: #### M 100.2200 #### [facility] [address] [place], [address] MCV (RBC) [Entitic vol] 99.2 fL High 81-99 [facility] Comment on above: Performed By: #### M 100.2200 #### [facility] [address] [place], [address] Monocytes/100 WBC (Bld) 4.3 % Normal 0-10 [facility] Comment on above: Performed By: #### M 100.2200 #### [facility] [address] [place], [address] Neutrophils/100 WBC (Bld) 75.5 % High 47-70 [facility] Comment on above: Performed By: #### M 100.2200 #### [facility] [address] [place], [address] Nucleated RBC (Bld) [#/Vol] 0 10*3/uL Normal 0-5 [facility] Comment on above: Performed By: #### M 100.2200 #### [facility] [address] [place], [address] Platelet mean volume (Bld) [Entitic vol] 12.2 fL High 6.2-12.0 [facility] Comment on above: Performed By: #### M 100.2200 #### [facility] [address] [place], [address] Platelets (Bld) [#/Vol] 120 10*3/uL Low 150-450 [facility] Comment on above: Performed By: #### M 100.2200 #### [facility] [address] [place], [address] RBC (Bld) [#/Vol] 3.76 10*6/uL Low 4.2-5.4 [facility] Comment on above: Performed By: #### M 100.2200 #### [facility] [address] [place], [address] RDW SD 47.6 fl High 35.1-43.9 [facility] Comment on above: Performed By: #### M 100.2200 #### [facility] [address] [place], [address] WBC (Bld) [#/Vol] 7.3 10*3/uL Normal 4.4-11.0 [facility] Comment on above: Performed By: #### M 100.2200 #### [facility] [address] [place], [address] Determination of erythrocyte mean corpuscular volume (MCV)Ordered By: Laureen Hawkins on 05-31-2023 MCV (RBC) [Entitic vol] 99.2 fL 81-99 [facility] Erythrocyte distribution wid th ratioOrdered By: Laureen Hawkins on 05-31-2023 Erythrocyte distribution width (RBC) [Ratio] 13.1 % 11.6-14.6 [facility] Erythrocyte distribution wid th standard deviationOrdered By: Laureen Hawkins on 05-31-2023 Erythrocyte distribution width (RBC) [Entitic vol] 47.6 fL 35.1-43.9 [facility] Hematocrit Auto (Bld) [Volum e fraction]Ordered By: Laureen Hawkins on 05-31-2023 Hematocrit (Bld) [Volume fraction] 37.3 % 37-47 [facility] Immature granulocytes/100 WB C Auto (Bld)Ordered By: Laureen Hawkins on 05-31-2023 Immature granulocytes/100 WBC (Bld) 0.300 % 0.0-0.9 [facility] Comment on above: IG% - Immature Granu locytes (promyelocytes, myelocytes and metamyelocytes) > 1% indicates that a LEFT SHIFT is Present. Laboratory - Hematology and Cell countsOrdered By: Laureen Hawkins on 05-31-2023 MCH (RBC) [Entitic mass] 32.4 pg 27.0-32.0 [facility] MCHC (RBC) [Mass/Vol] 32.7 g/dL 32-36 [facility] Nucleated RBC/100 WBC (Bld) [Ratio] 0 % 0-5 [facility] Platelet mean volume (Bld) [Entitic vol] 12.2 fL 6.2-12.0 [facility] Platelets (Bld) [#/Vol] 120 10*3/uL 150-450 [facility] No Panel InformationOrdered By: Chris Leslie on 05-31-2023 Miscellaneous Test See comment [facility] Comment on above: TEST RESULTS LIMITST hyrotropin Receptor Ab,Serum <1.10 IU/L 0.00-1.75 TESTING PERFORMED AT [facility]. ORIGINAL REPORT ON FILE IN LAB CONTAINS ADDITIONAL TEST SITE INFORMATION. Bee Producer Office Visit Reporton 05-31-2023 Bee Producer Office Visit Report [facility] [address] [place] [address] OFFICE VISIT Date of Service: 05/31/23 MR#: [id number] Acct: [id number] Name: IDALMIS MAHONEY Rep #: [id number] : 1990 Provider: SCHUYLER Garzon ams Age/Sex: 32/F Location: [facility] [place] Status: Signed Intake Vital Signs 05/16/23 09:20 05/31/23 09:23 05/31/23 09:24 Height 5 ft 7 in 5 ft 7 in 5 ft 7 in Weight: 154 lb 2 oz BMI 24.1 BP 94/61 Intake Visit Reasons: [place] ED follow up for bleeding Social And Human Services Assistant Required: No Is patient in pain?: No Allergies No Known Allergies Allergy (Verified 05/31/23 09:24) Medications vits,calcium no.78-iron fumarate-folic acid 29 mg-1 mg tablet 1 tab PO DAILY Check with primary doctor 04/12/19 [History Confirmed 05/31/23] cholecalciferol (vitamin D3) 50 mcg (2,000 unit) capsule 50 mcg PO DAILY 04/12/23 [History Confirmed 05/31/23] flaxseed 1,000 mg capsule 3,000 mg PO DAILY 04/12/23 [History Confirmed 05/31/23] naltrexone 50 mg tablet 25 mg PO BID 04/12/23 [History Confirmed 05/31/23] prasterone (dhea) 25 mg tablet (DHEA) 25 mg PO DAILY 04/12/23 [History Confirmed 05/31/23] levothyroxine 75 mcg tablet (Synthroid) 75 mcg PO DAILY 04/21/23 [History Confirmed 05/31/23] progesterone micronized 200 mg capsule 200 mg vaginal BID 04/21/23 [History Confirmed 05/31/23] Last Menstrual Period: 02/22/23 Zika: Zika virus screening: Negative : No PFSH PFSH Medical History (Updated 05/16/23 @ 12:19 by Chris Leslie CNM) Macrocytosis without anemia Ovarian cyst Skin cancer (11/21/20) Thrombocytopenia Thyroid disease (11/22/19) Surgical History History of removal of skin mole No history of previous surgery [place] teeth extracted Family History Father Skin cancer Grandfather Colon cancer Uncle Colon cancer Social History adopted: No household members: spouse and children number of children: 2 current occupational status: employed 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 occupational exposures/hazards: No pets and animals: Yes pets and animals: dog(s) and farm animals history of recent travel: Yes ([place] in February) out of state: Yes out of country: No sexually active: Yes Smoking Status: Never smoker alcohol intake: never substance use type: does not use diet: low carbohydrate well-balanced diet: daily or most days caffeine: No eating out: rarely or never during the past year weight has: remained stable what type of physical activity do you participate in: walking and weight training frequency: daily duration: 45-60 minutes/day corina/islam: Uatsdin seatbelt use: always do you feel safe at home: Yes 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 Date Name GA/Weeks Outcome Route Bth Weight Infant Gen Labor Lgth Anesthesia Del Locatn Provider FOB 02/24/17 Mattie 40 live - full term 6lb 4oz Female 23 none [facility] Se phil Sotomayor 08/29/20 Tamara 41 live - full term 7#12oz Female none [facility] Hol kathy-Arian Sotomayor [facility] ED follow up for bleeding Details: IDALMIS MAHONEY is a 32 year old who presents for routine OB visit. OB Visit EROS Calculator Estimated Delivery Date Method Current WG Current Estimate 11/23/23 Ultrasound #1 14w 6d Other Estimates 11/29/23 LMP (Certain) 14w 0d Expected Delivery Route/Plan Labor Preferences- CB/BF classes: [] labor support person: [] labor intervention preferences: [] pain management options preferred: [] cut cord/dad catch: [] : [] PP control planned: [] discussed possible routes of delivery and associated risks: [] special requests: [] Specific Issue/Plans Covid status: [] Flu vaccine: [] Tdap vaccine: [] Rhogam: [] LARC form signed: [] Problem list reviewed and updated with the most current plan of care details and appropriate orders placed. Relevant counseling for the gestational age provided. Continue routine care and follow up unless otherwise noted in visit notes/problem list details Initial Weight: 153 lb Date -???-???-???-???-???-???- ???-???-???-???-???-???- EGA Weight BP Urine Prot -???-???-???-???-???-???- ???-???-???-???-???-???- Glucose FHR FuHt Pres Dilation -???-???-???-???-???-???- ???-???-???-???-???-???- Effaced St Visit No (more content not included)... Normal [facility] RBC Auto (Bld) [#/Vol]Ordere d By: Laureen Hawkins on 05-31-2023 RBC (Bld) [#/Vol] 3.76 10*6/uL 4.2-5.4 [facility] - Chemistry and C hemistry - challengeon 05-16-2023 Glucose Ql (U) Negative [facility] - Urinalysison Protein Ql (U) Negative [facility] Progress Noteon 05-12-2023 [employer] Authentication Interface Message Text MFM attending note: Idalmis is a 32 y.o. female, and is at 12w2d Reason for the visit: Idalmis was referred to discuss her exposure to naltrexone prescribed for fertility purposes. HPI: The patient is her to evaluate her exposure to naltrexone prescribed for fertility purposes. . Idalmis denies nausea, vomiting, vaginal bleeding, vaginal discharge, and/or cramping. A separate genetic counseling note will be sent separately. Review of Systems Constitutional: Negative. HENT: Negative. Eyes: Negative. Respiratory: Negative. Cardiovascular: Negative. Gastrointestinal: Negative. Genitourinary: Negative. Musculoskeletal: Negative. Skin: Negative. Neurological: Negative. Endo/Heme/Allergies: Negative. Psychiatric/Behavioral: Negative. PHYSICAL EXAM: BP (!) 88/58 Pulse 58 Resp 20 Ht 170.2 cm Wt 66.6 kg (146 lb 14.4 oz) SpO2 100% BMI 23.01 kg/m Constitutional: General: She is active. HENT: Head: Atraumatic. Eyes: Extraocular Movements: EOM normal. Conjunctiva/sclera: Conjunctivae normal. Pulmonary: Effort: Pulmonary effort is normal. Abdominal: Comments: gravid uterus Musculoskeletal: Normal range of motion. Neurological: Mental Status: She is alert. X 3. Risk for aneuploidy: For a woman who will be 33 year old at the time of delivery: The risk of trisomy 21 (Down syndrome) is 1:296 The risk of trisomy 18 (Edward syndrome) is 1:1152 The risk for any chromsomal abnormaility is 1:134 Ultrasound report: 1. Gonsales intrauterine with cardiac activity present at 12w 1d with an EROS of 11/23/2023. 2. [place] rump length measurement is consistent with established gestational age. 3. First trimester nuchal translucency appeared normal for this gestational age, 1.2 mm. Discussion regarding genetic screening and testing: - The role of serums screening was discussed including multiple marker screening and cell free DNA testing (NIPT). The detection rates and false positive rates were discussed. The limitations of NIPT were explained. - The role of invasive genetic testing was explained. I informed her that invasive testing if the gold standard with the highest detection rates. Invasive testing offer karyotype, micro array studies, and detection of micro deletions.Invasive testing includes CVS (11 to 13 weeks), genetic amniocentesis (after 16 weeks) and cordocentesis. The increased risk for loss, PPROM, infection, and/or injury have been discussed. - We discussed the role of expanded genetic screening has been performed. - Follow up testing options discussed included: Comprehensive anatomy ultrasound. Chorionic villus sampling. Amniocentesis. Cell free DNA aneuploidy screening. She declined NIPT. Expanded carrier screening. Single gene screening. Vistara test This test is designed to screen for 30 autosomal dominant or X-linked dominant conditions, some of which are associated with craniosynostosis. While the performing lab quotes a 99% sensitivity and specificity for these conditions in validation studies, these studies included a limited number of women. Because this is considered a screen, false positives and false negatives are possible and abnormal findings should be confirmed via amniocentesis or testing. The exposure to naltrexone prescribed for fertility purposes. See detailed genetic counseling separate report. Idalmis's preconception and early exposure to low dose naltrexone for fertility concerns was reviewed. High dose naltraxone is primarily used a treatment for alcohol and opioid dependency. It is an opioid receptor antagonist which blocks endorphin receptors to prevent them from working. More recently, low dose naltrexone has been promoted for off-label use as an option to treat certain conditions and to improve fertility. The limited available published information regarding the potential effects of naltrexone was reviewed (including the current Reprotox summary). Recommendations She is following with hematology regarding low platelet count. The last count was 129 k. Continue thyroid replacement therapy. Early anatomy scan at 15 weeks and detailed at 18 weeks. Chart review and preparation: 5 minutes. Face to face: 5 minutes. Documentation and care coordination: 5 minutes. Total time spent on patient care today: 15 minutes. This note or partial portions of this note may have been created using a copy forward or copy paste feature, but these portions have been verified and re-edited for accuracy and any portions not in need of editing or reviews are not being used to generate any component necessary for billing purposes. Elements necessary for proper CPT code selection are based only on elements of the visit that are truly unique to this visit. Normal [facility] - Chemistry and C hemistry - challengeon 05-06-2023 Glucose Ql (U) Negative [facility] - Urinalysison Protein Ql (U) Negative [facility] Absolute lymphocyte countOrd ered By: Chris Leslie on 04-22-2023 Lymphocytes Auto (Unsp spec) [#/Vol] 1.52 10*3/uL 0.83-4.51 [facility] Automated lymphocyte count a s percentage of total leukocytesOrdered By: Chris Leslie on 04-22-2023 Lymphocytes/100 WBC Auto (Unsp spec) 26.5 % 19-41 [facility] Basophil percentageOrdered B y: Chris Leslie on 04-22-2023 Basophils/100 WBC (Bld) 0.5 % 0-1 [facility] Eosinophils/100 WBC (Bld) 0.7 % 0-5 [facility] Hemoglobin (Bld) [Mass/Vol] 13.4 g/dL 12.0-15.0 [facility] Monocytes/100 WBC (Bld) 5.9 % 0-10 [facility] Neutrophils (Bld) [#/Vol] 3.8 10*3/uL 2.0-7.7 [facility] Neutrophils/100 WBC (Bld) 66.2 % 47-70 [facility] WBC (Bld) [#/Vol] 5.7 10*3/uL 4.4-11.0 [facility] Determination of erythrocyte mean corpuscular volume (MCV)Ordered By: Chris Leslie on 04-22-2023 MCV (RBC) [Entitic vol] 98.1 fL 81-99 [facility] Erythrocyte distribution wid th ratioOrdered By: Chris Leslie on 04-22-2023 Erythrocyte distribution width (RBC) [Ratio] 12.7 % 11.6-14.6 [facility] Erythrocyte distribution wid th standard deviationOrdered By: Chris Leslie on 04-22-2023 Erythrocyte distribution width (RBC) [Entitic vol] 45.7 fL 35.1-43.9 [facility] HIV 1 and HIV-2 antibody ass ay with HIV-1 p24 antigen detectionOrdered By: Chris Leslie on 04-22-2023 HIV 1+2 Ab+HIV1 p24 Ag IA Ql Non-Reactive Nonreactive [facility] Hematocrit Auto (Bld) [Volum e fraction]Ordered By: Chris Leslie on 04-22-2023 Hematocrit (Bld) [Volume fraction] 40.6 % 37-47 [facility] Immature granulocytes/100 WB C Auto (Bld)Ordered By: Chris Leslie on 04-22-2023 Immature granulocytes/100 WBC (Bld) 0.200 % 0.0-0.9 [facility] Comment on above: IG% - Immature Granu locytes (promyelocytes, myelocytes and metamyelocytes) > 1% indicates that a LEFT SHIFT is Present. Laboratory - Hematology and Cell countsOrdered By: Chris Leslie on 04-22-2023 MCH (RBC) [Entitic mass] 32.4 pg 27.0-32.0 [facility] MCHC (RBC) [Mass/Vol] 33.0 g/dL 32-36 [facility] Nucleated RBC/100 WBC (Bld) [Ratio] 0 % 0-5 [facility] Platelet mean volume (Bld) [Entitic vol] 12.4 fL 6.2-12.0 [facility] Platelets (Bld) [#/Vol] 129 10*3/uL 150-450 [facility] No Panel InformationOrdered By: Chris Leslie on 04-22-2023 Hepatitis B Surface Antigen Non-Reactive Nonreactive [facility] Hepatitis C Antibody Non-Reactive Nonreactive [facility] Comment on above: Non Reactive: < 0.8 Equivocal: >/= 0.8 to < 1.0 Reactive: >/= 1.0The CDC requires that a reactive/equivocal HCV antibody result be sent out for confirmation. HCV Quant by PCR testing. Rubella IgG Antibody Reactive Nonreactive [facility] Comment on above: Antibody Results Int erpretation of Immune Status Non Reactive Presumed Non-Immune Equivocal Equivocal Reactive Presumed Immune RBC Auto (Bld) [#/Vol]Ordere d By: Chris Leslie on 04-22-2023 RBC (Bld) [#/Vol] 4.14 10*6/uL 4.2-5.4 [facility] Serum Treponema species anti body detectionOrdered By: Chris Leslie on 04-22-2023 Treponema sp Ab Ql (S) Non-Reactive [facility] Serum or plasma thyroid stim ulating hormone (TSH) measurement (units/volume)Ordered By: Chris Leslie on 04-22-2023 TSH Qn 0.59 uIU/mL 0.358-3.74 [facility] Thin prep Papanicolaou smear with manual screeningOrdered By: Chris Leslie on 04-22-2023 Thin prep Papanicolaou smear with manual screening 0.85 ng/dL 0.76-1.46 [facility] Cervical or vaginal specimen microscopic examination by liquid based cytology (reportOrdered By: Chris Leslie on 04-21-2023 Cytology report Cyto stain.thin prep Doc (Cvx/Vag) Comment . [facility] Comment on above: Criteria not met, HP V Genotype not performed.Performed at: - [facility] [id number] Director: Jaqui Doshi MD, Phone: [phone] at: = - [facility] [id number] Director: Jaqui Doshi MD, Phone: [phone] Cervical or vagninal specime n microscopic examination by cytology stain (reported asOrdered By: Chris Leslie on 04-21-2023 Cytology report Cyto stain Doc (Cvx/Vag) Comment . [facility] Comment on above: The Pap smear is a s creening test designed to aid in thedetection of premalignant and malignant conditions of theuterine cervix. It is not a diagnostic procedure andshould not be used as the sole means of detecting cervicalcancer. Both false-positive and false-negative reports dooccur. Chlamydia trachomatis rRNA d etection by probe and target amplification methodOrdered By: Chris Leslie on 04-21-2023 C. trachomatis rRNA AISHA+probe Ql (Unsp spec) Negative Negative [facility] Detection in cervical specim en of any of human papilloma virus (HPV) 16, 18, 31, 33,Ordered By: Chris Leslie on 04-21-2023 HPV 16+18+31+33+35+39+45+51 +52+56+58+59+66+68 DNA Probe+sig amp Ql (Cvx) Negative Negative [facility] Comment on above: This nucleic acid am plification test detects fourteen high-risk HPV types (16,18,31,33,35,39,45,51,52,56,58,59,66,68)without differentiation. Laboratory - CytologyOrdered By: Chris Leslie on 04-21-2023 Traffic Operations Engineer Cyto stain Nom (Cvx/Vag) [ID] Comment . [facility] Comment on above: Heike jenkins, Claim Technician (ASCP) Laboratory - Microbiology an d Antimicrobial susceptibilityOrdered By: Chris Leslie on 04-21-2023 N. gonorrhoeae DNA AISHA+probe Ql (Unsp spec) Negative Negative [facility] Comment on above: Performed at: = - [address] [id number] Director: Jaqui Doshi MD, Phone: [phone] Laboratory - Miscellaneous t estsOrdered By: Chris Leslie on 04-21-2023 Service comment (Unsp spec) [Interp] . . [facility] Thin prep Papanicolaou smear with manual screeningOrdered By: Chris Leslie on 04-21-2023 Thin prep Papanicolaou smear with manual screening Comment . [facility] Comment on above: NEGATIVE FOR INTRAEP ITHELIAL LESION OR MALIGNANCY. This liquid based Th inPrep(R) pap test was screened withthe use of an image guided system. Basophil percentageOrdered B y: Abby Don on 04-08-2023 Testosterone [Mass/Vol] 31.82 ng/dL [facility] Comment on above: CENTRAL 90% REFERENC E RANGES MALE AGE <50 197.44 - 669.58 ng/dL MALE AGE > or = 50 187.72 - 684.19 ng/dL FEMALE AGE <50 8.38 - 35.01 ng/dL FEMALE AGE > or = 50 <7.00 - 35.92 ng/dL Effective as of 09/16/20 No Panel InformationOrdered By: Abby Don on 04-08-2023 Estradiol (E2) Level 772.6 pg/mL [facility] Comment on above: NORMAL REFERENCE RAN GES FEMALE FOLLICULAR 21.4 - 164.8 pg/mL MID-CYCLE PEAK 49.9 - 367.2 pg/mL LUTEAL 40.2 - 259.0 pg/mL POST-MENOPAUSAL ON MHT <11.0 - 462.1 pg/mL NOT ON MHT <11.0 - 58.3 pg/mL MALE <11.0 - 52.5 pg/mL NOTE:[employer] HAS CONFIRMED THE DRUG FULVETRANT (FASLODEX) MAY CAUSE FALSELY ELEVATED ESTRADIOL RESULTS WHEN USING THIS TEST METHOD. IF PATIENT IS TAKING FULVESTRANT AN ALTERNATIVE METHOD SHOULD BE USED TO DETERMINE ESTRADIOL CONCENTRATION. Serum or plasma progesterone measurement (mass/volume)Ordered By: Abby Don on 04-08-2023 Progesterone [Mass/Vol] 28.50 ng/mL See Comment [facility] Comment on above: Progesterone Referen ce Table: UNITS Female: Follicular 0.15 - 1.40 ng/mL Luteal 3.34 - 25.56 ng/mL Mid-luteal 4.44 - 28.03 ng/mL Postmenopausal 0.0 - 0.73 ng/mL : 1st Trimester 11.22 - 90.00 ng/mL 2nd Trimester 25.55 - 89.40 ng/mL 3rd Trimester 48.40 -422.50 ng/mL No Panel InformationOrdered By: Abby Don on 04-01-2023 Dehydroepiandrosterone Sulfate 236.0 ug/dL 84.8-378.0 [facility] Comment on above: Performed at: [place] [id number] Director: Yair Raza PhD, Phone: [phone] Estradiol (E2) Level 248.3 pg/mL [facility] Comment on above: NORMAL REFERENCE RAN GES FEMALE FOLLICULAR 21.4 - 164.8 pg/mL MID-CYCLE PEAK 49.9 - 367.2 pg/mL LUTEAL 40.2 - 259.0 pg/mL POST-MENOPAUSAL ON MHT <11.0 - 462.1 pg/mL NOT ON MHT <11.0 - 58.3 pg/mL MALE <11.0 - 52.5 pg/mL NOTE:SIEMENS HAS CONFIRMED THE DRUG FULVETRANT (FASLODEX) MAY CAUSE FALSELY ELEVATED ESTRADIOL RESULTS WHEN USING THIS TEST METHOD. IF PATIENT IS TAKING FULVESTRANT AN ALTERNATIVE METHOD SHOULD BE USED TO DETERMINE ESTRADIOL CONCENTRATION. Miscellaneous Test See comment [facility] Comment on above: TEST RESULTS LIMITS DHEA, SerumDehydroepiandrosterone(DHEA) A, 147 ng/dL 31-701CommentsA: This test was developed and its performance characteristics determined by [employer] It has not been cleared or approved by the Food and Drug Administration. TESTING PERFORMED AT [facility]. ORIGINAL REPORT ON FILE IN LAB CONTAINS ADDITIONAL TEST SITE INFORMATION. Serum or plasma choriogonado tropin detectionOrdered By: Abby Don on 04-01-2023 HCG ( test) Ql 7034 mIU/mL <4 [facility] Comment on above: hCG levels with Gest ational AgeGestational Age hCG mIU/mL (IU/L)0.2 - 1 week 5 - 501-2 weeks 50 - 5002-3 weeks 100 - 18755-4 weeks 500 - 209450-6 weeks 1000 - 188878-3 weeks 62086 - 100,0006-8 weeks 14012 - 200,0002-3 months 30573 - 100,000 Serum or plasma progesterone measurement (mass/volume)Ordered By: Abby Don on 04-01-2023 Progesterone [Mass/Vol] 25.80 ng/mL See Comment [facility] Comment on above: Progesterone Referen ce Table: UNITS Female: Follicular 0.15 - 1.40 ng/mL Luteal 3.34 - 25.56 ng/mL Mid-luteal 4.44 - 28.03 ng/mL Postmenopausal 0.0 - 0.73 ng/mL : 1st Trimester 11.22 - 90.00 ng/mL 2nd Trimester 25.55 - 89.40 ng/mL 3rd Trimester 48.40 -422.50 ng/mL Estradiol measurementOrdered By: Abby Don on 03-25-2023 E2 IA [Moles/Vol] 100.7 pg/mL [facility] Comment on above: NORMAL REFERENCE RAN GES FEMALE FOLLICULAR 21.4 - 164.8 pg/mL MID-CYCLE PEAK 49.9 - 367.2 pg/mL LUTEAL 40.2 - 259.0 pg/mL POST-MENOPAUSAL ON MHT <11.0 - 462.1 pg/mL NOT ON MHT <11.0 - 58.3 pg/mL MALE <11.0 - 52.5 pg/mL NOTE:SIEMENS HAS CONFIRMED THE DRUG FULVETRANT (FASLODEX) MAY CAUSE FALSELY ELEVATED ESTRADIOL RESULTS WHEN USING THIS TEST METHOD. IF PATIENT IS TAKING FULVESTRANT AN ALTERNATIVE METHOD SHOULD BE USED TO DETERMINE ESTRADIOL CONCENTRATION. Serum or plasma choriogonado tropin detectionOrdered By: Abby Don on 03-25-2023 HCG ( test) Ql 658 mIU/mL <4 [facility] Comment on above: hCG levels with Gest ational AgeGestational Age hCG mIU/mL (IU/L)0.2 - 1 week 5 - 501-2 weeks 50 - 5002-3 weeks 100 - 58969-1 weeks 500 - 905517-6 weeks 1000 - 128537-9 weeks 96687 - 100,0006-8 weeks 83171 - 200,0002-3 months 99835 - 100,000 Serum or plasma progesterone measurement (mass/volume)Ordered By: Abby Don on 03-25-2023 Progesterone [Mass/Vol] 25.09 ng/mL See Comment [facility] Comment on above: Progesterone Referen ce Table: UNITS Female: Follicular 0.15 - 1.40 ng/mL Luteal 3.34 - 25.56 ng/mL Mid-luteal 4.44 - 28.03 ng/mL Postmenopausal 0.0 - 0.73 ng/mL : 1st Trimester 11.22 - 90.00 ng/mL 2nd Trimester 25.55 - 89.40 ng/mL 3rd Trimester 48.40 -422.50 ng/mL Serum or plasma choriogonado tropin detectionOrdered By: Abby Don on 03-23-2023 HCG ( test) Ql 253 mIU/mL <4 [facility] Comment on above: hCG levels with Gest ational AgeGestational Age hCG mIU/mL (IU/L)0.2 - 1 week 5 - 501-2 weeks 50 - 5002-3 weeks 100 - 30250-5 weeks 500 - 893336-4 weeks 1000 - 273803-6 weeks 77524 - 100,0006-8 weeks 61105 - 200,0002-3 months 28225 - 100,000 Serum or plasma choriogonado tropin detectionOrdered By: Abby Don on 03-21-2023 HCG ( test) Ql 99 mIU/mL <4 [facility] Comment on above: hCG levels with Gest ational AgeGestational Age hCG mIU/mL (IU/L)0.2 - 1 week 5 - 501-2 weeks 50 - 5002-3 weeks 100 - 55263-8 weeks 500 - 524586-5 weeks 1000 - 204201-7 weeks 72535 - 100,0006-8 weeks 86618 - 200,0002-3 months 18669 - 100,000 Estradiol measurementOrdered By: Abby Don on 03-19-2023 E2 IA [Moles/Vol] 68.6 pg/mL [facility] Comment on above: NORMAL REFERENCE RAN GES FEMALE FOLLICULAR 21.4 - 164.8 pg/mL MID-CYCLE PEAK 49.9 - 367.2 pg/mL LUTEAL 40.2 - 259.0 pg/mL POST-MENOPAUSAL ON MHT <11.0 - 462.1 pg/mL NOT ON MHT <11.0 - 58.3 pg/mL MALE <11.0 - 52.5 pg/mL NOTE:SIEMENS HAS CONFIRMED THE DRUG FULVETRANT (FASLODEX) MAY CAUSE FALSELY ELEVATED ESTRADIOL RESULTS WHEN USING THIS TEST METHOD. IF PATIENT IS TAKING FULVESTRANT AN ALTERNATIVE METHOD SHOULD BE USED TO DETERMINE ESTRADIOL CONCENTRATION. No Panel InformationOrdered By: Abby Don on 03-19-2023 Dehydroepiandrosterone Sulfate See comment [facility] Comment on above: TEST RESULTS LIMITSD HEA-Sulfate 155.0 ug/dL 84.8-378.0 [facility] ORIGINAL REPORT ON FILE IN LAB CONTAINS ADDITIONAL TEST SITE INFORMATION. Miscellaneous Test See comment [facility] Comment on above: TEST RESULTS LIMITSD HEA, Serum Dehydroepiandrosterone (DHEA) 131 ng/dL 31-701 TESTING PERFORMED AT [facility] ORIGINAL REPORT ON FILE IN LAB CONTAINS ADDITIONAL TEST SITE INFORMATION. Serum or plasma choriogonado tropin detectionOrdered By: Abby Dno on 03-19-2023 HCG ( test) Ql 46 mIU/mL <4 [facility] Comment on above: hCG levels with Gest ational AgeGestational Age hCG mIU/mL (IU/L)0.2 - 1 week 5 - 501-2 weeks 50 - 5002-3 weeks 100 - 04282-2 weeks 500 - 160128-5 weeks 1000 - 193456-8 weeks 35870 - 100,0006-8 weeks 44627 - 200,0002-3 months 59736 - 100,000 Serum or plasma progesterone measurement (mass/volume)Ordered By: Abby Don on 03-19-2023 Progesterone [Mass/Vol] 18.45 ng/mL See Comment [facility] Comment on above: Progesterone Referen ce Table: UNITS Female: Follicular 0.15 - 1.40 ng/mL Luteal 3.34 - 25.56 ng/mL Mid-luteal 4.44 - 28.03 ng/mL Postmenopausal 0.0 - 0.73 ng/mL : 1st Trimester 11.22 - 90.00 ng/mL 2nd Trimester 25.55 - 89.40 ng/mL 3rd Trimester 48.40 -422.50 ng/mL Basophil percentageOrdered B y: Abby Don on 03-04-2023 Testosterone [Mass/Vol] 14 ng/dL 8-60 [facility] Free testosterone percentage Ordered By: Abby Don on 03-04-2023 Testosterone Free/Testosterone.total [Mass fraction] 2.84 % 0.50-2.80 [facility] No Panel InformationOrdered By: Abby Don on 03-04-2023 Anti-Cardiolipin IgM Antibody < 9 MPL U/mL 0-12 [facility] Comment on above: Negative: <13 Indete rminate: 13 - 20 Low-Med Positive: >20 - 80 High Positive: >80 Dehydroepiandrosterone Sulfate 147.0 ug/dL 84.8-378.0 [facility] Serum cardiolipin IgG antibo dy assay by immunoassay (units/volume)Ordered By: Abby Don on 03-04-2023 Cardiolipin IgG IA Qn (S) < 9 GPL U/mL 0-14 [facility] Comment on above: Negative: <15 Indete rminate: 15 - 20 Low-Med Positive: >20 - 80 High Positive: >80 Serum or plasma testosterone free measurement (mass/volume)Ordered By: Abby Don on 03-04-2023 Testosterone Free [Mass/Vol] 0.40 ng/dL 0.10-0.85 [facility] Serum or plasma thyroperoxid ase antibody assay (units/volume)Ordered By: Abby Don on 03-04-2023 TPO Ab Qn [IU]/mL 0-34 [facility] Comment on above: Performed at: [facility] [id number] Director: Yair Raza PhD, Phone: [phone] at: [facility] [id number] Director: Belén Sanches MD, Phone: [phone] Basophil percentageOrdered B y: Abby Don on 01-12-2023 Testosterone [Mass/Vol] 55 ng/dL 8-60 [facility] Free testosterone percentage Ordered By: Abby Don on 01-12-2023 Testosterone Free/Testosterone.total [Mass fraction] 2.33 % 0.50-2.80 [facility] - Chemistry and C hemistry - challengeOrdered By: Abby Don on 01-12-2023 Free T4 [Mass/Vol] 1.03 ng/dL 0.76-1.46 [facility] No Panel InformationOrdered By: Abby Don on 01-12-2023 Dehydroepiandrosterone Sulfate 730.0 ug/dL 84.8-378.0 [facility] Follicle Stimulating Hormone 8.8 mIU/mL [facility] Comment on above: NORMAL REFERENCE RAN GES FEMALE FOLLICULAR 2.3 - 12.6 mIU/mL MID-CYCLE PEAK 5.2 - 17.5 mIU/mL LUTEAL 1.7 - 12.9 mIU/mL POST-MENOPAUSAL ON MHT 5.9 - 72.8 mIU/mL NOT ON MHT 12.7 - 132.2 mlU/mL MALE 0.7 - 10.8 mIU/mL Free Triiodothyronine (T3) pg/dL 2.2 pg/mL 2.18-3.98 [facility] Luteinizing Hormone 4.1 mIU/mL [facility] Comment on above: NORMAL REFERENCE RAN GES FEMALE FOLLICULAR 1.9 - 26.2 mIU/mL MID-CYCLE PEAK 22.8 - 76.1 mIU/mL LUTEAL 0.6 - 16.6 mIU/mL POST-MENOPAUSAL ON MHT 1.1 - 52.4 mIU/mL NOT ON MHT 8.6 - 61.8 mIU/mL MALE 1.2 - 10.6 mIU/mL Thyroid Stimulating Hormone (TSH) 0.19 uIU/mL 0.358-3.74 [facility] Serum or plasma estradiol (E 2) measurement (mass/volume)Ordered By: Abby Don on 01-12-2023 E2 [Mass/Vol] 16.5 pg/mL [facility] Comment on above: NORMAL REFERENCE RAN GES FEMALE FOLLICULAR 21.4 - 164.8 pg/mL MID-CYCLE PEAK 49.9 - 367.2 pg/mL LUTEAL 40.2 - 259.0 pg/mL POST-MENOPAUSAL ON MHT <11.0 - 462.1 pg/mL NOT ON MHT <11.0 - 58.3 pg/mL MALE <11.0 - 52.5 pg/mL NOTE:SIEMENS HAS CONFIRMED THE DRUG FULVETRANT (FASLODEX) MAY CAUSE FALSELY ELEVATED ESTRADIOL RESULTS WHEN USING THIS TEST METHOD. IF PATIENT IS TAKING FULVESTRANT AN ALTERNATIVE METHOD SHOULD BE USED TO DETERMINE ESTRADIOL CONCENTRATION. Serum or plasma sex hormone binding globulin measurement (moles/volume)Ordered By: Abby Don on 01-12-2023 Sex hormone binding globulin [Moles/Vol] 34.9 nmol/L 24.6-122.0 [facility] Comment on above: Performed at: [address] [id number] Director: Yair Raza PhD, Phone: [phone] at: [facility] [id number] Director: Belén Sanches MD, Phone: [phone] Serum or plasma testosterone free measurement (mass/volume)Ordered By: Abby Don on 01-12-2023 Testosterone Free [Mass/Vol] 1.28 ng/dL 0.10-0.85 [facility] Serum or plasma estradiol (E 2) measurement (mass/volume)Ordered By: Abby Don on 11-30-2022 E2 [Mass/Vol] 18.2 pg/mL [facility] Comment on above: NORMAL REFERENCE RAN GES FEMALE FOLLICULAR 21.4 - 164.8 pg/mL MID-CYCLE PEAK 49.9 - 367.2 pg/mL LUTEAL 40.2 - 259.0 pg/mL POST-MENOPAUSAL ON MHT <11.0 - 462.1 pg/mL NOT ON MHT <11.0 - 58.3 pg/mL MALE <11.0 - 52.5 pg/mL NOTE:SIEMENS HAS CONFIRMED THE DRUG FULVETRANT (FASLODEX) MAY CAUSE FALSELY ELEVATED ESTRADIOL RESULTS WHEN USING THIS TEST METHOD. IF PATIENT IS TAKING FULVESTRANT AN ALTERNATIVE METHOD SHOULD BE USED TO DETERMINE ESTRADIOL CONCENTRATION. Basophil percentageOrdered B y: Abby Don on 11-29-2022 Testosterone [Mass/Vol] ng/dL 8-60 [facility] Free testosterone percentage Ordered By: Abby Don on 11-29-2022 Testosterone Free/Testosterone.total [Mass fraction] 1.50 % 0.50-2.80 [facility] Iron measurement (mass/mass) Ordered By: Abby Don on 11-29-2022 Iron (Unsp spec) [Mass/Mass] 67 ug/dL 50-170 [facility] - Chemistry and C hemistry - challengeOrdered By: Abby Don 11-29-2022 Free T4 [Mass/Vol] 0.68 ng/dL 0.76-1.46 [facility] No Panel InformationOrdered By: bAby Don on 11-29-2022 Dehydroepiandrosterone Sulfate 72.5 ug/dL 84.8-378.0 [facility] Comment on above: Performed at: [facility] [address] [id number] Director: Yair Raza PhD, Phone: [phone] at: [facility] [id number] Director: Belén Sanches MD, Phone: [phone] Follicle Stimulating Hormone 6.7 mIU/mL [facility] Comment on above: NORMAL REFERENCE RAN [facility] FEMALE FOLLICULAR 2.3 - 12.6 mIU/mL MID-CYCLE PEAK 5.2 - 17.5 mIU/mL LUTEAL 1.7 - 12.9 mIU/mL POST-MENOPAUSAL ON MHT 5.9 - 72.8 mIU/mL NOT ON MHT 12.7 - 132.2 mlU/mL MALE 0.7 - 10.8 mIU/mL Free Triiodothyronine (T3) pg/dL 1.7 pg/mL 2.18-3.98 [facility] Luteinizing Hormone 2.6 mIU/mL [facility] Comment on above: NORMAL REFERENCE RAN GES FEMALE FOLLICULAR 1.9 - 26.2 mIU/mL MID-CYCLE PEAK 22.8 - 76.1 mIU/mL LUTEAL 0.6 - 16.6 mIU/mL POST-MENOPAUSAL ON MHT 1.1 - 52.4 mIU/mL NOT ON MHT 8.6 - 61.8 mIU/mL MALE 1.2 - 10.6 mIU/mL Thyroid Stimulating Hormone (TSH) 3.21 uIU/mL 0.358-3.74 [facility] Total Iron Binding Capacity 315 ug/dL 250-450 [facility] Total Triiodothyronine 0.82 ng/mL 0.6-1.81 [facility] Serum or plasma choriogonado tropin detectionOrdered By: Abby Don on 11-29-2022 HCG ( test) Ql < 1 mIU/mL <4 [facility] Comment on above: hCG levels with Gest ational AgeGestational Age hCG mIU/mL (IU/L)0.2 - 1 week 5 - 501-2 weeks 50 - 5002-3 weeks 100 - 56577-7 weeks 500 - 364027-6 weeks 1000 - 715791-0 weeks 67811 - 100,0006-8 weeks 92837 - 200,0002-3 months 26636 - 100,000 Serum or plasma ferritin tricia surement (mass/volume)Ordered By: Abby Don on 11-29-2022 Ferritin [Mass/Vol] 34 ng/mL 8-252 [facility] Serum or plasma iron saturat ion measurement (mass fraction)Ordered By: Abby Don on 11-29-2022 Iron saturation [Mass fraction] 21.3 % 15.0-55.0 [facility] Serum or plasma progesterone measurement (mass/volume)Ordered By: Abby Don on 11-29-2022 Progesterone [Mass/Vol] 0.26 ng/mL See Comment [facility] Comment on above: Progesterone Referen ce Table: UNITS Female: Follicular 0.15 - 1.40 ng/mL Luteal 3.34 - 25.56 ng/mL Mid-luteal 4.44 - 28.03 ng/mL Postmenopausal 0.0 - 0.73 ng/mL : 1st Trimester 11.22 - 90.00 ng/mL 2nd Trimester 25.55 - 89.40 ng/mL 3rd Trimester 48.40 -422.50 ng/mL Serum or plasma testosterone free measurement (mass/volume)Ordered By: Abby Don on 11-29-2022 Testosterone Free [Mass/Vol] < 0.05 ng/dL 0.10-0.85 [facility] Absolute lymphocyte countOrd ered By: Ozzy Murry on 10-19-2022 Lymphocytes Auto (Unsp spec) [#/Vol] 1.78 10*3/uL 0.83-4.51 [facility] Basophil percentageOrdered B y: Ozzy Murry on 10-19-2022 Basophils/100 WBC (Bld) 0.5 % 0-1 [facility] Eosinophils/100 WBC (Bld) 1.4 % 0-5 [facility] Neutrophils (Bld) [#/Vol] 2.0 10*3/uL 2.0-7.7 [facility] Neutrophils/100 WBC (Bld) 48.4 % 47-70 [facility] WBC (Bld) [#/Vol] 4.2 10*3/uL 4.4-11.0 [facility] Blood erythrocytes count (nu mber/volume)Ordered By: Ozzy Murry on 10-19-2022 RBC (Bld) [#/Vol] 4.07 10*6/uL 4.2-5.4 [facility] Blood hemoglobin measurement (mass/volume)Ordered By: Ozzy Murry on 10-19-2022 Hemoglobin (Bld) [Mass/Vol] 13.0 g/dL 12.0-15.0 [facility] Blood lymphocytes/100 leukoc ytesOrdered By: [facility] Mur[facility] on 10-19-2022 Lymphocytes/100 WBC (Bld) 42.4 % 19-41 [facility] Blood monocytes/100 leukocyt esOrdered By: [facility] on 10-19-2022 Monocytes/100 WBC (Bld) 7.1 % 0-10 [facility] Blood platelet mean volumeOr dered By: Ozzy Murry on 10-19-2022 Platelet mean volume (Bld) [Entitic vol] 11.8 fL 6.2-12.0 [facility] Determination of erythrocyte mean corpuscular volume (MCV)Ordered By: Ozzy Murry on 10-19-2022 MCV (RBC) [Entitic vol] 102.5 fL 81-99 [facility] Hematocrit Auto (Bld) [Volum e fraction]Ordered By: [facility] on 10-19-2022 Hematocrit (Bld) [Volume fraction] 41.7 % 37-47 [facility] - Hematology and Cell countsOrdered By: [facility] on 10-19-2022 Erythrocyte distribution width (RBC) [Entitic vol] 46.9 fL 35.1-43.9 [facility] Erythrocyte distribution width (RBC) [Ratio] 12.4 % 11.6-14.6 [facility] Immature granulocytes/100 WBC (Bld) 0.200 % 0.0-0.9 [facility] Comment on above: IG% - Immature Granu locytes (promyelocytes, myelocytes and metamyelocytes) > 1% indicates that a LEFT SHIFT is Present. MCH (RBC) [Entitic mass] 31.9 pg 27.0-32.0 [facility] Nucleated RBC/100 WBC (Bld) [Ratio] 0 % 0-5 [facility] MCHC Auto (RBC) [Mass/Vol]Or dered By: Ozzy Murry on 10-19-2022 MCHC (RBC) [Mass/Vol] 31.2 g/dL 32-36 [facility] Platelets bldOrdered By: José Luis Murry on 10-19-2022 Platelets (Bld) [#/Vol] 115 10*3/uL 150-450 [facility] Serum or plasma choriogonado tropin detectionOrdered By: Abby Don on 08-20-2022 HCG ( test) Ql 15 mIU/mL <4 [facility] Comment on above: hCG levels with Gest ational AgeGestational Age hCG mIU/mL (IU/L)0.2 - 1 week 5 - 501-2 weeks 50 - 5002-3 weeks 100 - 44275-1 weeks 500 - 489216-9 weeks 1000 - 106511-1 weeks 02154 - 100,0006-8 weeks 19882 - 200,0002-3 months 58515 - 100,000 Serum or plasma choriogonado tropin detectionOrdered By: Abby Don on 08-17-2022 HCG ( test) Ql 43 mIU/mL <4 [facility] Comment on above: hCG levels with Gest ational AgeGestational Age hCG mIU/mL (IU/L)0.2 - 1 week 5 - 501-2 weeks 50 - 5002-3 weeks 100 - 50073-0 weeks 500 - 703229-8 weeks 1000 - 677965-0 weeks 73527 - 100,0006-8 weeks 18614 - 200,0002-3 months 81333 - 100,000 Serum or plasma estradiol (E 2) measurement (mass/volume)Ordered By: Abby Don on 08-17-2022 E2 [Mass/Vol] 96.1 pg/mL [facility] Comment on above: NORMAL REFERENCE RAN GES FEMALE FOLLICULAR 21.4 - 164.8 pg/mL MID-CYCLE PEAK 49.9 - 367.2 pg/mL LUTEAL 40.2 - 259.0 pg/mL POST-MENOPAUSAL ON MHT <11.0 - 462.1 pg/mL NOT ON MHT <11.0 - 58.3 pg/mL MALE <11.0 - 52.5 pg/mL NOTE:[employer] HAS CONFIRMED THE DRUG FULVETRANT (FASLODEX) MAY CAUSE FALSELY ELEVATED ESTRADIOL RESULTS WHEN USING THIS TEST METHOD. IF PATIENT IS TAKING FULVESTRANT AN ALTERNATIVE METHOD SHOULD BE USED TO DETERMINE ESTRADIOL CONCENTRATION. Serum or plasma progesterone measurement (mass/volume)Ordered By: Abby Don on 08-17-2022 Progesterone [Mass/Vol] 20.23 ng/mL See Comment [facility] Comment on above: Progesterone Referen ce Table: UNITS Female: Follicular 0.15 - 1.40 ng/mL Luteal 3.34 - 25.56 ng/mL Mid-luteal 4.44 - 28.03 ng/mL Postmenopausal 0.0 - 0.73 ng/mL : 1st Trimester 11.22 - 90.00 ng/mL 2nd Trimester 25.55 - 89.40 ng/mL 3rd Trimester 48.40 -422.50 ng/mL Absolute lymphocyte countOrd ered By: Jez Goodwin on 08-16-2022 Lymphocytes Auto (Unsp spec) [#/Vol] 1.00 10*3/uL 0.83-4.51 [facility] Basophil percentageOrdered B y: Jez Goodwin on 08-16-2022 Basophil percentage 0 SEEN /hpf 0-5 [facility] Basophils/100 WBC (Bld) 0.3 % 0-1 [facility] Bilirubin [Mass/Vol] 0.50 mg/dL 0.20-1.00 [facility] Comment on above: For patients on eltr ombopag therapy, use of Dimension [place] TBIL is not recommended. Chloride [Moles/Vol] 108 mmol/L 98-107 [facility] Eosinophils/100 WBC (Bld) 0.0 % 0-5 [facility] Glucose [Mass/Vol] 111 mg/dL 74-106 [facility] Comment on above: Fasting Glucose resu lt from 100 to 125 mg/dL suggests IMPAIRED HOMEOSTASIS per A.D.A. criteria. Lactate [Moles/Vol] 1.1 mmol/L 0.4-2.0 [facility] Neutrophils (Bld) [#/Vol] 5.0 10*3/uL 2.0-7.7 [facility] Neutrophils/100 WBC (Bld) 78.7 % 47-70 [facility] Potassium [Moles/Vol] 4.1 mmol/L 3.5-5.1 [facility] Protein [Mass/Vol] 6.1 g/dL 6.4-8.2 [facility] Sodium [Moles/Vol] 139 mmol/L 136-145 [facility] WBC (Bld) [#/Vol] 6.3 10*3/uL 4.4-11.0 [facility] Bilirubin Test strip Ql (U)O rdered By: Jez Goodwin on 08-16-2022 Bilirubin Ql (U) Negative Negative [facility] Blood erythrocytes count (nu mber/volume)Ordered By: Jez Goodwin on 08-16-2022 RBC (Bld) [#/Vol] 4.04 10*6/uL 4.2-5.4 [facility] Blood hemoglobin measurement (mass/volume)Ordered By: Jez Goodwin on 08-16-2022 Hemoglobin (Bld) [Mass/Vol] 13.1 g/dL 12.0-15.0 [facility] Blood lymphocytes/100 leukoc ytesOrdered By: Jez Goodwin on 08-16-2022 Lymphocytes/100 WBC (Bld) 15.9 % 19-41 [facility] Blood monocytes/100 leukocyt esOrdered By: Jez Goodwin on 08-16-2022 Monocytes/100 WBC (Bld) 4.8 % 0-10 [facility] Blood platelet mean volumeOr dered By: Jez Goodwin on 08-16-2022 Platelet mean volume (Bld) [Entitic vol] 12.9 fL 6.2-12.0 [facility] Determination of erythrocyte mean corpuscular volume (MCV)Ordered By: Jez Goodwin on 08-16-2022 MCV (RBC) [Entitic vol] 98.5 fL 81-99 [facility] Direct bilirubinOrdered By: Jez Goodwin on 08-16-2022 Bilirubin.direct [Mass/Vol] 0.18 mg/dL 0.00-0.30 [facility] Hematocrit Auto (Bld) [Volum e fraction]Ordered By: Jez Goodwin on 08-16-2022 Hematocrit (Bld) [Volume fraction] 39.8 % 37-47 [facility] Ketones Test strip Ql (U)Ord ered By: Jez Goodwin on 08-16-2022 Ketones Ql (U) 15 mg/dl Negative [facility] - Chemistry and C hemistry - challengeOrdered By: Jez Goodwin on 08-16-2022 ALP [Catalytic activity/Vol] 34 U/L 45-117 [facility] ALT [Catalytic activity/Vol] 23 U/L 13-56 [facility] CO2 [Moles/Vol] 25.0 mmol/L 21.0-32.0 [facility] Globulin (S) [Mass/Vol] 2.9 g/dL 2.2-4.2 [facility] Lipase [Catalytic activity/Vol] 28 U/L 13-75 [facility] Comment on above: Please note:LIPASE r evised reference range effective 22. New Lipase methodology. Expected to produce lower values than the previous assay method. NEW Reference Range: 13 - 75 U/L Urea nitrogen/Creatinine [Mass ratio] 23.2 mg/mg 10-20 [facility] - Hematology and Cell countsOrdered By: Jez Goodwin on 08-16-2022 Erythrocyte distribution width (RBC) [Entitic vol] 43.6 fL 35.1-43.9 [facility] Erythrocyte distribution width (RBC) [Ratio] 11.9 % 11.6-14.6 [facility] Immature granulocytes/100 WBC (Bld) 0.300 % 0.0-0.9 [facility] Comment on above: IG% - Immature Granu locytes (promyelocytes, myelocytes and metamyelocytes) > 1% indicates that a LEFT SHIFT is Present. MCH (RBC) [Entitic mass] 32.4 pg 27.0-32.0 [facility] Nucleated RBC/100 WBC (Bld) [Ratio] 0 % 0-5 [facility] MCHC Auto (RBC) [Mass/Vol]Or dered By: Jez Goodwin on 08-16-2022 MCHC (RBC) [Mass/Vol] 32.9 g/dL 32-36 [facility] Mucus LM Ql (Urine sed)Order ed By: Jez Goodwin on 08-16-2022 Mucus Ql (Urine sed) 0 SEEN /hpf [facility] Nitrite Test strip Ql (U)Ord ered By: Jez Goodwin on 08-16-2022 Nitrite Ql (U) Negative Negative [facility] No Panel InformationOrdered By: Jez Goodwin on 08-16-2022 Estimated Creatinine Clearance Calc 119.71 ml/min [facility] Estimated GFR (MDRD) Amer 135 mL/min >60 [facility] Comment on above: GFR Calc Estimated GFR (MDRD) Non-Af Amer 112 mL/min >60 [facility] Comment on above: Non- GFR Calc Platelets bldOrdered By: Martin Goodwin on 08-16-2022 Platelets (Bld) [#/Vol] 112 10*3/uL 150-450 [facility] Protein Test strip Ql (U)Ord ered By: Jez Goodwin on 08-16-2022 Protein Ql (U) 15 mg/dl Negative [facility] Serum or plasma albumin sunshine urement (mass/volume)Ordered By: Jez Goodwin on 08-16-2022 Albumin [Mass/Vol] 3.2 g/dL 3.2-5.0 [facility] Serum or plasma calcium sunshine urement (mass/volume)Ordered By: Jez Goodwin on 08-16-2022 Calcium [Mass/Vol] 7.9 mg/dL 8.5-10.1 [facility] Serum or plasma choriogonado tropin detectionOrdered By: Jez Goodwin on 08-16-2022 HCG ( test) Ql 66 mIU/mL <4 [facility] Comment on above: hCG levels with Gest ational AgeGestational Age hCG mIU/mL (IU/L)0.2 - 1 week 5 - 501-2 weeks 50 - 5002-3 weeks 100 - 55931-9 weeks 500 - 019170-1 weeks 1000 - 007157-3 weeks 73333 - 100,0006-8 weeks 92178 - 200,0002-3 months 89347 - 100,000 Serum or plasma creatinine m easurement (mass/volume)Ordered By: Jez Goodwin on 08-16-2022 Creatinine [Mass/Vol] 0.65 mg/dL 0.55-1.02 [facility] Comment on above: The validity of the calculated GFR & GFRAA in patients over 70 years has not been determined. Clinical correlation is essential. Serum or plasma urea nitroge n measurement (mass/volume)Ordered By: Jez Goodwin on 08-16-2022 Urea nitrogen [Mass/Vol] 15 mg/dL 7-18 [facility] Serum procalcitonin measurem entOrdered By: Jez Goodwin on 08-16-2022 Procalcitonin [Mass/Vol] ng/mL 0.00-0.09 [facility] Comment on above: A procalcitonin (PCT ) level above 2.0 ng/mL on the first day of ICU admission is associated with a high risk for progression to severe sepsis and/or septic shock. A PCT level below 0.5 ng/mL on the first day of ICU admission is associated with a low risk for progression to severe and/or septic shock. Note: Concentrations <0.5 ng/mL do not exclude an infection on account of localized infections (without systemic signs) which can be associated with such low concentrations, or a systemic infection in its initial stages (<6 hours). Furthermore, increased procalcitonin can occur without infection. PCT concentrations between 0.5 and 2.0 ng/mL should be interpreted taking into account the patient's history. It is recommended to retest PCT within 6-24 hours if any concentrations <2 ng/mL are obtained. Squamous epithelial cells de tection in urine sediment by light microscopyOrdered By: Jez Goodwin on 08-16-2022 Epithelial cells.squamous LM Ql (Urine sed) 0-5 SEEN /hpf 5-10 [facility] Thin prep Papanicolaou smear with manual screeningOrdered By: Jez Goodwin on 08-16-2022 Thin prep Papanicolaou smear with manual screening 20 U/L 15-37 [facility] Thin prep Papanicolaou smear with manual screening 6 5-15 [facility] Urine blood detectionOrdered By: Jez Goodwin on 08-16-2022 RBC Ql (U) Negative Negative [facility] RBC Ql (U) 0 SEEN /hpf 0-5 [facility] Urine clarityOrdered By: Martin Goodwin on 08-16-2022 Clarity (U) Clear Clear [facility] Urine color determinationOrd ered By: Jez Goodwin on 08-16-2022 Color (U) Yellow Yellow [facility] Urine glucose detectionOrder ed By: Jez Goodwin on 08-16-2022 Glucose Ql (U) Normal mg/dl Normal [facility] Urine leukocyte esterase det ection by dipstickOrdered By: Jez Goodwin on 08-16-2022 Leukocyte esterase Test strip Ql (U) Negative Negative [facility] Urine pHOrdered By: Jez booker on 08-16-2022 pH (U) 6.5 [pH] 5.0 - 8.0 [facility] Urine sediment bacteria coun t by microscopy (number/high power field)Ordered By: Jez Goodwin on 08-16-2022 Bacteria LM.HPF (Urine sed) [#/Area] 0 /[HPF] None Seen [facility] Urine specific gravity measu rementOrdered By: Jez Goodwin on 08-16-2022 Specific gravity (U) [Rel density] 1.010 1.002-1.030 [facility] Urobilinogen Auto test strip Ql (U)Ordered By: Jez Goodwin on 08-16-2022 Urobilinogen Ql (U) Normal mg/dl Normal [facility] Absolute lymphocyte countOrd ered By: Yulia Duran on 08-15-2022 Lymphocytes Auto (Unsp spec) [#/Vol] 0.75 10*3/uL 0.83-4.51 [facility] Basophil percentageOrdered B y: Yulia Duran on 08-15-2022 Basophil percentage 0 SEEN /hpf 0-5 [facility] Basophils/100 WBC (Bld) 0.4 % 0-1 [facility] Chloride [Moles/Vol] 107 mmol/L 98-107 [facility] Eosinophils/100 WBC (Bld) 0.2 % 0-5 [facility] Glucose [Mass/Vol] 133 mg/dL 74-106 [facility] Comment on above: Fasting Glucose resu lt greater than or equal to 126 mg/dL suggests DIABETES MELLITUS per A.D.A. criteria. Neutrophils (Bld) [#/Vol] 4.2 10*3/uL 2.0-7.7 [facility] Neutrophils/100 WBC (Bld) 81.1 % 47-70 [facility] Potassium [Moles/Vol] 3.9 mmol/L 3.5-5.1 [facility] Sodium [Moles/Vol] 139 mmol/L 136-145 [facility] WBC (Bld) [#/Vol] 5.2 10*3/uL 4.4-11.0 [facility] Basophil percentageOrdered B y: Dr. Don on 08-15-2022 Bilirubin [Mass/Vol] 0.40 mg/dL 0.20-1.00 [facility] Comment on above: For patients on eltr ombopag therapy, use of Dimension [place] TBIL is not recommended. Protein [Mass/Vol] 7.3 g/dL 6.4-8.2 [facility] Beta hCG serum qualOrdered B y: Yulia Renee on 08-15-2022 Beta HCG ( test) Ql Negative [facility] Comment on above: TEST is *P OSITIVE*CRITICAL VALUE VERIFIED. CALLED TO [id number] Becky Burton.RESULTS READ BACK BY SAME . Bilirubin Test strip Ql (U)O rdered By: Yulia Duran on 08-15-2022 Bilirubin Ql (U) Negative Negative [facility] Blood erythrocytes count (nu mber/volume)Ordered By: Yulia Duran on 08-15-2022 RBC (Bld) [#/Vol] 4.32 10*6/uL 4.2-5.4 [facility] Blood hemoglobin measurement (mass/volume)Ordered By: Yulia Duran on 08-15-2022 Hemoglobin (Bld) [Mass/Vol] 14.1 g/dL 12.0-15.0 [facility] Blood lymphocytes/100 leukoc ytesOrdered By: Yulia Duran on 08-15-2022 Lymphocytes/100 WBC (Bld) 14.4 % 19-41 [facility] Blood monocytes/100 leukocyt esOrdered By: Yulia Duran on 08-15-2022 Monocytes/100 WBC (Bld) 3.7 % 0-10 [facility] Blood platelet mean volumeOr dered By: Yulia Duran on 08-15-2022 Platelet mean volume (Bld) [Entitic vol] 12.3 fL 6.2-12.0 [facility] Determination of erythrocyte mean corpuscular volume (MCV)Ordered By: Yulia Duran on 08-15-2022 MCV (RBC) [Entitic vol] 101.4 fL 81-99 [facility] Direct bilirubinOrdered By: Dr. Don on 08-15-2022 Bilirubin.direct [Mass/Vol] 0.12 mg/dL 0.00-0.30 [facility] Hematocrit Auto (Bld) [Volum e fraction]Ordered By: Yulia Duran on 08-15-2022 Hematocrit (Bld) [Volume fraction] 43.8 % 37-47 [facility] Ketones Test strip Ql (U)Ord ered By: Yulia Duran on 08-15-2022 Ketones Ql (U) 15 mg/dl Negative [facility] - Chemistry and C hemistry - challengeOrdered By: Dr. Don on 08-15-2022 ALP [Catalytic activity/Vol] 39 U/L 45-117 [facility] ALT [Catalytic activity/Vol] 28 U/L 13-56 [facility] Globulin (S) [Mass/Vol] 3.2 g/dL 2.2-4.2 [facility] - Chemistry and C hemistry - challengeOrdered By: Yulia Duran on 08-15-2022 CO2 [Moles/Vol] 25.0 mmol/L 21.0-32.0 [facility] Urea nitrogen/Creatinine [Mass ratio] 34.9 mg/mg 10-20 [facility] - Hematology and Cell countsOrdered By: Yulia Duran on 08-15-2022 Erythrocyte distribution width (RBC) [Entitic vol] 45.3 fL 35.1-43.9 [facility] Erythrocyte distribution width (RBC) [Ratio] 12.0 % 11.6-14.6 [facility] Immature granulocytes/100 WBC (Bld) 0.200 % 0.0-0.9 [facility] Comment on above: IG% - Immature Granu locytes (promyelocytes, myelocytes and metamyelocytes) > 1% indicates that a LEFT SHIFT is Present. MCH (RBC) [Entitic mass] 32.6 pg 27.0-32.0 [facility] Nucleated RBC/100 WBC (Bld) [Ratio] 0 % 0-5 [facility] MCHC Auto (RBC) [Mass/Vol]Or dered By: Yulia Duran on 08-15-2022 MCHC (RBC) [Mass/Vol] 32.2 g/dL 32-36 [facility] Mucus LM Ql (Urine sed)Order ed By: Yulia Duran on 08-15-2022 Mucus Ql (Urine sed) 0 SEEN /hpf [facility] Nitrite Test strip Ql (U)Ord ered By: Yulia Duran on 08-15-2022 Nitrite Ql (U) Negative Negative [facility] No Panel InformationOrdered By: Yulia Duran on 08-15-2022 Estimated Creatinine Clearance Calc 108.07 ml/min [facility] Estimated GFR (MDRD) Amer 120 mL/min >60 [facility] Comment on above: GFR Calc Estimated GFR (MDRD) Non-Af Amer 99 mL/min >60 [facility] Comment on above: Non- GFR Calc Platelets bldOrdered By: Irma Duran on 08-15-2022 Platelets (Bld) [#/Vol] 107 10*3/uL 150-450 [facility] Protein Test strip Ql (U)Ord ered By: Yulia Duran on 08-15-2022 Protein Ql (U) 15 mg/dl Negative [facility] Serum or plasma albumin sunshine urement (mass/volume)Ordered By: Dr. Don on 08-15-2022 Albumin [Mass/Vol] 4.1 g/dL 3.2-5.0 [facility] Serum or plasma calcium sunshine urement (mass/volume)Ordered By: Yulia Duran on 08-15-2022 Calcium [Mass/Vol] 8.4 mg/dL 8.5-10.1 [facility] Serum or plasma choriogonado tropin detectionOrdered By: Yulia Duran on 08-15-2022 HCG ( test) Ql 102 mIU/mL <4 [facility] Comment on above: hCG levels with Gest ational AgeGestational Age hCG mIU/mL (IU/L)0.2 - 1 week 5 - 501-2 weeks 50 - 5002-3 weeks 100 - 15334-9 weeks 500 - 762151-7 weeks 1000 - 191072-2 weeks 20530 - 100,0006-8 weeks 15932 - 200,0002-3 months 31377 - 100,000 Serum or plasma creatinine m easurement (mass/volume)Ordered By: Yulia Duran on 08-15-2022 Creatinine [Mass/Vol] 0.72 mg/dL 0.55-1.02 [facility] Comment on above: The validity of the calculated GFR & GFRAA in patients over 70 years has not been determined. Clinical correlation is essential. Serum or plasma urea nitroge n measurement (mass/volume)Ordered By: Yulia Duran on 08-15-2022 Urea nitrogen [Mass/Vol] 25 mg/dL 7-18 [facility] Squamous epithelial cells de tection in urine sediment by light microscopyOrdered By: Yulia Duran on 08-15-2022 Epithelial cells.squamous LM Ql (Urine sed) 0 SEEN /hpf 5-10 [facility] Thin prep Papanicolaou smear with manual screeningOrdered By: Dr. Don on 08-15-2022 Thin prep Papanicolaou smear with manual screening 24 U/L 15-37 [facility] Thin prep Papanicolaou smear with manual screeningOrdered By: Yulia Duran on 08-15-2022 Thin prep Papanicolaou smear with manual screening 7 5-15 [facility] Urine blood detectionOrdered By: Yulia Duran on 08-15-2022 RBC Ql (U) Negative Negative [facility] RBC Ql (U) 0 SEEN /hpf 0-5 [facility] Urine clarityOrdered By: Irma Duran on 08-15-2022 Clarity (U) Clear Clear [facility] Urine color determinationOrd ered By: Yulia Duran on 08-15-2022 Color (U) Yellow Yellow [facility] Urine glucose detectionOrder ed By: Yulia Duran on 08-15-2022 Glucose Ql (U) Normal mg/dl Normal [facility] Urine leukocyte esterase det ection by dipstickOrdered By: Yulia Duran on 08-15-2022 Leukocyte esterase Test strip Ql (U) Negative Negative [facility] Urine pHOrdered By: Yulia mock on 08-15-2022 pH (U) 6.0 [pH] 5.0 - 8.0 [facility] Urine sediment bacteria coun t by microscopy (number/high power field)Ordered By: Yulia Duran on 08-15-2022 Bacteria LM.HPF (Urine sed) [#/Area] 0 /[HPF] None Seen [facility] Urine specific gravity measu rementOrdered By: Yulia Duran on 08-15-2022 Specific gravity (U) [Rel density] 1.020 1.002-1.030 [facility] Urobilinogen Auto test strip Ql (U)Ordered By: Yulia Duran on 08-15-2022 Urobilinogen Ql (U) Normal mg/dl Normal [facility] Serum or plasma progesterone measurement (mass/volume)Ordered By: Dr. Don on 05-18-2022 Progesterone [Mass/Vol] 21.11 ng/mL See Comment [facility] Comment on above: Progesterone Referen ce Table: UNITS Female: Follicular 0.15 - 1.40 ng/mL Luteal 3.34 - 25.56 ng/mL Mid-luteal 4.44 - 28.03 ng/mL Postmenopausal 0.0 - 0.73 ng/mL : 1st Trimester 11.22 - 90.00 ng/mL 2nd Trimester 25.55 - 89.40 ng/mL 3rd Trimester 48.40 -422.50 ng/mL Serum or plasma progesterone measurement (mass/volume)on 01-20-2022 Progesterone [Mass/Vol] 1.30 ng/mL See Comment [facility] Work Phone: Comment on above: Progesterone Referen ce Table: UNITS Female: Follicular 0.15 - 1.40 ng/mL Luteal 3.34 - 25.56 ng/mL Mid-luteal 4.44 - 28.03 ng/mL Postmenopausal 0.0 - 0.73 ng/mL : 1st Trimester 11.22 - 90.00 ng/mL 2nd Trimester 25.55 - 89.40 ng/mL 3rd Trimester 48.40 -422.50 ng/mL Absolute lymphocyte counton 09-24-2021 Lymphocytes Auto (Unsp spec) [#/Vol] 1.70 10*3/uL 0.83-4.51 [facility] Work Phone: Basophil percentageon 2021 Basophils/100 WBC (Bld) 0.9 % 0-1 [facility] Work Phone: [phone] Eosinophils/100 WBC (Bld) 1.6 % 0-5 [facility] Work Phone: [phone] Neutrophils (Bld) [#/Vol] 1.2 10*3/uL 2.0-7.7 [facility] Work Phone: [phone] Neutrophils/100 WBC (Bld) 37.0 % 47-70 [facility] Work Phone: [phone] WBC (Bld) [#/Vol] 3.2 10*3/uL 4.4-11.0 [facility] Work Phone: [phone] Basophil percentageOrdered B y: Ozzy Murry on 09-24-2021 Bilirubin [Mass/Vol] 0.50 mg/dL 0.20-1.00 [facility] Comment on above: For patients on eltr ombopag therapy, use of Dimension [place] TBIL is not recommended. Chloride [Moles/Vol] 104 mmol/L 98-107 [facility] Glucose [Mass/Vol] 82 mg/dL 74-106 [facility] Potassium [Moles/Vol] 4.3 mmol/L 3.5-5.1 [facility] Protein [Mass/Vol] 7.1 g/dL 6.4-8.2 [facility] Sodium [Moles/Vol] 136 mmol/L 136-145 [facility] Blood erythrocytes count (nu mber/volume)on 09-24-2021 RBC (Bld) [#/Vol] 4.06 10*6/uL 4.2-5.4 [facility] Work Phone: Blood hemoglobin measurement (mass/volume)on 09-24-2021 Hemoglobin (Bld) [Mass/Vol] 13.3 g/dL 12.0-15.0 [facility] Work Phone: Blood lymphocytes/100 leukoc yteson 09-24-2021 Lymphocytes/100 WBC (Bld) 53.0 % 19-41 [facility] Work Phone: Blood monocytes/100 leukocyt eson 09-24-2021 Monocytes/100 WBC (Bld) 7.5 % 0-10 [facility] Work Phone: Blood platelet mean volumeon 09-24-2021 Platelet mean volume (Bld) [Entitic vol] 11.5 fL 6.2-12.0 [facility] Work Phone: Determination of erythrocyte mean corpuscular volume (MCV)on 09-24-2021 MCV (RBC) [Entitic vol] 100.7 fL 81-99 [facility] Work Phone: Hematocrit Auto (Bld) [Volum e fraction]on 09-24-2021 Hematocrit (Bld) [Volume fraction] 40.9 % 37-47 [facility] Work Phone: Hemoglobin in reticulocytes (mass per reticulocyte)[facility] on 09-24-2021 Hemoglobin (Reticulocytes) [Entitic mass] 32.9 pg 30-35 [facility] Iron measurement (mass/mass) [facility]: [facility]21 Iron (Unsp spec) [Mass/Mass] 80 ug/dL 50-170 [facility] Laboratory - Chemistry and C hemistry - challengeOrdered By: [facility] 09-24-2021 ALP [Catalytic activity/Vol] 49 U/L 45-117 [facility] ALT [Catalytic activity/Vol] 42 U/L 13-56 [facility] CO2 [Moles/Vol] 30.0 mmol/L 21.0-32.0 [facility] Cobalamin (Vitamin B12) [Mass/Vol] 1093 pg/mL 211-911 [facility] Free T4 [Mass/Vol] 0.70 ng/dL 0.76-1.46 [facility] Globulin (S) [Mass/Vol] 3.1 g/dL 2.2-4.2 [facility] Urea nitrogen/Creatinine [Mass ratio] 42.6 mg/mg 10-20 [facility] Laboratory - Hematology and Cell countson 09-24-2021 Erythrocyte distribution width (RBC) [Entitic vol] 44.9 fL 35.1-43.9 [facility] Work Phone: Erythrocyte distribution width (RBC) [Ratio] 11.9 % 11.6-14.6 [facility] Work Phone: Immature granulocytes/100 WBC (Bld) 0.000 % 0.0-0.9 [facility] Work Phone: [phone] Comment on above: IG% - Immature Granu locytes (promyelocytes, myelocytes and metamyelocytes) > 1% indicates that a LEFT SHIFT is Present. MCH (RBC) [Entitic mass] 32.8 pg 27.0-32.0 [facility] Work Phone: Nucleated RBC/100 WBC (Bld) [Ratio] 0 % 0-5 [facility] Work Phone: MCHC Auto (RBC) [Mass/Vol]on 09-24-2021 MCHC (RBC) [Mass/Vol] 32.5 g/dL 32-36 [facility] Work Phone: No Panel InformationOrdered By: Ozzy Murry on 09-24-2021 Estimated Creatinine Clearance Calc 95.78 ml/min [facility] Estimated GFR (MDRD) Amer 103 mL/min >60 [facility] Comment on above: GFR Calc Estimated GFR (MDRD) Non-Af Amer 85 mL/min >60 [facility] Comment on above: Non- GFR Calc Immature Platelet Fraction 9.0 % 1.0-7.9 [facility] Comment on above: Low PLT + Low IPF [place] ggest a bone marrow production disorderLow PLT + high IPF suggests peripheral destruction(e.g.ITP, TTP, HIT, DIC, autoimmune) or bone marrow recoveryTrending of serial IPF measurements is recommended when evaluating for bone marrow responesValue above normal range indicates an increase in RBC cellular response from bone marrow. Immature Reticulocyte Fraction 6.00 % 3.00-15.90 [facility] Reticulocyte Count 1.25 % 0.5-1.5 [facility] Thyroid Stimulating Hormone (TSH) 2.76 uIU/mL 0.358-3.74 [facility] Total Iron Binding Capacity 295 ug/dL 250-450 [facility] Platelets bldon 09-24-2021 Platelets (Bld) [#/Vol] 115 10*3/uL 150-450 [facility] Work Phone: Serum or plasma albumin sunshine urement (mass/volume)Ordered By: Ozzy Murry on 09-24-2021 Albumin [Mass/Vol] 4.0 g/dL 3.2-5.0 [facility] Serum or plasma albumin/glob ulin mass ratioOrdered By: Ozzy Murry on 09-24-2021 Albumin/Globulin [Mass ratio] 1.3 {ratio} 0.9-2.4 [facility] Serum or plasma calcium sunshine urement (mass/volume)Ordered By: Ozzy Murry on 09-24-2021 Calcium [Mass/Vol] 8.5 mg/dL 8.5-10.1 [facility] Serum or plasma creatinine m easurement (mass/volume)Ordered By: Ozzy Murry on 09-24-2021 Creatinine [Mass/Vol] 0.82 mg/dL 0.55-1.02 [facility] Comment on above: The validity of the calculated GFR & GFRAA in patients over 70 years has not been determined. Clinical correlation is essential. Serum or plasma ferritin tricia surement (mass/volume)Ordered By: Ozzy Murry on 09-24-2021 Ferritin [Mass/Vol] 53 ng/mL 8-252 [facility] Serum or plasma folate measu rement (mass/volume)Ordered By: Ozzy Murry on 09-24-2021 Folate [Mass/Vol] 32.50 ng/mL 3.1-55.4 [facility] Serum or plasma iron saturat ion measurement (mass fraction)Ordered By: Ozzy Murry on 09-24-2021 Iron saturation [Mass fraction] 27.1 % 15.0-55.0 [facility] Serum or plasma urea nitroge n measurement (mass/volume)Ordered By: Ozzy Murry on 09-24-2021 Urea nitrogen [Mass/Vol] 35 mg/dL 7-18 [facility] Thin prep Papanicolaou smear with manual screeningOrdered By: [facility] on 09-24-2021 Thin prep Papanicolaou smear with manual screening 27 U/L 15-37 [facility] Thin prep Papanicolaou smear with manual screening 2 5-15 [facility] Thin prep Papanicolaou smear with manual screening 179 U/L 84-246 [facility] Basophil percentageon 2021 Testosterone [Mass/Vol] 8.90 ng/dL [facility] Work Phone: Comment on above: CENTRAL 90% REFERENC E RANGES MALE AGE <50 197.44 - 669.58 ng/dL MALE AGE > or = 50 187.72 - 684.19 ng/dL FEMALE AGE <50 8.38 - 35.01 ng/dL FEMALE AGE > or = 50 <7.00 - 35.92 ng/dL Effective as of 09/16/20 Insulin-like growth factor ( IGF) measurementon 08-25-2021 Insulin-like growth factor [Moles/Vol] 237 ng/mL 84-281 [facility] Work Phone: Laboratory - Chemistry and C hemistry - challengeon 08-25-2021 Free T4 [Mass/Vol] 0.66 ng/dL 0.76-1.46 [facility] Work Phone: No Panel Informationon 08-25 Dehydroepiandrosterone Sulfate 52.2 ug/dL 84.8-378.0 [facility] Work Phone: Follicle Stimulating Hormone 7.1 mIU/mL [facility] Work Phone: Comment on above: NORMAL REFERENCE RAN GES FEMALE FOLLICULAR 2.3 - 12.6 mIU/mL MID-CYCLE PEAK 5.2 - 17.5 mIU/mL LUTEAL 1.7 - 12.9 mIU/mL POST-MENOPAUSAL ON MHT 5.9 - 72.8 mIU/mL NOT ON MHT 12.7 - 132.2 mlU/mL MALE 0.7 - 10.8 mIU/mL Reverse Triiodothyronine (T3) 8.9 ng/dL 9.2-24.1 [facility] Work Phone: Comment on above: This test was develo ped and its performance characteristicsdetermined by [employer]. It has not been cleared orapproved by the Food and Drug Administration. Thyroid Stimulating Hormone (TSH) 2.37 uIU/mL 0.358-3.74 [facility] Work Phone: Total Triiodothyronine 0.79 ng/mL 0.6-1.81 [facility] Work Phone: Serum or plasma cortisol tricia surement (mass/volume)on 08-25-2021 Cortisol [Mass/Vol] 11.50 ug/dL 3.44-22.45 [facility] Work Phone: Comment on above: Adult (AM) 5.27 - 22 .45 ug/dL Adult (PM) 3.44 - 16.76 ug/dLPlease note revised CORTISOL reference range effective 2019. Serum or plasma estradiol (E 2) measurement (mass/volume)on 08-25-2021 E2 [Mass/Vol] 23.2 pg/mL [facility] Work Phone: Comment on above: NORMAL REFERENCE RAN GES FEMALE FOLLICULAR 21.4 - 164.8 pg/mL MID-CYCLE PEAK 49.9 - 367.2 pg/mL LUTEAL 40.2 - 259.0 pg/mL POST-MENOPAUSAL ON MHT <11.0 - 462.1 pg/mL NOT ON MHT <11.0 - 58.3 pg/mL MALE <11.0 - 52.5 pg/mL NOTE:[employer] HAS CONFIRMED THE DRUG FULVETRANT (FASLODEX) MAY CAUSE FALSELY ELEVATED ESTRADIOL RESULTS WHEN USING THIS TEST METHOD. IF PATIENT IS TAKING FULVESTRANT AN ALTERNATIVE METHOD SHOULD BE USED TO DETERMINE ESTRADIOL CONCENTRATION. Serum or plasma prolactin me asurement (mass/volume)on 08-25-2021 Prolactin [Mass/Vol] 2.9 ng/mL [facility] Work Phone: Comment on above: NORMAL REFERENCE RAN GES FEMALE NON- 2.2 - 30.3 ng/mL 8.1 - 347.6 ng/mL POST-MENOPAUSAL 0.7 - 31.5 ng/mL MALE 2.5 - 17.4 ng/mL Serum or plasma sex hormone binding globulin measurement (moles/volume)on 08-25-2021 Sex hormone binding globulin [Moles/Vol] 51.7 nmol/L 24.6-122.0 [facility] Work Phone: Comment on above: Performed at: [facility] Pineda middleton [address] [id number] Director: Yair Raza PhD, Phone: [phone] at: [facility] [id number] Director: Belén Sanches MD, Phone: [phone] Erythrocyte distribution wid th standard deviationon 04-12-2018 Erythrocyte distribution width (RBC) [Entitic vol] 46.6 fL 35.1-43.9 [facility] - Hematology and Cell countson 04-12-2018 Erythrocyte distribution width (RBC) [Ratio] 12.8 % 11.6-14.6 [facility] Total cell counton 9 Cells counted [employer] (Bld/Tiss) [#] Not Reportable [facility] Vital Signs Date Time Vital Sign Value Performing Clinician Faci lity 06-28-2023 16:01-0400 Body height 170.[address] Suzanne Leyva Work Phone: [facility] 06-28-2023 16:01-0400 Body mass index (BMI) [Ratio] 24.8 kg/m2 Dr. Suzanne Leyva Work Phone: [facility] 06-28-2023 16:01-0400 Body weight 71.[address] Suzanne Leyva Work Phone: [facility] 06-28-2023 16:01-0400 Diastolic blood pressure 56 mm[Hg] Dr. Suzanne Leyva Work Phone: [facility] 06-28-2023 16:01-0400 Systolic blood pressure 92 mm[Hg] Dr. Suzanne Leyva Work Phone: [facility] 05-31-2023 09:24-0400 Body height 170.[address] Suzanne Leyva Work Phone: [facility] 05-31-2023 09:23-0400 Body mass index (BMI) [Ratio] 24.1 kg/m2 Dr. Suzanne Leyva Work Phone: [facility] 05-31-2023 09:23-0400 Body weight 69.[address] Suzanne Leyva Work Phone: [facility] 05-31-2023 09:23-0400 Diastolic blood pressure 61 mm[Hg] Dr. Suzanne Leyva Work Phone: [facility] 05-31-2023 09:23-0400 Systolic blood pressure 94 mm[Hg] Dr. Suzanne Leyva Work Phone: [facility] 05-16-2023 09:20-0400 Body mass index (BMI) [Ratio] 24.2 kg/m2 Dr. Suzanne Leyva Work Phone: [facility] 05-16-2023 09:20-0400 Body weight 70.[address] Suzanne Leyva Work Phone: [facility] 05-16-2023 09:20-0400 Diastolic blood pressure 63 mm[Hg] Dr. Suzanne Leyva Work Phone: [facility] 05-16-2023 09:20-0400 Systolic blood pressure 97 mm[Hg] Dr. Suzanne Leyva Work Phone: [facility] 05-06-2023 14:16-0400 Body mass index (BMI) [Ratio] 24 kg/m2 Dr. Suzanne Leyva Work Phone: [facility] 05-06-2023 14:16-0400 Body weight 69.[address] Suzanne Leyva Work Phone: [facility] 05-06-2023 14:16-0400 Diastolic blood pressure 66 mm[Hg] Dr. Suzanne Leyva Work Phone: [facility] 05-06-2023 14:16-0400 Systolic blood pressure 114 mm[Hg] Dr. Suzanne Leyva Work Phone: [facility] 04-21-2023 12:59-0500 Body height 170.[address] Suzanne Leyva Work Phone: [facility] 04-21-2023 12:59-0500 Body mass index (BMI) [Ratio] 23.9 kg/m2 Dr. Suzanne Leyva Work Phone: [facility] 04-21-2023 12:59-0500 Body weight 69.[address] Suzanne Leyva Work Phone: [facility] 04-21-2023 12:59-0500 Diastolic blood pressure 45 mm[Hg] Dr. Suaznne Leyva Work Phone: [facility] 04-21-2023 12:59-0500 Systolic blood pressure 103 mm[Hg] Dr. Suzanne Leyva Work Phone: [facility] 10-19-2022 10:44-0400 Body height 170.[address] Suzanne Leyva Work Phone: [facility] 10-19-2022 10:44-0400 Body mass index (BMI) [Ratio] 22.4 kg/m2 Dr. Suzanne Leyva Work Phone: [facility] 10-19-2022 10:44-0400 Body temperature 99 [degF] Dr. Suzanne Leyva Work Phone: [facility] 10-19-2022 10:44-0400 Body weight 64.[address] Suzanne Leyva Work Phone: [facility] 10-19-2022 10:44-0400 Diastolic blood pressure 70 mm[Hg] Dr. Suzanne Leyva Work Phone: [facility] 10-19-2022 10:44-0400 Heart rate 55 /min Dr. Suzanne Leyva Work Phone: [facility] 10-19-2022 10:44-0400 Respiratory rate 16 /min Dr. Suzanne Leyva Work Phone: [facility] 10-19-2022 10:44-0400 SaO2% (BldA) [Mass fraction] 98 % Dr. Suzanne Leyva Work Phone: [facility] 10-19-2022 10:44-0400 Systolic blood pressure 102 mm[Hg] Dr. Suzanne Leyva Work Phone: [facility] 08-15-2022 23:43-0400 Body height 170.[address] [facility] 08-15-2022 23:43-0400 Body mass index (BMI) [Ratio] 22.5 kg/m2 [facility] 08-15-2022 23:43-0400 Body temperature 98.3 [degF] [facility] 08-15-2022 23:43-0400 Body weight 65.[address] [facility] 08-15-2022 23:43-0400 Diastolic blood pressure 58 mm[Hg] [facility] 08-15-2022 23:43-0400 Heart rate 52 /min [facility] 08-15-2022 23:43-0400 Respiratory rate 16 /min [facility] 08-15-2022 23:43-0400 SaO2% (BldA) [Mass fraction] 95 % [facility] 08-15-2022 23:43-0400 Systolic blood pressure 117 mm[Hg] [facility] 08-15-2022 15:21-0400 Diastolic blood pressure 65 mm[Hg] [facility] 08-15-2022 15:21-0400 Heart rate 60 /min [facility] 08-15-2022 15:21-0400 Respiratory rate 16 /min [facility] 08-15-2022 15:21-0400 SaO2% (BldA) [Mass fraction] 98 % [facility] 08-15-2022 15:21-0400 Systolic blood pressure 114 mm[Hg] [facility] 08-15-2022 11:00-0400 Body mass index (BMI) [Ratio] 21.6 kg/m2 [facility] 08-15-2022 11:00-0400 Body temperature 98.2 [degF] [facility] 08-15-2022 11:00-0400 Body weight 62.[address] [facility] 09-24-2021 10:38-0400 Body height 170.[address] Suzanne Leyva Work Phone: [facility] Work Phone: 09-24-2021 10:38-0400 Body mass index (BMI) [Ratio] 21.7 kg/m2 Dr. Suzanne Leyva Work Phone: [facility] Work Phone: 09-24-2021 10:38-0400 Body temperature 97.8 [degF] Dr. Suzanne Leyva Work Phone: [facility] Work Phone: 09-24-2021 10:38-0400 Body weight 63.[address] Suzanne Leyva Work Phone: [facility] Work Phone: 09-24-2021 10:38-0400 Diastolic blood pressure 65 mm[Hg] Dr. Suzanne Leyva Work Phone: [facility] Work Phone: 09-24-2021 10:38-0400 Heart rate 48 /min Dr. Suzanne Leyva Work Phone: [facility] Work Phone: 09-24-2021 10:38-0400 Respiratory rate 16 /min Dr. Suzanne Leyva Work Phone: [facility] Work Phone: 09-24-2021 10:38-0400 SaO2% (BldA) [Mass fraction] 99 % Dr. Suzanne Leyva Work Phone: [facility] Work Phone: 09-24-2021 10:38-0400 Systolic blood pressure 97 mm[Hg] Dr. Suzanne Leyva Work Phone: [facility] Work Phone: 03-05-2020 11:11-0500 Body mass index (BMI) [Ratio] 23.6 kg/m2 Dr. Suzanne Leyva Work Phone: [facility] 03-05-2020 11:11-0500 Body temperature 98.2 [degF] Dr. Suzanne Leyva Work Phone: [facility] 03-05-2020 11:11-0500 Body weight 68.[address] Suzanne Leyva Work Phone: [facility] Work Phone: 03-05-2020 11:11-0500 Diastolic blood pressure 70 mm[Hg] Dr. Suzanne Leyva Work Phone: [facility] 03-05-2020 11:11-0500 Heart rate 62 /min Dr. Suzanne Leyva Work Phone: [facility] 03-05-2020 11:11-0500 Respiratory rate 16 /min Dr. Suzanne Leyva Work Phone: [facility] 03-05-2020 11:11-0500 SaO2% (BldA) [Mass fraction] 100 % Dr. Suzanne Leyva Work Phone: [facility] 03-05-2020 11:11-0500 Systolic blood pressure 108 mm[Hg] Dr. Suzanne Leyva Work Phone: [facility] Encounters Encounter Date Encounter Type Care Provider Facility Start: 05-15-2024 Encounter for genera l adult medical examination without abnormal findings Suzanne Leyva [facility] Start: 05-04-2024 End: 05-04-[address] Suzanne Leyva MD Work Phone: [facility] Work Phone: Start: 05-04-2024 End: 05-04-[address] Suzanne Leyva MD -Laboratory, [facility] Start: 05-04-2024 End: 05-04-2024 ambulatory Suzanne Leyva Facility:[facility] Start: 03-04-2024 End: 03-04-2024 Patient encounter procedure [employer]ING [employer]INE [employer]TER Enma Knott -[facility] Work Phone: Start: 03-04-2024 End: 03-04-2024 ambulatory Enma Knott [employer] [place] Start: 01-23-2024 End: 01-23-[address] Malorie Wilkins MD -Laboratory, [facility] Start: 01-23-2024 End: 01-23-2024 ambulatory Malorie Wilkins Facility:[facility] Start: 01-03-2024 End: 01-03-2024 ambulatory Suzanne Leyva Facility:[facility] Start: 11-25-2023 End: 11-26-2023 Evaluation and management of inpatient Suzanne Leyva Facility:[facility] Start: 11-25-2023 ambulatory Chris Leslie Facility :[facility] Start: 11-23-2023 End: 11-23-2023 ambulatory Gisela Aparicio Facility:[facility] Start: 11-22-2023 End: 11-22-2023 ambulatory Tyesha Landistrixie Perez Facility:[facility] Start: 11-22-2023 End: 11-22-2023 ambulatory Tyesha Tim Perez Facility:[facility] Start: 11-17-2023 End: 11-17-2023 ambulatory Tyesha Dumont Ana Facility:[facility] Start: 11-17-2023 End: 11-17-2023 ambulatory Tyesha Landistrixie Perez Facility:[facility] Start: 11-09-2023 End: 11-09-2023 ambulatory Gisela Hernandezsakina Facility:[facility] Start: 11-02-2023 End: 11-02-2023 ambulatory Gisela Aparicio Facility:[facility] Start: 10-27-2023 End: 10-28-2023 ambulatory Gisela Aparicio Facility:[facility] Start: 10-19-2023 End: 10-19-2023 ambulatory Suzanne Leyva Facility:[facility] Start: 10-13-2023 End: 10-13-2023 ambulatory Suzanne Leyva Facility:[facility] Start: 09-28-2023 End: 09-28-2023 ambulatory Suzanne Leyva Facility:[facility] Start: 09-05-2023 End: 09-05-2023 ambulatory Suzanne Leyva Facility:[facility] Start: 08-24-2023 End: 08-24-2023 ambulatory Suzanne Leyva Facility:[facility] Start: 08-24-2023 End: 08-24-2023 ambulatory Gisela Aparicio Facility:[facility] Start: 07-27-2023 End: 07-27-2023 ambulatory Suzanne Leyva Facility:[facility] Start: 07-26-2023 End: 07-26-2023 ambulatory [facility] Start: 07-25-2023 End: 07-25-2023 ambulatory Tyesha Bowman Facility:[facility] Start: 06-28-2023 End: 06-28-[address] Suzanne Leyva Work Phone: [facility] Work Phone: Start: 06-28-2023 End: 06-28-[address] Suzanne Leyva Work Phone: [facility]-Laboratory, Specimen Work Phone: Start: 06-28-2023 End: 06-28-[address] Suzanne Leyva Work Phone: [facility] Work Phone: Start: 06-28-2023 End: 06-28-2023 ambulatory [facility] [place] Start: 06-28-2023 End: 06-28-2023 ambulatory [facility] Facility:[facility] Start: 05-31-2023 End: 05-31-[address] Suzanne Leyva Work Phone: [facility] Work Phone: Start: 05-31-2023 End: 05-31-[address] Suzanne Leyva Work Phone: [facility] Work Phone: Start: 05-31-2023 End: 05-31-2023 ambulatory [facility] Facility:[facility] Start: 05-16-2023 End: 05-16-[address] Suzanne Leyva Work Phone: [facility] Work Phone: Start: 05-12-2023 End: 05-12-[address] [facility] Start: 05-12-2023 End: 05-12-[address] [facility] Start: 05-06-2023 End: 05-06-[address] Suzanne Leyva Work Phone: [facility] Work Phone: Start: 04-22-2023 End: 04-22-[address] Suzanne Leyva Work Phone: [facility] Work Phone: Start: 04-22-2023 End: 04-22-[address] Suzanne Leyva Work Phone: [facility] Work Phone: Start: 04-21-2023 End: 04-21-[address] Suzanne Leyva Work Phone: [facility] Work Phone: Start: 04-21-2023 End: 04-21-[address] Suzanne Leyva Work Phone: [facility]-Laboratory, Specimen Work Phone: Start: 04-21-2023 End: 04-21-[address] Suzanne Leyva Work Phone: [facility] Work Phone: Start: 04-11-2023 End: 04-11-2023 ambulatory [facility] Work Phone: Start: 04-11-2023 End: 04-11-2023 Patient encounter procedure [facility] Work Phone: Start: 04-08-2023 End: 04-08-2023 ambulatory [facility] Work Phone: Start: 04-08-2023 End: 04-08-2023 Patient encounter procedure [facility] Work Phone: Start: 04-01-2023 End: 04-01-2023 ambulatory [facility] Work Phone: Start: 04-01-2023 End: 04-01-2023 Patient encounter procedure [facility] Work Phone: Start: 03-25-2023 End: 03-25-2023 ambulatory [facility] Work Phone: Start: 03-25-2023 End: 03-25-2023 Patient encounter procedure [facility] Work Phone: Start: 03-23-2023 End: 03-23-2023 ambulatory [facility] Work Phone: Start: 03-23-2023 End: 03-23-2023 Patient encounter procedure [facility] Work Phone: Start: 03-21-2023 End: 03-21-2023 ambulatory [facility] Work Phone: Start: 03-21-2023 End: 03-21-2023 Patient encounter procedure [facility] Work Phone: Start: 03-19-2023 End: 03-19-2023 ambulatory [facility] Work Phone: Start: 03-19-2023 End: 03-19-2023 Patient encounter procedure [facility] Work Phone: Start: 03-04-2023 End: 03-04-2023 ambulatory [facility] Work Phone: Start: 03-04-2023 End: 03-04-2023 Patient encounter procedure [facility] Work Phone: Start: 01-12-2023 End: 01-12-[address] Suzanne Leyva Work Phone: [facility] Work Phone: Start: 01-12-2023 End: 01-12-[address] [facility] Start: 12-13-2022 End: 12-13-[address] Suzanne Leyva Work Phone: [facility]-Radiology, [facility] Work Phone: Start: 11-29-2022 End: 11-29-[address] Suzanne Leyva Work Phone: [facility] Work Phone: Start: 11-29-2022 End: 11-29-[address] [facility] Start: 10-19-2022 End: 10-19-[address] Suzanne Leyva Work Phone: [facility] Work Phone: Start: 10-19-[address] Suzanne Leyva Work Phone: [facility] Start: 08-20-2022 End: 08-20-2022 ambulatory [facility] Work Phone: Start: 08-20-2022 End: 08-20-2022 Patient encounter procedure [facility] Work Phone: Start: 08-17-2022 End: 08-17-2022 ambulatory [facility] Work Phone: Start: 08-17-2022 End: 08-17-2022 Patient encounter procedure [facility] Work Phone: Start: 08-15-2022 End: 08-16-2022 Emergency department patient visit [facility] Start: 08-15-2022 End: 08-15-2022 Emergency department patient visit [facility] Start: 05-18-2022 End: 05-18-2022 ambulatory [facility] Work Phone: Start: 05-18-2022 End: 05-18-2022 Patient encounter procedure [facility] Start: 01-20-2022 End: 01-20-2022 ambulatory [facility] Work Phone: Start: 01-20-2022 End: 01-20-2022 Patient encounter procedure [facility] Start: 10-15-2021 End: 10-15-[address] Suzanne Leyva Work Phone: [facility] Work Phone: Start: 10-15-2021 End: 10-15-[address] Suzanne Leyva Work Phone: [facility] Start: 09-24-2021 End: 09-24-2021 Patient encounter procedure Dr. Suzanne Leyva Work Phone: [facility] Start: 09-24-[address] Suzanne Leyva Work Phone: [facility] Start: 08-25-2021 End: 08-25-2021 Patient encounter procedure [facility] Procedures Date Procedure Procedure Detail Performing Clinician Start: 06-28-[address] Suzanne Leyva Work Phone: Start: 04-11-2023 Transvaginal obstetr ic ultrasonography Start: 12-13-[address] Suzanne Leyva Work Phone: Start: 08-15-2022 Transvaginal obstetr ic ultrasonography Start: 10-15-2021 MRI of brain with contrast Dr. Suzanne Leyva Work Phone: Plan of Treatment Date Care Activity Detail Author Start: 05-31-2023 Procedure [facility] Start: 04-01-2023 Procedure [facility] Start: 03-19-2023 Procedure [facility] Start: 08-25-2021 [facility] Work Phone: Cardiolipin IgG Ab [ Units/volume] in Serum or Plasma [facility] Cardiolipin IgM Ab [ Units/volume] in Serum or Plasma [facility] CBC W Auto Differential panel - Blood [facility] Dehydroepiandrostero ne sulfate (DHEA-S) [Mass/volume] in Serum or Plasma [facility] Work Phone: Dehydroepiandrostero ne sulfate (DHEA-S) [Mass/volume] in Serum or Plasma [facility] Dehydroepiandrostero ne sulfate (DHEA-S) [Mass/volume] in Serum or Plasma [facility] Dehydroepiandrostero ne sulfate (DHEA-S) [Mass/volume] in Serum or Plasma [facility] Dehydroepiandrostero ne sulfate (DHEA-S) [Mass/volume] in Serum or Plasma [facility] Patient Education [facility] Work Phone: Patient referral [facility] Work Phone: Procedure [facility] Sex hormone binding globulin [Moles/volume] in Serum or Plasma [facility] Work Phone: Sex hormone binding globulin [Moles/volume] in Serum or Plasma [facility] Testosterone [Mass/v olume] in Serum or Plasma [facility] Testosterone Free [M ass/volume] in Serum or Plasma [facility] Testosterone Free [M ass/volume] in Serum or Plasma [facility] Testosterone Free [M ass/volume] in Serum or Plasma [facility] Testosterone measurement [facility] Testosterone measurement [facility] Testosterone measurement [facility] Thyroid stimulating hormone measurement [facility] Thyroperoxidase Ab [ Units/volume] in Serum or Plasma [facility] Triiodothyronine (T3 ).reverse [Mass/volume] in Serum or Plasma [facility] Work Phone: [facility] Immunizations Immunization Date Immunization Notes Care Provider [facility] 11-26-2023 influenza, seasonal, injectable, preservative free Dr. Suzanne Leyva MD Work Phone: [facility] 09-05-2023 tetanus toxoid, redu kathryn diphtheria toxoid, and acellular pertussis vaccine, adsorbed Dr. Suzanne Leyva MD Work Phone: [facility] 06-12-2020 Covid (Moderna) [facility] 05-27-2020 tetanus toxoid, redu kathryn diphtheria toxoid, and acellular pertussis vaccine, adsorbed [facility] 03-03-2017 influenza, injectabl e, quadrivalent, preservative free Dr. Suzanne Leyva Work Phone: [facility] 03-03-2017 influenza, seasonal, injectable [facility] 02-07-2017 tetanus toxoid, redu kathryn diphtheria toxoid, and acellular pertussis vaccine, adsorbed [facility] Payers Date Payer Category Payer Self-pay [id number] 2023 Unknown [id number] 2016 Unknown [id number] 1988 Unknown [id number] 2.16. 840.1.470281.3.579.2.479 1988 Unknown [id number] 2.16. 840.1.854390.3.579.2.479 1988 Unknown [id number] 2.16. 840.1.462640.3.579.2.479 1988 Unknown [id number] 2.16. 840.1.920537.3.579.2.479 Private Health Insurance [facility] [id number] Unknown [id number] 2.16.8 40.1.491482.3.579.2.462 Unknown [id number] 2.16.8 40.1.476841.3.579.2.462 Unknown [id number] 2.16.8 40.1.999521.3.579.2.462 Unknown [id number] 2.16.8 40.1.871749.3.579.2.462 Unknown [id number] 2.16.8 40.1.173174.3.579.2.462 Unknown [id number] 2.16.8 40.1.723203.3.579.2.462 Unknown [id number] 2.16.8 40.1.690178.3.579.2.462 Unknown [id number] 2.16.8 40.1.438376.3.579.2.462 Unknown [id number] 2.16.8 40.1.686406.3.579.2.462 Unknown [id number] 2.16.8 40.1.131896.3.579.2.462 Unknown [id number] 2.16.8 40.1.371618.3.579.2.462 Unknown [id number] 2.16.8 40.1.391508.3.579.2.462 Unknown [id number] 2.16.8 40.1.684801.3.579.2.462 Unknown [id number] 2.16.8 40.1.828178.3.579.2.462 Unknown [id number] 2.16.8 40.1.349427.3.579.2.462 Unknown [id number] 2.16.8 40.1.135587.3.579.2.462 Unknown [id number] 2.16.8 40.1.627565.3.579.2.462 Unknown [id number] 2.16.8 40.1.805036.3.579.2.462 Unknown [id number] 2.16.8 40.1.424663.3.579.2.462 Unknown [id number] 2.16.8 40.1.336670.3.579.2.462 Unknown [id number] 2.16.8 40.1.153984.3.579.2.462 Unknown [id number] 2.16.8 40.1.034575.3.579.2.462 Unknown [id number] 2.16.8 40.1.645177.3.579.2.462 Unknown [id number] 2.16.8 40.1.796606.3.579.2.462 Unknown [id number] 2.16.8 40.1.593761.3.579.2.462 Unknown [id number] 2.16.8 40.1.004173.3.579.2.462 Unknown [id number] 2.16.8 40.1.776237.3.579.2.462 Unknown [id number] 2.16.8 40.1.990956.3.579.2.462 Unknown [id number] 2.16.8 40.1.073719.3.579.2.462 Unknown [id number] 2.16.8 40.1.645988.3.579.2.462 Social History Date Type Detail Facility Start: 08-29-2020 End: 05-31-2023 Tobacco smoking status WAIS Unknown if ever smoked [facility] Start: 03-05-2020 Non-smoker [facility] Start: 1990 Sex Assigned At Female [facility] Start: 11-25-2023 Tobacco smoking status NHIS Never smoked tobacco (finding) [facility] Start: 05-15-2024 Sex Female (finding) [facility] NEGATED: Highlighted row [facility] Clinical Notes 08-15-2022 to 03-04-2024 Note Date & Type Note Facility 03-04-2024 Evaluation note Diagnosis Onset Date Resolution Care and examination of lactating mother noneactive March 04 8:35am Mastitis noneactive March 04, 2024 8:35am [facility] Work Phone: 1(228) 324-134602-29-2024 NotePap Smear Specimen AdequacyFebruary 2023 4:02pmComment.Satisfactory for evaluation. No endocervical component is identified.An endocervical component is not commonly seen in the patient.[facility] A#[id number] HospitalComment on above: Satisfactory for evaluation. No endocervical component is identified.An endocervical component is not commonly seen in the patient.04-21-2023 NotePap Smear Specimen AdequacyFebruary 2023 4:02pmComment.Satisfactory for evaluation. No endocervical component is identified.An endocervical component is not commonly seen in the patient.[facility] A#[id number] HospitalComment on above:Satisfactory for evaluation. No endocervical component is identified.An endocervical component is not commonly seen in the patient.04-21-2023 NotePap Smear Specimen AdequacyFebruary 2023 5:02pmComment.Satisfactory for evaluation. No endocervical component is identified.An endocervical component is not commonly seen in the patient.[facility] A#[id number] HospitalComment on above:Satisfactory for evaluation. No endocervical component is identified.An endocervical component is not commonly seen in the patient.04-21-2023 NotePap Smear Specimen AdequacyFebruary 2023 5:02pm Comment.Satisfactory for evaluation. No endocervical component is identified.An endocervical component is not commonly seen in the patient.[facility] A#[id number] HospitalComment on above:Satisfactory for evaluation. No endocervical component is identified.An endocervical component is not commonly seen in the patient.08-16-2022 Discharge summary Author Jez Goodwin [facility] August 16, 2022 2:30am Note Date/Time August 16, 2022 12:5 4am [facility] Medical Records Department [address] [place] [address] Emergency Department Summary 08/16/22 MR#: [id number] Acct: [id number] Name: IDALMIS MAHONEY Rep #:[id number] : 1990 31 From: Jez Goodwin DO PCP: Dr. Suzanne Leyva MD Status:REG ER Location: ED HPI History of Present Illness Chief Complaint: Abd Pain Informant: patient and spouse/S.O. Narrative Narrative: Patient is a 31-year-old female with no significant past medical history other than she has been having difficulty becoming and is currently undergoing fertility treatment. She was seen earlier today secondary to abdominal pain and found to have a ruptured right-sided ovarian cyst. She states that this evening she spiked a low-grade temperature of approximately 99 and had increasing right-sided pain and was concerned about her appendix and secondary to this returns for repeat evaluation. She states she has been no vaginal bleeding or discharge she denies any dysuria or nausea or vomiting but does admit to loose stool/diarrhea [facility] Medical History Macrocytic anemia Ovarian cyst Thrombocytopenia Home Medications vits,calcium no.78-iron fumarate-folic acid 29 mg-1 mg tablet 1 tab PO DAILY Check with primary doctor 04/12/19 [History Last Taken 08/28/20 22:00 1 tablet] cetirizine 10 mg capsule (Zyrtec) 10 mg PO DAILY Check with primary doctor 08/10/20 [History Last Taken 08/28/20 22:00 10 mg] ibuprofen 600 mg tablet 600 mg PO Q8H PRN pain #30 tabs 08/29/20 [Rx Last Taken Unknown] naltrexone 50 mg tablet 4.5 mg PO DAILY 09/24/21 [History Last Taken Unknown] hydrocodone-acetaminophen 5-325mg 5mg-325mg 1 tab PO Q6H PRN PRN Pain 3 days #10TABLETS 08/15/22 [Rx Last Taken Unknown] oxycodone-acetaminophen 5 mg-325 mg tablet (Percocet) 1 tab PO Q6H PRN pain 3 days #12 tabs 08/16/22 [Rx Last Taken Unknown] Allergy/AdvReac Type Severity Reaction Status Date / Time No Known Allergies Allergy Verified 08/15/22 11:02 Family History Father Skin cancer Grandfather Colon cancer Uncle Colon cancer Surgical History History of removal of skin mole No history of previous surgery [place] teeth extracted Social History Smoking Status: Never smoker ROS ROS ED Constitutional Constitutional ED: Reports fever(s) and subjective; Denies chills ENT ENT ED: Denies sore throat Cardiovascular Cardiovascular: Denies chest pain Respiratory/Chest Respiratory/Chest: Denies cough or dyspnea Gastrointestinal Gastrointestinal: Reports abdominal pain and diarrhea; Denies nausea or vomiting Genitourinary Genitourinary ED: Denies dysuria, hematuria or urinary frequency Musculoskeletal Musculoskeletal: Denies myalgias Integumentary Denies rash Neurologic Neurologic: Denies headache(s) Hematologic/Lymphatic Hematologic/Lymphatic: Denies easy bleeding or easy bruising EXAM Physical Exam Const Vital Signs: 08/15/22 23:43 Temperature 98.3 F Temperature Source Temporal Pulse Rate 52 L Respiratory Rate 16 Blood Pressure 117/58 L Blood Pressure Mean 77 Pulse Ox 95 Positive well nourished and well developed General Appearance ED: well developed HEENT HEENT Narrative: Normocephalic atraumatic Eyes PERRL and EOMs intact bilaterally General Eye ED: Negative for scleral icterus Neck supple Resp normal respiratory effort and clear to auscultation bilaterally Cardio regular rate and regular rhythm GI normal to inspection, nondistended, normoactive bowel sounds, non-tender, non-distended and no masses GI Narrative: No voluntary guarding or rigidity. No pulsatile mass or fluid wave. No pain with palpation over top McBurney's point. Negative heel strike psoas and obturator signs Auscultation: normoactive bowel sounds Palpation: soft Back/Spine no CVA tenderness Extremity normal to inspection Neuro oriented x3 and CN's II-XII intact bilaterally Sensorium / Orientation: alert Psych mental status grossly normal Skin no rashes or lesions noted General Skin Exam: Negative for jaundice MDM MDM MDM Narrative Medical decision making narrative: Patient presented to the ER with stable vitals. She was seen earlier today and ultrasound showed ovarian cyst with free fluid along the right side concerning for ruptured ovarian cyst versus ectopic. There is also concerned this could huong presentation for spontaneous bacterial peritonitis acute appendicitis or kidney stone. Based on the patient's history of fertility treatment and recent hCG injection we did repeat basic blood work. Her white count went from 5.1-6.3which is not clinically significant. Moreover her lactic acid and procalcitoninare normal going against infection. Urine does not show any sterile pyuria either going against acute appendicitis. Patient does not have any CVA pain going against acute kidney stone. Also on exam I could palpate and McBurney's point without any rigidity or guarding and she was negative heel strike psoas and obturator signs going against acute appendicitis as well. Patient did have improvement of her pain with morphine and Dilaudid and this correlates with the fact has been roughly 24 hours since her naltrexone use. I discussed the case with her [employer]. She is in agreement at this time that as I have low concern that this is an infectious process and the patient's pain has been improving that she can follow-up on an outpatient basis. I discussed this treatment option/plan with the patient and her spouse and both are agreeable to it. History & Record Review Discussion w/independent historian: Patient Lab Data Attestation: I reviewed the patient's lab results. Labs: Laboratory Results - last 24 hr 08/16/22 08/16/22 08/16/22 00:25 00:25 00:25 WBC 6.3 RBC 4.04 L Hgb 13.1 Hct 39.8 MCV 98.5 MCH 32.4 H MCHC 32.9 RDW Std Deviation 43.6 RDW Coeff of [place]alle 11.9 Plt Count 112 L MPV 12.9 H Immature Gran % (Auto) 0.300 Neut % (Auto) 78.7 H Lymph % (Auto) 15.9 L [place] % (Auto) 4.8 Eos % (Auto) 0.0 Baso % (Auto) 0.3 Absolute Neuts (auto) 5.0 Absolute Lymphs (auto) 1.00 Nucleated RBC % 0 Sodium 139 Potassium 4.1 Chloride 108 H Carbon Dioxide 25.0 Anion Gap 6 BUN 15 Creatinine 0.65 Estim Creat Clear Calc 119.71 Est GFR (MDRD) Af Amer 135 Est GFR (MDRD) Non-Af 112 BUN/Creatinine Ratio 23.2 H Glucose 111 H Lactic Acid 1.1 Calcium 7.9 L Total Bilirubin 0.50 Direct Bilirubin 0.18 AST 20 ALT 23 Alkaline Phosphatase 34 L Total Protein 6.1 L Albumin 3.2 Globulin 2.9 Lipase 28 Procalcitonin HCG, Quant Urine Color Urine Clarity Urine pH Ur Specific [place] Urine Protein Urine Glucose (UA) Urine Ketones Urine Occult Blood Urine Nitrite Urine Bilirubin Urine Urobilinogen Ur Leukocyte Esterase Urine RBC Urine WBC Ur Squamous Epith Cells Urine Bacteria Urine Mucus 08/16/22 08/16/22 08/16/22 00:25 00:25 01:35 WBC RBC Hgb Hct MCV MCH MCHC RDW Std Deviation RDW Coeff of [place]alle Plt Count MPV Immature Gran % (Auto) Neut % (Auto) Lymph % (Auto) [place] % (Auto) Eos % (Auto) Baso % (Auto) Absolute Neuts (auto) Absolute Lymphs (auto) Nucleated RBC % Sodium Potassium Chloride Carbon Dioxide Anion Gap BUN Creatinine Estim Creat Clear Calc Est GFR (MDRD) Af Amer Est GFR (MDRD) Non-Af BUN/Creatinine Ratio Glucose Lactic Acid Calcium Total Bilirubin Direct Bilirubin AST ALT Alkaline Phosphatase Total Protein Albumin Globulin Lipase Procalcitonin < 0.01 HCG, Quant 66 H Urine Color Yellow Urine Clarity Clear Urine pH 6.5 Ur Specific [place] 1.010 Urine Protein 15 H Urine Glucose (UA) Normal Urine Ketones 15 H Urine Occult Blood Negative Urine Nitrite Negative Urine Bilirubin Negative Urine Urobilinogen Normal Ur Leukocyte Esterase Negative Urine RBC 0 SEEN Urine WBC 0 SEEN Ur Squamous Epith Cells 0-5 SEEN Urine Bacteria 0 SEEN Urine Mucus 0 SEEN Discharge Plan Triage Chief Complaint: Abd Pain ED Provider: Jez Goodwin Dx/Rx/DC Orders Clinical Impression: Cyst of right ovary Instructions: ED Ovarian Cyst Prescriptions: New oxycodone-acetaminophen [Percocet] 5-325 mg tablet 1 tab PO Q6H PRN (Reason: pain) 3 Days Qty: 12 0RF No Action naltrexone 50 mg tablet 4.5 mg PO DAILY [id number] 1 TABLET tablet 1 tab PO DAILY Zyrtec 10 mg Capsule 10 mg PO DAILY ibuprofen 600 mg tablet 600 mg PO Q8H PRN (Reason: pain) Qty: 30 0RF hydrocodone-acetaminophen 5-325 mg tablet 1 tab PO Q6H PRN PRN (Reason: Pain) 3 Days Qty: 10 0RF Primary Care Provider: Suzanne Leyva Referrals: Suzanne Leyva MD [Primary Care Provider] - Abby Douglas MD [Med Staff - Active Staff] - Activity Restrictions/Additional Instructions: Please stop taking your naltrexone as well as the [place]. Begin taking the oxycodone/Percocet as directed for improved pain control. Contact your [employer] office today to schedule an appointment for later this week and return to the ERshould you have any further concerns. Disposition Disposition: Home, Self Care What to do if you have Problems For any increased pain, shortness of breath, bleeding, nausea or vomiting, chestpain, or any unexpected problems, contact your Primary Care Provider. Call [facility] ([phone]) or report to the closest Emergency Room. Call 911 if necessary. 08/16/22 0230 <Electronically signed by Jez Goodwin DO> Cosigner Signature (if applicable): CC: Dr. Suzanne Leyva MD ~ Signed [facility] Work Phone: 1(402) 529-103606-25-2023 Hospital Discharge instructions Additional Instructions Please stop taking your naltrexone as well as the [place]. Begin taking the oxycodone/Percocet as directed for improved pain control. Contact your [employer] office today to schedule an appointment for later this week and return to the ER should you have any further concerns. [facility] Work Phone: evaluation noteNo assessment information available [facility] Work Phone: evaluation note* Diagnosis Onset Date Resolution Status Macrocytic anemia chronic Thrombocytopenia chronic [facility] Work Phone: evaluation note* Diagnosis Onset Date Resolution Status Macrocytosis without anemia chronic Thrombocytopenia chronic [facility] Work Phone: evaluation note* Diagnosis Onset Date Resolution Status AMA (advanced maternal age) multigravida 35+ acute Hypothyroidism acute Infertility acute acute Supervision of high-risk acute Macrocytosis without anemia chronic Thrombocytopenia chronic [facility] Work Phone: evaluation note* Diagnosis Onset Date Resolution Status AMA (advanced maternal age) multigravida 35+ acute Hypothyroidism acute Infertility acute acute Supervision of high-risk acute Macrocytosis without anemia chronic Thrombocytopenia chronic AMA (advanced maternal age) multigravida 35+ acute Hypothyroidism acute Infertility acute acute Supervision of high-risk acute Macrocytosis without anemia chronic Thrombocytopenia chronic AMA (advanced maternal age) multigravida 35+ acute Hypothyroidism acute Infertility acute acute Supervision of high-risk acute Macrocytosis without anemia chronic Thrombocytopenia chronic AMA (advanced maternal age) multigravida 35+ acute Hypothyroidism acute Infertility acute acute Supervision of high-risk acute Macrocytosis without anemia chronic Thrombocytopenia chronic [facility] Work Phone: evaluation note* Diagnosis Onset Date Resolution Status AMA (advanced maternal age) multigravida 35+ acute Hypothyroidism acute Infertility acute acute Supervision of high-risk acute Macrocytosis without anemia chronic Thrombocytopenia chronic AMA (advanced maternal age) multigravida 35+ acute Hypothyroidism acute Infertility acute acute Supervision of high-risk acute Macrocytosis without anemia chronic Thrombocytopenia chronic AMA (advanced maternal age) multigravida 35+ acute Hypothyroidism acute Infertility acute acute Supervision of high-risk acute Macrocytosis without anemia chronic Thrombocytopenia chronic AMA (advanced maternal age) multigravida 35+ acute Hypothyroidism acute Infertility acute acute Supervision of high-risk acute Macrocytosis without anemia chronic Thrombocytopenia chronic AMA (advanced maternal age) multigravida 35+ acute Hypothyroidism acute Infertility acute acute Supervision of high-risk acute Macrocytosis without anemia chronic Thrombocytopenia chronic [facility] Work Phone: Reason for referral (narrative)No reason for referral information availableWBrown [facility] Work Phone: Family History Relationship Condition Age at Onset Recorded Date/T jonathan father Malignant neoplasm of skin Unknown grandfather Malignant neoplasm of colon Unknown uncle Malignant neoplasm of colon Unknown Advance Directives Advance Directive Response Recorded Date/ Time Living Will Yes August 29, 2020 1 2:55am Power of Flat Surfacer Yes August 29, 2020 12:55am Advance Directive Response Recorded Date/ Time Living Will Yes August 28, 2020 1 1:55pm Power of Flat Surfacer Yes August 28, 2020 11:55pm Advance Directive Response Recorded Date/ Time Name of Medical Power of Flat Surfacer bran August 15, 2022 11:07am Name of Medical Power of Flat Surfacer bran denzel August 15, 2022 11:54pm Living Will Yes August 15, 2022 11:54pm Power of Flat Surfacer Yes August 15 11:54pm Advance Directive Response Recorded Date/ Time Living Will Yes August 15, 2022 10:54pm Power of Flat Surfacer Yes August 15 10:54pm Advance Directive Response Recorded Date/ Time Living Will Yes August 15, 2022 11:54pm Power of Flat Surfacer Yes August 15 11:54pm Chief Complaint and Reason for Visit Chief Complaint ONC/HEM F/U - LABS PITUITARY ADENOMA *ATTENTION PITUITARY Reason for Visit Macrocytic anemia Thrombocytopenia Chief Complaint PITUITARY ADENOMA *A TTENTION PITUITARY Chief Complaint CHECKING PROGESTERON E LEVEL Chief Complaint CHECKING PROGESTERON E LEVEL RLQ ABD PAIN ABD PAIN Chief Complaint RLQ ABD PAIN ABD PAIN ONC/HEM 1 YR - LABS Reason for Visit Macrocytosis without anemia Thrombocytopenia Chief Complaint ONC/HEM 1 YR - LABS Encounter for procreative management, unspecified Reason for Visit Macrocytosis without anemia Thrombocytopenia Chief Complaint Encounter for procre ative management, unspecified Chief Complaint Encounter for procre ative management, unspecified labs Chief Complaint labs Secondary amenorrhea Chief Complaint labs Secondary amenorrhea New OB, LMP 1/2, EROS 11/28 E-ORDER Reason for Visit AMA (advanced matern al age) multigravida 35+ Hypothyroidism Infertility Supervision of high-risk Macrocytosis without anemia Thrombocytopenia Chief Complaint labs Secondary amenorrhea New OB, LMP 1/2, EROS 108 E-ORDER cramping 13 WK OB [place] ED follow up for bleeding Reason for Visit AMA (advanced matern al age) multigravida 35+ Hypothyroidism Infertility Supervision of high-risk Macrocytosis without anemia Thrombocytopenia AMA (advanced maternal age) multigravida 35+ Hypothyroidism Infertility Supervision of high-risk Macrocytosis without anemia Thrombocytopenia AMA (advanced maternal age) multigravida 35+ Hypothyroidism Infertility Supervision of high-risk Macrocytosis without anemia Thrombocytopenia AMA (advanced maternal age) multigravida 35+ Hypothyroidism Infertility Supervision of high-risk Macrocytosis without anemia Thrombocytopenia Chief Complaint labs Secondary amenorrhea New OB, LMP 1/2, EROS 108 E-ORDER cramping 13 WK OB [place] ED follow up for bleeding 17 WK OB Reason for Visit AMA (advanced matern al age) multigravida 35+ Hypothyroidism Infertility Supervision of high-risk Macrocytosis without anemia Thrombocytopenia AMA (advanced maternal age) multigravida 35+ Hypothyroidism Infertility Supervision of high-risk Macrocytosis without anemia Thrombocytopenia AMA (advanced maternal age) multigravida 35+ Hypothyroidism Infertility Supervision of high-risk Macrocytosis without anemia Thrombocytopenia AMA (advanced maternal age) multigravida 35+ Hypothyroidism Infertility Supervision of high-risk Macrocytosis without anemia Thrombocytopenia AMA (advanced maternal age) multigravida 35+ Hypothyroidism Infertility Supervision of high-risk Macrocytosis without anemia Thrombocytopenia Chief Complaint Admit Date phone visit, mastitis follow February 8:35am Reason for Visit Admit Date Care and examination of lactating mother March 04, 2024 8:35am Mastitis March 04, 2024 8 :35am Summary Purpose Additional Source Comments Goals (unrecognized section and content) Goals may be documented in a n alternate sectionGoals may be documented in an alternate sectionGoals may be documented in an alternate sectionGoals may be documented in an alternate sectionGoals may be documented in an alternate sectionGoals may be documented in an alternate sectionGoals may be documented in an alternate sectionGoals may be documented in an alternate sectionGoals may be documented in an alternate sectionGoals may be documented in an alternate sectionGoals may be documented in an alternate sectionGoals may be documented in an alternate sectionGoals may be documented in an alternate sectionGoals may be documented in an alternate sectionGoals may be documented in an alternate sectionGoals may be documented in an alternate sectionGoals may be documented in an alternate sectionGoals may be documented in an alternate sectionGoals may be documented in an alternate sectionGoals may be documented in an alternate sectionGoals may be documented in an alternate sectionGoals may be documented in an alternate section Care Teams (unrecognized sec tion and content) Team Status: Active Member Role Status Dates Dr. Suzanne Leyva MD Family Provider Active Dr. Suzanne Leyva MD Primary Care Provider Active Team Status: Inactive Member Role Status Dates Dr. Suzanne Leyva MD Primary Care Provider Active Dr. Abby Don MD Attending Provider, Refer ring Provider Active Team Status: Inactive Member Role Status Dates Dr. Suzanne Leyva MD Primary Care Provider Active Dr. Abby Don MD Referring Provider Active Buzz Mora Attending Provider Active Team Status: Inactive Member Role Status Dates Dr. Suzanne Leyva MD Primary Care Provider Active Dr. Mio Kingston MD Emergency Provider Active Team Status: Inactive Member Role Status Dates Dr. Suzanne Leyva MD Primary Care Provider Active Dr. Jez Goodwin DO Emergency Provider Active Team Status: Inactive Member Role Status Dates Dr. Suzanne Leyva MD Primary Care Provider Active Dr. Mio Kingston MD Attending Provider, Emergency Provider Active Team Status: Inactive Member Role Status Dates Dr. Suzanne Leyva MD Primary Care Provider Active Dr. Jez Goodwin DO Attending Provider, Emergency Pr ovider Active Team Status: Active Member Role Status Dates Dr. Suzanne Leyva MD Primary Care Provider Active Dr. Abby Don MD Attending Provider, Refer ring Provider Active Team Status: Inactive Member Role Status Dates Dr. Suzanne Leyva MD Primary Care Provider, Referring P rovider Active Dr. Ozzy Murry MD Attending Provider Active Team Status: Active Member Role Status Dates Dr. Suzanne Leyva MD Primary Care Provide r, Family Provider, Referring Provider Active Dr. Ozzy Murry MD Attending Provider Active Team Status: Active Member Role Status Dates Dr. Suzanne Leyva MD Primary Care Provider Active Dr. Abby Don MD Attending Provider Active Team Status: Inactive Member Role Status Dates Dr. Suzanne Leyva MD Primary Care Provider Active Dr. Abby Don MD Attending Provider Active Team Status: Inactive Member Role Status Dates Dr. Suzanne Leyva MD Primary Care Provider, Referring P rovider Active Chris Leslie CNM Attending Provider Active Team Status: Inactive Member Role Status Dates Dr. Suzanne Leyva MD Primary Care Provider Active Chris Leslie CNM Attending Provider, Referring Pro vider Active Team Status: Active Member Role Status Dates Dr. Suzanne Leyva MD Primary Care Provider Active Chris Leslie CNM Attending Provider, Referring Pro vider Active Team Status: Inactive Member Role Status Dates Dr. Suzanne Leyva MD Primary Care Provider, Referring P rovider Active Laureen Hawkins CNM Attending Provider Active Team Status: Inactive Member Role Status Dates Dr. Suzanne Leyva MD Primary Care Provider Active Laureen Hawkins CNM Attending Provider, Referring Pr ovider Active Team Status: Inactive Member Role Status Dates Dr. Suzanne Leyva MD Primary Care Provider, Referring P rovider Active Dr. Tyesha Bowman DO Attending Provider Activ e Team Status: Inactive Member Role Status Dates Dr. Suzanne Leyva MD Primary Care Provider Active Dr. Tyesha Bowman DO Attending Provider Activ e Team Status: Inactive Member Role Status Dates Dr. Suzanne Leyva MD Primary Care Provider Active Start: January 23, 2024 End: January 23, 2024 Dr. Malorie Wilkins MD Attending Provider Active Start: January 23, 2024 End: January 23, 2024 Team Status: Inactive Member Role Status Dates Dr. Suzanne Leyva MD Primary Care Provider Active Start: March 04, 2024 End: March 04, 2024 Dr. Suzanne Leyva MD Referring Provider Active St art: March 04, 2024 End: March 04, 2024 Enma Knott STITCHING MACHINE SETTER, STITCHING MACHINE SETTER-C Attending Provider Active Start: March 04, 2024 End: March 04, 2024 Team Status: Inactive Member Role Status Dates Dr. Suzanne Leyva MD Primary Care Provider Active Start: May 04, 2024 End: May 04, 2024 Dr. Suzanne Leyva MD Attending Provider Active St art: May 04, 2024 End: May 04, 2024 Dr. Suzanne Leyva MD Referring Provider Active St art: May 04, 2024 End: May 04, 2024 INFORMATION SOURCE (unrecogn ized section and content) DATE CREATED AUTHOR 07/27/2023 [facility] DATE CREATED AUTHOR AUTHOR'S NIA PINEDA 05/16/[address] [facility] FOR RECORDS PERTAINING TO PATIENTS WHO ARE OR HAVE BEEN ENROLLED IN A CHEMICAL DEPENDENCY/SUBSTANCEABUSE PROGRAM, SOME INFORMATION MAY BE OMITTED. This clinical summary was aggregated from multiple sources. Caution should be exercised in using it in the provision of clinical care. This summary normalizes information from multiple sources, and as a consequence, information in this document may materially change the coding, format and clinical context of patient data. In addition, data may be omitted in some cases. CLINICAL DECISIONS SHOULD BE BASED ON THE PRIMARY CLINICAL RECORDS. [facility]. provides no warranty or guarantee of the accuracy or completeness of information in this document.
[2024-09-05 17:08] LABS: PROLACTIN 86.9 ng/mL (4.8-33.4); Testosterone, % Free 3.98 % (0.50-2.80); Testosterone, Free <.12 ng/dL (0.10-0.85); Vitamin A, Retinol 46.8 ug/dL (18.9-57.3); Zinc, WHOLE BLOOD 938 ug/dL (440-860)
== END | disposition home or self-care (01) ==
LOC: LAB 10:30
PROVIDERS: PCP Family Medicine; Referring Provider Obstetrics & Gynecology; Visit Provider Obstetrics & Gynecology
DX: Z12.31 Encounter for screening mammogram for malignant neoplasm of breast (principal); N91.1 Secondary amenorrhea; E63.9 Nutritional deficiency, unspecified; E03.9 Hypothyroidism, unspecified; D75.9 Disease of blood and blood-forming organs, unspecified
CPT/HCPCS: 36415; 80053; 82306; 82390; 82533; 82607; 82627; 82670; 82728; 83001; 84146; 84270; 84402; 84403; 84439; 84443; 84480; 84481; 84590; 84630; 85027; 82626

== ENCOUNTER → 2024-09-27 | Outpatient (CLI) | payer OTHER, SELFPAY ==
--- OUTSIDE RECORDS SUMMARY | 2024-09-27 07:00 | XMS RPT_ITS | CCD ---
Author Organization [facility] Care Team Providers Care Nutrition Services Manager Name Role Phone Dr. Suzanne Leyva Primary Care Provider Dr. Suzanne Leyva Referring Provider Dr. Ozzy Murry Attending Provider Dr. Suzanne Leyva Primary Care Provider [phone] Dr. Suzanne Leyva Referring Provider [phone]([facility])[phone] SCHUYLER Leslie Attending Provider Dr. Suzanne Leyva Primary Care Provider Dr. Suzanne Leyva Referring Provider SCHUYLER Leslie Attending Provider SCHUYLER Hawkins Attending Provider Dr. Tyesha Bowman Attending Provider SUZANNE LEYVA Primary Care Unavailable JENNIFER RAMIREZ Attending Unavailable CHRIS LESLIE Referring Unavailable CHU MANNING Attending Unavailable SUZANNE LEYVA Primary Care Unavailable CHRIS LESLIE Referring Unavailable SUZANNE LEYVA Primary Care Unavailable CHRIS LESLIE Attending Unavailable CHRIS LESLIE Referring Unavailable CHU MANNING Attending Unavailable GORDON, SUZANNE SURYA Primary Care Unavailable GISELA APARICIO Referring UnavailDr. Suzanne Chinchilla MD Primary Care Provider Dr. Malorie Wilkins MD Attending Provider Dr. Suzanne Leyva MD Referring Provider [phone] Enma Kiran Attending Provider [phone] Leyva MD, Dr. Suzanne Attending Provider Gordon REYES, Dr. Porras Primary Care Provider Harjinder Don MD, Dr. Mora Attending Provider Harjinder Don MD, Dr. Mora Referring Provider Tyesha Bowman Attending Unavailabl e Leyva, Suzanne Primary Care Unavailable Leyva, Suzanne Referring Unavailable Tyesha Bowman Attending Unavailabl e Leyva, Suzanne Primary Care Unavailable Leyva, Suzanne Referring Unavailable Leyva, Suzanne Referring Unavailable Leyva, Suzanne Primary Care Unavailable Chris Leslie Attending Unavailable Tyesha Bowman Attending Unavailabl e Sabihae Tyesha Perez Referring Unavailabl e Leyva, Suzanne Primary Care Unavailable Abby Douglas Referring Unavailable Abby Douglas Attending Unavailable Leyva, Suzanne Primary Care Unavailable Leyva, Suzanne Referring Unavailable Leyva, Suzanne Attending Unavailable Leyva, Suzanne Primary Care Unavailable Leyva, Suzanne Primary Care Unavailable Chris Leslie Admitting Unavailable Chris Leslie Referring Unavailable Chris Leslie Attending Unavailable Tyesha Bowman Referring Unavailabl e Vande Ana, Tyesha Attending Unavailabl e Leyva, Suzanne Primary Care Unavailable Leyva, Suzanne Referring Unavailable Gisela Aparicio Attending Unavailable Leyva, Suzanne Primary Care Unavailable Abby Douglas Attending Unavailable Leyva, Suzanne Primary Care Unavailable Leyva, Suzanne Primary Care Unavailable Malorie Wilkins Attending Unavailable Leyva, Suzanne Referring Unavailable Leyva, Suzanne Primary Care Unavailable Chris Leslie Attending Unavailable Leyva, Suzanne Referring Unavailable Leyva, Suzanne Primary Care Unavailable Ozzy Murry Attending Unavailable Leyva, Suzanne Referring Unavailable Nikos HOUSECALLS NURSE, Enma Attending Unavailable Leyva, Suzanne Primary Care Unavailable Gisela Aparicio Attending Unavailable Leyva, Suzanne Primary Care Unavailable Leyva, Suzanne Referring Unavailable Tyesha Bowman Consulting Unavailabl e Vande VeldeTyesha Referring Unavailabl e Sabihae Tyesha Perez Attending Unavailabl e Leyva, Suzanne Primary Care Unavailable Leyva, Suzanne Primary Care Unavailable Chris Leslie Consulting Unavailable Chris Leslie Admitting Unavailable Chris Leslie Referring Unavailable Chris Leslie Attending Unavailable Leyva, Suzanne Primary Care Unavailable Chris Leslie Attending Unavailable Chris Leslie Consulting Unavailable Chris Leslie Admitting Unavailable Chris Leslie Referring Unavailable Leyva, Suzanne Referring Unavailable Chris Leslie Attending Unavailable Leyva, Suzanne Primary Care Unavailable Gisela Aparicio Attending Unavailable Suzanne Leyva Referring Unavailable Suzanne Leyva Primary Care Unavailable Gisela Aparicio Attending Unavailable Suzanne Leyva Referring Unavailable Suzanne Leyva Primary Care Unavailable Chris Leslie Referring Unavailable Chris Leslie Attending Unavailable Suzanne Leyva Primary Care Unavailable Gisela Aparicio Referring Unavailable Gisela Aparicio Attending Unavailable LeyvaSuzanne Primary Care Unavailable Medications Current Medications Medication Drug Class(es) Dates [...] 2021 10:37am dicloxacillin 500 mg oral capsule (2 sources) Penicillin-class Antibacterial Start: 02-29-2024 take 1 tablet by mouth every six hours Dicloxacillin 500 mg capsule Active 500 mg PO EVERY 6 HOURS 40 0 February 29, 2024 1:00am Take 1 tablet PO q 6 hours for 10 days levothyroxine sodium 0.075 mg oral tablet (20 sources) l-Thyroxine Start: 04-21-2023 End: 12-26-2023 take 1 tablet by mouth once daily Levothyroxine (Synthroid) 75 mcg tablet Active 75 ug PO DAILY 30 December 26, 2023 10:06am Start: 08-10-2020 End: 03-11-2021 take 1 tablet by mouth once daily Levothyroxine (Synthroid) 50 mcg Tablet Discontinued 50 ug PO DAILY August 10, 2020 12:00am March 11, 2021 2:24pm Check with primary doctor Vit,Aibg84-Dvhg-Exsfn (20 sources) Start: 04-12-2019 take 1 tablet by mouth once daily Vit,Uexg90-Vhyx-Toish Active 1 TABLET PO DAILY April 12, 2019 12:00am Start: 04-12-2019 take 1 tablet by jeaneth th once daily Vit,Patx45-Djbf-Losxx Active 1 TABLET PO DAILY April 12, 2019 1:00am Vit,Vwku25-Ycyn-Blhde 1 TABLET tablet (2 sources) Start: 04-12-2019 take 1 tablet by mouth once daily Vit,Kbhr94-Myzk-Sgivk 1 TABLET tablet Active 1 {tbl} PO DAILY April 12, 2019 1:00am Check with primary doctor Start: 04-12-2019 take 1 tablet by jeaneth th once daily Vit,Gnbu31-Kgoc-Tufhw 1 TABLET tablet Active 1 {tbl} PO DAILY April 12, 2019 1:00am Completed/Discontinued Medications Medication Drug Class(es) Dates Sig (Normalized) Sig (Original) acetaminophen 325 mg / HYDROcodone bitartrate 5 mg oral tablet (19 sources) Opioid Agonist Start: 08-15-2022 End: 04-12-2023 Hydrocodone-Acetami nophen 5-325 mg tablet Discontinued 1 {tbl} PO EVERY 6 HOURS NEEDED as needed for Pain 10 3 0 August 15, 2022 April 12, 2023 10:40am Abdominal pain Unspecified abdominal pain Start: 08-15-2022 End: 04-12-2023 take 1 tablet by mouth every six hours as needed Hydrocodone-Acetaminophen Discontinued 1 TABLET PO EVERY 6 HOURS NEEDED 10 3 August 15, 2022 April 12, 2023 10:40am acetaminophen 325 mg / oxyCODONE hydrochloride 5 mg oral tablet (19 sources) Opioid Agonist Start: 08-16-2022 End: 04-12-2023 Oxycodone-Acetaminophen (Percocet) 5-325 mg tablet Discontinued 1 {tbl} PO EVERY 6 HOURS as needed for pain 12 3 0 August 16, 2022 April 12, 2023 10:42am Cyst of right ovary Unspecified ovarian cyst, right side cetirizine hydrochloride 10 mg oral capsule (20 sources) Histamine-1 Receptor Antagonist Start: 08-10-2020 End: 04-12-2023 take 1 capsule by mouth once daily Cetirizine (Zyrtec) 10 mg Capsule Discontinued 10 mg PO DAILY August 10, 2020 12:00am April 12, 2023 10:40am Check with primary doctor Flaxseed extract (8 sources) Non-Standardize d Food Allergenic Extract, Non-Standardize [...] mg PO Q8H as needed for pain 30 0 August 29, 2020 12:00am April 12, 2023 [...] 05, 2020 1:00am August 29, 2020 5:57am amenorrhea dose not confirmed ondansetron 4 mg disintegrating oral tablet (19 sources) Serotonin-3 Receptor Antagonist Start: 08-16-2022 End: 04-12-2023 take 1 tablet by mouth three times daily as needed for nausea and vomiting Ondansetron 4 mg tablet,disintegrating Discontinued 4 mg PO THREE TIMES A DAY as needed for nausea and vomiting 21 0 August 16, 2022 2:46am April 12, 2023 10:42am prasterone 25 mg oral tablet (8 sources) Start: 04-12-2023 End: 07-27-2023 take 1 tablet by mouth once daily Prasterone (Dhea) (Dhea) 25 mg tablet Discontinued 25 mg PO DAILY April 12, 2023 1:00am July 27, 2023 2:32pm progesterone 200 mg oral capsule (6 sources) Progesterone Start: 04-21-2023 End: 07-27-2023 Progesterone Micronized 200 mg capsule Discontinued 200 mg VAGINAL TWICE A DAY April 21, 2023 1:00am July 27, 2023 2:32pm Problems Active Problems Problem Classification Problem Date Documented Date Episodic/Chronic Abdominal pain (19 sources) Pain in pelvis; Translations: [Pelvic and perineal pain] 08-15-2022 Episodic Coagulation and hemorrhagic disorders (20 sources) Platelet count below reference range; Translations: [Thrombocytopenia, unspecified] Onset: 12-20-2023 Chronic Comment on above: has seen heme onc in the past, mild, last two deliveries were here and didn't want regional anesthesia but may not be approved for delivery here because of anesthesia. consult placed, 08/02/23 approved for delivery at [facility] if >100K. 28w:121k. Recheck 4 wk Deficiency and other anemia (7 sources) Macrocytic anemia; Translations: [Nutritional anemia, unspecified] 03-11-2021 Episodic Deficiency and other anemia (1 source) Nutritional anemia, unspecified; Translations: [Unspecified deficiency anemia] Episodic Nonmalignant breast conditions (1 source) Inflammatory disorder of breast; Translations: [Mastitis without abscess] 03-04-2024 Episodic Other complications of (8 sources) High risk ; Translations: [Supervision of high risk , unspecified, unspecified trimester] 04-12-2023 Episodic Comment on above: PRR, , EROS , PC Tamara Mondragon, Bran. Head 90%ile, breech Other complications of (6 sources) Multigravida of advanced maternal age; Translations: [Supervision of elderly multigravida, unspecified trimester] 04-21-2023 Episodic Comment on above: discussed NST at 39 weeks IOL by 40, HC measuring large. Other complications of (11 sources) Supervision of elderly multigravida, unspecified trimester; Translations: [Elderly multigravida, unspecified as to episode of care or not applicable] 04-21-2023 Episodic Other complications of (11 sources) Supervision of high risk , unspecified, unspecified trimester; Translations: [Supervision of unspecified high-risk ] 04-21-2023 Episodic Other hematologic conditions (16 sources) Macrocytosis - no anemia; Translations: [Other specified diseases of blood and blood-forming organs] 10-19-2022 Chronic Other hematologic conditions (15 sources) Other specified diseases of blood and blood-forming organs; Translations: [Other specified diseases of blood and blood-forming organs] Onset: 11-23-2023 10-19-2022 Chronic Other hematologic conditions (1 source) Disease of blood and blood-forming organs, unspecified; Translations: [Disease of blood and blood-forming organs, unspecified] Onset: 09-04-2024 Episodic Other screening for suspected conditions (not mental disorders or infectious disease) (1 source) Encounter for screening mammogram for malignant neoplasm of breast; Translations: [Encounter for screening mammogram for malignant neoplasm of breast] Onset: 09-05-2024 Episodic Ovarian cyst (19 sources) Cyst of ovary; Translations: [Unspecified ovarian cyst, right side] 08-16-2022 Episodic Residual codes; unclassified (20 sources) Gestation period, 38 weeks; Translations: [38 weeks gestation of ] 08-29-2020 Episodic Residual codes; unclassified (20 sources) Gestation period, 41 weeks; Translations: [41 weeks gestation of ] 09-07-2020 Episodic Residual codes; unclassified (2 sources) Infertile 05-16-2023 Episodic Comment on above: 2yrs to conceive use d letrazole and Naltrexone- had MFM consult. Harjinder Don to wean off of Naltrexone. Thyroid disorders (20 sources) Hypothyroidism; Translations: [Hypothyroidism, unspecified] Onset: 12-20-2023 04-12-2023 Chronic Comment on above: synthroidLabs with N OB Unclassified (17 sources) Infertile; Translations: [Infertility] 04-12-2023 Unclassified (1 source) Elevation of levels of liver transaminase levels; Translations: [Elevation of levels of liver transaminase levels] Onset: 09-04-2024 Past or Other Problems Problem Classification Problem Date Documented Date Episodic/Chronic Early or threatened labor (4 sources) False labor at or after 37 completed weeks of gestation; Translations: [False labor at or after 37 completed weeks of gestation] Onset: 12-14-2023 11-29-2023 Episodic Other complications of (1 source) Supervision of elderly multigravida, third trimester; Translations: [Supervision of elderly multigravida, third trimester] Onset: 12-20-2023 Episodic Other complications of (2 sources) Supervision [...] unspecified, third trimester] Onset: 11-17-2023 Episodic Other non-epithelial cancer of skin (6 sources) Malignant neoplasm of skin; Translations: [Unspecified [...] of ] Onset: 10-13-2023 Episodic Thyroid disorders (6 sources) Disorder of thyroid gland; Translations: [Disorder of thyroid, unspecified] Onset: 11-22-2019 04-21-2023 Episodic Comment on above: ON MED Results Test Name Value Interpretation Reference Range Facility Ceruloplasminon 09-05-2024 CERULOPLASMIN 18.7 mg/dL Low 19.0-39.0 [facility] Comment on above: Order Comment: ADD O N CERULOPLASMIN-MARIBEL 09/04/24 @0623 Performed By: #### L 3300.1500, L500.4050, L503.6550, L3100.5310, L3400.0920, L501.12977, L3300.1750, L506.0400, L3400.0700, L501.9187, L506.1001, L3100.5060, L3100.5125, L509.6001, L3300.9910, L3100.5400, L100.0500, L503.0106, L501.9520 ####[facility] [address] [place], [place], [id number] DHEA Sulfateon 09-05-2024 DHEA SULFATE 93.1 ug/dL Normal 57.3-279.2 [facility] Comment on above: Order Comment: Test( s) [id number], Whole Bloodwas developed and its performance characteristicsdetermined by [facility]. It has not been cleared or approvedby the Food and Drug Administration.N Performed By: #### L 3300.1500, L500.4050, L503.6550, L3100.5310, L3400.0920, L501.71140, L3300.1750, L506.0400, L3400.0700, L501.9187, L506.1001, L3100.5060, L3100.5125, L509.6001, L3300.9910, L3100.5400, L100.0500, L503.0106, L501.9520 ####[facility] [address] [place], [place], [id number] PROLACTIN 4465on 09-05-2024 PROLACTIN 86.9 ng/mL High 4.8-33.4 [facility] Comment on above: Order Comment: Test( s) [id number], Whole Bloodwas developed and its performance characteristicsdetermined by [facility]. It has not been cleared or approvedby the Food and Drug Administration. Performed By: #### L 3300.1500, L500.4050, L503.6550, L3100.5310, L3400.0920, L501.62944, L3300.1750, L506.0400, L3400.0700, L501.9187, L506.1001, L3100.5060, L3100.5125, L509.6001, L3300.9910, L3100.5400, L100.0500, L503.0106, L501.9520 ####[facility] [address] [place], [address] Sex Hormone-binding Globulin on 09-05-2024 SHBG 50.4 nmol/L Normal 24.6-122.0 [facility] Comment on above: Order Comment: Test( s) [id number], Whole Bloodwas developed and its performance characteristicsdetermined by [facility]. It has not been cleared or approvedby the Food and Drug Administration. Result Comment: Perf ormed at: [address] [id number] Side Stapler: Yair Raza PhD, Phone: [phone] Performed at: [address] [id number] Side Stapler: Belén Sanches MD, Phone: [phone] Performed By: #### L 3300.1500, L500.4050, L503.6550, L3100.5310, L3400.0920, L501.05939, L3300.1750, L506.0400, L3400.0700, L501.9187, L506.1001, L3100.5060, L3100.5125, L509.6001, L3300.9910, L3100.5400, L100.0500, L503.0106, L501.9520 ####[facility] [address] [place], [place], [id number] Testosterone, Total / Freeon 09-05-2024 TESTOSTER,FREE <.12 Normal 0.10-0.85 [facility] Comment on above: Order Comment: Test( s) [id number], Whole Bloodwas developed and its performance characteristicsdetermined by [facility]. It has not been cleared or approvedby the Food and Drug Administration.N Performed By: #### L 3300.1500, L500.4050, L503.6550, L3100.5310, L3400.0920, L501.74574, L3300.1750, L506.0400, L3400.0700, L501.9187, L506.1001, L3100.5060, L3100.5125, L509.6001, L3300.9910, L3100.5400, L100.0500, L503.0106, L501.9520 ####[facility] [address] [place], [place], [id number] TESTOSTER,TOTAL < 3 Low 8-60 [facility] Comment on above: Order Comment: Test( s) [id number], Whole Bloodwas developed and its performance characteristicsdetermined by [facility]. It has not been cleared or approvedby the Food and Drug Administration.N Performed By: #### L 3300.1500, L500.4050, L503.6550, L3100.5310, L3400.0920, L501.84747, L3300.1750, L506.0400, L3400.0700, L501.9187, L506.1001, L3100.5060, L3100.5125, L509.6001, L3300.9910, L3100.5400, L100.0500, L503.0106, L501.9520 ####[facility] [address] [place], [address] TESTOSTERONE,%F 3.98 High 0.50-2.80 [facility] Comment on above: Order Comment: Test( s) [id number], Whole Bloodwas developed and its performance characteristicsdetermined by [facility]. It has not been cleared or approvedby the Food and Drug Administration.N Performed By: #### L 3300.1500, L500.4050, L503.6550, L3100.5310, L3400.0920, L501.01295, L3300.1750, L506.0400, L3400.0700, L501.9187, L506.1001, L3100.5060, L3100.5125, L509.6001, L3300.9910, L3100.5400, L100.0500, L503.0106, L501.9520 ####[facility] [address] [place], [address] Vitamin A, Retinolon 025 VIT A, RETINOL 46.8 ug/dL Normal 18.9-57.3 [facility] Comment on above: Order Comment: Test( s) [id number], Whole Bloodwas developed and its performance characteristicsdetermined by [facility]. It has not been cleared or approvedby the Food and Drug Administration. Result Comment: Refe rence intervals for vitamin A determined from [facility] internal studies. Individuals with vitamin A less than 20 ug/dL are considered vitamin A deficient and those with serum concentrations less than 10 ug/dL are considered severely deficient. This test was developed and its performance characteristics determined by [facility]. It has not been cleared or approved by the Food and Drug Administration. Performed By: #### L 3300.1500, L500.4050, L503.6550, L3100.5310, L3400.0920, L501.87900, L3300.1750, L506.0400, L3400.0700, L501.9187, L506.1001, L3100.5060, L3100.5125, L509.6001, L3300.9910, L3100.5400, L100.0500, L503.0106, L501.9520 ####[facility] [address] [place], [place], [address] Zinc, WHOLE BLOODon 09-06-19 25 Zinc Whole Bld 938 ug/dL High 440-860 [facility] Comment on above: Order Comment: Test( s) [id number], Whole Bloodwas developed and its performance characteristicsdetermined by [facility]. It has not been cleared or approvedby the Food and Drug Administration. Performed By: #### L 3300.1500, L500.4050, L503.6550, L3100.5310, L3400.0920, L501.73706, L3300.1750, L506.0400, L3400.0700, L501.9187, L506.1001, L3100.5060, L3100.5125, L509.6001, L3300.9910, L3100.5400, L100.0500, L503.0106, L501.9520 ####[facility] [address] [facility] [place], [address] Anion gap in Serum or Plasma Ordered By: Summer Arian on 08-31-2024 Anion gap [Moles/Vol] 10 mmol/L 5-15 [facility] BUN/creatinine ratioOrdered By: Summer Arian on 08-31-2024 Urea nitrogen/Creatinine [Mass ratio] 34.0 mg/mg High 10-20 [facility] Bilirubin, totalOrdered By: Summer Arian on 08-31-2024 Bilirubin [Mass/Vol] 0.54 mg/dL 0.00-1.[address] [facility] CBC-Complete Blood Cnt No Di ffon 08-31-2024 Erythrocyte distribution width (RBC) [Ratio] 12.2 % Normal 11.6-14.6 [facility] Comment on above: Performed By: #### L 3300.1500, L500.4050, L503.6550, L3100.5310, L3400.0920, L501.82248, L3300.1750, L506.0400, L3400.0700, L501.9187, L506.1001, L3100.5060, L3100.5125, L509.6001, L3300.9910, L3100.5400, L100.0500, L503.0106, L501.9520 #### [facility] [address] [place], [address] Hematocrit (Bld) [Volume fraction] 44.4 % Normal 37-47 [facility] Comment on above: Performed By: #### L 3300.1500, L500.4050, L503.6550, L3100.5310, L3400.0920, L501.22631, L3300.1750, L506.0400, L3400.0700, L501.9187, L506.1001, L3100.5060, L3100.5125, L509.6001, L3300.9910, L3100.5400, L100.0500, L503.0106, L501.9520 #### [facility] [address] [place], [address] Hemoglobin (Bld) [Mass/Vol] 14.3 g/dL Normal 12.0-15.0 [facility] Comment on above: Performed By: #### L 3300.1500, L500.4050, L503.6550, L3100.5310, L3400.0920, L501.14089, L3300.1750, L506.0400, L3400.0700, L501.9187, L506.1001, L3100.5060, L3100.5125, L509.6001, L3300.9910, L3100.5400, L100.0500, L503.0106, L501.9520 #### [facility] [address] [place], [address] MCH (RBC) [Entitic mass] 32.8 pg High 27.0-32.0 [facility] Comment on above: Performed By: #### L 3300.1500, L500.4050, L503.6550, L3100.5310, L3400.0920, L501.22604, L3300.1750, L506.0400, L3400.0700, L501.9187, L506.1001, L3100.5060, L3100.5125, L509.6001, L3300.9910, L3100.5400, L100.0500, L503.0106, L501.9520 #### [facility] [address] [place], [place], [id number] ([address]) MCHC (RBC) [Mass/Vol] 32.2 g/dL Normal 32-36 [facility] Comment on above: Performed By: #### L 3300.1500, L500.4050, L503.6550, L3100.5310, L3400.0920, L501.28916, L3300.1750, L506.0400, L3400.0700, L501.9187, L506.1001, L3100.5060, L3100.5125, L509.6001, L3300.9910, L3100.5400, L100.0500, L503.0106, L501.9520 #### [facility] [address] [place], [place], [id number] MCV (RBC) [Entitic vol] 101.8 fL High 81-99 [facility] Comment on above: Performed By: #### L 3300.1500, L500.4050, L503.6550, L3100.5310, L3400.0920, L501.43866, L3300.1750, L506.0400, L3400.0700, L501.9187, L506.1001, L3100.5060, L3100.5125, L509.6001, L3300.9910, L3100.5400, L100.0500, L503.0106, L501.9520 #### [facility] [address] [place], [place], [id number] Platelet mean volume (Bld) [Entitic vol] 13.3 fL High 6.2-12.0 [facility] Comment on above: Performed By: #### L 3300.1500, L500.4050, L503.6550, L3100.5310, L3400.0920, L501.44529, L3300.1750, L506.0400, L3400.0700, L501.9187, L506.1001, L3100.5060, L3100.5125, L509.6001, L3300.9910, L3100.5400, L100.0500, L503.0106, L501.9520 #### [facility] [address] [place], [address] Platelets (Bld) [#/Vol] 101 10*3/uL Low 150-450 [facility] Comment on above: Performed By: #### L 3300.1500, L500.4050, L503.6550, L3100.5310, L3400.0920, L501.00349, L3300.1750, L506.0400, L3400.0700, L501.9187, L506.1001, L3100.5060, L3100.5125, L509.6001, L3300.9910, L3100.5400, L100.0500, L503.0106, L501.9520 #### [facility] [address] [place], [address] RBC (Bld) [#/Vol] 4.36 10*6/uL Normal 4.2-5.4 [facility] Comment on above: Performed By: #### L 3300.1500, L500.4050, L503.6550, L3100.5310, L3400.0920, L501.39533, L3300.1750, L506.0400, L3400.0700, L501.9187, L506.1001, L3100.5060, L3100.5125, L509.6001, L3300.9910, L3100.5400, L100.0500, L503.0106, L501.9520 #### [facility] [address] [facility] [place], [place], [id number] RDW SD 45.9 fl High 35.1-43.9 [facility] Comment on above: Performed By: #### L 3300.1500, L500.4050, L503.6550, L3100.5310, L3400.0920, L501.67015, L3300.1750, L506.0400, L3400.0700, L501.9187, L506.1001, L3100.5060, L3100.5125, L509.6001, L3300.9910, L3100.5400, L100.0500, L503.0106, L501.9520 #### [facility] [address] [facility] [place], [place], [id number] WBC (Bld) [#/Vol] 2.9 10*3/uL Low 4.4-11.0 [facility] Comment on above: Performed By: #### L 3300.1500, L500.4050, L503.6550, L3100.5310, L3400.0920, L501.83882, L3300.1750, L506.0400, L3400.0700, L501.9187, L506.1001, L3100.5060, L3100.5125, L509.6001, L3300.9910, L3100.5400, L100.0500, L503.0106, L501.9520 #### [facility] [facility] [address] [facility]. [place], [place], [id number] Carbon dioxide, total [Moles /volume] in Central venous bloodOrdered By: Abby Don on 08-31-2024 CO2 [Moles/Vol] 26.5 mmol/L 21.0-32.0 [facility] Chloride assayOrdered By: Chantelle Don on 08-31-2024 Chloride [Moles/Vol] 102 mmol/L 98-[address] [facility] Comprehensive Metabolic Prof ilon 08-31-2024 Albumin [Mass/Vol] 4.7 g/dL Normal 3.5-5.0 [facility] Comment on above: Performed By: #### L 3300.1500, L500.4050, L503.6550, L3100.5310, L3400.0920, L501.44630, L3300.1750, L506.0400, L3400.0700, L501.9187, L506.1001, L3100.5060, L3100.5125, L509.6001, L3300.9910, L3100.5400, L100.0500, L503.0106, L501.9520 #### [facility] [address] [place], [address] Albumin/Globulin [Mass ratio] 1.9 {ratio} Normal 0.9-2.4 [facility] Comment on above: Performed By: #### L 3300.1500, L500.4050, L503.6550, L3100.5310, L3400.0920, L501.75713, L3300.1750, L506.0400, L3400.0700, L501.9187, L506.1001, L3100.5060, L3100.5125, L509.6001, L3300.9910, L3100.5400, L100.0500, L503.0106, L501.9520 #### [facility] [address] [place], [place], [id number] ALK PHOS 54 U/L Normal 35-104 [facility] Comment on above: Performed By: #### L 3300.1500, L500.4050, L503.6550, L3100.5310, L3400.0920, L501.50490, L3300.1750, L506.0400, L3400.0700, L501.9187, L506.1001, L3100.5060, L3100.5125, L509.6001, L3300.9910, L3100.5400, L100.0500, L503.0106, L501.9520 #### [facility] [address] [facility] [place], [place], [id number] ALT [Catalytic activity/Vol] 45 U/L High <=34 [facility] Comment on above: Performed By: #### L 3300.1500, L500.4050, L503.6550, L3100.5310, L3400.0920, L501.23991, L3300.1750, L506.0400, L3400.0700, L501.9187, L506.1001, L3100.5060, L3100.5125, L509.6001, L3300.9910, L3100.5400, L100.0500, L503.0106, L501.9520 #### [facility] [address] [facility] [place], [address] AST [Catalytic activity/Vol] 39 U/L High <=31 [facility] Comment on above: Performed By: #### L 3300.1500, L500.4050, L503.6550, L3100.5310, L3400.0920, L501.46536, L3300.1750, L506.0400, L3400.0700, L501.9187, L506.1001, L3100.5060, L3100.5125, L509.6001, L3300.9910, L3100.5400, L100.0500, L503.0106, L501.9520 #### [facility] [address] [place], [address] Bilirubin [Mass/Vol] 0.54 mg/dL Normal 0.00-1.[address] [facility] Comment on above: Performed By: #### L 3300.1500, L500.4050, L503.6550, L3100.5310, L3400.0920, L501.63003, L3300.1750, L506.0400, L3400.0700, L501.9187, L506.1001, L3100.5060, L3100.5125, L509.6001, L3300.9910, L3100.5400, L100.0500, L503.0106, L501.9520 #### [facility] [address] [place], [place], [id number] (117) BUN/CRE 34.0 RATIO High 10-20 [facility] Comment on above: Performed By: #### L 3300.1500, L500.4050, L503.6550, L3100.5310, L3400.0920, L501.93669, L3300.1750, L506.0400, L3400.0700, L501.9187, L506.1001, L3100.5060, L3100.5125, L509.6001, L3300.9910, L3100.5400, L100.0500, L503.0106, L501.9520 #### [facility] [address] [place], [place], [phone] (561) Calcium [Mass/Vol] 9.4 mg/dL Normal 7.6-11.0 [facility] Comment on above: Performed By: #### L 3300.1500, L500.4050, L503.6550, L3100.5310, L3400.0920, L501.76769, L3300.1750, L506.0400, L3400.0700, L501.9187, L506.1001, L3100.5060, L3100.5125, L509.6001, L3300.9910, L3100.5400, L100.0500, L503.0106, L501.9520 #### [facility] [address] [place], [place], [id number] (824) Chloride [Moles/Vol] 102 mmol/L Normal 98-[address] [facility] Comment on above: Performed By: #### L 3300.1500, L500.4050, L503.6550, L3100.5310, L3400.0920, L501.79949, L3300.1750, L506.0400, L3400.0700, L501.9187, L506.1001, L3100.5060, L3100.5125, L509.6001, L3300.9910, L3100.5400, L100.0500, L503.0106, L501.9520 #### [facility] [address] [facility] [place], [place], [id number] CO2 [Moles/Vol] 26.5 mmol/L Normal 21.0-32.0 [facility] Comment on above: Performed By: #### L 3300.1500, L500.4050, L503.6550, L3100.5310, L3400.0920, L501.44249, L3300.1750, L506.0400, L3400.0700, L501.9187, L506.1001, L3100.5060, L3100.5125, L509.6001, L3300.9910, L3100.5400, L100.0500, L503.0106, L501.9520 #### [facility] [address] [facility] [place], [place], [id number] Creatinine [Mass/Vol] 0.74 mg/dL Normal 0.70-1.20 [facility] Comment on above: Performed By: #### L 3300.1500, L500.4050, L503.6550, L3100.5310, L3400.0920, L501.37294, L3300.1750, L506.0400, L3400.0700, L501.9187, L506.1001, L3100.5060, L3100.5125, L509.6001, L3300.9910, L3100.5400, L100.0500, L503.0106, L501.9520 #### [facility] [address] [facility] [place], [place], [id number] GAP 10 Normal 5-15 [facility] Comment on above: Performed By: #### L 3300.1500, L500.4050, L503.6550, L3100.5310, L3400.0920, L501.24510, L3300.1750, L506.0400, L3400.0700, L501.9187, L506.1001, L3100.5060, L3100.5125, L509.6001, L3300.9910, L3100.5400, L100.0500, L503.0106, L501.9520 #### [facility] [address] [place], [place], [phone] (554) GFR/1.73 sq M.predicted among non-blacks MDRD (S/P/Bld) [Vol rate/Area] 108 mL/min/{1.73_m2} Normal >60 [facility] Comment on above: Result Comment: mL/m in/1.73m2 CKD-EPI Creatinine Equation (2020) Performed By: #### L 3300.1500, L500.4050, L503.6550, L3100.5310, L3400.0920, L501.49542, L3300.1750, L506.0400, L3400.0700, L501.9187, L506.1001, L3100.5060, L3100.5125, L509.6001, L3300.9910, L3100.5400, L100.0500, L503.0106, L501.9520 #### [facility] [address] [place], [place], [phone] [phone] Globulin (S) [Mass/Vol] 2.5 g/dL Normal 2.2-4.2 [facility] Comment on above: Performed By: #### L 3300.1500, L500.4050, L503.6550, L3100.5310, L3400.0920, L501.18523, L3300.1750, L506.0400, L3400.0700, L501.9187, L506.1001, L3100.5060, L3100.5125, L509.6001, L3300.9910, L3100.5400, L100.0500, L503.0106, L501.9520 #### [facility] [address] [facility] [place], [place], [id number] Glucose [Mass/Vol] 78 mg/dL Normal 70-99 [facility] Comment on above: Performed By: #### L 3300.1500, L500.4050, L503.6550, L3100.5310, L3400.0920, L501.47679, L3300.1750, L506.0400, L3400.0700, L501.9187, L506.1001, L3100.5060, L3100.5125, L509.6001, L3300.9910, L3100.5400, L100.0500, L503.0106, L501.9520 #### [facility] [address] [facility] [place], [address] Potassium [Moles/Vol] 4.3 mmol/L Normal 3.3-5.1 [facility] Comment on above: Performed By: #### L 3300.1500, L500.4050, L503.6550, L3100.5310, L3400.0920, L501.94627, L3300.1750, L506.0400, L3400.0700, L501.9187, L506.1001, L3100.5060, L3100.5125, L509.6001, L3300.9910, L3100.5400, L100.0500, L503.0106, L501.9520 #### [facility] [address] [facility] [place], [address] Sodium [Moles/Vol] 138 mmol/L Normal 133-145 [facility] Comment on above: Performed By: #### L 3300.1500, L500.4050, L503.6550, L3100.5310, L3400.0920, L501.13371, L3300.1750, L506.0400, L3400.0700, L501.9187, L506.1001, L3100.5060, L3100.5125, L509.6001, L3300.9910, L3100.5400, L100.0500, L503.0106, L501.9520 #### [facility] [address] [place], [address] T PROT 7.2 g/dL Normal 5.9-8.4 [facility] Comment on above: Performed By: #### L 3300.1500, L500.4050, L503.6550, L3100.5310, L3400.0920, L501.40885, L3300.1750, L506.0400, L3400.0700, L501.9187, L506.1001, L3100.5060, L3100.5125, L509.6001, L3300.9910, L3100.5400, L100.0500, L503.0106, L501.9520 #### [facility] [address] [place], [address] Urea nitrogen [Mass/Vol] 25 mg/dL High 4-19 [facility] Comment on above: Performed By: #### L 3300.1500, L500.4050, L503.6550, L3100.5310, L3400.0920, L501.71144, L3300.1750, L506.0400, L3400.0700, L501.9187, L506.1001, L3100.5060, L3100.5125, L509.6001, L3300.9910, L3100.5400, L100.0500, L503.0106, L501.9520 #### [facility] [address] [place], [address] Erythrocyte distribution wid th ratioOrdered By: summer on 08-31-2024 Erythrocyte distribution width (RBC) [Ratio] 12.2 % 11.6-14.6 [facility] Erythrocyte distribution wid th standard deviationOrdered By: summer on 08-31-2024 Erythrocyte distribution width (RBC) [Ratio] 45.9 fl High 35.1-43.9 [facility] Estradiolon 08-31-2024 ESTRADIOL < 5.0 Normal [facility] Comment on above: Result Comment: FEMA LES ADULT FEMALE: Premenopausal: 15-350 pg/mL(E2 levels vary widely through the menstrual cycle) Postmenopausal: <10 pg/mL SAURAV STAGES MEAN AGE REFERENCE RANGES Stage I(>14 days and prepubertal) 7.1 years Undetectable-20 pg/mLL Stage II 10.5 years Undetectable-24 pg/mL Stage III 11.6 years Undetectable-60 pg/mL Stage IV 12.3 years 15-85 pg/mL Stage V 14.5 years 15-350 pg/mL Puberty onset (transition from Saurav stage I to Saurav stage II) occurs for girls at a median age of 10.5 (/- 2) years. There is evidence that it may occur up to 1 year earlier in obese girls and in girls. Progression through Saurav stages is variable. Saurav stage V (adult) should be reached by age 18. Performed By: #### L 3300.1500, L500.4050, L503.6550, L3100.5310, L3400.0920, L501.55340, L3300.1750, L506.0400, L3400.0700, L501.9187, L506.1001, L3100.5060, L3100.5125, L509.6001, L3300.9910, L3100.5400, L100.0500, L503.0106, L501.9520 #### [facility] [place], [address] Ferritinon 08-31-2024 Ferritin [Mass/Vol] 87 ng/mL Normal 22-378 [facility] Comment on above: Performed By: #### L 3300.1500, L500.4050, L503.6550, L3100.5310, L3400.0920, L501.57135, L3300.1750, L506.0400, L3400.0700, L501.9187, L506.1001, L3100.5060, L3100.5125, L509.6001, L3300.9910, L3100.5400, L100.0500, L503.0106, L501.9520 ####[facility] [address] [place], [place], [id number] Follicle Stimulating Hormone on 08-31-2024 FSH 5.8 mIU/mL Normal [facility] Comment on above: Result Comment: FEMA LE: Follicular: 1.4 - 18.1 mIU/mL Midcycle: 3.4 - 33.4 mIU/mL Luteal: 1.5 - 9.1 mIU/mL Post Menopause: 23.0 - 116.3 mIU/mL MALE: 1.4 - 18.1 mIU/mL Performed By: #### L 3300.1500, L500.4050, L503.6550, L3100.5310, L3400.0920, L501.15108, L3300.1750, L506.0400, L3400.0700, L501.9187, L506.1001, L3100.5060, L3100.5125, L509.6001, L3300.9910, L3100.5400, L100.0500, L503.0106, L501.9520 ####[facility] [address] [place], [address] Free T3on 08-31-2024 Free T3 [Mass/Vol] 2.0 pg/mL Low 2.18-3.98 [facility] Comment on above: Order Comment: N Performed By: #### L 3300.1500, L500.4050, L503.6550, L3100.5310, L3400.0920, L501.28262, L3300.1750, L506.0400, L3400.0700, L501.9187, L506.1001, L3100.5060, L3100.5125, L509.6001, L3300.9910, L3100.5400, L100.0500, L503.0106, L501.9520 #### [facility] [address] [place], [address] Free K2Foeaexy By: Abby Keene son on 08-31-2024 Free T3 [Mass/Vol] 2.0 pg/mL Low 2.18-3.98 [facility] Glomerular filtration rate ( GFR) estimation/1.73 sq m using serum, plasma, or whole bOrdered By: Abby Don on 08-31-2024 GFR/1.73 sq M.predicted among non-blacks MDRD (S/P/Bld) [Vol rate/Area] 108 mL/min/{1.73_m2} >60 [facility] Comment on above: mL/min/1.73m2 CKD-EP I Creatinine Equation (2020) Hematocrit Auto (Bld) [Volum e fraction]Ordered By: Abby Don on 08-31-2024 Hematocrit (Bld) [Volume fraction] 44.4 % 37-47 [facility] Hemoglobin measurementOrdere d By: Abby Don on 08-31-2024 Hemoglobin (Bld) [Mass/Vol] 14.3 g/dL 12.0-15.0 [facility] L501.9187on 08-31-2024 T3 Total 0.54 ng/mL Low 0.80-2.00 [facility] Comment on above: Performed By: #### L 3300.1500, L500.4050, L503.6550, L3100.5310, L3400.0920, L501.55517, L3300.1750, L506.0400, L3400.0700, L501.9187, L506.1001, L3100.5060, L3100.5125, L509.6001, L3300.9910, L3100.5400, L100.0500, L503.0106, L501.9520 #### [facility] [address] [place], [place], [address] L509.6001on 08-31-2024 CORTISOL 11.20 ug/dL Normal 6.02-18.40 [facility] Comment on above: Performed By: #### L 3300.1500, L500.4050, L503.6550, L3100.5310, L3400.0920, L501.26020, L3300.1750, L506.0400, L3400.0700, L501.9187, L506.1001, L3100.5060, L3100.5125, L509.6001, L3300.9910, L3100.5400, L100.0500, L503.0106, L501.9520 ####[facility] [address] [place], [address] Laboratory - Chemistry and C hemistry - challengeOrdered By: Abby Don on 08-31-2024 AST [Catalytic activity/Vol] 39 U/L High <32 [facility] MCV (mean corpuscular volume ) determinationOrdered By: Summer Arian 08-31-2024 MCV (RBC) [Entitic vol] 101.8 fL High 81-99 [facility] Mean corpuscular hemoglobin (MCH) determinationOrdered By: Summer Arian 08-31-2024 MCH (RBC) [Entitic mass] 32.8 pg High 27.0-32.0 [facility] Mean corpuscular hemoglobin concentration (MCHC) determinationOrdered By: Abby Don 08-31-2024 MCHC (RBC) [Mass/Vol] 32.2 g/dL 32-36 [facility] Mean platelet volume determi nationOrdered By: Abby Don 08-31-2024 Platelet mean volume (Bld) [Entitic vol] 13.3 fL High 6.2-12.0 [facility] Platelet countOrdered By: Chantelle Don on 08-31-2024 Platelets (Bld) [#/Vol] 101 10*3/uL Low 150-450 [facility] Potassium measurement (mass/ volume)Ordered By: Abby Don 08-31-2024 Potassium (Unsp spec) [Mass/Vol] 4.3 mmol/L 3.3-5.1 [facility] RBC Auto (Bld) [#/Vol]Ordere d By: Abby Don 08-31-2024 RBC (Bld) [#/Vol] 4.36 10*6/uL 4.2-5.4 [facility] Serum creatinine measurement (mass/volume)Ordered By: Abby Don 08-31-2024 Creatinine [Mass/Vol] 0.74 mg/dL 0.70-1.20 [facility] Serum globulin measurementOr dered By: Abby Don on 08-31-2024 Globulin (S) [Mass/Vol] 2.5 g/dL 2.2-4.2 [facility] Serum glucose measurement (m ass/volume)Ordered By: Abby Don 08-31-2024 Glucose [Mass/Vol] 78 mg/dL 70-99 [facility] Serum or plasma alanine cedillo otransferase (ALT) measurementOrdered By: Abby Don on 08-31-2024 ALT [Catalytic activity/Vol] 45 U/L High <35 [facility] Serum or plasma albumin sunshine urement (mass/volume)Ordered By: Abby Don 08-31-2024 Albumin [Mass/Vol] 4.7 g/dL 3.5-5.0 [facility] Serum or plasma albumin/glob ulin mass ratioOrdered By: Abby Don 08-31-2024 Albumin/Globulin [Mass ratio] 1.9 {ratio} 0.9-2.4 [facility] Serum or plasma alkaline sky sphatase measurementOrdered By: Abby Don 08-31-2024 ALP [Catalytic activity/Vol] 54 U/L 35-104 [facility] Serum or plasma calcium sunshine urement (mass/volume)Ordered By: Abby Don 08-31-2024 Calcium [Mass/Vol] 9.4 mg/dL 7.6-11.0 [facility] Serum or plasma cortisol tricia surement (mass/volume)Ordered By: Abby Don 08-31-2024 Cortisol [Mass/Vol] 11.20 ug/dL 6.02-18.[address] [facility] Serum or plasma estradiol me asurement after follitropin dose (mass/volume)Ordered By: Abby Don on 08-31-2024 E2 post dose follitropin [Mass/Vol] < 5.0 pg/mL [facility] Comment on above: FEMALES ADULT FEMALE : Premenopausal: 15-350 pg/mL(E2 levels vary widely through the menstrual cycle) Postmenopausal: <10 pg/mL SAURAV STAGES MEAN AGE REFERENCE RANGES Stage I(>14 days and prepubertal) 7.1 years Undetectable-20 pg/mLL Stage II 10.5 years Undetectable-24 pg/mL Stage III 11.6 years Undetectable-60 pg/mL Stage IV 12.3 years 15-85 pg/mL Stage V 14.5 years 15-350 pg/mL Puberty onset (transition from Saurav stage I to Saurav stage II) occurs for girls at a median age of 10.5 (/- 2) years. There is evidence that it may occur up to 1 year earlier in obese girls and in girls.Progression through Saurav stages is variable. Saurav stage V (adult) should be reached by age 18. Serum or plasma ferritin tricia surement (mass/volume)Ordered By: Abby Don on 08-31-2024 Ferritin [Mass/Vol] 87 ng/mL 22-378 [facility] Serum or plasma triiodothyro nine (T3) measurement (mass/volume)Ordered By: Abby Don on 08-31-2024 T3 [Mass/Vol] 0.54 ng/mL Low 0.80-2.00 [facility] Serum or plasma urea nitroge n measurement (mass/volume)Ordered By: Abby Don on 08-31-2024 Urea nitrogen [Mass/Vol] 25 mg/dL High 4-19 [facility] Sodium levelOrdered By: [facility] on 08-31-2024 Sodium [Moles/Vol] 138 mmol/L 133-145 [facility] T4 Free Directon 08-31-2024 T4 FREE DIRECT 1.30 ng/dL Normal 0.76-1.46 [facility] Comment on above: Order Comment: N Performed By: #### L 3300.1500, L500.4050, L503.6550, L3100.5310, L3400.0920, L501.84748, L3300.1750, L506.0400, L3400.0700, L501.9187, L506.1001, L3100.5060, L3100.5125, L509.6001, L3300.9910, L3100.5400, L100.0500, L503.0106, L501.9520 ####[facility] [address] [place], [place], [id number] T4 freeOrdered By: Abby Keene son on 08-31-2024 Free T4 [Mass/Vol] 1.30 ng/dL 0.76-1.46 [facility] TSH DL <= 0.005 mIU/L QnOrde red By: Abby Delarosaon on 08-31-2024 TSH Qn 1.590 uIU/mL 0.300-4.200 [facility] Thyroid Stim Hormone (TSH)on 08-31-2024 TSH 1.590 uIU/mL Normal 0.300-4.200 [facility] Comment on above: Performed By: #### L 3300.1500, L500.4050, L503.6550, L3100.5310, L3400.0920, L501.29724, L3300.1750, L506.0400, L3400.0700, L501.9187, L506.1001, L3100.5060, L3100.5125, L509.6001, L3300.9910, L3100.5400, L100.0500, L503.0106, L501.9520 ####[facility] [address] [place], [place], [id number] Total proteinOrdered By: Arvind carlita Delarosaon on 08-31-2024 Protein [Mass/Vol] 7.2 g/dL 5.9-8.4 [facility] Vitamin B12on 08-31-2024 Cobalamin (Vitamin B12) [Mass/Vol] 1154 pg/mL High 180-914 [facility] Comment on above: Performed By: #### L 3300.1500, L500.4050, L503.6550, L3100.5310, L3400.0920, L501.95768, L3300.1750, L506.0400, L3400.0700, L501.9187, L506.1001, L3100.5060, L3100.5125, L509.6001, L3300.9910, L3100.5400, L100.0500, L503.0106, L501.9520 ####[facility] [address] [place], [address] Vitamin B12 ser/plasOrdered By: Abyb Don on 08-31-2024 Cobalamin (Vitamin B12) [Mass/Vol] 1154 pg/mL High 180-914 [facility] Vitamin D,25 Hydroxyon 08-31 Vitamin D 25-OH 64.6 ng/mL Normal 30-100 [facility] Comment on above: Result Comment: Manjula min D Status Deficiency: <20 ng/mL (50nmol/L) Insufficiency: 20-30 ng/mL (50-75 nmol/L) Sufficiency: 30-100 ng/mL (75-250 nmol/L) Toxicity: >100 ng/mL (>250 nmol/L) Performed By: #### L 3300.1500, L500.4050, L503.6550, L3100.5310, L3400.0920, L501.13817, L3300.1750, L506.0400, L3400.0700, L501.9187, L506.1001, L3100.5060, L3100.5125, L509.6001, L3300.9910, L3100.5400, L100.0500, L503.0106, L501.9520 ####[facility] [address] [place], [address] White blood cell (WBC) count Ordered By: Abby Don on 08-31-2024 WBC (Bld) [#/Vol] 2.9 10*3/uL Low 4.4-11.0 [facility] Nicotine Screen Urine SENDOU Ton 05-08-2024 COMMENT Comment Normal . [facility] Comment on above: Result Comment: This analysis is performed by immunoassay. Positive findings are unconfirmed analytical test results; if results do not support expected clinical finding, confirmation by an alternate methodology is recommended. Patient metabolic variables, specific drug chemistry, and specimen characteristics can affect test outcome. Technical consultation is available at [email or web address] or call toll free [phone]. Performed at: [facility] [address] [place], [place] [id number] Side Stapler: Marquita Handley PhD, Phone: [phone] Performed By: #### L 3890.6006, L500.2500, L500.4100, L501.9520, L3600.3300, L501.9985, L502.0250 ####[facility] [address] [place], [address] COTININE SCR UR Negative Normal Ypnmxw=006 [facility] Comment on above: Result Comment: [facility] ER FOR ACTIVE SMOKING. COTININE IS THE MAJOR METABOLITE OF NICOTINE AND MAY BE DETECTED FOR LONG 7 DAYS AFTER EXPOSURE. CUTOFF IS SET HIGH TO RULE OUT PASSIVE INHALATION. Performed By: #### L 3890.6006, L500.2500, L500.4100, L501.9520, L3600.3300, L501.9985, L502.0250 ####[facility] [address] [place], [place], [id number] Albumin DL <= 20 mg/L (U) [M ass/Vol]Ordered By: Suzanne Leyva on 05-04-2024 Urine Random Microalbumin < 12.0 mg/L NO RANGE EST. [facility] Anion gap in Serum or Plasma Ordered By: Suzanne Leyva on 05-04-2024 Anion gap [Moles/Vol] 12 mmol/L - [facility] BUN/creatinine ratioOrdered By: Suzanne Leyva on 05-04-2024 Urea nitrogen/Creatinine [Mass ratio] 15.4 mg/mg - [facility] Basic Metabolic Profile (BMP )on 05-04-2024 BUN/CRE 15.4 RATIO Normal - [facility] Comment on above: Performed By: #### L 3890.6006, L500.2500, L500.4100, L501.9520, L3600.3300, L501.9985, L502.0250 ####[facility] [address] [place], [place], [id number] Calcium [Mass/Vol] 9.0 mg/dL Normal 7.6-11.0 [facility] Comment on above: Performed By: #### L 3890.6006, L500.2500, L500.4100, L501.9520, L3600.3300, L501.9985, L502.0250 ####[facility] [address] [place], [address] Chloride [Moles/Vol] 101 mmol/L Normal 98-[address] [facility] Comment on above: Performed By: #### L 3890.6006, L500.2500, L500.4100, L501.9520, L3600.3300, L501.9985, L502.0250 ####[facility] [address] [place], [address] CO2 [Moles/Vol] 24.9 mmol/L Normal 21.0-32.0 [facility] Comment on above: Performed By: #### L 3890.6006, L500.2500, L500.4100, L501.9520, L3600.3300, L501.9985, L502.0250 ####[facility] [address] [place], [place], [id number] Creatinine [Mass/Vol] 0.90 mg/dL Normal 0.70-1.20 [facility] Comment on above: Performed By: #### L 3890.6006, L500.2500, L500.4100, L501.9520, L3600.3300, L501.9985, L502.0250 ####[facility] [address] [place], [address] GAP 12 Normal 5-15 [facility] Comment on above: Performed By: #### L 3890.6006, L500.2500, L500.4100, L501.9520, L3600.3300, L501.9985, L502.0250 ####[facility] [address] [place], [address] GFR/1.73 sq M.predicted among non-blacks MDRD (S/P/Bld) [Vol rate/Area] 85 mL/min/{1.73_m2} Normal >60 [facility] Comment on above: Result Comment: mL/m in/1.73m2 CKD-EPI Creatinine Equation (2020) Performed By: #### L 3890.6006, L500.2500, L500.4100, L501.9520, L3600.3300, L501.9985, L502.0250 ####[facility] [address] [place], [address] Glucose [Mass/Vol] 94 mg/dL Normal 70-99 [facility] Comment on above: Performed By: #### L 3890.6006, L500.2500, L500.4100, L501.9520, L3600.3300, L501.9985, L502.0250 ####[facility] [address] [place], [address] Potassium [Moles/Vol] 4.4 mmol/L Normal 3.3-5.1 [facility] Comment on above: Performed By: #### L 3890.6006, L500.2500, L500.4100, L501.9520, L3600.3300, L501.9985, L502.0250 ####[facility] [address] [place], [address] Sodium [Moles/Vol] 138 mmol/L Normal 133-145 [facility] Comment on above: Performed By: #### L 3890.6006, L500.2500, L500.4100, L501.9520, L3600.3300, L501.9985, L502.0250 ####[facility] [address] [place], [address] Urea nitrogen [Mass/Vol] 14 mg/dL Normal 4-19 [facility] Comment on above: Performed By: #### L 3890.6006, L500.2500, L500.4100, L501.9520, L3600.3300, L501.9985, L502.0250 ####[facility] [address] [place], [address] Calculated very low density lipoprotein (VLDL) cholesterol measurementOrdered By: Suzanne Leyva on 05-04-2024 VLDL Cholesterol 6 mg/dL 5-40 [facility] Carbon dioxide, total [Moles /volume] in Central venous bloodOrdered By: Suzanne Leyva on 05-04-2024 CO2 [Moles/Vol] 24.9 mmol/L 21.0-32.0 [facility] Chloride assayOrdered By: Darrell Leyva on 05-04-2024 Chloride [Moles/Vol] 101 mmol/L 98-[address] [facility] Cotinine Screen Ql (U)Ordere d By: Suzanne Leyva on 05-04-2024 Urine Nicotine & Cotinine Negative Chkxjj=855 [facility] Comment on above: MARKER FOR ACTIVE SM OKING. COTININE IS THE MAJOR METABOLITEOF NICOTINE AND MAY BE DETECTED FOR LONG 7 DAYS AFTEREXPOSURE. CUTOFF IS SET HIGH TO RULE OUT PASSIVE INHALATION. Creatinine Unsp time (U) [Ma ss/Vol]Ordered By: Suzanne Leyva on 05-04-2024 Creatinine (U) [Mass/Vol] 108.00 mg/dL 28-217 [facility] GFR/1.73 sq M.predicted tre g non-blacks MDRD (S/P/Bld) [Vol rate/Area]Ordered By: Suzanne Leyva on 05-04-2024 Estimated GFR (MDRD) Non-Af Amer 85 >60 [facility] Comment on above: mL/min/1.73m2 CKD-EP I Creatinine Equation (2020) Hemoglobin A1con 05-04-2024 HbA1c (Bld) [Mass fraction] 5.1 % Low <=5.6 [facility] Comment on above: Performed By: #### L 3890.6006, L500.2500, L500.4100, L501.9520, L3600.3300, L501.9985, L502.0250 ####[facility] [address] [place], [address] Hemoglobin A1c percentageOrd ered By: Suzanne Leyva on 05-04-2024 HbA1c (Bld) [Mass fraction] 5.1 % Low >5.7 [facility] L3890.6006on 05-04-2024 HIV Non-Reactive Normal Nonreactive [facility] Comment on above: Result Comment: Non- Reactive Reactive Repeatedly reactive samples must be confirmed according to CDC recommended confirmatory algorithms. The subresults for either HIVAG or AHIV can be used as an aid in the selection of the confirmation algorithm for reactive samples. Send out specimens with Reactive results to [facility] for confirmation. Order the HIV antibody detection and differentiation: lc#[id number] Performed By: #### L 3890.6006, L500.2500, L500.4100, L501.9520, L3600.3300, L501.9985, L502.0250 ####[facility] [address] [place], [place], [id number] LDL calc ser/plasOrdered By: Suzanne Leyva on 05-04-2024 LDL Cholesterol, Calculated 69 mg/dL [facility] Comment on above: Fqrgplxosi=833-819 m g/dL & Higher Upxn=611 mg/dL or greater Lipid Profileon 05-04-2024 CHOL:HDL 1.94 Normal [facility] Comment on above: Performed By: #### L 3890.6006, L500.2500, L500.4100, L501.9520, L3600.3300, L501.9985, L502.0250 ####[facility] [address] [place], [place], [address] Cholesterol [Mass/Vol] 155 mg/dL Normal <=200 [facility] Comment on above: Result Comment: Chol esterol level, Desirable <200 mg/dL Borderline high cholesterol 200-239 mg/dL High cholesterol >=240 mg/dL Recommendations of the NCEP Adult Treatment Panel for the following risk-cutoff thresholds for the [place] population. Performed By: #### L 3890.6006, L500.2500, L500.4100, L501.9520, L3600.3300, L501.9985, L502.0250 ####[facility] [address] [place], [address] Cholesterol in HDL [Mass/Vol] 80 mg/dL Normal [facility] Comment on above: Result Comment: Rosanne onal Cholesterol Education Program (NCEP) guidelines: <40 mg/dL: Low HDL-cholesterol (major risk factor for CHD) >= 60 mg/dL: High HDL-cholesterol (negative risk factor for CHD) HDL-cholesterol is affected by a number of factors, e.g. smoking, exercise, hormones, sex and age. Performed By: #### L 3890.6006, L500.2500, L500.4100, L501.9520, L3600.3300, L501.9985, L502.0250 ####[facility] [address] [place], [address] Cholesterol in LDL [Mass/Vol] 69 mg/dL Normal [facility] Comment on above: Result Comment: Bord jyotpj=616-041 mg/dL Higher Eaeh=438 mg/dL or greater Performed By: #### L 3890.6006, L500.2500, L500.4100, L501.9520, L3600.3300, L501.9985, L502.0250 ####[facility] [address] [place], [address] Cholesterol in VLDL [Mass/Vol] 6 mg/dL Normal 5-40 [facility] Comment on above: Performed By: #### L 3890.6006, L500.2500, L500.4100, L501.9520, L3600.3300, L501.9985, L502.0250 ####[facility] [address] [place], [address] Triglyceride [Mass/Vol] 29 mg/dL Normal [facility] Comment on above: Result Comment: The drugs N-Acetylcysteine and Metamizole may falsely depress this assay. Normal range: <150 mg/dL Borderline High: 150-199 mg/dL High: 200-499 mg/dL Very High: >500 mg/dL Performed By: #### L 3890.6006, L500.2500, L500.4100, L501.9520, L3600.3300, L501.9985, L502.0250 ####[facility] [address], [address] Microalb:Creat Ratio,Random URon 05-04-2024 Creatinine [Mass/Vol] 108.00 mg/dL Normal 28-217 [facility] Comment on above: Performed By: #### L 3890.6006, L500.2500, L500.4100, L501.9520, L3600.3300, L501.9985, L502.0250 ####[facility] [address] [place], [place], [id number] MALB:CREAT UNABLE TO CALCULATE Normal [facility] Comment on above: Performed By: #### L 3890.6006, L500.2500, L500.4100, L501.9520, L3600.3300, L501.9985, L502.0250 ####[facility] [address] [place], [address](230 MICROALBUMIN,UR < 12.0 Normal NO RANGE EST. [facility] Comment on above: Performed By: #### L 3890.6006, L500.2500, L500.4100, L501.9520, L3600.3300, L501.9985, L502.0250 ####[facility] [address] [place], [place], [address] Microalbumin/creat ratio urO rdered By: Suzanne Leyva on 05-04-2024 Urine Microalbumin/Creatinine Ratio UNABLE TO CALCULATE mg/g CRE [facility] No Panel InformationOrdered By: Suzanne Leyva on 05-04-2024 HIV (1&2) Antibody Non-Reactive Nonreactive [facility] Comment on above: Non-ReactiveReactive Repeatedly reactive samples must be confirmed according to CDC recommended confirmatory algorithms. The subresults for either HIVAG or AHIV can be used as an aid in the selection of the confirmation algorithm for reactive samples.Send out specimens with Reactive results to [facility] for confirmation.Order the HIV antibody detection and differentiation: #[id number] Potassium (Unsp spec) [Mass/ Vol]Ordered By: Suzanne Leyva on 05-04-2024 Potassium [Moles/Vol] 4.4 mmol/L 3.3-5.1 [facility] Screening total cholesterol/ high density lipoprotein (HDL) cholesterol ratioOrdered By: Suzanne Leyva on 05-04-2024 Cholesterol.total/Paola sterol in HDL [Mass ratio] 1.94 {ratio} [facility] Serum creatinine measurement (mass/volume)Ordered By: Suzanne Leyva on 05-04-2024 Creatinine [Mass/Vol] 0.90 mg/dL 0.70-1.20 [facility] Serum glucose measurement (m ass/volume)Ordered By: Suzanne Leyva on 05-04-2024 Glucose [Mass/Vol] 94 mg/dL 70-99 [facility] Serum or plasma calcium sunshine urement (mass/volume)Ordered By: Suzanne Leyva on 05-04-2024 Calcium [Mass/Vol] 9.0 mg/dL 7.6-11.0 [facility] Serum or plasma cholesterol in HDL measurement (mass/volume)Ordered By: Suzanne Leyva on 05-04-2024 Cholesterol in HDL [Mass/Vol] 80 mg/dL >40 [facility] Comment on above: National Cholesterol Education Program (NCEP) guidelines:<40 mg/dL: Low HDL-cholesterol (major risk factor for CHD)>= 60 mg/dL: High HDL-cholesterol (negative risk factor for CHD)HDL-cholesterol is affected by a number of factors, e.g. smoking, exercise, hormones, sex and age. Serum or plasma cholesterol measurement (mass/volume)Ordered By: Suzanne Leyva on 05-04-2024 Cholesterol [Mass/Vol] 155 mg/dL <201 [facility] Comment on above: Cholesterol level, D esirable <200 mg/dLBorderline high cholesterol 200-239 mg/dLHigh cholesterol >=240 mg/dLRecommendations of the NCEP Adult Treatment Panel for the following risk-cutoff thresholds for the [place] population. Serum or plasma urea nitroge n measurement (mass/volume)Ordered By: Suzanne Leyva on 05-04-2024 Urea nitrogen [Mass/Vol] 14 mg/dL 4-19 [facility] Sodium levelOrdered By: Suzanne Leyva on 05-04-2024 Sodium [Moles/Vol] 138 mmol/L 133-145 [facility] TSH DL <= 0.005 mIU/L QnOrde red By: Suzanne Leyva on 05-04-2024 Thyroid Stimulating Hormone (TSH) 0.563 uIU/mL 0.300-4.200 [facility] Thyroid Stim Hormone (TSH)on 05-04-2024 TSH 0.563 uIU/mL Normal 0.300-4.200 [facility] Comment on above: Performed By: #### L 3890.6006, L500.2500, L500.4100, L501.9520, L3600.3300, L501.9985, L502.0250 ####[facility] [address] [place], [address] Triglycerides measurementOrd ered By: Suzanneisi Leyva on 05-04-2024 Triglyceride [Mass/Vol] 29 mg/dL <199 [facility] Comment on above: The drugs N-Acetylcy steine and Metamizole may falsely depress this assay. Normal range: <150 mg/dLBorderline High: 150-199 mg/dLHigh: 200-499 mg/dLVery High: >500 mg/dL Virtual Office Visiton 03-[address] [facility] [address] [place] [address] OFFICE VISIT Date of Service: 03/04/24 MR#: [id number] Acct: [id number] Patient: IDALMIS MAHONEY Rep #: [id number] : 1990 Provider: Enma Knott NP Age/Sex: 33/F Location: [facility] [place] Status: Signed Intake Vital Signs 01/03/24 15:22 Height 5 ft 7 in Intake Visit Reasons: phone visit, mastitis follow Chief Complaint: mastitis follow up Allergies No Known Allergies Allergy (Verified 01/03/24 15:27) PFS Medical History Supervision of high-risk AMA (advanced maternal age) multigravida 35+ False labor after 37 completed weeks of gestation Encounter for induction of labor Blood disorder Non-smoker Thyroid disease (11/22/19) Skin cancer (11/21/20) Macrocytosis without anemia Ovarian cyst Thrombocytopenia Surgical History History of removal of skin mole [place] teeth extracted Family History Father Skin cancer [...] weight training frequency: daily duration: 45-60 minutes/day corina/anglican: Yazidism seatbelt use: always do you feel safe at home: Yes additional social history: [employer] Female Reproductive History Menstrual Ab induced: [...] as above. 03/05/24 1015 Date Enma Fortune HOUSECALLS NURSE HOUSECALLS NURSE-C Cosigner Signature: Date (if applicable) CC: Normal [facility] Serum or plasma thyroxine (T 4) measurement (mass/volume)Ordered By: Malorie Wilkins on 01-23-2024 T4 [Mass/Vol] 8.5 ug/dL 4.8-13.9 [facility] T4 Total, Thyroxinon 024 T4 [Mass/Vol] 8.5 ug/dL Normal 4.8-13.9 [facility] Comment on above: Performed By: #### L 501.9310, L501.9520 ####[facility] [address] [place], [place], [address] TSH QnOrdered By: Malorie mott on 01-23-2024 Thyroid Stimulating Hormone (TSH) 0.315 uIU/mL Low 0.358-3.740 [facility] Thyroid Stim Hormone (TSH)on 01-23-2024 TSH 0.315 uIU/mL Low 0.358-3.740 [facility] Comment on above: Performed By: #### L 501.9310, L501.9520 ####[facility] [address] [place], [place], [address] [employer] Drafter Office Visit Reporton 01-03-2024 [employer] Drafter Office Visit Report [facility] [address] [place] [address], [address] [place] [address] OFFICE VISIT Date of Service: 01/03/24 MR#: [id number] Acct: [id number] Name: IDALMIS MAHONEY Rep #: [id number] : 1990 Provider: SCHUYLER Garzon ams Age/Sex: 33/F Location: [facility] Status: Signed Intake Vital Signs 11/25/23 07:16 01/03/24 15:22 Height 5 ft 7 in 5 ft 7 in Weight: 149 lb 4 oz BMI 23.3 BP 108/68 Intake Visit Reasons: visit (obstetrics) Content Producer Required: No Is patient in pain?: No [...] History History of removal of skin mole [place] teeth extracted Family History Father Skin cancer [...] weight training frequency: daily duration: 45-60 minutes/day corina/anglican: Yazidism seatbelt use: always do you feel safe at home: Yes additional social history: Bran- [employer] CAB History 3 Elective abortions 0 Hx Para 3 Spontaneous abortions 0 Hx # Term Pregnancies 3 Ectopic pregnancies 0 Hx # Pregnancies 0 Multiple births 0 # of living children 3 Past Pregnancies Del. Date Name GA/Weeks Outcome Route Bth Weight Infant Gen Labor Lgth Anesthesia Del Locatn Provider FOB 02/24/17 Idamarie 40 live - full term 6lb 4oz Female 23 none [facility] Se als Bran 08/29/20 Tamara 41 live - full term 7#12oz Female none [facility] Hol mes-Arian Bran 11/25/23 Renita 40 live - full term Female epidural [facility] KW Bran Delivery Date: 11/25/23 Last Updated [...] old who presents for her post visit. Feeding: Breast Menses resumed: No [place] since delivery: No Emotional Support: Yes Last [...] oriented x3 (more content not included)... Normal [facility] CBC W/Diff, Automatedon 10-0 Absolute Lymph 1.52 X10 3/uL Normal 0.83-4.51 [facility] Comment on above: Performed By: #### Shanti RON, L100.0100 ####[facility] [address] [place], [address] Absolute Neut 6.3 X10 3/uL Normal 2.0-7.7 [facility] Comment on above: Performed By: #### Shanti RON, L100.0100 ####[facility] [address] [place], [address] Basophils/100 WBC (Bld) 0.4 % Normal 0-1 [facility] Comment on above: Performed By: #### Shanti RON, L100.0100 ####[facility] [address] [place], [address] Eosinophils/100 WBC (Bld) 0.5 % Normal 0-5 [facility] Comment on above: Performed By: #### Shanti RON, L100.0100 ####[facility] [address] [place], [address] Erythrocyte distribution width (RBC) [Ratio] 12.3 % Normal 11.6-14.6 [facility] Comment on above: Performed By: #### Shanti RON, L100.0100 ####[facility] [address] [place], [address] Hematocrit (Bld) [Volume fraction] 41.8 % Normal 37-47 [facility] Comment on above: Performed By: #### Shanti RON, L100.0100 ####[facility] [address] [place], [address] Hemoglobin (Bld) [Mass/Vol] 13.6 g/dL Normal 12.0-15.0 [facility] Comment on above: Performed By: #### Shanti RON, L100.0100 ####[facility] [address] [place], [address] IG% 0.500 Normal 0.0-0.9 [facility] Comment on above: Result Comment: IG% - Immature Granulocytes (promyelocytes, myelocytes and metamyelocytes) > 1% indicates that a LEFT SHIFT is Present. Performed By: #### Shanti RON, L100.0100 ####[facility] [address] [place], [address] Lymphocytes/100 WBC (Bld) 18.3 % Low 19-41 [facility] Comment on above: Performed By: #### Shanti RON, L100.0100 ####[facility] [address] [place], [address] MCH (RBC) [Entitic mass] 34.2 pg High 27.0-32.0 [facility] Comment on above: Performed By: #### Shanti RON, L100.0100 ####[facility] [address] [place], [address] MCHC (RBC) [Mass/Vol] 32.5 g/dL Normal 32-36 [facility] Comment on above: Performed By: #### Shanti RON, L100.0100 ####[facility] [address] [place], [address] MCV (RBC) [Entitic vol] 105.0 fL High 81-99 [facility] Comment on above: Performed By: #### Shanti RON, L100.0100 ####[facility] [address] [place], [address] Monocytes/100 WBC (Bld) 4.6 % Normal 0-10 [facility] Comment on above: Performed By: #### Shanti RON, L100.0100 ####[facility] [address] [place], [address] Neutrophils/100 WBC (Bld) 75.7 % High 47-70 [facility] Comment on above: Performed By: #### Shanti RON, L100.0100 ####[facility] [address] [place], [address] Nucleated RBC (Bld) [#/Vol] 0 10*3/uL Normal 0-5 [facility] Comment on above: Performed By: #### Shanti RON, L100.0100 ####[facility] [address] [place], [address] Platelet mean volume (Bld) [Entitic vol] 12.4 fL High 6.2-12.0 [facility] Comment on above: Performed By: #### Shanti RON, L100.0100 ####[facility] [address] [place], [address] Platelets (Bld) [#/Vol] 120 10*3/uL Low 150-450 [facility] Comment on above: Performed By: #### Shanti RON, L100.0100 ####[facility] [address] [place], [address] RBC (Bld) [#/Vol] 3.98 10*6/uL Low 4.2-5.4 [facility] Comment on above: Performed By: #### Shanti RON, L100.0100 ####[facility] [address] [place], [address] RDW SD 48.0 fl High 35.1-43.9 [facility] Comment on above: Performed By: #### B TS, L100.0100 ####[facility] [address] [place], [address] WBC (Bld) [#/Vol] 8.3 10*3/uL Normal 4.4-11.0 [facility] Comment on above: Performed By: #### B TS, L100.0100 ####[facility] [address] [place], [address] Discharge Instructionon 0 Discharge Instruction [facility] Medical Records Department [address] [facility] [place] [address] Instructions for Home/Discharge Instructions 11/25/23 1347 MR#: [id number] Acct: [id number] Name: IDALMIS MAHONEY Rep #: [id number] : 1990 33 From: Chris Leslie CNM [...] 75 mcg tablet 75 mcg PO DAILY vit,fycb65-bzqa-jzcwe 1 TABLET tablet 1 tab PO DAILY Referrals / Follow Up: Suzanne Leyva MD [Primary Care Provider] - 11/25/23 1347 Chris Leslie CNM CC: Dr. Suzanne Leyva MD Signed Normal [facility] H AND P Exam - OB/GYNon H&P Exam - HYDRAULIC LIFT OPERATOR [facility] Medical Records Department [address] [place] [address] H P Exam - HYDRAULIC LIFT OPERATOR 11/25/23 0737 MR#: [id number] Acct: [id number] Name: IDALMIS MAHONEY Rep #: [id number] : 1990 33 From: Chris Leslie CNM PCP: Dr. Suzanne Leyva MD Status:ADM IN Location: [id number] HPI - General General Date of Admission: [...] History History of removal of skin mole [place] teeth extracted Social History adopted: No household [...] weight training frequency: daily duration: 45-60 minutes/day corina/anglican: Yazidism seatbelt use: always do you feel safe at home: Yes additional social history: Bran- [employer] CAB History 3 Elective abortions 0 Hx Para 2 Spontaneous abortions 0 Hx # Term Pregnancies 2 Ectopic pregnancies 0 Hx # Pregnancies 0 Multiple births 0 # of living children 2 Past Pregnancies Del. Date Name GA/Weeks Outcome Route Bth Weight Infant Gen Labor Lgth Anesthesia Del Locatn Provider FOB 02/24/17 Mattie 40 live - full term 6lb 4oz Female 23 none [facility] Se als Bran 08/29/20 Tamara 41 live - full term 7#12oz Female none [facility] Maxine chavez-Arian Sotomayor Visit Details Expected Delivery Route/Plan Labor [...] Don. Th (more content not included)... Normal [facility] L509.8000on 11-25-2023 Syphilis Abs Non-Reactive [facility] Comment on above: Performed By: #### L 509.8000 ####[facility] [address] [place], [address] Operative Reporton 4 Operative Report [facility] Medical Records Department [address] [place] [address] Operative Report 11/25/23 1343 MR#: [id number] Acct: [id number] Name: IDALMIS MAHONEY Rep #: [id number] : 1990 33 From: Chris Leslie CNM PCP: Dr. Suzanne Leyva MD Status:ADM IN Location: [id number] Assessment Plan (1) Vaginal delivery: COMMENT: KW [...] consult placed, 08/02/23 approved for delivery at [facility] if >100K. 28w:121k. Recheck 4 wk (5) [...] a loose nuchal cord was identified and infant delivered through. The anterior and posterior shoulders delivered without complication followed by the rest of the and the was placed on the maternal abdomen. Delayed [...] Surgery / Procedure Performed: Spontaneous Vaginal Delivery repairer helper #1: Chris Leslie Type of Anesthesia: Epidural Estimated Blood Loss: 400 Time of Delivery: 13:23 Findings Presentation: Vertex Amniotic Membrane Rupture Type: Artificial Amniotic Fluid Description: Clear Placental Delivery Description: Spontaneous Placenta Disposition: [facility] Cord Vessel Description: 3 Vessels Cord Entanglement: Around neck x 1, loose A Gender: Female (1 minute): 8 (5 minute): 9 Delayed Cord Clamping: Yes Post Vaginal Delivery Medications Given After Delivery: IV Pitocin and IM Methergin Episiotomy Description: None Laceration: None Complication Complications: None Multi Select Codes Urinary/Genital Urinary/Genital CPT Codes: 33651 Vaginal Delivery [facility] 11/25/23 1347 Cosigner Signature (if applicable): CC: SCHUYLER Leslie; Dr. Suzanne Leyva MD Signed ADDENDUM by SCHUYLER Leslie on 11/25/23 at 1650 Addendum 11/25/23 1650 Cosigner Signature (if applicable): cc: SCHUYLER Leslie; Dr. Suzanne Leyva MD * Signed Normal [facility] Type AND Screenon 11-25-2023 Ab SCREEN GEL Negative Normal [facility] Comment on above: Order Comment: Labor Performed By: #### B TS, L100.0100 ####[facility] [address] [place], [address] ABO and Rh group Nom (Bld) Blood group A Rh(D) positive [facility] Comment on above: Order Comment: Labor Performed By: #### B TS, L100.0100 ####[facility] [address] [place], [address] [employer] Drafter Office Visit Reporton 11-23-2023 [employer] Design Layout Drafter Office Visit Report [facility] [address], [address] [place] [address] OFFICE VISIT Date of Service: 11/23/23 MR#: [id number] Acct: [id number] Name: IDALMIS MAHONEY Rep #: [id number] : 1990 Provider: Dr. Gisela badillo MD Age/Sex: 33/F Location: [facility] Status: Signed Intake Vital Signs 11/22/23 08:28 11/23/23 08:24 11/23/23 08:29 Height 5 ft 7 in 5 ft 7 in 5 ft 7 in Weight: 175 lb BMI 27.3 BP 103/67 Intake Visit Reasons: membrane sweep Content Producer Required: No Is patient in pain?: No [...] Zika virus screening: Negative : No PFSH PFS Medical History Blood disorder Non-smoker Thyroid disease (11/22/19) Skin cancer (11/21/20) Macrocytosis without anemia Ovarian cyst Thrombocytopenia Surgical History History of removal of skin mole [place] teeth extracted Family History Father Skin cancer [...] weight training frequency: daily duration: 45-60 minutes/day corina/anglican: Yazidism seatbelt use: always do you feel safe at home: Yes additional social history: [employer] History 3 Elective abortions 0 Hx Para 2 Spontaneous abortions 0 Hx # Term Pregnancies 2 Ectopic pregnancies 0 Hx # Pregnancies 0 Multiple births 0 # of living children 2 Past Pregnancies Del. Date Name GA/Weeks Outcome Route Bth Weight Infant Gen Labor Lgth Anesthesia Del Locatn Provider FOB 02/24/17 Idamarie 40 live - full term 6lb 4oz Female 23 none [facility] Se als Bran 08/29/20 Tamara 41 live - full term 7#12oz Female none [facility] Maxine chavez-Arian Sotomayor HPI membrane sweep Details: IDALMIS MAHONEY is [...] ordered by (more content not included)... Normal [facility] CBC-Complete Blood Cnt No Di ffon 11-22-2023 Erythrocyte distribution width (RBC) [Ratio] 12.3 % Normal 11.6-14.6 [facility] Comment on above: Performed By: #### L 100.0500 ####[facility] [address] [place], [address] Hematocrit (Bld) [Volume fraction] 39.4 % Normal 37-47 [facility] Comment on above: Performed By: #### L 100.0500 ####[facility] [address] [place], [address] Hemoglobin (Bld) [Mass/Vol] 12.7 g/dL Normal 12.0-15.0 [facility] Comment on above: Performed By: #### L 100.0500 ####[facility] [address] [place], [address] MCH (RBC) [Entitic mass] 33.9 pg High 27.0-32.0 [facility] Comment on above: Performed By: #### L 100.0500 ####[facility] [address] [place], [address] MCHC (RBC) [Mass/Vol] 32.2 g/dL Normal 32-36 [facility] Comment on above: Performed By: #### L 100.0500 ####[facility] [address] [place], [address] MCV (RBC) [Entitic vol] 105.1 fL High 81-99 [facility] Comment on above: Performed By: #### L 100.0500 ####[facility] [address] [place], [address] Platelet mean volume (Bld) [Entitic vol] 12.5 fL High 6.2-12.0 [facility] Comment on above: Performed By: #### L 100.0500 ####[facility] [address] [place], [address] Platelets (Bld) [#/Vol] 122 10*3/uL Low 150-450 [facility] Comment on above: Performed By: #### L 100.0500 ####[facility] [address] [place], [address] RBC (Bld) [#/Vol] 3.75 10*6/uL Low 4.2-5.4 [facility] Comment on above: Performed By: #### L 100.0500 ####[facility] [address] [place], [address] RDW SD 48.1 fl High 35.1-43.9 [facility] Comment on above: Performed By: #### L 100.0500 ####[facility] [address] [place], [address] WBC (Bld) [#/Vol] 8.5 10*3/uL Normal 4.4-11.0 [facility] Comment on above: Performed By: #### L 100.0500 ####[facility] [address] [place], [address] [employer] Office Visit Reporton 11-22-2023 [employer] Office Visit Report [facility]'[address], [address] [place] [address] OFFICE VISIT Date of Service: 11/22/23 MR#: [id number] Acct: [id number] Name: IDALMIS MAHONEY Rep #: [id number] : 1990 Provider: Dr. Tyesha Baker DO Age/Sex: 33/F Location: [facility] Status: Signed Intake Vital Signs 10/13/23 10:48 11/17/23 09:51 11/17/23 11:53 11/22/23 08:27 11/22/23 08:28 Height 5 ft 7 in 5 ft 7 in 5 ft 7 in 5 ft 7 in 5 ft 7 in Weight: 172 lb BMI 26.9 BP 118/72 Intake Visit Reasons: 40 WK OB MEMBRANE SWEEP Content Producer Required: No Is patient in pain?: No [...] History History of removal of skin mole [place] teeth extracted Family History Father Skin cancer [...] weight training frequency: daily duration: 45-60 minutes/day corina/anglican: Yazidism seatbelt use: always do you feel safe at home: Yes additional social history: [employer] History 3 Elective abortions 0 Hx Para 2 Spontaneous abortions 0 Hx # Term Pregnancies 2 Ectopic pregnancies 0 Hx # Pregnancies 0 Multiple births 0 # of living children 2 Past Pregnancies Del. Date Name GA/Weeks Outcome Route Bth Weight Infant Gen Labor Lgth Anesthesia Del Locatn Provider FOB 02/24/17 Idamarie 40 live - full term 6lb 4oz Female 23 none [facility] Se als Bran 08/29/20 Tamara 41 live - full term 7#12oz Female none [facility] Hol mes-Arian Bran HPI 40 WK OB [...] cons w (more content not included)... Normal [facility] OB Triage Physician Noteon 0 11-17-2023 OB Triage Physician Note [facility] Medical Records Department [address] [place] [address] OB Triage Physician Note 11/17/23 2327 MR#: [id number] Acct: [id number] Name: IDALMIS MAHONEY Rep #: [id number] : 1990 33 From: Tyesha Bowman DO [...] History History of removal of skin mole [place] teeth extracted Social History adopted: No household [...] weight training frequency: daily duration: 45-60 minutes/day corina/anglican: Yazidism seatbelt use: always do you feel safe at home: Yes additional social history: [employer] History 3 Elective abortions 0 Hx Para 2 Spontaneous abortions 0 Hx # Term Pregnancies 2 Ectopic pregnancies 0 Hx # Pregnancies 0 Multiple births 0 # of living children 2 Past Pregnancies Del. Date Name GA/Weeks Outcome Route Bth Weight Gen Labor Lgth Anesthesia Del Locatn Provider FOB 02/24/17 Idamarie 40 live - full term 6lb 4oz Female 23 none [facility] Se als Bran 08/29/20 Tamara 41 live - full term 7#12oz Female none [facility] Hol mes-Arian Sotomayor Visit Details Expected Delivery Route/Plan Labor [...] -???-???-???-???-???-???- ???-???-???-???-?? (more content not included)... Normal [facility] [employer] Office Visit Reporton 11-17-2023 [employer] Office Visit Report [facility] [address], [address] [place] [address] OFFICE VISIT Date of Service: 11/17/23 MR#: [id number] Acct: [id number] Name: IDALMIS MAHONEY Rep #: [id number] : 1990 Provider: Dr. Tyesha Baker, Age/Sex: 33/F Location: [facility] Status: Signed Intake Vital Signs 10/13/23 10:48 11/09/23 10:20 11/17/23 09:49 11/17/23 09:51 Height 5 ft 7 in 5 ft 7 in 5 ft 7 in 5 ft 7 in Weight: 174 lb 8 oz BMI 27.3 BP 111/68 Intake Visit Reasons: 39 WK OB/NST Content Producer Required: No Is patient in pain?: No [...] History History of removal of skin mole [place] teeth extracted Family History Father Skin cancer Grandfather Colon cancer Uncle Colon cancer Social History adopted: No household members: spouse and children number of children: 2 current occupational status: employed 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 Date Name GA/Weeks Outcome Route Bth Weight Infant Gen Labor Lgth Anesthesia Del Locatn Provider FOB 02/24/17 Giancarlo 40 live - full term 6lb 4oz Female 23 none [facility] Se als Bran 08/29/20 Tamara 41 live - full term 7#12oz Female none [facility] Hol mes-Arian Sotomayor HPI 39 WK OB/NST Details: IDALMIS MAHONEY [...] NIPT. NAltr (more content not included)... Normal [facility] [employer] Office Visit Reporton 11-09-2023 [employer] Office Visit Report [facility] [address], [address] [place] [address] OFFICE VISIT Date of Service: 11/09/23 MR#: [id number] Acct: [id number] Name: IDALMIS MAHONEY Rep #: [id number] : 1990 Provider: Dr. Gisela badillo MD Age/Sex: 33/F Location: [facility] Status: Signed Intake Vital Signs 09/28/23 11:43 11/02/23 14:53 11/09/23 10:17 11/09/23 10:20 Height 5 ft 7 in 5 ft 7 in 5 ft 7 in 5 ft 7 in Weight: 171 lb BMI 26.7 BP 108/66 Intake Visit Reasons: 38 WK OB Content Producer Required: No Is patient in pain?: No [...] History History of removal of skin mole [place] teeth extracted Family History Father Skin cancer [...] weight training frequency: daily duration: 45-60 minutes/day corina/anglican: Yazidism seatbelt use: always do you feel safe at home: Yes additional social history: [employer] History 3 Elective abortions 0 Hx Para 2 Spontaneous abortions 0 Hx # Term Pregnancies 2 Ectopic pregnancies 0 Hx # Pregnancies 0 Multiple births 0 # of living children 2 Past Pregnancies Del. Date Name GA/Weeks Outcome Route Bth Weight Gen Labor Lgth Anesthesia Del Locatn Provider FOB 02/24/17 Idamarie 40 live - full term 6lb 4oz Female 23 none [facility] Se als Bran 08/29/20 Tamara 41 live - full term 7#12oz Female none [facility] Hol kathy-Arian Sotomayor HPI 38 WK OB Details: IDALMIS MAHONEY [...] NIPT. NAltrexo (more content not included)... Normal [facility] [employer] Office Visit Reporton 11-02-2023 [employer] Office Visit Report [facility] [address] [place] [address], [address] [place] [address] OFFICE VISIT Date of Service: 11/02/23 MR#: [id number] Acct: [id number] Name: IDALMIS MAHONEY Rep #: [id number] : 1990 Provider: Dr. Gisela badillo MD Age/Sex: 33/F Location: [facility] Status: Signed Intake Vital Signs 10/13/23 10:48 10/27/23 14:12 11/02/23 14:52 11/02/23 14:53 Height 5 ft 7 in 5 ft 7 in 5 ft 7 in 5 ft 7 in Weight: 172 lb BMI 26.9 BP 106/67 Intake Visit Reasons: 37 WK OB Content Producer Required: No Allergies No Known Allergies Allergy [...] Period: 02/22/23 Zika: Zika virus screening: Negative PFSH PFSH Medical History Blood disorder Non-smoker Thyroid disease (11/22/19) Skin cancer (11/21/20) Macrocytosis without anemia Ovarian cyst Thrombocytopenia Surgical History History of removal of skin mole [place] teeth extracted Family History Father Skin cancer Grandfather Colon cancer Uncle Colon cancer Social History adopted: No household members: spouse and children number of children: 2 current occupational status: employed 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 Date Name GA/Weeks Outcome Route Bth Weight Gen Labor Lgth Anesthesia Del Locatn Provider FOB 02/24/17 Idamarie 40 live - full term 6lb 4oz Female 23 none [facility] Se als Bran 08/29/20 Tamara 41 live - full term 7#12oz Female none [facility] Hol mes-Arian Bran HPI 37 WK OB [...] -???-???-???-???-???-???- ???-???-??? (more content not included)... Normal [facility] Rule out Beta Strep (Grp. B) on 10-29-2023 [employer] B Beta Streptococcus is not isolated. Normal [facility] Comment on above: Performed By: #### M 100.9350 ####[facility] [address] [place], [address] OB Limited With [employer] 10-28-2023 OB [employer] With [employer] Imaging Services [address] [place] [address] OB Limited With [employer] MR#: [id number] Acct: [id number] Name: IDALMIS MAHONEY Rep #: [id number] : 1990 F 33 From: Neel Delacruz MD PCP: Dr. Suzanne Leyva MD Status: [facility] Study: OB Limited With [employer] Date of Exam: 10/27 Exam# [id number] Ordering Dr: Gisela Aparicio ADDENDUM by Dr. Neel Delacruz MD on 11/03/23 at 1600 ADDENDUM [id number] ADDENDUM: Biparietal diameter 9.18 cm 83.79% OFD: 12.1 cm 99.99% HC: 34.25 cm 90.35% Abdominal circumference: 32.79 cm 72.75% Femoral length: 6.73 cm 10.65% Electronically Signed: Neel Delacruz MD at 16:00 EDT , 11/03/23 1600 Date cc: Dr. Suzanne Leyva MD; Dr. Gisela Aparicio MD * Signed ADDENDUM by Dr. Neel Delacruz MD on 11/02/23 at 1609 ADDENDUM [id number] ADDENDUM: Biparietal diameter 9.18 cm +/- 47.7 percent OFD: 12.1 cm +/- 45 percent HC 6:34.25 cm +/- 47.7 percent Abdominal circumference: 32.79 cm _/-47.7% Femoral length: 6.73 cm +/- 47.7% Electronically Signed: Neel Delacruz MD at 16:09 EDT , 11/02/23 1609 Date cc: Dr. Suzanne Leyva MD; Dr. Gisela Aparicio MD * Signed ADDENDUM by Dr. Neel Delacruz MD on 11/01/23 at 1606 ADDENDUM [id number] ADDENDUM: FL/AC 20.53% FL/BPD 73.37% FL/HC 19.66% CI 76.44% HC/AC 1.04 Electronically Signed: Neel Delacruz MD at 16:06 EDT , 11/01/23 160 Date cc: Dr. Suzanne Leyva MD; Dr. Gisela Aparicio MD * Signed ADDENDUM by Dr. Neel Delacruz MD on 11/03/23 at 1600 US/OB Limited With Biometrics IMPRESSION: undefined 11/03/23 160 Date cc: Dr. Suzanne Leyva MD; Dr. Gisela Aparicio MD * Signed ADDENDUM by Dr. Neel Delacruz MD on 11/02/23 at 1609 US/OB Limited With Biometrics IMPRESSION: undefined 11/02/23 161 Date cc: Dr. Suzanne Leyva MD; Dr. Gisela Aparicio MD * Signed ADDENDUM by Dr. Neel Delacruz MD on 11/01/23 at 1606 US/OB Limited With Biometrics IMPRESSION: undefined 11/01/23 1613 Date cc: Dr. Suzanne Leyva MD; Dr. Gisela Aparicio MD * Signed [id number] STUDY: SECOND AND THIRD TRIMESTER OBSTETRICAL ULTRASOUND [...] 20:54 EDT Reading Location ID and State: [address] [place] [address] Tel , Service support , CC: Dr. Suzanne Leyva MD; Dr. Gisela Aparicio MD Fuse Coiler: Signed Normal [facility] [employer] Office Visit Reporton 10-27-2023 [employer] Office Visit Report [facility]'[address], [address] [place] [address] OFFICE VISIT Date of Service: 10/27/23 MR#: [id number] Acct: [id number] Name: IDALMIS MAHONEY Rep #: [id number] : 1990 Provider: SCHUYLER Garzon ams Age/Sex: 33/F Location: [facility] Status: Signed Intake Vital Signs 09/28/23 11:43 10/19/23 11:29 10/27/23 14:12 Height 5 ft 7 in 5 ft 7 in 5 ft 7 in Weight: 172 lb BMI 26.9 BP 96/62 Intake Visit Reasons: 36 WK OB Content Producer Required: No Is patient in pain?: No [...] History History of removal of skin mole [place] teeth extracted Family History Father Skin cancer [...] weight training frequency: daily duration: 45-60 minutes/day corina/anglican: Yazidism seatbelt use: always do you feel safe at home: Yes additional social history: [employer] History 3 Elective abortions 0 Hx Para 2 Spontaneous abortions 0 Hx # Term Pregnancies 2 Ectopic pregnancies 0 Hx # Pregnancies 0 Multiple births 0 # of living children 2 Past Pregnancies Del. Date Name GA/Weeks Outcome Route Bth Weight Gen Labor Lgth Anesthesia Del Locatn Provider FOB 02/24/17 Giancarlo 40 live - full term 6lb 4oz Female 23 none [facility] Se als Bran 08/29/20 Tamara 41 live - full term 7#12oz Female none [facility] Hol mes-Arian Bran HPI 36 WK OB Details: IDALMIS MAHONEY [...] 05/06/23 -???-? (more content not included)... Normal [facility] Oncology Visit Reporton 09-22 Oncology Visit Report [facility] [address] [facility] [place] [address] OFFICE VISIT Date of Service: 10/19/23 1125 MR#: [id number] Acct: [id number] Name: IDALMIS MAHONEY Rep #: [id number] : 1990 From: Ozzy Murry MD Age/Sex: 33/F Location: [facility] Status: Signed HPI Subjective Date of Service [...] regularly, and on replacement therapy for hypothyroidism. [facility] Medical History Blood disorder Non-smoker Thyroid disease (11/22/19) Skin cancer (11/21/20) Macrocytosis without anemia Ovarian cyst Thrombocytopenia Surgical History History of removal of skin mole [place] teeth extracted Family History Father Skin cancer [...] weight training frequency: daily duration: 45-60 minutes/day corina/anglican: Yazidism seatbelt use: always do you feel safe at home: Yes additional social history: [employer] Female Reproductive History Menstrual Ab induced: [...] appearing Coding (more content not included)... Normal [facility] [employer] Office Visit Reporton 10-13-2023 [employer] Office Visit Report [facility] [address], [address] [place] [address] OFFICE VISIT Date of Service: 10/13/23 MR#: [id number] Acct: [id number] Name: IDALMIS MAHONEY Rep #: [id number] : 1990 Provider: SCHUYLER Garzon ams Age/Sex: 32/F Location: [facility] Status: Signed Intake Vital Signs 08/24/23 08:26 09/28/23 11:43 10/13/23 10:41 10/13/23 10:48 Height 5 ft 7 in 5 ft 7 in 5 ft 7 in 5 ft 7 in Weight: 170 lb BMI 26.6 BP 95/66 Intake Visit Reasons: 32 WK OB Content Producer Required: No Allergies No Known Allergies Allergy [...] Period: 02/22/23 Zika: Zika virus screening: Negative PFSH PFS Medical History Blood disorder Non-smoker Thyroid disease (11/22/19) Skin cancer (11/21/20) Macrocytosis without anemia Ovarian cyst Thrombocytopenia Surgical History History of removal of skin mole [place] teeth extracted Family History Father Skin cancer [...] weight training frequency: daily duration: 45-60 minutes/day corina/anglican: Yazidism seatbelt use: always do you feel safe at home: Yes additional social history: [employer] History 3 Elective abortions 0 Hx Para 2 Spontaneous abortions 0 Hx # Term Pregnancies 2 Ectopic pregnancies 0 Hx # Pregnancies 0 Multiple births 0 # of living children 2 Past Pregnancies Del. Date Name GA/Weeks Outcome Route Bth Weight Infant Gen Labor Lgth Anesthesia Del Locatn Provider FOB 02/24/17 Idamarie 40 live - full term 6lb 4oz Female 23 none [facility] Se als Bran 08/29/20 Tamara 41 live - full term 7#12oz Female none [facility] Hol mes-Arian Bran HPI 32 WK OB [...] ???-???-???-???-???-???- 1 (more content not included)... Normal [facility] [employer] Office Visit Reporton 09-28-2023 [employer] Office Visit Report [facility] [address] [place] [address] OFFICE VISIT Date of Service: 09/28/23 MR#: [id number] Acct: [id number] Name: IDALMIS MAHONEY Rep #: [id number] : 1990 Provider: Dr. Gisela badillo MD Age/Sex: 32/F Location: [facility] Status: Signed Intake Vital Signs 08/24/23 08:26 09/05/23 10:34 09/28/23 11:43 Height 5 ft 7 in 5 ft 7 in 5 ft 7 in Weight: 196 lb BMI 30.7 BP 93/63 Intake Visit Reasons: 30 WK OB Content Producer Required: No Is patient in pain?: No [...] History History of removal of skin mole [place] teeth extracted Family History Father Skin cancer [...] weight training frequency: daily duration: 45-60 minutes/day corina/anglican: Yazidism seatbelt use: always do you feel safe at home: Yes additional social history: [employer] History 3 Elective abortions 0 Hx Para 2 Spontaneous abortions 0 Hx # Term Pregnancies 2 Ectopic pregnancies 0 Hx # Pregnancies 0 Multiple births 0 # of living children 2 Past Pregnancies Del. Date Name GA/Weeks Outcome Route Bth Weight Gen Labor Lgth Anesthesia Del Locatn Provider FOB 02/24/17 Idamarie 40 live - full term 6lb 4oz Female 23 none [facility] Se als Bran 08/29/20 Tamara 41 live - full term 7#12oz Female none [facility] Hol mes-Arian Bran HPI 30 WK OB [...] Thyroid lab (more content not included)... Normal [facility] Culture, urineOrdered By: Hieu Perez on 06-28-2023 Bacteria identified Cx Nom (U) Culture exhibits no growth. [facility] Laboratory - Chemistry and C hemistry - challengeon 06-28-2023 Glucose Ql (U) Negative [facility] Laboratory - Urinalysison Protein Ql (U) Negative [facility] Absolute lymphocyte countOrd ered By: Laureen Hawkins on 05-31-2023 Lymphocytes Auto (Unsp spec) [#/Vol] 1.39 10*3/uL 0.83-4.51 [facility] Automated lymphocyte count a s percentage of total leukocytesOrdered By: Laureen Hawkins on 05-31-2023 Lymphocytes/100 WBC Auto (Unsp spec) 19.1 % 19-41 [facility] Basophil percentageOrdered B y: Laureen Hawkins on 05-31-2023 Basophils/100 WBC (Bld) 0.3 % 0-1 [facility] Eosinophils/100 WBC (Bld) 0.5 % 0-5 [facility] Hemoglobin (Bld) [Mass/Vol] 12.2 g/dL 12.0-15.0 [facility] Monocytes/100 WBC (Bld) 4.3 % 0-10 [facility] Neutrophils (Bld) [#/Vol] 5.5 10*3/uL 2.0-7.7 [facility] Neutrophils/100 WBC (Bld) 75.5 % 47-70 [facility] WBC (Bld) [#/Vol] 7.3 10*3/uL 4.4-11.0 [facility] Determination of erythrocyte mean corpuscular volume (MCV)Ordered By: Laureen Hawkins on 05-31-2023 MCV (RBC) [Entitic vol] 99.2 fL 81-99 [facility] Erythrocyte distribution wid th ratioOrdered By: Laureen Hawkins on 05-31-2023 Erythrocyte distribution width (RBC) [Ratio] 13.1 % 11.6-14.6 [facility] Erythrocyte distribution wid th standard deviationOrdered By: Laureen Hawkins on 05-31-2023 Erythrocyte distribution width (RBC) [Entitic vol] 47.6 fL 35.1-43.9 [facility] Hematocrit Auto (Bld) [Volum e fraction]Ordered By: Laureen Hawkins on 05-31-2023 Hematocrit (Bld) [Volume fraction] 37.3 % 37-47 [facility] Immature granulocytes/100 WB C Auto (Bld)Ordered By: Laureen Hawkins on 05-31-2023 Immature granulocytes/100 WBC (Bld) 0.300 % 0.0-0.9 [facility] Comment on above: IG% - Immature Granu locytes (promyelocytes, myelocytes and metamyelocytes) > 1% indicates that a LEFT SHIFT is Present. Laboratory - Hematology and Cell countsOrdered By: Laureen Hawkins on 05-31-2023 MCH (RBC) [Entitic mass] 32.4 pg 27.0-32.0 [facility] MCHC (RBC) [Mass/Vol] 32.7 g/dL 32-36 [facility] Nucleated RBC/100 WBC (Bld) [Ratio] 0 % 0-5 [facility] Platelet mean volume (Bld) [Entitic vol] 12.2 fL 6.2-12.0 [facility] Platelets (Bld) [#/Vol] 120 10*3/uL 150-450 [facility] No Panel InformationOrdered By: Chris Leslie on 05-31-2023 Miscellaneous Test See comment [facility] Comment on above: TEST RESULTS LIMITST hyrotropin Receptor Ab,Serum <1.10 IU/L 0.00-1.75 TESTING PERFORMED AT [facility]. ORIGINAL REPORT ON FILE IN LAB CONTAINS ADDITIONAL TEST SITE INFORMATION. RBC Auto (Bld) [#/Vol]Ordere d By: Laureen Hawkins on 05-31-2023 RBC (Bld) [#/Vol] 3.76 10*6/uL 4.2-5.4 [facility] Laboratory - Chemistry and C hemistry - challengeon 05-16-2023 Glucose Ql (U) Negative [facility] Laboratory - Urinalysison Protein Ql (U) Negative [facility] Progress Noteon 05-12-2023 [employer]ume Seamstress Authentication Interface Message Text MFM attending note: [...] 1d with an EROS of 11/23/2023. 2. Dime Box rump length measurement is consistent with established [...] are truly unique to this visit. [facility] Laboratory - Chemistry and C hemistry - challengeon 05-06-2023 Glucose Ql (U) Negative [facility] Laboratory - Urinalysison Protein Ql (U) Negative [facility] Absolute lymphocyte countOrd ered By: Chris Leslie on 04-22-2023 Lymphocytes Auto (Unsp spec) [#/Vol] 1.52 10*3/uL 0.83-4.51 [facility] Automated lymphocyte count a s percentage of total leukocytesOrdered By: Chris Leslie on 04-22-2023 Lymphocytes/100 WBC Auto (Unsp spec) 26.5 % 19-41 [facility] Basophil percentageOrdered B y: Chris Leslie on 04-22-2023 Basophils/100 WBC (Bld) 0.5 % 0-1 [facility] Eosinophils/100 WBC (Bld) 0.7 % 0-5 [facility] Hemoglobin (Bld) [Mass/Vol] 13.4 g/dL 12.0-15.0 [facility] Monocytes/100 WBC (Bld) 5.9 % 0-10 [facility] Neutrophils (Bld) [#/Vol] 3.8 10*3/uL 2.0-7.7 [facility] Neutrophils/100 WBC (Bld) 66.2 % 47-70 [facility] WBC (Bld) [#/Vol] 5.7 10*3/uL 4.4-11.0 [facility] Determination of erythrocyte mean corpuscular volume (MCV)Ordered By: Chris Leslie on 04-22-2023 MCV (RBC) [Entitic vol] 98.1 fL 81-99 [facility] Erythrocyte distribution wid th ratioOrdered By: Chris Leslie on 04-22-2023 Erythrocyte distribution width (RBC) [Ratio] 12.7 % 11.6-14.6 [facility] Erythrocyte distribution wid th standard deviationOrdered By: Chris Leslie on 04-22-2023 Erythrocyte distribution width (RBC) [Entitic vol] 45.7 fL 35.1-43.9 [facility] HIV 1 and HIV-2 antibody ass ay with HIV-1 p24 antigen detectionOrdered By: Chris Leslie on 04-22-2023 HIV 1+2 Ab+HIV1 p24 Ag IA Ql Non-Reactive Nonreactive [facility] Hematocrit Auto (Bld) [Volum e fraction]Ordered By: Chris Leslie on 04-22-2023 Hematocrit (Bld) [Volume fraction] 40.6 % 37-47 [facility] Immature granulocytes/100 WB C Auto (Bld)Ordered By: Chris Leslie on 04-22-2023 Immature granulocytes/100 WBC (Bld) 0.200 % 0.0-0.9 [facility] Comment on above: IG% - Immature Granu locytes (promyelocytes, myelocytes and metamyelocytes) > 1% indicates that a LEFT SHIFT is Present. Laboratory - Hematology and Cell countsOrdered By: Chris Leslie on 03-01-2024 MCH (RBC) [Entitic mass] 32.4 pg 27.0-32.0 [facility] MCHC (RBC) [Mass/Vol] 33.0 g/dL 32-36 [facility] Nucleated RBC/100 WBC (Bld) [Ratio] 0 % 0-5 [facility] Platelet mean volume (Bld) [Entitic vol] 12.4 fL 6.2-12.0 [facility] Platelets (Bld) [#/Vol] 129 10*3/uL 150-450 [facility] No Panel InformationOrdered By: Chris Leslie on 04-22-2023 Hepatitis B Surface Antigen Non-Reactive Nonreactive [facility] Hepatitis C Antibody Non-Reactive Nonreactive [facility] Comment on above: Non Reactive: < 0.8 Equivocal: >/= 0.8 to < 1.0 Reactive: >/= 1.0The CDC requires that a reactive/equivocal HCV antibody result be sent out for confirmation. HCV Quant by PCR testing. Rubella IgG Antibody Reactive Nonreactive [facility] Comment on above: Antibody Results Int erpretation of Immune Status Non Reactive Presumed Non-Immune Equivocal Equivocal Reactive Presumed Immune RBC Auto (Bld) [#/Vol]Ordere d By: Chris Leslie on 04-22-2023 RBC (Bld) [#/Vol] 4.14 10*6/uL 4.2-5.4 [facility] Serum Treponema species anti body detectionOrdered By: Chris Leslie on 04-22-2023 Treponema sp Ab Ql (S) Non-Reactive [facility] Serum or plasma thyroid stim ulating hormone (TSH) measurement (units/volume)Ordered By: Chris Leslie on 04-22-2023 TSH Qn 0.59 uIU/mL 0.358-3.74 [facility] Thin prep Papanicolaou smear with manual screeningOrdered By: Chris Leslie on 04-22-2023 Thin prep Papanicolaou smear with manual screening 0.85 ng/dL 0.76-1.46 [facility] Cervical or vaginal specimen microscopic examination by liquid based cytology (reportOrdered By: Chris Leslie on 04-21-2023 Cytology report Cyto stain.thin prep Doc (Cvx/Vag) Comment . [facility] Comment on above: Criteria not met, HP V Genotype not performed.Performed at: [place] - [facility] [address] [id number] Director: Jaqui Doshi MD, Phone: [phone] at: = - [facility] [address] [id number] Director: Jaqui Doshi MD, Phone: [phone] Cervical or vagninal specime n microscopic examination by cytology stain (reported asOrdered By: Chris Leslie on 04-21-2023 Cytology report Cyto stain Doc (Cvx/Vag) Comment . [facility] Comment on above: The Pap smear [...] rRNA AISHA+probe Ql (Unsp spec) Negative Negative [facility] Detection in cervical specim en of any of human papilloma virus (HPV) 16, 18, 31, 33,Ordered By: Chris Leslie on 04-21-2023 HPV 16+18+31+33+35+39+45+51 +52+56+58+59+66+68 DNA Probe+sig amp Ql (Cvx) Negative Negative [facility] Comment on above: This nucleic acid am plification test detects fourteen high-risk HPV types (16,18,31,33,35,39,45,51,52,56,58,59,66,68)without differentiation. Laboratory - CytologyOrdered By: Chris Leslie on 04-21-2023 Customer Relations Representative Cyto stain Nom (Cvx/Vag) [ID] Comment . [facility] Comment on above: Heike jenkins, Client Relation Specialist (ASCP) Laboratory - Microbiology an d Antimicrobial susceptibilityOrdered By: Chris Leslie on 04-21-2023 N. gonorrhoeae DNA AISHA+probe Ql (Unsp spec) Negative Negative [facility] Comment on above: Performed at: =G - [facility] [address] [id number] Director: Jaqui Doshi MD, Phone: [phone] Laboratory - Miscellaneous t estsOrdered By: Chris Leslie on 04-21-2023 Service comment (Unsp spec) [Interp] . . [facility] Thin prep Papanicolaou smear with manual screeningOrdered By: Chris Leslie on 04-21-2023 Thin prep Papanicolaou smear with manual screening Comment . [facility] Comment on above: NEGATIVE FOR INTRAEP ITHELIAL LESION OR MALIGNANCY. This liquid based Th inPrep(R) pap test was screened withthe use of an image guided system. Basophil percentageOrdered B y: Abby Don on 04-08-2023 Testosterone [Mass/Vol] 31.82 ng/dL [facility] Comment on above: CENTRAL 90% REFERENC E RANGES MALE AGE <50 197.44 - 669.58 ng/dL MALE AGE > or = 50 187.72 - 684.19 ng/dL FEMALE AGE <50 8.38 - 35.01 ng/dL FEMALE AGE > or = 50 <7.00 - 35.92 ng/dL Effective as of 09/16/20 No Panel InformationOrdered By: Abby Don on 04-08-2023 Estradiol (E2) Level 772.6 pg/mL [facility] Comment on above: NORMAL [...] 04-08-2023 Progesterone [Mass/Vol] 28.50 ng/mL See Comment [facility] Comment on above: Progesterone Referen ce Table: UNITS Female: Follicular 0.15 - 1.40 ng/mL Luteal 3.34 - 25.56 ng/mL Mid-luteal 4.44 - 28.03 ng/mL Postmenopausal 0.0 - 0.73 ng/mL : 1st Trimester 11.22 - 90.00 ng/mL 2nd Trimester 25.55 - 89.40 ng/mL 3rd Trimester 48.40 -422.50 ng/mL No Panel InformationOrdered By: Abby Don on 04-01-2023 Dehydroepiandrosterone Sulfate 236.0 ug/dL 84.8-378.0 [facility] Comment on above: Performed at: [address] [id number] Director: Yair Raza PhD, Phone: [phone] Estradiol (E2) Level 248.3 pg/mL [facility] Comment on above: NORMAL [...] DETERMINE ESTRADIOL CONCENTRATION. Miscellaneous Test See comment [facility] Comment on above: TEST RESULTS LIMITS DHEA, SerumDehydroepiandrosterone(DHEA) A, 147 ng/dL 31-701CommentsA: This test was developed and its performance characteristics determined by [facility]. It has not been cleared or approved by the Food and Drug Administration. [facility] ORIGINAL REPORT ON FILE IN LAB CONTAINS ADDITIONAL TEST SITE INFORMATION. Serum or plasma choriogonado tropin detectionOrdered By: Abby Don on 04-01-2023 HCG ( test) Ql 7034 mIU/mL <4 [facility] Comment on above: hCG levels with Gest ational AgeGestational Age hCG mIU/mL (IU/L)0.2 - 1 week 5 - 501-2 weeks 50 - 5002-3 weeks 100 - 56646-9 weeks 500 - 361774-9 weeks 1000 - 951474-6 weeks 94398 - 100,0006-8 weeks 84874 - 200,0002-3 months 24969 - 100,000 Serum or plasma progesterone measurement (mass/volume)Ordered By: Abby Don on 04-01-2023 Progesterone [Mass/Vol] 25.80 ng/mL See Comment [facility] Comment on above: Progesterone Referen ce Table: UNITS Female: Follicular 0.15 - 1.40 ng/mL Luteal 3.34 - 25.56 ng/mL Mid-luteal 4.44 - 28.03 ng/mL Postmenopausal 0.0 - 0.73 ng/mL : 1st Trimester 11.22 - 90.00 ng/mL 2nd Trimester 25.55 - 89.40 ng/mL 3rd Trimester 48.40 -422.50 ng/mL Estradiol measurementOrdered By: Abby Don on 03-25-2023 E2 IA [Moles/Vol] 100.7 pg/mL [facility] Comment on above: NORMAL REFERENCE [...] HCG ( test) Ql 658 mIU/mL <4 [facility] Comment on above: hCG levels with Gest ational AgeGestational Age hCG mIU/mL (IU/L)0.2 - 1 week 5 - 501-2 weeks 50 - 5002-3 weeks 100 - 63649-2 weeks 500 - 125402-5 weeks 1000 - 463658-4 weeks 91868 - 100,0006-8 weeks 73425 - 200,0002-3 months 57358 - 100,000 Serum or plasma progesterone measurement (mass/volume)Ordered By: Abby Don on 03-25-2023 Progesterone [Mass/Vol] 25.09 ng/mL See Comment [facility] Comment on above: Progesterone Referen ce [...] ( test) Ql 253 mIU/mL <4 [facility] Comment on above: hCG levels with Gest ational AgeGestational Age hCG mIU/mL (IU/L)0.2 - 1 week 5 - 501-2 weeks 50 - 5002-3 weeks 100 - 71270-0 weeks 500 - 076608-7 weeks 1000 - 309178-3 weeks 87122 - 100,0006-8 weeks 59626 - 200,0002-3 months 40025 - 100,000 Serum or plasma choriogonado tropin detectionOrdered By: Abby Don on 03-21-2023 HCG ( test) Ql 99 mIU/mL <4 [facility] Comment on above: hCG levels with Gest ational AgeGestational Age hCG mIU/mL (IU/L)0.2 - 1 week 5 - 501-2 weeks 50 - 5002-3 weeks 100 - 17031-1 weeks 500 - 001344-8 weeks 1000 - 510724-7 weeks 51361 - 100,0006-8 weeks 38396 - 200,0002-3 months 36375 - 100,000 Estradiol measurementOrdered By: Abby Don on 03-19-2023 E2 IA [Moles/Vol] 68.6 pg/mL [facility] Comment on above: NORMAL REFERENCE RAN [...] Don on 03-19-2023 Dehydroepiandrosterone Sulfate See comment [facility] Comment on above: TEST RESULTS LIMITSD HEA-Sulfate 155.0 ug/dL 84.8-378.0 TESTING PERFORMED AT [facility]. ORIGINAL REPORT ON FILE IN LAB CONTAINS ADDITIONAL TEST SITE INFORMATION. Miscellaneous Test See comment [facility] Comment on above: TEST RESULTS LIMITSD HEA, Serum Dehydroepiandrosterone (DHEA) 131 ng/dL 31-701 [facility] ORIGINAL REPORT ON FILE IN LAB CONTAINS ADDITIONAL TEST SITE INFORMATION. Serum or plasma choriogonado tropin detectionOrdered By: Abby Don on 03-19-2023 HCG ( test) Ql 46 mIU/mL <4 [facility] Comment on above: hCG levels with Gest ational AgeGestational Age hCG mIU/mL (IU/L)0.2 - 1 week 5 - 501-2 weeks 50 - 5002-3 weeks 100 - 06469-8 weeks 500 - 933566-6 weeks 1000 - 984677-0 weeks 96029 - 100,0006-8 weeks 95865 - 200,0002-3 months 38075 - 100,000 Serum or plasma progesterone measurement (mass/volume)Ordered By: Abby Don on 03-19-2023 Progesterone [Mass/Vol] 18.45 ng/mL See Comment [facility] Comment on above: Progesterone Referen ce Table: UNITS Female: Follicular 0.15 - 1.40 ng/mL Luteal 3.34 - 25.56 ng/mL Mid-luteal 4.44 - 28.03 ng/mL Postmenopausal 0.0 - 0.73 ng/mL : 1st Trimester 11.22 - 90.00 ng/mL 2nd Trimester 25.55 - 89.40 ng/mL 3rd Trimester 48.40 -422.50 ng/mL Basophil percentageOrdered B y: Abby Don on 03-04-2023 Testosterone [Mass/Vol] 14 ng/dL 8-60 [facility] Free testosterone percentage Ordered By: Abby Don on 03-04-2023 Testosterone Free/Testosterone.total [Mass fraction] 2.84 % 0.50-2.80 [facility] No Panel InformationOrdered By: Abby Don on 03-04-2023 Anti-Cardiolipin IgM Antibody < 9 MPL U/mL 0-12 [facility] Comment on above: Negative: <13 Indete rminate: 13 - 20 Low-Med Positive: >20 - 80 High Positive: >80 Dehydroepiandrosterone Sulfate 147.0 ug/dL 84.8-378.0 [facility] Serum cardiolipin IgG antibo dy assay by immunoassay (units/volume)Ordered By: Abby Don on 03-04-2023 Cardiolipin IgG IA Qn (S) < 9 GPL U/mL 0-14 [facility] Comment on above: Negative: <15 Indete rminate: 15 - 20 Low-Med Positive: >20 - 80 High Positive: >80 Serum or plasma testosterone free measurement (mass/volume)Ordered By: Abby Don on 03-04-2023 Testosterone Free [Mass/Vol] 0.40 ng/dL 0.10-0.85 [facility] Serum or plasma thyroperoxid ase antibody assay (units/volume)Ordered By: Abby Don on 03-04-2023 TPO Ab Qn [IU]/mL 0-34 [facility] Comment on above: Performed at: [facility] [employer] [id number] Director: Yair Raza PhD, Phone: [phone] at: [facility] [address] [id number] Director: Belén Sanches MD, Phone: [phone] Basophil percentageOrdered B y: Abby Don on 01-12-2023 Testosterone [Mass/Vol] 55 ng/dL 8-60 [facility] Free testosterone percentage Ordered By: Abby Arian on 01-12-2023 Testosterone Free/Testosterone.total [Mass fraction] 2.33 % 0.50-2.80 [facility] Laboratory - Chemistry and C hemistry - challengeOrdered By: Abby Don on 01-12-2023 Free T4 [Mass/Vol] 1.03 ng/dL 0.76-1.46 [facility] No Panel InformationOrdered By: Abby Don on 01-12-2023 Dehydroepiandrosterone Sulfate 730.0 ug/dL 84.8-378.0 [facility] Follicle Stimulating Hormone 8.8 mIU/mL [facility] Comment on above: NORMAL REFERENCE RAN [facility] FEMALE FOLLICULAR 2.3 - 12.6 mIU/mL MID-CYCLE PEAK 5.2 - 17.5 mIU/mL LUTEAL 1.7 - 12.9 mIU/mL POST-MENOPAUSAL ON MHT 5.9 - 72.8 mIU/mL NOT ON MHT 12.7 - 132.2 mlU/mL MALE 0.7 - 10.8 mIU/mL Free Triiodothyronine (T3) pg/dL 2.2 pg/mL 2.18-3.98 [facility] Luteinizing Hormone 4.1 mIU/mL [facility] Comment on above: NORMAL REFERENCE RAN GES FEMALE FOLLICULAR 1.9 - 26.2 mIU/mL MID-CYCLE PEAK 22.8 - 76.1 mIU/mL LUTEAL 0.6 - 16.6 mIU/mL POST-MENOPAUSAL ON MHT 1.1 - 52.4 mIU/mL NOT ON MHT 8.6 - 61.8 mIU/mL MALE 1.2 - 10.6 mIU/mL Thyroid Stimulating Hormone (TSH) 0.19 uIU/mL 0.358-3.74 [facility] Serum or plasma estradiol (E 2) measurement (mass/volume)Ordered By: Abby Don on 01-12-2023 E2 [Mass/Vol] 16.5 pg/mL [facility] Comment on above: NORMAL REFERENCE RAN [...] hormone binding globulin [Moles/Vol] 34.9 nmol/L 24.6-122.0 [facility] Comment on above: Performed at: [address] [id number] Director: Yair Raza PhD, Phone: [phone] at: - [facility] [id number] Director: Belén Sanches MD, Phone: [phone] Serum or plasma testosterone free measurement (mass/volume)Ordered By: Abby Don on 01-12-2023 Testosterone Free [Mass/Vol] 1.28 ng/dL 0.10-0.85 [facility] Serum or plasma estradiol (E 2) measurement (mass/volume)Ordered By: Abby Don on 11-30-2022 E2 [Mass/Vol] 18.2 pg/mL [facility] Comment on above: NORMAL REFERENCE RAN [...] ESTRADIOL CONCENTRATION. Basophil percentageOrdered B y: Abby Arian on 11-29-2022 Testosterone [Mass/Vol] ng/dL 8-60 [facility] Free testosterone percentage Ordered By: Abby Arian on 11-29-2022 Testosterone Free/Testosterone.total [Mass fraction] 1.50 % 0.50-2.80 [facility] Iron measurement (mass/mass) Ordered By: Abby Don on 11-29-2022 Iron (Unsp spec) [Mass/Mass] 67 ug/dL 50-170 [facility] Laboratory - Chemistry and C hemistry - challengeOrdered By: Abby Don on 11-29-2022 Free T4 [Mass/Vol] 0.68 ng/dL 0.76-1.46 [facility] No Panel InformationOrdered By: Abby Arian on 11-29-2022 Dehydroepiandrosterone Sulfate 72.5 ug/dL 84.8-378.0 [facility] Comment on above: Performed at: - [address] [id number] Director: Yair Raza PhD, Phone: [phone] at: [facility] [address] [id number] Director: Belén Sanches MD, Phone: [phone] Follicle Stimulating Hormone 6.7 mIU/mL [facility] Comment on above: NORMAL REFERENCE RAN GES FEMALE FOLLICULAR 2.3 - 12.6 mIU/mL MID-CYCLE PEAK 5.2 - 17.5 mIU/mL LUTEAL 1.7 - 12.9 mIU/mL POST-MENOPAUSAL ON MHT 5.9 - 72.8 mIU/mL NOT ON MHT 12.7 - 132.2 mlU/mL MALE 0.7 - 10.8 mIU/mL Free Triiodothyronine (T3) pg/dL 1.7 pg/mL 2.18-3.98 [facility] Luteinizing Hormone 2.6 mIU/mL [facility] Comment on above: NORMAL REFERENCE RAN GES FEMALE FOLLICULAR 1.9 - 26.2 mIU/mL MID-CYCLE PEAK 22.8 - 76.1 mIU/mL LUTEAL 0.6 - 16.6 mIU/mL POST-MENOPAUSAL ON MHT 1.1 - 52.4 mIU/mL NOT ON MHT 8.6 - 61.8 mIU/mL MALE 1.2 - 10.6 mIU/mL Thyroid Stimulating Hormone (TSH) 3.21 uIU/mL 0.358-3.74 [facility] Total Iron Binding Capacity 315 ug/dL 250-450 [facility] Total Triiodothyronine 0.82 ng/mL 0.6-1.81 [facility] Serum or plasma choriogonado tropin detectionOrdered By: Abby Don on 11-29-2022 HCG ( test) Ql < 1 mIU/mL <4 [facility] Comment on above: hCG levels with Gest ational AgeGestational Age hCG mIU/mL (IU/L)0.2 - 1 week 5 - 501-2 weeks 50 - 5002-3 weeks 100 - 76359-6 weeks 500 - 893401-9 weeks 1000 - 566249-6 weeks 94722 - 100,0006-8 weeks 36266 - 200,0002-3 months 04508 - 100,000 Serum or plasma ferritin tricia surement (mass/volume)Ordered By: Abby Don on 11-29-2022 Ferritin [Mass/Vol] 34 ng/mL 8-252 [facility] Serum or plasma iron saturat ion measurement (mass fraction)Ordered By: Abby Don on 11-29-2022 Iron saturation [Mass fraction] 21.3 % 15.0-55.0 [facility] Serum or plasma progesterone measurement (mass/volume)Ordered By: Abby Don on 11-29-2022 Progesterone [Mass/Vol] 0.26 ng/mL See Comment [facility] Comment on above: Progesterone Referen ce [...] Testosterone Free [Mass/Vol] < 0.05 ng/dL 0.10-0.85 [facility] Absolute lymphocyte countOrd ered By: Ozzy Murry on 10-19-2022 Lymphocytes Auto (Unsp spec) [#/Vol] 1.78 10*3/uL 0.83-4.51 [facility] Basophil percentageOrdered B y: Ozzy Murry on 10-19-2022 Basophils/100 WBC (Bld) 0.5 % 0-1 [facility] Eosinophils/100 WBC (Bld) 1.4 % 0-5 [facility] Neutrophils (Bld) [#/Vol] 2.0 10*3/uL 2.0-7.7 [facility] Neutrophils/100 WBC (Bld) 48.4 % 47-70 [facility] WBC (Bld) [#/Vol] 4.2 10*3/uL 4.4-11.0 [facility] Blood erythrocytes count (nu mber/volume)Ordered By: Ozzy Murry on 10-19-2022 RBC (Bld) [#/Vol] 4.07 10*6/uL 4.2-5.4 [facility] Blood hemoglobin measurement (mass/volume)Ordered By: Ozzy Murry on 10-19-2022 Hemoglobin (Bld) [Mass/Vol] 13.0 g/dL 12.0-15.0 [facility] Blood lymphocytes/100 leukoc ytesOrdered By: Ozzy Murry on 10-19-2022 Lymphocytes/100 WBC (Bld) 42.4 % 19-41 [facility] Blood monocytes/100 leukocyt esOrdered By: Ozzy Murry on 10-19-2022 Monocytes/100 WBC (Bld) 7.1 % 0-10 [facility] Blood platelet mean volumeOr dered By: Ozzy Murry on 10-19-2022 Platelet mean volume (Bld) [Entitic vol] 11.8 fL 6.2-12.0 [facility] Determination of erythrocyte mean corpuscular volume (MCV)Ordered By: Ozzy Murry on 10-19-2022 MCV (RBC) [Entitic vol] 102.5 fL 81-99 [facility] Hematocrit Auto (Bld) [Volum e fraction]Ordered By: Ozzy Murry on 10-19-2022 Hematocrit (Bld) [Volume fraction] 41.7 % 37-47 [facility] Laboratory - Hematology and Cell countsOrdered By: Ozzy Murry on 10-19-2022 Erythrocyte distribution width (RBC) [Entitic vol] 46.9 fL 35.1-43.9 [facility] Erythrocyte distribution width (RBC) [Ratio] 12.4 % 11.6-14.6 [facility] Immature granulocytes/100 WBC (Bld) 0.200 % 0.0-0.9 [facility] Comment on above: IG% - Immature Granu locytes (promyelocytes, myelocytes and metamyelocytes) > 1% indicates that a LEFT SHIFT is Present. MCH (RBC) [Entitic mass] 31.9 pg 27.0-32.0 [facility] Nucleated RBC/100 WBC (Bld) [Ratio] 0 % 0-5 [facility] MCHC Auto (RBC) [Mass/Vol]Or dered By: Ozzy Murry on 10-19-2022 MCHC (RBC) [Mass/Vol] 31.2 g/dL 32-36 [facility] Platelets bldOrdered By: José Luis Murry on 10-19-2022 Platelets (Bld) [#/Vol] 115 10*3/uL 150-450 [facility] Serum or plasma choriogonado tropin detectionOrdered By: Abby Don on 08-20-2022 HCG ( test) Ql 15 mIU/mL <4 [facility] Comment on above: hCG levels with Gest ational AgeGestational Age hCG mIU/mL (IU/L)0.2 - 1 week 5 - 501-2 weeks 50 - 5002-3 weeks 100 - 14138-0 weeks 500 - 006315-1 weeks 1000 - 756155-2 weeks 28227 - 100,0006-8 weeks 75416 - 200,0002-3 months 25352 - 100,000 Serum or plasma choriogonado tropin detectionOrdered By: Abby Don on 08-17-2022 HCG ( test) Ql 43 mIU/mL <4 [facility] Comment on above: hCG levels with Gest ational AgeGestational Age hCG mIU/mL (IU/L)0.2 - 1 week 5 - 501-2 weeks 50 - 5002-3 weeks 100 - 80453-0 weeks 500 - 171841-5 weeks 1000 - 636788-3 weeks 23067 - 100,0006-8 weeks 04114 - 200,0002-3 months 15244 - 100,000 Serum or plasma estradiol (E 2) measurement (mass/volume)Ordered By: Abby Don on 08-17-2022 E2 [Mass/Vol] 96.1 pg/mL [facility] Comment on above: NORMAL REFERENCE RAN [...] 08-17-2022 Progesterone [Mass/Vol] 20.23 ng/mL See Comment [facility] Comment on above: Progesterone Referen ce [...] Auto (Unsp spec) [#/Vol] 1.00 10*3/uL 0.83-4.51 [facility] Basophil percentageOrdered B y: Jez Goodwin on 08-16-2022 Basophil percentage 0 SEEN /hpf 0-[address] [facility] Basophils/100 WBC (Bld) 0.3 % 0-1 [facility] Bilirubin [Mass/Vol] 0.50 mg/dL 0.20-1.[address] [facility] Comment on above: For patients on eltr ombopag therapy, use of Dimension [place] TBIL is not recommended. Chloride [Moles/Vol] 108 mmol/L 98-[address] [facility] Eosinophils/100 WBC (Bld) 0.0 % 0-5 [facility] Glucose [Mass/Vol] 111 mg/dL 74-106 [facility] Comment on above: Fasting Glucose resu lt from 100 to 125 mg/dL suggests IMPAIRED HOMEOSTASIS per A.D.A. criteria. Lactate [Moles/Vol] 1.1 mmol/L 0.4-2.0 [facility] Neutrophils (Bld) [#/Vol] 5.0 10*3/uL 2.0-7.7 [facility] Neutrophils/100 WBC (Bld) 78.7 % 47-70 [facility] Potassium [Moles/Vol] 4.1 mmol/L 3.5-5.1 [facility] Protein [Mass/Vol] 6.1 g/dL 6.4-8.2 [facility] Sodium [Moles/Vol] 139 mmol/L 136-145 [facility] WBC (Bld) [#/Vol] 6.3 10*3/uL 4.4-11.0 [facility] Bilirubin Test strip Ql (U)O rdered By: Jez Goodwin on 08-16-2022 Bilirubin Ql (U) Negative Negative [facility] Blood erythrocytes count (nu mber/volume)Ordered By: Jez Goodwin on 08-16-2022 RBC (Bld) [#/Vol] 4.04 10*6/uL 4.2-5.4 [facility] Blood hemoglobin measurement (mass/volume)Ordered By: Jez Goodwin on 08-16-2022 Hemoglobin (Bld) [Mass/Vol] 13.1 g/dL 12.0-15.0 [facility] Blood lymphocytes/100 leukoc ytesOrdered By: Jez Goodwin on 08-16-2022 Lymphocytes/100 WBC (Bld) 15.9 % 19-41 [facility] Blood monocytes/100 leukocyt esOrdered By: Jez Goodwin on 08-16-2022 Monocytes/100 WBC (Bld) 4.8 % 0-10 [facility] Blood platelet mean volumeOr dered By: Jez Goodwin on 08-16-2022 Platelet mean volume (Bld) [Entitic vol] 12.9 fL 6.2-12.0 [facility] Determination of erythrocyte mean corpuscular volume (MCV)Ordered By: Jez Goodwin on 08-16-2022 MCV (RBC) [Entitic vol] 98.5 fL 81-99 [facility] Direct bilirubinOrdered By: Jez Goodwin on 08-16-2022 Bilirubin.direct [Mass/Vol] 0.18 mg/dL 0.00-0.30 [facility] Hematocrit Auto (Bld) [Volum e fraction]Ordered By: Jez Goodwin on 08-16-2022 Hematocrit (Bld) [Volume fraction] 39.8 % 37-47 [facility] Ketones Test strip Ql (U)Ord ered By: Jez Goodwin on 08-16-2022 Ketones Ql (U) 15 mg/dl Negative [facility] Laboratory - Chemistry and C hemistry - challengeOrdered By: Jez Goodwin on 08-16-2022 ALP [Catalytic activity/Vol] 34 U/L 45-117 [facility] ALT [Catalytic activity/Vol] 23 U/L -56 [facility] CO2 [Moles/Vol] 25.0 mmol/L 21.0-32.0 [facility] Globulin (S) [Mass/Vol] 2.9 g/dL 2.2-4.2 [facility] Lipase [Catalytic activity/Vol] 28 U/L -75 [facility] Comment on above: Please note:LIPASE r evised reference range effective 22. New Lipase methodology. Expected to produce lower values than the previous assay method. NEW Reference Range: 13 - 75 U/L Urea nitrogen/Creatinine [Mass ratio] 23.2 mg/mg 10-20 [facility] Laboratory - Hematology and Cell countsOrdered By: Jez Goodwin on 08-16-2022 Erythrocyte distribution width (RBC) [Entitic vol] 43.6 fL 35.1-43.9 [facility] Erythrocyte distribution width (RBC) [Ratio] 11.9 % 11.6-14.6 [facility] Immature granulocytes/100 WBC (Bld) 0.300 % 0.0-0.9 [facility] Comment on above: IG% - Immature Granu locytes (promyelocytes, myelocytes and metamyelocytes) > 1% indicates that a LEFT SHIFT is Present. MCH (RBC) [Entitic mass] 32.4 pg 27.0-32.0 [facility] Nucleated RBC/100 WBC (Bld) [Ratio] 0 % 0-5 [facility] MCHC Auto (RBC) [Mass/Vol]Or dered By: Jez Goodwin on 08-16-2022 MCHC (RBC) [Mass/Vol] 32.9 g/dL 32-36 [facility] Mucus LM Ql (Urine sed)Order ed By: Jez Goodwin on 08-16-2022 Mucus Ql (Urine sed) 0 SEEN /hpf [facility] Nitrite Test strip Ql (U)Ord ered By: Jez Goodwin on 08-16-2022 Nitrite Ql (U) Negative Negative [facility] No Panel InformationOrdered By: Jez Goodwin on 08-16-2022 Estimated Creatinine Clearance Calc 119.71 ml/min [facility] Estimated GFR (MDRD) Amer 135 mL/min >60 [facility] Comment on above: GFR Calc Estimated GFR (MDRD) Non-Af Amer 112 mL/min >60 [facility] Comment on above: Non- GFR Calc Platelets bldOrdered By: Martin Goodwin on 08-16-2022 Platelets (Bld) [#/Vol] 112 10*3/uL 150-450 [facility] Protein Test strip Ql (U)Ord ered By: Jez Goodwin on 08-16-2022 Protein Ql (U) 15 mg/dl Negative [facility] Serum or plasma albumin sunshine urement (mass/volume)Ordered By: Jez Goodwin on 08-16-2022 Albumin [Mass/Vol] 3.2 g/dL 3.2-5.0 [facility] Serum or plasma calcium sunshine urement (mass/volume)Ordered By: Jez Goodwin on 08-16-2022 Calcium [Mass/Vol] 7.9 mg/dL 8.5-10.1 [facility] Serum or plasma choriogonado tropin detectionOrdered By: Jez Goodwin on 08-16-2022 HCG ( test) Ql 66 mIU/mL <4 [facility] Comment on above: hCG levels with Gest ational AgeGestational Age hCG mIU/mL (IU/L)0.2 - 1 week 5 - 501-2 weeks 50 - 5002-3 weeks 100 - 26265-8 weeks 500 - 533125-2 weeks 1000 - 025213-9 weeks 84074 - 100,0006-8 weeks 76527 - 200,0002-3 months 92807 - 100,000 Serum or plasma creatinine m easurement (mass/volume)Ordered By: Jez Goodwin on 08-16-2022 Creatinine [Mass/Vol] 0.65 mg/dL 0.55-1.02 [facility] Comment on above: The validity of the calculated GFR & GFRAA in patients over 70 years has not been determined. Clinical correlation is essential. Serum or plasma urea nitroge n measurement (mass/volume)Ordered By: Jez Goodwin on 08-16-2022 Urea nitrogen [Mass/Vol] 15 mg/dL 7-18 [facility] Serum procalcitonin measurem entOrdered By: Jez Goodwin on 08-16-2022 Procalcitonin [Mass/Vol] ng/mL 0.00-0.09 [facility] Comment on above: A procalcitonin (PCT [...] Ql (Urine sed) 0-5 SEEN /hpf 5-10 [facility] Thin prep Papanicolaou smear with manual screeningOrdered By: Jez Goodwin on 08-16-2022 Thin prep Papanicolaou smear with manual screening 20 U/L 15-37 [facility] Thin prep Papanicolaou smear with manual screening 6 5-15 [facility] Urine blood detectionOrdered By: Jez Goodwin on 08-16-2022 RBC Ql (U) Negative Negative [facility] RBC Ql (U) 0 SEEN /hpf 0-5 [facility] Urine clarityOrdered By: Martin Goodwin on 08-16-2022 Clarity (U) Clear Clear [facility] Urine color determinationOrd ered By: Jez Goodwin on 08-16-2022 Color (U) Yellow Yellow [facility] Urine glucose detectionOrder ed By: Jez Goodwin on 08-16-2022 Glucose Ql (U) Normal mg/dl Normal [facility] Urine leukocyte esterase det ection by dipstickOrdered By: Jez Goodwin on 08-16-2022 Leukocyte esterase Test strip Ql (U) Negative Negative [facility] Urine pHOrdered By: Jez booker on 08-16-2022 pH (U) 6.5 [pH] 5.0 - 8.0 [facility] Urine sediment bacteria coun t by microscopy (number/high power field)Ordered By: Jez Goodwin on 08-16-2022 Bacteria LM.HPF (Urine sed) [#/Area] 0 /[HPF] None Seen [facility] Urine specific gravity measu rementOrdered By: Jez Goodwin on 08-16-2022 Specific gravity (U) [Rel density] 1.010 1.002-1.030 [facility] Urobilinogen Auto test strip Ql (U)Ordered By: Jez Goodwin on 08-16-2022 Urobilinogen Ql (U) Normal mg/dl Normal [facility] Absolute lymphocyte countOrd ered By: Yulia Duran on 08-15-2022 Lymphocytes Auto (Unsp spec) [#/Vol] 0.75 10*3/uL 0.83-4.51 [facility] Basophil percentageOrdered B y: Yulia Duran on 08-15-2022 Basophil percentage 0 SEEN /hpf 0-[address] [facility] Basophils/100 WBC (Bld) 0.4 % 0-1 [facility] Chloride [Moles/Vol] 107 mmol/L 98-[address] [facility] Eosinophils/100 WBC (Bld) 0.2 % 0-5 [facility] Glucose [Mass/Vol] 133 mg/dL 74-106 [facility] Comment on above: Fasting Glucose resu lt greater than or equal to 126 mg/dL suggests DIABETES MELLITUS per A.D.A. criteria. Neutrophils (Bld) [#/Vol] 4.2 10*3/uL 2.0-7.7 [facility] Neutrophils/100 WBC (Bld) 81.1 % 47-70 [facility] Potassium [Moles/Vol] 3.9 mmol/L 3.5-5.1 [facility] Sodium [Moles/Vol] 139 mmol/L 136-145 [facility] WBC (Bld) [#/Vol] 5.2 10*3/uL 4.4-11.0 [facility] Basophil percentageOrdered B y: Dr. Don on 08-15-2022 Bilirubin [Mass/Vol] 0.40 mg/dL 0.20-1.[address] [facility] Comment on above: For patients on eltr ombopag therapy, use of Dimension [place] TBIL is not recommended. Protein [Mass/Vol] 7.3 g/dL 6.4-8.2 [facility] Beta hCG serum qualOrdered B y: Yulia Duran on 08-15-2022 Beta HCG ( test) Ql Negative [facility] Comment on above: TEST is *P OSITIVE*CRITICAL VALUE VERIFIED. CALLED TO [id number] 1126 Becky Burton.RESULTS READ BACK BY SAME . Bilirubin Test strip Ql (U)O rdered By: Yulia Duran on 08-15-2022 Bilirubin Ql (U) Negative Negative [facility] Blood erythrocytes count (nu mber/volume)Ordered By: Yulia Duran on 08-15-2022 RBC (Bld) [#/Vol] 4.32 10*6/uL 4.2-5.4 [facility] Blood hemoglobin measurement (mass/volume)Ordered By: Yulia Duran on 08-15-2022 Hemoglobin (Bld) [Mass/Vol] 14.1 g/dL 12.0-15.0 [facility] Blood lymphocytes/100 leukoc ytesOrdered By: Yulia Duran on 08-15-2022 Lymphocytes/100 WBC (Bld) 14.4 % 19-41 [facility] Blood monocytes/100 leukocyt esOrdered By: Yulia Duran on 08-15-2022 Monocytes/100 WBC (Bld) 3.7 % 0-10 [facility] Blood platelet mean volumeOr dered By: Yulia Duran on 08-15-2022 Platelet mean volume (Bld) [Entitic vol] 12.3 fL 6.2-12.0 [facility] Determination of erythrocyte mean corpuscular volume (MCV)Ordered By: Yulia Duran on 08-15-2022 MCV (RBC) [Entitic vol] 101.4 fL 81-99 [facility] Direct bilirubinOrdered By: Dr. Don on 08-15-2022 Bilirubin.direct [Mass/Vol] 0.12 mg/dL 0.00-0.30 [facility] Hematocrit Auto (Bld) [Volum e fraction]Ordered By: Yulia Duran on 08-15-2022 Hematocrit (Bld) [Volume fraction] 43.8 % 37-47 [facility] Ketones Test strip Ql (U)Ord ered By: Yulia Duran on 08-15-2022 Ketones Ql (U) 15 mg/dl Negative [facility] Laboratory - Chemistry and C hemistry - challengeOrdered By: Dr. Don on 08-15-2022 ALP [Catalytic activity/Vol] 39 U/L 45-117 [facility] ALT [Catalytic activity/Vol] 28 U/L 13-56 [facility] Globulin (S) [Mass/Vol] 3.2 g/dL 2.2-4.2 [facility] Laboratory - Chemistry and C hemistry - challengeOrdered By: Yulia Duran on 08-15-2022 CO2 [Moles/Vol] 25.0 mmol/L 21.0-32.0 [facility] Urea nitrogen/Creatinine [Mass ratio] 34.9 mg/mg 10-20 [facility] Laboratory - Hematology and Cell countsOrdered By: Yulia Duran on 08-15-2022 Erythrocyte distribution width (RBC) [Entitic vol] 45.3 fL 35.1-43.9 [facility] Erythrocyte distribution width (RBC) [Ratio] 12.0 % 11.6-14.6 [facility] Immature granulocytes/100 WBC (Bld) 0.200 % 0.0-0.9 [facility] Comment on above: IG% - Immature Granu locytes (promyelocytes, myelocytes and metamyelocytes) > 1% indicates that a LEFT SHIFT is Present. MCH (RBC) [Entitic mass] 32.6 pg 27.0-32.0 [facility] Nucleated RBC/100 WBC (Bld) [Ratio] 0 % 0-5 [facility] MCHC Auto (RBC) [Mass/Vol]Or dered By: Yulia Duran on 08-15-2022 MCHC (RBC) [Mass/Vol] 32.2 g/dL 32-36 [facility] Mucus LM Ql (Urine sed)Order ed By: Yulia Duran on 08-15-2022 Mucus Ql (Urine sed) 0 SEEN /hpf [facility] Nitrite Test strip Ql (U)Ord ered By: Yulia Duran on 08-15-2022 Nitrite Ql (U) Negative Negative [facility] No Panel InformationOrdered By: Yulia Duran on 08-15-2022 Estimated Creatinine Clearance Calc 108.07 ml/min [facility] Estimated GFR (MDRD) Amer 120 mL/min >60 [facility] Comment on above: GFR Calc Estimated GFR (MDRD) Non-Af Amer 99 mL/min >60 [facility] Comment on above: Non- GFR Calc Platelets bldOrdered By: Irma Duran on 08-15-2022 Platelets (Bld) [#/Vol] 107 10*3/uL 150-450 [facility] Protein Test strip Ql (U)Ord ered By: Yulia Duran on 08-15-2022 Protein Ql (U) 15 mg/dl Negative [facility] Serum or plasma albumin sunshine urement (mass/volume)Ordered By: Dr. Don on 08-15-2022 Albumin [Mass/Vol] 4.1 g/dL 3.2-5.0 [facility] Serum or plasma calcium sunshine urement (mass/volume)Ordered By: Yulia Duran on 08-15-2022 Calcium [Mass/Vol] 8.4 mg/dL 8.5-10.1 [facility] Serum or plasma choriogonado tropin detectionOrdered By: Yulia Duran on 08-15-2022 HCG ( test) Ql 102 mIU/mL <4 [facility] Comment on above: hCG levels with Gest ational AgeGestational Age hCG mIU/mL (IU/L)0.2 - 1 week 5 - 501-2 weeks 50 - 5002-3 weeks 100 - 43055-0 weeks 500 - 668073-9 weeks 1000 - 938238-9 weeks 09737 - 100,0006-8 weeks 00275 - 200,0002-3 months 43169 - 100,000 Serum or plasma creatinine m easurement (mass/volume)Ordered By: Yulia Duran on 08-15-2022 Creatinine [Mass/Vol] 0.72 mg/dL 0.55-1.02 [facility] Comment on above: The validity of the calculated GFR & GFRAA in patients over 70 years has not been determined. Clinical correlation is essential. Serum or plasma urea nitroge n measurement (mass/volume)Ordered By: Yulia Duran on 08-15-2022 Urea nitrogen [Mass/Vol] 25 mg/dL 7-18 [facility] Squamous epithelial cells de tection in urine sediment by light microscopyOrdered By: Yulia Duran on 08-15-2022 Epithelial cells.squamous LM Ql (Urine sed) 0 SEEN /hpf 5-10 [facility] Thin prep Papanicolaou smear with manual screeningOrdered By: Dr. Don on 08-15-2022 Thin prep Papanicolaou smear with manual screening 24 U/L 15-37 [facility] Thin prep Papanicolaou smear with manual screeningOrdered By: Yulia Duran on 08-15-2022 Thin prep Papanicolaou smear with manual screening 7 5-15 [facility] Urine blood detectionOrdered By: Yulia Duran on 08-15-2022 RBC Ql (U) Negative Negative [facility] RBC Ql (U) 0 SEEN /hpf 0-5 [facility] Urine clarityOrdered By: Irma Duran on 08-15-2022 Clarity (U) Clear Clear [facility] Urine color determinationOrd ered By: Yulia Duran on 08-15-2022 Color (U) Yellow Yellow [facility] Urine glucose detectionOrder ed By: Yulia Duran on 08-15-2022 Glucose Ql (U) Normal mg/dl Normal [facility] Urine leukocyte esterase det ection by dipstickOrdered By: Yulia Duran on 08-15-2022 Leukocyte esterase Test strip Ql (U) Negative Negative [facility] Urine pHOrdered By: Yulia mock on 08-15-2022 pH (U) 6.0 [pH] 5.0 - 8.0 [facility] Urine sediment bacteria coun t by microscopy (number/high power field)Ordered By: Yulia Duran on 08-15-2022 Bacteria LM.HPF (Urine sed) [#/Area] 0 /[HPF] None Seen [facility] Urine specific gravity measu rementOrdered By: Yulia Duran on 08-15-2022 Specific gravity (U) [Rel density] 1.020 1.002-1.030 [facility] Urobilinogen Auto test strip Ql (U)Ordered By: Yulia Duran on 08-15-2022 Urobilinogen Ql (U) Normal mg/dl Normal [facility] Serum or plasma progesterone measurement (mass/volume)Ordered By: Dr. Don on 05-18-2022 Progesterone [Mass/Vol] 21.11 ng/mL See Comment [facility] Comment on above: Progesterone Referen ce Table: UNITS Female: Follicular 0.15 - 1.40 ng/mL Luteal 3.34 - 25.56 ng/mL Mid-luteal 4.44 - 28.03 ng/mL Postmenopausal 0.0 - 0.73 ng/mL : 1st Trimester 11.22 - 90.00 ng/mL 2nd Trimester 25.55 - 89.40 ng/mL 3rd Trimester 48.40 -422.50 ng/mL Serum or plasma progesterone measurement (mass/volume)on 01-20-2022 Progesterone [Mass/Vol] 1.30 ng/mL See Comment [facility] Work Phone: Comment on above: Progesterone Referen ce Table: UNITS Female: Follicular 0.15 - 1.40 ng/mL Luteal 3.34 - 25.56 ng/mL Mid-luteal 4.44 - 28.03 ng/mL Postmenopausal 0.0 - 0.73 ng/mL : 1st Trimester 11.22 - 90.00 ng/mL 2nd Trimester 25.55 - 89.40 ng/mL 3rd Trimester 48.40 -422.50 ng/mL Absolute lymphocyte counton 09-24-2021 Lymphocytes Auto (Unsp spec) [#/Vol] 1.70 10*3/uL 0.83-4.51 [facility] Work Phone: Basophil percentageon 2021 Basophils/100 WBC (Bld) 0.9 % 0-1 [facility] Work Phone: Eosinophils/100 WBC (Bld) 1.6 % 0-5 [facility] Work Phone: Neutrophils (Bld) [#/Vol] 1.2 10*3/uL 2.0-7.7 [facility] Work Phone: Neutrophils/100 WBC (Bld) 37.0 % 47-70 [facility] Work Phone: WBC (Bld) [#/Vol] 3.2 10*3/uL 4.4-11.0 [facility] Work Phone: Basophil percentageOrdered B y: Ozzy Murry on 09-24-2021 Bilirubin [Mass/Vol] 0.50 mg/dL 0.20-1.[address] [facility] Comment on above: For patients on eltr ombopag therapy, use of Dimension [place] TBIL is not recommended. Chloride [Moles/Vol] 104 mmol/L 98-[address] [facility] Glucose [Mass/Vol] 82 mg/dL 74-106 [facility] Potassium [Moles/Vol] 4.3 mmol/L 3.5-5.1 [facility] Protein [Mass/Vol] 7.1 g/dL 6.4-8.2 [facility] Sodium [Moles/Vol] 136 mmol/L 136-145 [facility] Blood erythrocytes count (nu mber/volume)on 09-24-2021 RBC (Bld) [#/Vol] 4.06 10*6/uL 4.2-5.4 [facility] Work Phone: Blood hemoglobin measurement (mass/volume)on 09-24-2021 Hemoglobin (Bld) [Mass/Vol] 13.3 g/dL 12.0-15.0 [facility] Work Phone: [phone] Blood lymphocytes/100 leukoc yteson 09-24-2021 Lymphocytes/100 WBC (Bld) 53.0 % 19-41 [facility] Work Phone: [phone] Blood monocytes/100 leukocyt eson 09-24-2021 Monocytes/100 WBC (Bld) 7.5 % 0-10 [facility] Work Phone: Blood platelet mean volumeon 09-24-2021 Platelet mean volume (Bld) [Entitic vol] 11.5 fL 6.2-12.0 [facility] Work Phone: Determination of erythrocyte mean corpuscular volume (MCV)on 09-24-2021 MCV (RBC) [Entitic vol] 100.7 fL 81-99 [facility] Work Phone: Hematocrit Auto (Bld) [Volum e fraction]on 09-24-2021 Hematocrit (Bld) [Volume fraction] 40.9 % 37-47 [facility] Work Phone: [phone] Hemoglobin in reticulocytes (mass per reticulocyte)Ordered By: Ozzy Murry on 09-24-2021 Hemoglobin (Reticulocytes) [Entitic mass] 32.9 pg 30-35 [facility] Iron measurement (mass/mass) Ordered By: Ozzy Murry on 09-24-2021 Iron (Unsp spec) [Mass/Mass] 80 ug/dL 50-170 [facility] Laboratory - Chemistry and C hemistry - challengeOrdered By: [facility] on 09-24-2021 ALP [Catalytic activity/Vol] 49 U/L 45-117 [facility] ALT [Catalytic activity/Vol] 42 U/L 13-56 [facility] CO2 [Moles/Vol] 30.0 mmol/L 21.0-32.0 [facility] Cobalamin (Vitamin B12) [Mass/Vol] 1093 pg/mL 211-911 [facility] Free T4 [Mass/Vol] 0.70 ng/dL 0.76-1.46 [facility] Globulin (S) [Mass/Vol] 3.1 g/dL 2.2-4.2 [facility] Urea nitrogen/Creatinine [Mass ratio] 42.6 mg/mg 10-20 [facility] Laboratory - Hematology and Cell countson 09-24-2021 Erythrocyte distribution width (RBC) [Entitic vol] 44.9 fL 35.1-43.9 [facility] Work Phone: [phone] Erythrocyte distribution width (RBC) [Ratio] 11.9 % 11.6-14.6 [facility] Work Phone: Immature granulocytes/100 WBC (Bld) 0.000 % 0.0-0.9 [facility] Work Phone: [phone] Comment on above: IG% - Immature Granu locytes (promyelocytes, myelocytes and metamyelocytes) > 1% indicates that a LEFT SHIFT is Present. MCH (RBC) [Entitic mass] 32.8 pg 27.0-32.0 [facility] Work Phone: Nucleated RBC/100 WBC (Bld) [Ratio] 0 % 0-5 [facility] Work Phone: MCHC Auto (RBC) [Mass/Vol]on 09-24-2021 MCHC (RBC) [Mass/Vol] 32.5 g/dL 32-36 [facility] Work Phone: No Panel InformationOrdered By: Ozzy Murry on 09-24-2021 Estimated Creatinine Clearance Calc 95.78 ml/min [facility] Estimated GFR (MDRD) Amer 103 mL/min >60 [facility] Comment on above: GFR Calc Estimated GFR (MDRD) Non-Af Amer 85 mL/min >60 [facility] Comment on above: Non- GFR Calc Immature Platelet Fraction 9.0 % 1.0-7.9 [facility] Comment on above: Low PLT + [...] marrow. Immature Reticulocyte Fraction 6.00 % 3.00-15.90 [facility] Reticulocyte Count 1.25 % 0.5-1.5 [facility] Thyroid Stimulating Hormone (TSH) 2.76 uIU/mL 0.358-3.74 [facility] Total Iron Binding Capacity 295 ug/dL 250-450 [facility] Platelets bldon 09-24-2021 Platelets (Bld) [#/Vol] 115 10*3/uL 150-450 [facility] Work Phone: Serum or plasma albumin sunshine urement (mass/volume)Ordered By: Ozzy Murry on 09-24-2021 Albumin [Mass/Vol] 4.0 g/dL 3.2-5.0 [facility] Serum or plasma albumin/glob ulin mass ratioOrdered By: Ozzy Murry on 09-24-2021 Albumin/Globulin [Mass ratio] 1.3 {ratio} 0.9-2.4 [facility] Serum or plasma calcium sunshine urement (mass/volume)Ordered By: Ozzy Murry on 09-24-2021 Calcium [Mass/Vol] 8.5 mg/dL 8.5-10.1 [facility] Serum or plasma creatinine m easurement (mass/volume)Ordered By: Ozzy Murry on 09-24-2021 Creatinine [Mass/Vol] 0.82 mg/dL 0.55-1.02 [facility] Comment on above: The validity of the calculated GFR & GFRAA in patients over 70 years has not been determined. Clinical correlation is essential. Serum or plasma ferritin tricia surement (mass/volume)Or[facility] By: [facility] on 09-24-2021 Ferritin [Mass/Vol] 53 ng/mL 8-252 [facility] Serum or plasma folate measu rement (mass/volume)Ordered By: [facility] on 09-24-2021 Folate [Mass/Vol] 32.50 ng/mL 3.1-55.4 [facility] Serum or plasma iron saturat ion measurement (mass fraction)Ordered By: [facility] on 09-24-2021 Iron saturation [Mass fraction] 27.1 % 15.0-55.0 [facility] Serum or plasma urea nitroge n measurement (mass/volume)Ordered By: [facility] Lovely on 09-24-2021 Urea nitrogen [Mass/Vol] 35 mg/dL 7-18 [facility] Thin prep Papanicolaou smear with manual screeningOrdered By: [facility] Lovely on 09-24-2021 Thin prep Papanicolaou smear with manual screening 27 U/L 15-37 [facility] Thin prep Papanicolaou smear with manual screening 2 5-15 [facility] Thin prep Papanicolaou smear with manual screening 179 U/L 84-246 [facility] Basophil percentageon 2021 Testosterone [Mass/Vol] 8.90 ng/dL [facility] Work Phone: Comment on above: [...] Insulin-like growth factor [Moles/Vol] 237 ng/mL 84-281 [facility] Work Phone: Laboratory - Chemistry and C hemistry - challengeon 08-25-2021 Free T4 [Mass/Vol] 0.66 ng/dL 0.76-1.46 [facility] Work Phone: No Panel Informationon 08-25 Dehydroepiandrosterone Sulfate 52.2 ug/dL 84.8-378.0 [facility] Work Phone: Follicle Stimulating Hormone 7.1 mIU/mL [facility] Work Phone: Comment on above: NORMAL REFERENCE RAN GES FEMALE FOLLICULAR 2.3 - 12.6 mIU/mL MID-CYCLE PEAK 5.2 - 17.5 mIU/mL LUTEAL 1.7 - 12.9 mIU/mL POST-MENOPAUSAL ON MHT 5.9 - 72.8 mIU/mL NOT ON MHT 12.7 - 132.2 mlU/mL MALE 0.7 - 10.8 mIU/mL Reverse Triiodothyronine (T3) 8.9 ng/dL 9.2-24.1 [facility] Work Phone: Comment on above: This test was develo ped and its performance characteristicsdetermined by [facility]. It has not been cleared orapproved by the Food and Drug Administration. Thyroid Stimulating Hormone (TSH) 2.37 uIU/mL 0.358-3.74 [facility] Work Phone: Total Triiodothyronine 0.79 ng/mL 0.6-1.81 [facility] Work Phone: Serum or plasma cortisol tricia surement (mass/volume)on 08-25-2021 Cortisol [Mass/Vol] 11.50 ug/dL 3.44-22.[address] [facility] Work Phone: Comment on above: Adult (AM) 5.27 - 22 .45 ug/dL Adult (PM) 3.44 - 16.76 ug/dLPlease note revised CORTISOL reference range effective 2019. Serum or plasma estradiol (E 2) measurement (mass/volume)on 08-25-2021 E2 [Mass/Vol] 23.2 pg/mL [facility] Work Phone: Comment on above: NORMAL [...] asurement (mass/volume)on 08-25-2021 Prolactin [Mass/Vol] 2.9 ng/mL [facility] Work Phone: Comment on above: NORMAL REFERENCE RAN GES FEMALE NON- 2.2 - 30.3 ng/mL 8.1 - 347.6 ng/mL POST-MENOPAUSAL 0.7 - 31.5 ng/mL MALE 2.5 - 17.4 ng/mL Serum or plasma sex hormone binding globulin measurement (moles/volume)on 08-25-2021 Sex hormone binding globulin [Moles/Vol] 51.7 nmol/L 24.6-122.0 [facility] Work Phone: Comment on above: Performed at: [address] [id number] Director: Yair Raza PhD, Phone: [phone] at: [facility] [id number] Director: Belén Sanches MD, Phone: [phone] Erythrocyte distribution wid th standard deviationon 04-12-2018 Erythrocyte distribution width (RBC) [Entitic vol] 46.6 fL 35.1-43.9 [facility] Laboratory - Hematology and Cell countson 04-12-2018 Erythrocyte distribution width (RBC) [Ratio] 12.8 % 11.6-14.6 [facility] Total cell counton 9 Cells counted Molgen (Bld/Tiss) [#] Not Reportable [facility] Vital Signs Date Time Vital Sign Value Performing Clinician Faci lity 06-28-2023 16:01-0400 Body height 170.[address] Suzanne Leyva Work Phone: [facility] 06-28-2023 16:01-0400 Body mass index (BMI) [Ratio] 24.8 kg/m2 Dr. Suzanne Leyva Work Phone: [facility] 06-28-2023 16:01-0400 Body weight 71.[address] Suzanne Leyva Work Phone: [facility] 06-28-2023 16:01-0400 Diastolic blood pressure 56 mm[Hg] Dr. Suzanne Leyva Work Phone: [facility] 06-28-2023 16:01-0400 Systolic blood pressure 92 mm[Hg] Dr. Suzanne Leyva Work Phone: [facility] 05-31-2023 09:24-0400 Body height 170.[address] Suzanne Leyva Work Phone: [facility] 05-31-2023 09:23-0400 Body mass index (BMI) [Ratio] 24.1 kg/m2 Dr. Suzanne Leyva Work Phone: [facility] 05-31-2023 09:23-0400 Body weight 69.[address] Suzanne Leyva Work Phone: [facility] 05-31-2023 09:23-0400 Diastolic blood pressure 61 mm[Hg] Dr. Suzanne Leyva Work Phone: [facility] 05-31-2023 09:23-0400 Systolic blood pressure 94 mm[Hg] Dr. Suzanne Leyva Work Phone: [facility] 05-16-2023 09:20-0400 Body mass index (BMI) [Ratio] 24.2 kg/m2 Dr. Suzanne Leyva Work Phone: [facility] 05-16-2023 09:20-0400 Body weight 70.[address] Suzanne Leyva Work Phone: [facility] 05-16-2023 09:20-0400 Diastolic blood pressure 63 mm[Hg] Dr. Suzanne Leyva Work Phone: [facility] 05-16-2023 09:20-0400 Systolic blood pressure 97 mm[Hg] Dr. Suzanne Leyva Work Phone: [facility] 05-06-2023 14:16-0400 Body mass index (BMI) [Ratio] 24 kg/m2 Dr. Suzanne Leyva Work Phone: [phone] [place] [address] 05-06-2023 14:16-0400 Body weight 69.[address] Suzanne Leyva Work Phone: [facility] 05-06-2023 14:16-0400 Diastolic blood pressure 66 mm[Hg] Dr. Suzanne Leyva Work Phone: [phone] [place] [address] 05-06-2023 14:16-0400 Systolic blood pressure 114 mm[Hg] Dr. Suzanne Leyva Work Phone: [facility] 04-21-2023 12:59-0500 Body height 170.[address] Suzanne Leyva Work Phone: [facility] 04-21-2023 12:59-0500 Body mass index (BMI) [Ratio] 23.9 kg/m2 Dr. Suzanne Leyva Work Phone: [facility] 04-21-2023 12:59-0500 Body weight 69.[address] Suzanne Leyva Work Phone: [facility] 04-21-2023 12:59-0500 Diastolic blood pressure 45 mm[Hg] Dr. Suzanne Leyva Work Phone: [facility] 04-21-2023 12:59-0500 Systolic blood pressure 103 mm[Hg] Dr. Suzanne Leyva Work Phone: [facility] 10-19-2022 10:44-0400 Body height 170.[address] Suzanne Leyva Work Phone: [facility] 10-19-2022 10:44-0400 Body mass index (BMI) [Ratio] 22.4 kg/m2 Dr. Suzanne Leyva Work Phone: [facility] 10-19-2022 10:44-0400 Body temperature 99 [degF] Dr. Suzanne Leyva Work Phone: [facility] 10-19-2022 10:44-0400 Body weight 64.[address] Suzanne Leyva Work Phone: [facility] 10-19-2022 10:44-0400 Diastolic blood pressure 70 mm[Hg] Dr. Suzanne Leyva Work Phone: [facility] 10-19-2022 10:44-0400 Heart rate 55 /min Dr. Suzanne Leyva Work Phone: [facility] 10-19-2022 10:44-0400 Respiratory rate 16 /min Dr. Suzanne Leyva Work Phone: [facility] 10-19-2022 10:44-0400 SaO2% (BldA) [Mass fraction] 98 % Dr. Suzanne Leyva Work Phone: [facility] 10-19-2022 10:44-0400 Systolic blood pressure 102 mm[Hg] Dr. Suzanne Leyva Work Phone: [facility] 08-15-2022 23:43-0400 Body height 170.18 cm [facility] 08-15-2022 23:43-0400 Body mass index (BMI) [Ratio] 22.5 kg/m2 [facility] 08-15-2022 23:43-0400 Body temperature 98.3 [degF] [facility] 08-15-2022 23:43-0400 Body weight 65.22 kg [facility] 08-15-2022 23:43-0400 Diastolic blood pressure 58 mm[Hg] [facility] 08-15-2022 23:43-0400 Heart rate 52 /min [facility] 08-15-2022 23:43-0400 Respiratory rate 16 /min [facility] 08-15-2022 23:43-0400 SaO2% (BldA) [Mass fraction] 95 % [facility] 08-15-2022 23:43-0400 Systolic blood pressure 117 mm[Hg] [facility] 08-15-2022 15:21-0400 Diastolic blood pressure 65 mm[Hg] [facility] 08-15-2022 15:21-0400 Heart rate 60 /min [facility] 08-15-2022 15:21-0400 Respiratory rate 16 /min [facility] 08-15-2022 15:21-0400 SaO2% (BldA) [Mass fraction] 98 % [facility] 08-15-2022 15:21-0400 Systolic blood pressure 114 mm[Hg] [facility] 08-15-2022 11:00-0400 Body mass index (BMI) [Ratio] 21.6 kg/m2 [facility] 08-15-2022 11:00-0400 Body temperature 98.2 [degF] [facility] 08-15-2022 11:00-0400 Body weight 62.59 kg [facility] 09-24-2021 10:38-0400 Body height 170.[address] Suzanne Leyva Work Phone: [facility] Work Phone: 09-24-2021 10:38-0400 Body mass index (BMI) [Ratio] 21.7 kg/m2 Dr. Suzanne Leyva Work Phone: [facility] Work Phone: 09-24-2021 10:38-0400 Body temperature 97.8 [degF] Dr. Suzanne Leyva Work Phone: [facility] Work Phone: 09-24-2021 10:38-0400 Body weight 63.[address] Suzanne Leyva Work Phone: [facility] Work Phone: 09-24-2021 10:38-0400 Diastolic blood pressure 65 mm[Hg] Dr. Suzanne Leyva Work Phone: [facility] Work Phone: 09-24-2021 10:38-0400 Heart rate 48 /min Dr. Suzanne Leyva Work Phone: [facility] Work Phone: 09-24-2021 10:38-0400 Respiratory rate 16 /min Dr. Suzanne Leyva Work Phone: [facility] Work Phone: 09-24-2021 10:38-0400 SaO2% (BldA) [Mass fraction] 99 % Dr. Suzanne Leyva Work Phone: [facility] Work Phone: 09-24-2021 10:38-0400 Systolic blood pressure 97 mm[Hg] Dr. Suzanne Leyva Work Phone: [facility] Work Phone: 03-05-2020 11:11-0500 Body mass index (BMI) [Ratio] 23.6 kg/m2 Dr. Suzanne Leyva Work Phone: [facility] 03-05-2020 11:11-0500 Body temperature 98.2 [degF] Dr. Suzanne Leyva Work Phone: [facility] 03-05-2020 11:11-0500 Body weight 68.[address] Suzanne Leyva Work Phone: [facility] Work Phone: 03-05-2020 11:11-0500 Diastolic blood pressure 70 mm[Hg] Dr. Suzanne Leyva Work Phone: [facility] 03-05-2020 11:11-0500 Heart rate 62 /min Dr. Suzanne Leyva Work Phone: [facility] 03-05-2020 11:11-0500 Respiratory rate 16 /min Dr. Suzanne Leyva Work Phone: [facility] 03-05-2020 11:11-0500 SaO2% (BldA) [Mass fraction] 100 % Dr. Suzanne Leyva Work Phone: [facility] 03-05-2020 11:11-0500 Systolic blood pressure 108 mm[Hg] Dr. Suzanne Leyva Work Phone: [facility] Encounters Encounter Date Encounter Type Care Provider Facility Start: 09-04-2024 ambulatory Abby Don [facility] ility:[facility] Start: 08-31-2024 End: 08-31-[address] Suzanne Leyva MD Work Phone: -Laboratory Start: 08-31-2024 End: 08-31-[address] Abby Don MD -Laboratory Work Phone: Start: 08-31-2024 End: 08-31-2024 ambulatory Abby Don Facility:[facility] Start: 05-15-2024 Encounter for genera l [facility] Start: 05-04-[facility]24 End: 05-04-[address] Suzanne Leyva MD Work Phone: [facility] Work Phone: Start: 05-04-2024 End: 05-04-[address] Suzanne Leyva MD -Laboratory, [facility] Start: 05-04-2024 End: 05-04-2024 ambulatory Suzanne Leyva Facility:[facility] Start: 03-04-2024 End: 03-04-2024 Patient encounter procedure JANN Knott [facility] Work Phone: Start: 03-04-2024 End: 03-04-2024 ambulatory Suzanne Leyva Facility:[facility] Start: 01-23-2024 End: 01-23-[address] Malorie Wilkins MD -Laboratory, [facility] Start: 01-23-2024 End: 01-23-2024 ambulatory Suzanne Leyva Facility:[facility] Start: 01-03-2024 End: 01-03-2024 ambulatory Suzanne Leyva Facility:[facility] Start: 11-25-2023 End: 11-26-2023 Evaluation and management of inpatient Suzanne Leyva Facility:[facility] Start: 11-25-2023 ambulatory Suzanne Leyva Facility:[facility] Start: 11-23-2023 End: 11-23-2023 ambulatory Giselarandy Hernandezsakina Facility:[facility] Start: 11-22-2023 End: 11-22-2023 ambulatory Tyesha Tmi Perez Facility:[facility] Start: 11-22-2023 End: 11-22-2023 ambulatory Tyesha Dumont Ana Facility:[facility] Start: 11-17-2023 End: 11-17-2023 ambulatory Tyesha Dumont Ana Facility:[facility] Start: 11-17-2023 End: 11-17-2023 ambulatory Tyesha Dumont Ana Facility:[facility] Start: 11-09-2023 End: 11-09-2023 ambulatory Giselarandy Hernandezsakina Facility:[facility] Start: 11-02-2023 End: 11-02-2023 ambulatory Gisela Aparicio Facility:[facility] Start: 10-27-2023 End: 10-28-2023 ambulatory Gisela Aparicio Facility:[facility] Start: 10-19-2023 End: 10-19-2023 ambulatory Suzanne Leyva Facility:[facility] Start: 10-13-2023 End: 10-13-2023 ambulatory Suzanne Leyva Facility:[facility] Start: 09-28-2023 End: 09-28-2023 ambulatory Suzanne Leyva Facility:[facility] Start: 07-26-2023 End: 07-26-2023 ambulatory [facility] Start: 06-28-2023 End: 06-28-[address] Suzanne Leyva Work Phone: [facility] Work Phone: Start: 06-28-2023 End: 06-28-[address] Suzanne Leyva Work Phone: [facility]-Laboratory, Specimen Work Phone: Start: 06-28-2023 End: 06-28-[address] Suzanne Leyva Work Phone: [facility] Work Phone: Start: 05-31-2023 End: 05-31-[address] Suzanne Leyva Work Phone: [facility] Work Phone: Start: 05-31-2023 End: 05-31-[address] Suzanne Leyva Work Phone: [facility] Work Phone: Start: 05-16-2023 End: 05-16-[address] Suzanne Leyva Work Phone: [facility] Work Phone: Start: 05-12-2023 End: 05-12-2023 [facility] Start: 05-12-2023 End: 05-12-2023 ambulatory SUZANNE SURYA [facility] Start: 05-06-2023 End: 05-06-[address] Suzanne Leyva Work Phone: [facility] Work Phone: Start: 04-22-2023 End: 04-22-[address] Suzanne Leyva Work Phone: [facility] Work Phone: Start: 04-22-2023 End: 04-22-[address] Suzanne Leyva Work Phone: [facility]-Laboratory Work Phone: Start: 04-21-2023 End: 04-21-[address] Suzanne Leyva Work Phone: [facility] Work Phone: Start: 04-21-2023 End: 04-21-[address] Suzanne Leyva Work Phone: [facility]-Laboratory, Specimen Work Phone: Start: 04-21-2023 End: 04-21-[address] Suzanne Leyva Work Phone: [facility] Work Phone: Start: 04-11-2023 End: 04-11-2023 ambulatory [facility] Work Phone: Start: 04-11-2023 End: 04-11-2023 Patient encounter procedure [facility]-Ultrasound, [facility] Work Phone: Start: 04-08-2023 End: 04-08-2023 ambulatory [facility] Work Phone: Start: 04-08-2023 End: 04-08-2023 Patient encounter procedure [facility]-Laboratory Work Phone: Start: 04-01-2023 End: 04-01-2023 ambulatory [facility] Work Phone: Start: 04-01-2023 End: 04-01-2023 Patient encounter procedure [facility]-Laboratory Work Phone: Start: 03-25-2023 End: 03-25-2023 ambulatory [facility] Work Phone: Start: 03-25-2023 End: 03-25-2023 Patient encounter procedure [facility]-Laboratory Work Phone: Start: 03-23-2023 End: 03-23-2023 ambulatory [facility] Work Phone: Start: 03-23-2023 End: 03-23-2023 Patient encounter procedure [facility]-Laboratory Work Phone: Start: 03-21-2023 End: 03-21-2023 ambulatory [facility] Work Phone: Start: 03-21-2023 End: 03-21-2023 Patient encounter procedure [facility]Laboratory Work Phone: Start: 03-19-2023 End: 03-19-2023 ambulatory [facility] Work Phone: Start: 03-19-2023 End: 03-19-2023 Patient encounter procedure [facility]Laboratory Work Phone: Start: 03-04-2023 End: 03-04-2023 ambulatory [facility] Work Phone: Start: 03-04-2023 End: 03-04-2023 Patient encounter procedure [facility]Labor[facility] Work Phone: Start: 01-12-2023 End: 01-12-[address] Suzanne Leyva Work Phone: [facility] Work Phone: Start: 01-12-2023 End: 01-12-[address] [facility] Start: 12-13-2022 End: 12-13-[address] Suzanne Leyva Work Phone: [facility]-Radiology, [facility] Work Phone: Start: 11-29-2022 End: 11-29-[address] Suzanne Leyva Work Phone: [facility] Work Phone: Start: 11-29-2022 End: 11-29-[address] [facility] Start: 10-19-2022 End: 10-19-[address] Suzanne Leyva Work Phone: [facility] Work Phone: Start: 10-19-[address] Suzanne Leyva Work Phone: [facility] [facility] Start: 08-20-2022 End: 08-20-2022 ambulatory [facility] Work Phone: Start: 08-20-2022 End: 08-20-2022 Patient encounter procedure [facility]Labor[facility] Work Phone: Start: 08-17-2022 End: 08-17-2022 ambulatory [facility] Work Phone: Start: 08-17-2022 End: 08-17-2022 Patient encounter procedure [facility] Work Phone: Start: 08-15-2022 End: 08-16-2022 Emergency department patient visit [facility] Start: 08-15-2022 End: 08-15-2022 Emergency department patient visit [facility] Start: 05-18-2022 End: 05-18-2022 ambulatory [facility] Work Phone: Start: 05-18-2022 End: 05-18-2022 Patient encounter procedure [facility]Labor[facility] Start: 01-20-2022 End: 01-20-2022 ambulatory [facility] Work Phone: Start: 01-20-2022 End: 01-20-2022 Patient encounter procedure [facility] Start: 10-15-2021 End: 10-15-[address] Suzanne Leyva Work Phone: [facility] Work Phone: Start: 10-15-2021 End: 10-15-[address] Suzanne Leyva Work Phone: [facility] Start: 09-24-2021 End: 09-24-[address] Suzanne Leyva Work Phone: [facility] Start: 09-24-[address] Suzanne Leyva Work Phone: [facility] Start: 08-25-2021 End: 08-25-2021 Patient encounter procedure [facility]Labor[facility] Procedures Date Procedure Procedure Detail Performing Clinician Start: 08-31-[address] Suzanne Leyva MD Work Phone: Start: 08-31-2024 Follicle stimulating hormone measurement Dr. Suzanne Leyva MD Work Phone: Comment on above: FEMALE:Follicular: 1 .4 - 18.1 mIU/mLMidcycle: 3.4 - 33.4 mIU/mLLuteal: 1.5 - 9.1 mIU/mLPost Menopause: 23.0 - 116.3 mIU/mLMALE: 1.4 - 18.1 mIU/mL Start: 08-31-2024 Vitamin D, 25-hydrox y measurement Dr. Suzanne Leyva MD Work Phone: Comment on above: Vitamin D StatusDefi ciency: <20 ng/mL (50nmol/L)Insufficiency: 20-30 ng/mL (50-75 nmol/L)Sufficiency: 30-100 ng/mL (75-250 nmol/L)Toxicity: >100 ng/mL (>250 nmol/L) Start: 06-28-[address] Suzanne Leyva Work Phone: Start: 04-11-2023 Transvaginal obstetr ic ultrasonography Start: 12-13-[address] Suzanne Leyva Work Phone: Start: 08-15-2022 Transvaginal obstetr ic ultrasonography Start: 10-15-2021 MRI of brain with contrast Dr. Suzanne Leyva Work Phone: Plan of Treatment Date Care Activity Detail Author Start: 08-31-2024 Blood zinc measurement [facility] Start: 08-31-2024 Prolactin measurement [facility] Start: 05-31-2023 Procedure [facility] Start: 04-01-2023 Procedure [facility] Start: 03-19-2023 Procedure [facility] Start: 08-25-2021 [facility] Work Phone: Cardiolipin IgG Ab [ Units/volume] in Serum or Plasma [facility] Cardiolipin IgM Ab [ Units/volume] in Serum or Plasma [facility] CBC W Auto Differential panel - Blood [facility] Dehydroepiandrostero ne sulfate (DHEA-S) [Mass/volume] in Serum or Plasma [facility] Work Phone: Dehydroepiandrostero ne sulfate (DHEA-S) [Mass/volume] in Serum or Plasma [facility] Dehydroepiandrostero ne sulfate (DHEA-S) [Mass/volume] in Serum or Plasma [facility] Dehydroepiandrostero ne sulfate (DHEA-S) [Mass/volume] in Serum or Plasma [facility] Dehydroepiandrostero ne sulfate (DHEA-S) [Mass/volume] in Serum or Plasma [facility] Dehydroepiandrostero ne sulfate (DHEA-S) [Mass/volume] in Serum or Plasma [facility] Patient Education [facility] Work Phone: Patient referral [facility] Work Phone: Procedure [facility] Retinol [Mass/volume ] in Serum or Plasma [facility] Serum testosterone measurement [facility] Sex hormone binding globulin [Moles/volume] in Serum or Plasma [facility] Work Phone: Sex hormone binding globulin [Moles/volume] in Serum or Plasma [facility] Sex hormone binding globulin [Moles/volume] in Serum or Plasma [facility] Testosterone [Mass/v olume] in Serum or Plasma [facility] Testosterone Free [M ass/volume] in Serum or Plasma [facility] Testosterone Free [M ass/volume] in Serum or Plasma [facility] Testosterone Free [M ass/volume] in Serum or Plasma [facility] Testosterone Free [M ass/volume] in Serum or Plasma [facility] Testosterone measurement [facility] Testosterone measurement [facility] Testosterone measurement [facility] Testosterone measurement [facility] Thyroid stimulating hormone measurement [facility] Thyroperoxidase Ab [ Units/volume] in Serum or Plasma [facility] Triiodothyronine (T3 ).reverse [Mass/volume] in Serum or Plasma [facility] Work Phone: [facility] Immunizations Immunization Date Immunization Notes Care Provider [facility]-26-2023 influenza, seasonal, injectable, preservative free Dr. Suzanne Leyva MD Work Phone: [facility] 09-05-2023 tetanus toxoid, redu kathryn diphtheria toxoid, and acellular pertussis vaccine, adsorbed Dr. Suzanne Leyva MD Work Phone: [facility] 06-12-2020 Covid (Moderna) [facility] 05-27-2020 tetanus toxoid, redu kathryn diphtheria toxoid, and acellular pertussis vaccine, adsorbed [facility] 03-03-2017 influenza, injectabl e, quadrivalent, preservative free Dr. Suzanne Leyva Work Phone: [facility] 03-03-2017 influenza, seasonal, injectable [facility] 02-07-2017 tetanus toxoid, redu kathryn diphtheria toxoid, and acellular pertussis vaccine, adsorbed [facility] Payers Date Payer Category Payer Self-pay [id number] 2023 Unknown [id number] 2016 Unknown [id number] 1988 Unknown [id number] . [id number] 1988 Unknown [id number] 1988 Unknown [id number] . [id number] 1988 Unknown [id number] . [id number] Private Health Insurance [id number] Unknown [id number] .[id number]. [id number] Unknown [id number] .16. [id number] Unknown [id number] 2.16.8 [id number] Unknown [id number] 2.16.8 [id number] Unknown [id number] 2.16.8 [id number] Unknown [id number] 2.16.8 [id number] Unknown [id number] 2.16.8 [id number] Unknown [id number] 2.16.8 [id number] Unknown [id number] 2.16.8 [id number] Unknown [id number] 2.16.8 [id number] Unknown [id number] 2.16.8 [id number] Unknown [id number] 2.16.8 [id number] Unknown [id number] 2.16.8 [id number] Unknown [id number] 2.16.8 [id number] Unknown [id number] 2.16.8 [id number] Unknown [id number] 2.16.8 [id number] Unknown [id number] 2.16.8 [id number] Unknown [id number] 2.16.8 [id number] Unknown [id number] 2.16.8 [id number] Unknown [id number] 2.16.8 [id number] Unknown [id number] 2.16.8 [id number] Unknown [id number] 2.16.8 [id number] Unknown [id number] 2.16.8 [id number] Social History Date Type Detail Facility Start: 08-29-2020 End: 05-31-2023 Tobacco smoking status NHIS Unknown if ever smoked [facility] Start: 03-05-2020 Non-smoker [facility] Start: 1990 Sex Assigned At Female [facility] Start: 11-25-2023 Tobacco smoking status NHIS Never smoked tobacco (finding) [facility] Start: 05-15-2024 Sex Female (finding) [facility] NEGATED: Highlighted row [facility] Clinical Notes 08-15-2022 to 03-04-2024 Note Date & Type Note Facility 03-04-2024 Evaluation note Diagnosis Onset Date Resolution Care and examination of lactating mother noneactive March 04 8:35am Mastitis noneactive March 04, 2024 8:35am [facility] Work Phone: 1(727) 770-681002-29-2024 NotePap Smear Specimen AdequacyFebruary 2023 4:02pmComment.Satisfactory for evaluation. No endocervical component is identified.An endocervical component is not commonly seen in the patient.[employer] INTERFACED A#[id number] Children'S HospitalComment on above: Satisfactory for evaluation. No endocervical component is identified.An endocervical component is not commonly seen in the patient.04-21-2023 NotePap Smear Specimen AdequacyFebruary 2023 4:02pmComment.Satisfactory for evaluation. No endocervical component is identified.An endocervical component is not commonly seen in the patient.[facility] INTERFACED A#[id number] Children'S HospitalComment on above:Satisfactory for evaluation. No endocervical component is identified.An endocervical component is not commonly seen in the patient.04-21-2023 NotePap Smear Specimen AdequacyFebruary 29th, 2024 5:02pmComment.Satisfactory for evaluation. No endocervical component is identified.An endocervical component is not commonly seen in the patient.[facility] INTERFACED A#[id number] Children'S HospitalComment on above:Satisfactory for evaluation. No endocervical component is identified.An endocervical component is not commonly seen in the patient.04-21-2023 NotePap Smear Specimen AdequacyFebruary 2023 5:02pm Comment.Satisfactory for evaluation. No endocervical component is identified.An endocervical component is not commonly seen in the patient.[facility] INTERFACED A#[id number] Children'S HospitalComment on above:Satisfactory for evaluation. No endocervical component is identified.An endocervical component is not commonly seen in the patient.08-16-2022 Discharge summary [facility] August 16, 2022 2:30am Note Date/Time August 16, 2022 12:5 4am [facility] Medical Records Department [address] [place] [address] Emergency Department Summary 08/16/22 MR#: [id number] Acct: [id number] Name: IDALMIS MAHONEY Rep #:[id number] : 1990 31 From: Jez Goodwin [...] vomiting but does admit to loose stool/diarrhea [facility] Medical History Macrocytic anemia Ovarian cyst [...] skin mole No history of previous surgery [place] teeth extracted Social History Smoking Status: Never smoker ROS [facility] ED Constitutional Constitutional ED: Reports fever(s) and [...] use. I discussed the case with her HYDRAULIC LIFT OPERATOR. She is in agreement at this time [...] 78.7 H Lymph % (Auto) 15.9 L [place] % (Auto) 4.8 Eos % (Auto) 0.0 [...] Color Urine Clarity Urine pH Ur Specific Brilliant Urine Protein Urine Glucose (UA) Urine Ketones [...] (Auto) Neut % (Auto) Lymph % (Auto) [place] % (Auto) Eos % (Auto) Baso % [...] Clarity Clear Urine pH 6.5 Ur Specific [place]illiant 1.010 Urine Protein 15 H Urine Glucose [...] 50 mg tablet 4.5 mg PO DAILY vit,[id number] 1 TABLET tablet 1 tab PO DAILY [...] taking your naltrexone as well as the [place]. Begin taking the oxycodone/Percocet as directed for improved pain control. Contact your HYDRAULIC LIFT OPERATOR office today to schedule an appointment for later this week [facility]. Disposition Disposition: Home, Self Care What to do if you have Problems For any increased pain, shortness of breath, bleeding, nausea or vomiting, chestpain, or any unexpected problems, contact your Primary Care Provider. Call [facility] ([phone]) or report to the closest Emergency Room. Call 911 if necessary. 08/16/22 0230 <Electronically signed by Jez Goodwin DO> Cosigner Signature (if applicable): CC: Dr. Suzanne Leyva MD ~ Signed [facility] Work Phone: 1(371) 618-349806-25-2023 Hospital Discharge instructions Additional Instructions Please stop taking your naltrexone as well as the [place]. Begin taking the oxycodone/Percocet as directed for improved pain control. Contact your HYDRAULIC LIFT OPERATOR office today to schedule an appointment for later this week and return to the ER should you have any further concerns. [facility] Work Phone: evaluation noteNo assessment information available [facility] Work Phone: evaluation note* Diagnosis Onset Date Resolution Status Macrocytic anemia chronic Thrombocytopenia chronic [facility] Work Phone: evaluation note* Diagnosis Onset Date Resolution Status Macrocytosis without anemia chronic Thrombocytopenia chronic [facility] Work Phone: evaluation note* Diagnosis Onset Date Resolution Status AMA (advanced maternal age) multigravida 35+ acute Hypothyroidism acute Infertility acute acute Supervision of high-risk acute Macrocytosis without anemia chronic Thrombocytopenia [facility] Work Phone: evaluation note* Diagnosis Onset [...] high-risk acute Macrocytosis without anemia chronic Thrombocytopenia [facility] Work Phone: evaluation note* Diagnosis Onset [...] acute Macrocytosis without anemia chronic Thrombocytopenia chronic May [facility] Work Phone: Reason for referral (narrative)No reason for referral information availableWNorwalk [facility] Work Phone: Family History No Family History Records Found Relationship Condition Age at Onset Recorded Date/T jonathan father Malignant neoplasm of skin Unknown grandfather Malignant neoplasm of colon Unknown uncle Malignant neoplasm of colon Unknown Advance Directives No Advanced Directives Records Found Advance Directive Response Recorded Date/ Time Living Will Yes August 29, 2020 1 2:55am Power of Learning Developer Yes August 29, 2020 12:55am Advance Directive Response Recorded Date/ Time Living Will Yes August 28, 2020 1 1:55pm Power of Learning Developer Yes August 28, 2020 11:55pm Advance Directive Response Recorded Date/ Time Name of Medical Power of Learning Developer bran August 15, 2022 11:07am Name of Medical Power of Learning Developer bran mahoney August 15, 2022 11:54pm Living Will Yes August 15, 2022 11:54pm Power of Learning Developer Yes August 15 11:54pm Advance Directive Response Recorded Date/ Time Living Will Yes August 15, 2022 10:54pm Power of Learning Developer Yes August 15 10:54pm Advance Directive Response Recorded Date/ Time Living Will Yes August 15, 2022 11:54pm Power of Learning Developer Yes August 15 11:54pm Chief Complaint and [...] New OB, LMP 1/2, EROS 108 E-ORDER Reason for Visit AMA (advanced matern al age) multigravida 35+ Hypothyroidism Infertility Supervision of high-risk Macrocytosis without anemia Thrombocytopenia Chief Complaint labs Secondary amenorrhea New OB, LMP 1/2, EROS 10/8 E-ORDER cramping 13 [facility] [place] [facility] follow up for bleeding Reason for [...] Secondary amenorrhea New OB, LMP 1/2, EROS 10 E-ORDER cramping 13 [facility] [place] [facility] follow up for bleeding 17 WK [...] Inactive Member Role Status Dates Dr. Suzanne eLyva MD Primary Care Provider Active Dr. Abby [...] 2024 End: March 04, 2024 Enma Knott NP, [place] NURSE-C Attending Provider Active Start: March 04, 2024 [...] May 04, 2024 End: May 04, 2024 Team Status: Active Member Role/Relationship Status Dates Dr. Suzanne Leyva MD Family Provider Active Dr. Suzanne Leyva MD Primary Care Provider Active Team Status: Inactive Member Role/Relationship Status Dates Dr. Suzanne Leyva MD Primary Care Provider Active Start: August 31, 2024 End: August 31, 2024 Dr. Abby Don MD Attending Provider Active Start: August 31, 2024 End: August 31, 2024 Dr. Abyb Don MD Referring Provider Active Start: August 31, 2024 End: August 31, 2024 INFORMATION SOURCE (unrecogn ized section and content) DATE CREATED AUTHOR 07/27/2023 [facility] DATE CREATED AUTHOR AUTHOR'S ORGANIZ ATION 09/08/2024 [facility] FOR RECORDS PERTAINING TO PATIENTS WHO [...] BE BASED ON THE PRIMARY CLINICAL RECORDS. [facility] [employer] [facility]. provides no warranty or guarantee of the accuracy or completeness of information in this document.
--- OUTSIDE RECORDS SUMMARY | 2024-09-27 07:00 | XMS RPT_ITS | CCD ---
Author Organization [facility] Care Team Providers Care Environmental Services Worker Name Role Phone Dr. Suzanne Leyva Primary Care Provider [phone] Dr. Suzanne Leyva Referring Provider Dr. Ozzy Murry Attending Provider Dr. Suzanne Leyva Primary Care Provider Dr. Suzanne Leyva Referring Provider [phone] SCHUYLER Leslie Attending Provider Dr. Suzanne [...] Provider Dr. Suzanne Leyva MD Referring Provider Enma Kiran Attending Provider [phone] Leyva MD, Dr. Suzanne Attending Provider Gordon REYES, Dr. Porras Primary Care Provider [phone] Harjinder Don MD, Dr. Mora Attending Provider Harjinder Don MD, Dr. Mora Referring Provider Tyesha Bowman Attending Unavailabl e Leyva, Suzanne Primary Care Unavailable Leyva, Suzanne Referring Unavailable Tyesha Bowman Attending Unavailabl e Leyva, Suzanne Primary Care Unavailable Leyva, Suzanne Referring Unavailable Leyva, Suzanne Referring Unavailable Leyva, Suzanne Primary Care Unavailable Chris Leslie Attending Unavailable Tyesha Bowman Attending Unavailabl e Sabihae Tyesha ePrez Referring Unavailabl e Leyva, Suzanne Primary Care [...] Attending Unavailable Leyva, Suzanne Referring Unavailable Nikos METAL PRECISION MACHINE ASSEMBLER, Enma Attending Unavailable Leyva, Suzanne Primary Care [...] 11, 2021 2:24pm Check with primary doctor Vit,Oias70-Ynxp-Wyofp (20 sources) Start: 04-12-2019 take 1 tablet by mouth once daily Vit,Rind23-Hcri-Edvvd Active 1 TABLET PO DAILY April 12, 2019 12:00am Start: 04-12-2019 take 1 tablet by jeaneth th once daily Vit,Ttjp17-Iwuu-Imwqk Active 1 TABLET PO DAILY April 12, 2019 1:00am Vit,Tpkr71-Wiid-Moilw 1 TABLET tablet (2 sources) Start: 04-12-2019 take 1 tablet by mouth once daily Vit,Wflk21-Jhzz-Noxis 1 TABLET tablet Active 1 {tbl} PO DAILY April 12, 2019 1:00am Check with primary doctor Start: 04-12-2019 take 1 tablet by jeaneth th once daily Vit,Wyoz90-Qnkx-Xtivs 1 TABLET tablet Active 1 {tbl} PO [...] consult placed, 08/02/23 approved for delivery at [facility] if >100K. 28w:121k. Recheck 4 wk [...] Ceruloplasminon 09-05-2024 CERULOPLASMIN 18.7 mg/dL Low 19.0-39.0 [facility] Comment on above: Order Comment: ADD O N CERULOPLASMIN-MARIBEL 09/04/24 @0623 Performed By: #### L 3300.1500, L500.4050, L503.6550, L3100.5310, L3400.0920, L501.67672, L3300.1750, L506.0400, L3400.0700, L501.9187, L506.1001, L3100.5060, L3100.5125, L509.6001, L3300.9910, L3100.5400, L100.0500, L503.0106, L501.9520 ####[facility] [address] [place], [place], [id number] DHEA Sulfateon 09-05-2024 DHEA SULFATE 93.1 ug/dL Normal 57.3-279.2 [facility] Comment on above: Order Comment: Test( s) [id number], Whole Bloodwas developed and its performance characteristicsdetermined by [employer] [place]. It has not been cleared or approvedby the Food and Drug Administration.N Performed By: #### L 3300.1500, L500.4050, L503.6550, L3100.5310, L3400.0920, L501.41564, L3300.1750, L506.0400, L3400.0700, L501.9187, L506.1001, L3100.5060, L3100.5125, L509.6001, L3300.9910, L3100.5400, L100.0500, L503.0106, L501.9520 ####[facility] [address] [place], [place], [id number] PROLACTIN 4465on 09-05-2024 PROLACTIN 86.9 ng/mL High 4.8-33.4 [facility] Comment on above: Order Comment: Test( s) [id number]-Bdop, Whole Bloodwas developed and its performance characteristicsdetermined by [employer]. It has not been cleared or approvedby the Food and Drug Administration. Performed By: #### L 3300.1500, L500.4050, L503.6550, L3100.5310, L3400.0920, L501.63753, L3300.1750, L506.0400, L3400.0700, L501.9187, L506.1001, L3100.5060, L3100.5125, L509.6001, L3300.9910, L3100.5400, L100.0500, L503.0106, L501.9520 ####[facility] [address] [place], [address] Sex Hormone-binding Globulin on 09-05-2024 SHBG 50.4 nmol/L Normal 24.6-122.0 [facility] Comment on above: Order Comment: Test( s) [id number]-Eqzt, Whole Bloodwas developed and its performance characteristicsdetermined by [employer]. It has not been cleared or approvedby the Food and Drug Administration. Result Comment: Perf ormed at: [address] [id number] Chemistry Teacher: Yair Raza PhD, Phone: [phone] Performed at: [address] [id number] Chemistry Teacher: Belén Sanches MD, Phone: [phone] Performed By: #### L 3300.1500, L500.4050, L503.6550, L3100.5310, L3400.0920, L501.12746, L3300.1750, L506.0400, L3400.0700, L501.9187, L506.1001, L3100.5060, L3100.5125, L509.6001, L3300.9910, L3100.5400, L100.0500, L503.0106, L501.9520 ####[facility] [address] [place], [place], [id number] Testosterone, Total / Freeon 09-05-2024 TESTOSTER,FREE <.12 Normal 0.10-0.85 [facility] Comment on above: Order Comment: Test( s) [id number]-Uhfq, Whole Bloodwas developed and its performance characteristicsdetermined by [employer] [place]. It has not been cleared or approvedby the Food and Drug Administration.N Performed By: #### L 3300.1500, L500.4050, L503.6550, L3100.5310, L3400.0920, L501.32012, L3300.1750, L506.0400, L3400.0700, L501.9187, L506.1001, L3100.5060, L3100.5125, L509.6001, L3300.9910, L3100.5400, L100.0500, L503.0106, L501.9520 ####[facility] [address] [place], [place], [address] TESTOSTER,TOTAL < 3 Low 8-60 [facility] Comment on above: Order Comment: Test( s) [id number]-Elss, Whole Bloodwas developed and its performance characteristicsdetermined by [employer] [place]. It has not been cleared or approvedby the Food and Drug Administration.N Performed By: #### L 3300.1500, L500.4050, L503.6550, L3100.5310, L3400.0920, L501.24079, L3300.1750, L506.0400, L3400.0700, L501.9187, L506.1001, L3100.5060, L3100.5125, L509.6001, L3300.9910, L3100.5400, L100.0500, L503.0106, L501.9520 ####[facility] [address] [place], [address] TESTOSTERONE,%F 3.98 High 0.50-2.80 [facility] Comment on above: Order Comment: Test( s) [id number]-Kugi, Whole Bloodwas developed and its performance characteristicsdetermined by [employer] [place]. It has not been cleared or approvedby the Food and Drug Administration.N Performed By: #### L 3300.1500, L500.4050, L503.6550, L3100.5310, L3400.0920, L501.96996, L3300.1750, L506.0400, L3400.0700, L501.9187, L506.1001, L3100.5060, L3100.5125, L509.6001, L3300.9910, L3100.5400, L100.0500, L503.0106, L501.9520 ####[facility] [address] [place], [address] Vitamin A, Retinolon 025 VIT A, RETINOL 46.8 ug/dL Normal 18.9-57.3 [facility] Comment on above: Order Comment: Test( s) [id number]-Lezd, Whole Bloodwas developed and its performance characteristicsdetermined by [employer]. It has not been cleared or approvedby the Food and Drug Administration. Result Comment: Refe rence intervals for vitamin A determined from [facility] internal studies. Individuals with vitamin A less than 20 ug/dL are considered vitamin A deficient and those with serum concentrations less than 10 ug/dL are considered severely deficient. This test was developed and its performance characteristics determined by [facility]. It has not been cleared or approved by the Food and Drug Administration. Performed By: #### L 3300.1500, L500.4050, L503.6550, L3100.5310, L3400.0920, L501.46415, L3300.1750, L506.0400, L3400.0700, L501.9187, L506.1001, L3100.5060, L3100.5125, L509.6001, L3300.9910, L3100.5400, L100.0500, L503.0106, L501.9520 ####[facility] [address] [place], [place], [address] Zinc, WHOLE BLOODon 09-06-19 25 Zinc Whole Bld 938 ug/dL High 440-860 [facility] Comment on above: Order Comment: Test( s) [id number]-Aqsc, Whole Bloodwas developed and its performance characteristicsdetermined by [employer] [place]. It has not been cleared or approvedby the Food and Drug Administration. Performed By: #### L 3300.1500, L500.4050, L503.6550, L3100.5310, L3400.0920, L501.58394, L3300.1750, L506.0400, L3400.0700, L501.9187, L506.1001, L3100.5060, L3100.5125, L509.6001, L3300.9910, L3100.5400, L100.0500, L503.0106, L501.9520 ####[facility] [address] [place], [address] Anion gap in Serum or Plasma Ordered By: Summer Arian on 08-31-2024 Anion gap [Moles/Vol] 10 mmol/L 5-15 [facility] BUN/creatinine ratioOrdered By: Summer Arian on 08-31-2024 Urea nitrogen/Creatinine [Mass ratio] 34.0 mg/mg High 10-20 [facility] Bilirubin, totalOrdered By: Summer Arian on 08-31-2024 Bilirubin [Mass/Vol] 0.54 mg/dL 0.00-1.30 [facility] CBC-Complete Blood Cnt No Di ffon 08-31-2024 Erythrocyte distribution width (RBC) [Ratio] 12.2 % Normal 11.6-14.6 [facility] Comment on above: Performed By: #### L 3300.1500, L500.4050, L503.6550, L3100.5310, L3400.0920, L501.04804, L3300.1750, L506.0400, L3400.0700, L501.9187, L506.1001, L3100.5060, L3100.5125, L509.6001, L3300.9910, L3100.5400, L100.0500, L503.0106, L501.9520 #### [facility] [address] [place], [address] Hematocrit (Bld) [Volume fraction] 44.4 % Normal 37-47 [facility] Comment on above: Performed By: #### L 3300.1500, L500.4050, L503.6550, L3100.5310, L3400.0920, L501.93004, L3300.1750, L506.0400, L3400.0700, L501.9187, L506.1001, L3100.5060, L3100.5125, L509.6001, L3300.9910, L3100.5400, L100.0500, L503.0106, L501.9520 #### [facility] [address] [place], [address] Hemoglobin (Bld) [Mass/Vol] 14.3 g/dL Normal 12.0-15.0 [facility] Comment on above: Performed By: #### L 3300.1500, L500.4050, L503.6550, L3100.5310, L3400.0920, L501.69015, L3300.1750, L506.0400, L3400.0700, L501.9187, L506.1001, L3100.5060, L3100.5125, L509.6001, L3300.9910, L3100.5400, L100.0500, L503.0106, L501.9520 #### [facility] [address] [place], [address] MCH (RBC) [Entitic mass] 32.8 pg High 27.0-32.0 [facility] Comment on above: Performed By: #### L 3300.1500, L500.4050, L503.6550, L3100.5310, L3400.0920, L501.78771, L3300.1750, L506.0400, L3400.0700, L501.9187, L506.1001, L3100.5060, L3100.5125, L509.6001, L3300.9910, L3100.5400, L100.0500, L503.0106, L501.9520 #### [facility] [address] [place], [place], [id number] (178) MCHC (RBC) [Mass/Vol] 32.2 g/dL Normal 32-36 [facility] Comment on above: Performed By: #### L 3300.1500, L500.4050, L503.6550, L3100.5310, L3400.0920, L501.85874, L3300.1750, L506.0400, L3400.0700, L501.9187, L506.1001, L3100.5060, L3100.5125, L509.6001, L3300.9910, L3100.5400, L100.0500, L503.0106, L501.9520 #### [facility] [address] [place], [place], [id number] MCV (RBC) [Entitic vol] 101.8 fL High 81-99 [facility] Comment on above: Performed By: #### L 3300.1500, L500.4050, L503.6550, L3100.5310, L3400.0920, L501.99870, L3300.1750, L506.0400, L3400.0700, L501.9187, L506.1001, L3100.5060, L3100.5125, L509.6001, L3300.9910, L3100.5400, L100.0500, L503.0106, L501.9520 #### [facility] [address] [place], [place], [address] Platelet mean volume (Bld) [Entitic vol] 13.3 fL High 6.2-12.0 [facility] Comment on above: Performed By: #### L 3300.1500, L500.4050, L503.6550, L3100.5310, L3400.0920, L501.32231, L3300.1750, L506.0400, L3400.0700, L501.9187, L506.1001, L3100.5060, L3100.5125, L509.6001, L3300.9910, L3100.5400, L100.0500, L503.0106, L501.9520 #### [facility] [address] [place], [address] Platelets (Bld) [#/Vol] 101 10*3/uL Low 150-450 [facility] Comment on above: Performed By: #### L 3300.1500, L500.4050, L503.6550, L3100.5310, L3400.0920, L501.75152, L3300.1750, L506.0400, L3400.0700, L501.9187, L506.1001, L3100.5060, L3100.5125, L509.6001, L3300.9910, L3100.5400, L100.0500, L503.0106, L501.9520 #### [facility] [address] [place], [address] RBC (Bld) [#/Vol] 4.36 10*6/uL Normal 4.2-5.4 [facility] Comment on above: Performed By: #### L 3300.1500, L500.4050, L503.6550, L3100.5310, L3400.0920, L501.84908, L3300.1750, L506.0400, L3400.0700, L501.9187, L506.1001, L3100.5060, L3100.5125, L509.6001, L3300.9910, L3100.5400, L100.0500, L503.0106, L501.9520 #### [facility] [address] [place], [place], [address] RDW SD 45.9 fl High 35.1-43.9 [facility] Comment on above: Performed By: #### L 3300.1500, L500.4050, L503.6550, L3100.5310, L3400.0920, L501.31773, L3300.1750, L506.0400, L3400.0700, L501.9187, L506.1001, L3100.5060, L3100.5125, L509.6001, L3300.9910, L3100.5400, L100.0500, L503.0106, L501.9520 #### [facility] [address] [place], [place], [address] WBC (Bld) [#/Vol] 2.9 10*3/uL Low 4.4-11.0 [facility] Comment on above: Performed By: #### L 3300.1500, L500.4050, L503.6550, L3100.5310, L3400.0920, L501.40035, L3300.1750, L506.0400, L3400.0700, L501.9187, L506.1001, L3100.5060, L3100.5125, L509.6001, L3300.9910, L3100.5400, L100.0500, L503.0106, L501.9520 #### [facility] [address] [place], [place], [address] Carbon dioxide, total [Moles /volume] in Central venous bloodOrdered By: Abby Don on 08-31-2024 CO2 [Moles/Vol] 26.5 mmol/L 21.0-32.0 [facility] Chloride assayOrdered By: Chantelle Don on 08-31-2024 Chloride [Moles/Vol] 102 mmol/L 98-108 [facility] Comprehensive Metabolic Prof ilon 08-31-2024 Albumin [Mass/Vol] 4.7 g/dL Normal 3.5-5.0 [facility] Comment on above: Performed By: #### L 3300.1500, L500.4050, L503.6550, L3100.5310, L3400.0920, L501.39052, L3300.1750, L506.0400, L3400.0700, L501.9187, L506.1001, L3100.5060, L3100.5125, L509.6001, L3300.9910, L3100.5400, L100.0500, L503.0106, L501.9520 #### [facility] [address] [place], [address] Albumin/Globulin [Mass ratio] 1.9 {ratio} Normal 0.9-2.4 [facility] Comment on above: Performed By: #### L 3300.1500, L500.4050, L503.6550, L3100.5310, L3400.0920, L501.93360, L3300.1750, L506.0400, L3400.0700, L501.9187, L506.1001, L3100.5060, L3100.5125, L509.6001, L3300.9910, L3100.5400, L100.0500, L503.0106, L501.9520 #### [facility] [address] [place], [place], [address] ALK PHOS 54 U/L Normal 35-104 [facility] Comment on above: Performed By: #### L 3300.1500, L500.4050, L503.6550, L3100.5310, L3400.0920, L501.20204, L3300.1750, L506.0400, L3400.0700, L501.9187, L506.1001, L3100.5060, L3100.5125, L509.6001, L3300.9910, L3100.5400, L100.0500, L503.0106, L501.9520 #### [facility] [address] [place], [place], [address] ALT [Catalytic activity/Vol] 45 U/L High <=34 [facility] Comment on above: Performed By: #### L 3300.1500, L500.4050, L503.6550, L3100.5310, L3400.0920, L501.76873, L3300.1750, L506.0400, L3400.0700, L501.9187, L506.1001, L3100.5060, L3100.5125, L509.6001, L3300.9910, L3100.5400, L100.0500, L503.0106, L501.9520 #### [facility] [address] [place], [address] AST [Catalytic activity/Vol] 39 U/L High <=31 [facility] Comment on above: Performed By: #### L 3300.1500, L500.4050, L503.6550, L3100.5310, L3400.0920, L501.22835, L3300.1750, L506.0400, L3400.0700, L501.9187, L506.1001, L3100.5060, L3100.5125, L509.6001, L3300.9910, L3100.5400, L100.0500, L503.0106, L501.9520 #### [facility] [address] [place], [address] Bilirubin [Mass/Vol] 0.54 mg/dL Normal 0.00-1.30 [facility] Comment on above: Performed By: #### L 3300.1500, L500.4050, L503.6550, L3100.5310, L3400.0920, L501.15486, L3300.1750, L506.0400, L3400.0700, L501.9187, L506.1001, L3100.5060, L3100.5125, L509.6001, L3300.9910, L3100.5400, L100.0500, L503.0106, L501.9520 #### [facility] [address] [place], [place], [id number] (863) BUN/CRE 34.0 RATIO High 10-20 [facility] Comment on above: Performed By: #### L 3300.1500, L500.4050, L503.6550, L3100.5310, L3400.0920, L501.44568, L3300.1750, L506.0400, L3400.0700, L501.9187, L506.1001, L3100.5060, L3100.5125, L509.6001, L3300.9910, L3100.5400, L100.0500, L503.0106, L501.9520 #### [facility] [address] [place], [place], [id number] (788) Calcium [Mass/Vol] 9.4 mg/dL Normal 7.6-11.0 [facility] Comment on above: Performed By: #### L 3300.1500, L500.4050, L503.6550, L3100.5310, L3400.0920, L501.80129, L3300.1750, L506.0400, L3400.0700, L501.9187, L506.1001, L3100.5060, L3100.5125, L509.6001, L3300.9910, L3100.5400, L100.0500, L503.0106, L501.9520 #### [facility] [address] [place], [place], [phone] (143) Chloride [Moles/Vol] 102 mmol/L Normal 98-108 [facility] Comment on above: Performed By: #### L 3300.1500, L500.4050, L503.6550, L3100.5310, L3400.0920, L501.33177, L3300.1750, L506.0400, L3400.0700, L501.9187, L506.1001, L3100.5060, L3100.5125, L509.6001, L3300.9910, L3100.5400, L100.0500, L503.0106, L501.9520 #### [facility] [address] [place], [place], [address] CO2 [Moles/Vol] 26.5 mmol/L Normal 21.0-32.0 [facility] Comment on above: Performed By: #### L 3300.1500, L500.4050, L503.6550, L3100.5310, L3400.0920, L501.14733, L3300.1750, L506.0400, L3400.0700, L501.9187, L506.1001, L3100.5060, L3100.5125, L509.6001, L3300.9910, L3100.5400, L100.0500, L503.0106, L501.9520 #### [facility] [address] [place], [place], [address] Creatinine [Mass/Vol] 0.74 mg/dL Normal 0.70-1.20 [facility] Comment on above: Performed By: #### L 3300.1500, L500.4050, L503.6550, L3100.5310, L3400.0920, L501.28716, L3300.1750, L506.0400, L3400.0700, L501.9187, L506.1001, L3100.5060, L3100.5125, L509.6001, L3300.9910, L3100.5400, L100.0500, L503.0106, L501.9520 #### [facility] [address] [place], [place], [id number] GAP 10 Normal 5-15 [facility] Comment on above: Performed By: #### L 3300.1500, L500.4050, L503.6550, L3100.5310, L3400.0920, L501.11339, L3300.1750, L506.0400, L3400.0700, L501.9187, L506.1001, L3100.5060, L3100.5125, L509.6001, L3300.9910, L3100.5400, L100.0500, L503.0106, L501.9520 #### [facility] [address] [place], [place], [id number] (043) GFR/1.73 sq M.predicted among non-blacks MDRD (S/P/Bld) [Vol rate/Area] 108 mL/min/{1.73_m2} Normal >60 [facility] Comment on above: Result Comment: mL/m in/1.73m2 CKD-EPI Creatinine Equation (2020) Performed By: #### L 3300.1500, L500.4050, L503.6550, L3100.5310, L3400.0920, L501.63628, L3300.1750, L506.0400, L3400.0700, L501.9187, L506.1001, L3100.5060, L3100.5125, L509.6001, L3300.9910, L3100.5400, L100.0500, L503.0106, L501.9520 #### [facility] [address] [place], [place], [phone] Globulin (S) [Mass/Vol] 2.5 g/dL Normal 2.2-4.2 [facility] Comment on above: Performed By: #### L 3300.1500, L500.4050, L503.6550, L3100.5310, L3400.0920, L501.37903, L3300.1750, L506.0400, L3400.0700, L501.9187, L506.1001, L3100.5060, L3100.5125, L509.6001, L3300.9910, L3100.5400, L100.0500, L503.0106, L501.9520 #### [facility] [address] [place], [place], [phone] Glucose [Mass/Vol] 78 mg/dL Normal 70-99 [facility] Comment on above: Performed By: #### L 3300.1500, L500.4050, L503.6550, L3100.5310, L3400.0920, L501.59673, L3300.1750, L506.0400, L3400.0700, L501.9187, L506.1001, L3100.5060, L3100.5125, L509.6001, L3300.9910, L3100.5400, L100.0500, L503.0106, L501.9520 #### [facility] [address] [place], [address] Potassium [Moles/Vol] 4.3 mmol/L Normal 3.3-5.1 [facility] Comment on above: Performed By: #### L 3300.1500, L500.4050, L503.6550, L3100.5310, L3400.0920, L501.15999, L3300.1750, L506.0400, L3400.0700, L501.9187, L506.1001, L3100.5060, L3100.5125, L509.6001, L3300.9910, L3100.5400, L100.0500, L503.0106, L501.9520 #### [facility] [address] [place], [address] Sodium [Moles/Vol] 138 mmol/L Normal 133-145 [facility] Comment on above: Performed By: #### L 3300.1500, L500.4050, L503.6550, L3100.5310, L3400.0920, L501.53097, L3300.1750, L506.0400, L3400.0700, L501.9187, L506.1001, L3100.5060, L3100.5125, L509.6001, L3300.9910, L3100.5400, L100.0500, L503.0106, L501.9520 #### [facility] [address] [place], [address] T PROT 7.2 g/dL Normal 5.9-8.4 [facility] Comment on above: Performed By: #### L 3300.1500, L500.4050, L503.6550, L3100.5310, L3400.0920, L501.25225, L3300.1750, L506.0400, L3400.0700, L501.9187, L506.1001, L3100.5060, L3100.5125, L509.6001, L3300.9910, L3100.5400, L100.0500, L503.0106, L501.9520 #### [facility] [address] [place], [address] Urea nitrogen [Mass/Vol] 25 mg/dL High 4-19 [facility] Comment on above: Performed By: #### L 3300.1500, L500.4050, L503.6550, L3100.5310, L3400.0920, L501.69765, L3300.1750, L506.0400, L3400.0700, L501.9187, L506.1001, L3100.5060, L3100.5125, L509.6001, L3300.9910, L3100.5400, L100.0500, L503.0106, L501.9520 #### [facility] [address] [place], [address] Erythrocyte distribution wid th ratioOrdered By: summer on 08-31-2024 Erythrocyte distribution width (RBC) [Ratio] 12.2 % 11.6-14.6 [facility] Erythrocyte distribution wid th standard deviationOrdered By: summer on 08-31-2024 Erythrocyte distribution width (RBC) [Ratio] 45.9 fl High 35.1-43.9 [facility] Estradiolon 08-31-2024 ESTRADIOL < 5.0 Normal [facility] Comment on above: Result Comment: FEMA LES [...] #### L 3300.1500, L500.4050, L503.6550, L3100.5310, L3400.0920, L501.73519, L3300.1750, L506.0400, L3400.0700, L501.9187, L506.1001, L3100.5060, L3100.5125, L509.6001, L3300.9910, L3100.5400, L100.0500, L503.0106, L501.9520 #### [facility] [place], [address] Ferritinon 08-31-2024 Ferritin [Mass/Vol] 87 ng/mL Normal 22-378 [facility] Comment on above: Performed By: #### L 3300.1500, L500.4050, L503.6550, L3100.5310, L3400.0920, L501.30294, L3300.1750, L506.0400, L3400.0700, L501.9187, L506.1001, L3100.5060, L3100.5125, L509.6001, L3300.9910, L3100.5400, L100.0500, L503.0106, L501.9520 ####[facility] [id number] [place], [place], [id number] Follicle Stimulating Hormone on 08-31-2024 FSH 5.8 mIU/mL Normal [facility] Comment on above: Result Comment: FEMA LE: Follicular: 1.4 - 18.1 mIU/mL Midcycle: 3.4 - 33.4 mIU/mL Luteal: 1.5 - 9.1 mIU/mL Post Menopause: 23.0 - 116.3 mIU/mL MALE: 1.4 - 18.1 mIU/mL Performed By: #### L 3300.1500, L500.4050, L503.6550, L3100.5310, L3400.0920, L501.41783, L3300.1750, L506.0400, L3400.0700, L501.9187, L506.1001, L3100.5060, L3100.5125, L509.6001, L3300.9910, L3100.5400, L100.0500, L503.0106, L501.9520 ####[facility] [id number] [place], [address] Free T3on 08-31-2024 Free T3 [Mass/Vol] 2.0 pg/mL Low 2.18-3.98 [facility] Comment on above: Order Comment: N Performed By: #### L 3300.1500, L500.4050, L503.6550, L3100.5310, L3400.0920, L501.39793, L3300.1750, L506.0400, L3400.0700, L501.9187, L506.1001, L3100.5060, L3100.5125, L509.6001, L3300.9910, L3100.5400, L100.0500, L503.0106, L501.9520 #### [facility] [address] [place], [address] Free Q9Phsjtln By: Abby Keene son on 08-31-2024 Free T3 [Mass/Vol] 2.0 pg/mL Low 2.18-3.98 [facility] Glomerular filtration rate ( GFR) estimation/1.73 sq m using serum, plasma, or whole bOrdered By: Abby Don on 08-31-2024 GFR/1.73 sq M.predicted among non-blacks MDRD (S/P/Bld) [Vol rate/Area] 108 mL/min/{1.73_m2} >60 [facility] Comment on above: mL/min/1.73m2 CKD-EP I Creatinine Equation (2020) Hematocrit Auto (Bld) [Volum e fraction]Ordered By: Abby Don on 08-31-2024 Hematocrit (Bld) [Volume fraction] 44.4 % 37-47 [facility] Hemoglobin measurementOrdere d By: Abby Don on 08-31-2024 Hemoglobin (Bld) [Mass/Vol] 14.3 g/dL 12.0-15.0 [facility] L501.9187on 08-31-2024 T3 Total 0.54 ng/mL Low 0.80-2.00 [facility] System Comment on above: Performed By: #### L 3300.1500, L500.4050, L503.6550, L3100.5310, L3400.0920, L501.60176, L3300.1750, L506.0400, L3400.0700, L501.9187, L506.1001, L3100.5060, L3100.5125, L509.6001, L3300.9910, L3100.5400, L100.0500, L503.0106, L501.9520 #### [facility] [address] [place], [place], [address] L509.6001on 08-31-2024 CORTISOL 11.20 ug/dL Normal 6.02-18.40 [facility] Comment on above: Performed By: #### L 3300.1500, L500.4050, L503.6550, L3100.5310, L3400.0920, L501.32894, L3300.1750, L506.0400, L3400.0700, L501.9187, L506.1001, L3100.5060, L3100.5125, L509.6001, L3300.9910, L3100.5400, L100.0500, L503.0106, L501.9520 ####[facility] [address] [place], [address] Laboratory - Chemistry and C hemistry - challengeOrdered By: Abby Don on 08-31-2024 AST [Catalytic activity/Vol] 39 U/L High <32 [facility] MCV (mean corpuscular volume ) determinationOrdered By: Summer Arian 08-31-2024 MCV (RBC) [Entitic vol] 101.8 fL High 81-99 [facility] Mean corpuscular hemoglobin (MCH) determinationOrdered By: Summer Arian 08-31-2024 MCH (RBC) [Entitic mass] 32.8 pg High 27.0-32.0 [facility] Mean corpuscular hemoglobin concentration (MCHC) determinationOrdered By: Abby Don 08-31-2024 MCHC (RBC) [Mass/Vol] 32.2 g/dL 32-36 [facility] Mean platelet volume determi nationOrdered By: Abby Don 08-31-2024 Platelet mean volume (Bld) [Entitic vol] 13.3 fL High 6.2-12.0 [facility] Platelet countOrdered By: Chantelle Don on 08-31-2024 Platelets (Bld) [#/Vol] 101 10*3/uL Low 150-450 [facility] Potassium measurement (mass/ volume)Ordered By: Abby Don 08-31-2024 Potassium (Unsp spec) [Mass/Vol] 4.3 mmol/L 3.3-5.1 [facility] RBC Auto (Bld) [#/Vol]Ordere d By: Abby Don 08-31-2024 RBC (Bld) [#/Vol] 4.36 10*6/uL 4.2-5.4 [facility] Serum creatinine measurement (mass/volume)Ordered By: Abby Don 08-31-2024 Creatinine [Mass/Vol] 0.74 mg/dL 0.70-1.20 [facility] Serum globulin measurementOr dered By: Abby Don on 08-31-2024 Globulin (S) [Mass/Vol] 2.5 g/dL 2.2-4.2 [facility] Serum glucose measurement (m ass/volume)Ordered By: Abby Don 08-31-2024 Glucose [Mass/Vol] 78 mg/dL 70-99 [facility] Serum or plasma alanine cedillo otransferase (ALT) measurementOrdered By: Abby Don on 08-31-2024 ALT [Catalytic activity/Vol] 45 U/L High <35 [facility] Serum or plasma albumin sunshine urement (mass/volume)Ordered By: Abby Don 08-31-2024 Albumin [Mass/Vol] 4.7 g/dL 3.5-5.0 [facility] Serum or plasma albumin/glob ulin mass ratioOrdered By: Abby Don 08-31-2024 Albumin/Globulin [Mass ratio] 1.9 {ratio} 0.9-2.4 [facility] Serum or plasma alkaline sky sphatase measurementOrdered By: Abby Don 08-31-2024 ALP [Catalytic activity/Vol] 54 U/L 35-104 [facility] Serum or plasma calcium sunshine urement (mass/volume)Ordered By: Abby Don 08-31-2024 Calcium [Mass/Vol] 9.4 mg/dL 7.6-11.0 [facility] Serum or plasma cortisol tricia surement (mass/volume)Ordered By: Abby Don 08-31-2024 Cortisol [Mass/Vol] 11.20 ug/dL 6.02-18.40 [facility] Serum or plasma estradiol me asurement after follitropin dose (mass/volume)Ordered By: Abby Don on 08-31-2024 E2 post dose follitropin [Mass/Vol] < 5.0 pg/mL [facility] Comment on above: FEMALES ADULT FEMALE : [...] on 08-31-2024 Ferritin [Mass/Vol] 87 ng/mL 22-378 [facility] Serum or plasma triiodothyro nine (T3) measurement (mass/volume)Ordered By: Abby Don on 08-31-2024 T3 [Mass/Vol] 0.54 ng/mL Low 0.80-2.00 [facility] Serum or plasma urea nitroge n measurement (mass/volume)Ordered By: Abby Don on 08-31-2024 Urea nitrogen [Mass/Vol] 25 mg/dL High 4-19 [facility] Sodium levelOrdered By: [facility] on 08-31-2024 Sodium [Moles/Vol] 138 mmol/L 133-145 [facility] T4 Free Directon 08-31-2024 T4 FREE DIRECT 1.30 ng/dL Normal 0.76-1.46 [facility] Comment on above: Order Comment: N Performed By: #### L 3300.1500, L500.4050, L503.6550, L3100.5310, L3400.0920, L501.80418, L3300.1750, L506.0400, L3400.0700, L501.9187, L506.1001, L3100.5060, L3100.5125, L509.6001, L3300.9910, L3100.5400, L100.0500, L503.0106, L501.9520 ####[facility] [address] [place], [place], [id number] T4 freeOrdered By: Abby Keene son on 08-31-2024 Free T4 [Mass/Vol] 1.30 ng/dL 0.76-1.46 [facility] TSH DL <= 0.005 mIU/L QnOrde red By: Abby Delarosaon on 08-31-2024 TSH Qn 1.590 uIU/mL 0.300-4.200 [facility] Thyroid Stim Hormone (TSH)on 08-31-2024 TSH 1.590 uIU/mL Normal 0.300-4.200 [facility] Comment on above: Performed By: #### L 3300.1500, L500.4050, L503.6550, L3100.5310, L3400.0920, L501.46173, L3300.1750, L506.0400, L3400.0700, L501.9187, L506.1001, L3100.5060, L3100.5125, L509.6001, L3300.9910, L3100.5400, L100.0500, L503.0106, L501.9520 ####[facility] [address] [place], [place], [address] Total proteinOrdered By: Arvind carlita Delarosaon on 08-31-2024 Protein [Mass/Vol] 7.2 g/dL 5.9-8.4 [facility] Vitamin B12on 08-31-2024 Cobalamin (Vitamin B12) [Mass/Vol] 1154 pg/mL High 180-914 [facility] Comment on above: Performed By: #### L 3300.1500, L500.4050, L503.6550, L3100.5310, L3400.0920, L501.25465, L3300.1750, L506.0400, L3400.0700, L501.9187, L506.1001, L3100.5060, L3100.5125, L509.6001, L3300.9910, L3100.5400, L100.0500, L503.0106, L501.9520 ####[facility] [address] [place], [address] Vitamin B12 ser/plasOrdered By: Abby Don on 08-31-2024 Cobalamin (Vitamin B12) [Mass/Vol] 1154 pg/mL High 180-914 [facility] Vitamin D,25 Hydroxyon 08-31 Vitamin D 25-OH 64.6 ng/mL Normal 30-100 [facility] Comment on above: Result Comment: Manjula min D Status Deficiency: <20 ng/mL (50nmol/L) Insufficiency: 20-30 ng/mL (50-75 nmol/L) Sufficiency: 30-100 ng/mL (75-250 nmol/L) Toxicity: >100 ng/mL (>250 nmol/L) Performed By: #### L 3300.1500, L500.4050, L503.6550, L3100.5310, L3400.0920, L501.61360, L3300.1750, L506.0400, L3400.0700, L501.9187, L506.1001, L3100.5060, L3100.5125, L509.6001, L3300.9910, L3100.5400, L100.0500, L503.0106, L501.9520 ####[facility] [address] [place], [address] White blood cell (WBC) count Ordered By: Abby Don on 08-31-2024 WBC (Bld) [#/Vol] 2.9 10*3/uL Low 4.4-11.0 [facility] Nicotine Screen Urine SENDOU Ton 05-08-2024 COMMENT Comment Normal . [facility] Comment on above: Result Comment: This analysis is performed by immunoassay. Positive findings are unconfirmed analytical test results; if results do not support expected clinical finding, confirmation by an alternate methodology is recommended. Patient metabolic variables, specific drug chemistry, and specimen characteristics can affect test outcome. Technical consultation is available at [email or web address], or call toll free [phone]. Performed at: [facility] [address] [place], [place] [id number] Chemistry Teacher: Marquita Handley PhD, Phone: [phone] Performed By: #### L 3890.6006, L500.2500, L500.4100, L501.9520, L3600.3300, L501.9985, L502.0250 ####[facility] [address] [place], [address] COTININE SCR UR Negative Normal Znaklk=484 [facility] Comment on above: Result Comment: AVANI ER FOR ACTIVE SMOKING. COTININE IS THE MAJOR METABOLITE OF NICOTINE AND MAY BE DETECTED FOR LONG 7 DAYS AFTER EXPOSURE. CUTOFF IS SET HIGH TO RULE OUT PASSIVE INHALATION. Performed By: #### L 3890.6006, L500.2500, L500.4100, L501.9520, L3600.3300, L501.9985, L502.0250 ####[facility] [address] [place], [place], [address] Albumin DL <= 20 mg/L (U) [M ass/Vol]Ordered By: Suzanne Leyva on 05-04-2024 Urine Random Microalbumin < 12.0 mg/L NO RANGE EST. [facility] Anion gap in Serum or Plasma Ordered By: Suzanne Leyva on 05-04-2024 Anion gap [Moles/Vol] 12 mmol/L - [facility] BUN/creatinine ratioOrdered By: Suzanne Leyva on 05-04-2024 Urea nitrogen/Creatinine [Mass ratio] 15.4 mg/mg - [facility] Basic Metabolic Profile (BMP )on 05-04-2024 BUN/CRE 15.4 RATIO Normal - [facility] Comment on above: Performed By: #### L 3890.6006, L500.2500, L500.4100, L501.9520, L3600.3300, L501.9985, L502.0250 ####[facility] [address] [place], [place], [id number] Calcium [Mass/Vol] 9.0 mg/dL Normal 7.6-11.0 [facility] Comment on above: Performed By: #### L 3890.6006, L500.2500, L500.4100, L501.9520, L3600.3300, L501.9985, L502.0250 ####[facility] [address] [place], [address] Chloride [Moles/Vol] 101 mmol/L Normal 98-108 [facility] Comment on above: Performed By: #### L 3890.6006, L500.2500, L500.4100, L501.9520, L3600.3300, L501.9985, L502.0250 ####[facility] [address] [place], [address] CO2 [Moles/Vol] 24.9 mmol/L Normal 21.0-32.0 [facility] Comment on above: Performed By: #### L 3890.6006, L500.2500, L500.4100, L501.9520, L3600.3300, L501.9985, L502.0250 ####[facility] [address] [place], [place], [phone] Creatinine [Mass/Vol] 0.90 mg/dL Normal 0.70-1.20 [facility] Comment on above: Performed By: #### L 3890.6006, L500.2500, L500.4100, L501.9520, L3600.3300, L501.9985, L502.0250 ####[facility] [address] [place], [address] GAP 12 Normal 5-15 [facility] Comment on above: Performed By: #### L 3890.6006, L500.2500, L500.4100, L501.9520, L3600.3300, L501.9985, L502.0250 ####[facility] [address] [place], [address] GFR/1.73 sq M.predicted among non-blacks MDRD (S/P/Bld) [Vol rate/Area] 85 mL/min/{1.73_m2} Normal >60 [facility] Comment on above: Result Comment: mL/m in/1.73m2 CKD-EPI Creatinine Equation (2020) Performed By: #### L 3890.6006, L500.2500, L500.4100, L501.9520, L3600.3300, L501.9985, L502.0250 ####[facility] [address] [place], [address] Glucose [Mass/Vol] 94 mg/dL Normal 70-99 [facility] Comment on above: Performed By: #### L 3890.6006, L500.2500, L500.4100, L501.9520, L3600.3300, L501.9985, L502.0250 ####[facility] [address] [place], [address] Potassium [Moles/Vol] 4.4 mmol/L Normal 3.3-5.1 [facility] Comment on above: Performed By: #### L 3890.6006, L500.2500, L500.4100, L501.9520, L3600.3300, L501.9985, L502.0250 ####[facility] [address] [place], [address] Sodium [Moles/Vol] 138 mmol/L Normal 133-145 [facility] Comment on above: Performed By: #### L 3890.6006, L500.2500, L500.4100, L501.9520, L3600.3300, L501.9985, L502.0250 ####[facility] [address] [place], [address] Urea nitrogen [Mass/Vol] 14 mg/dL Normal 4-19 [facility] Comment on above: Performed By: #### L 3890.6006, L500.2500, L500.4100, L501.9520, L3600.3300, L501.9985, L502.0250 ####[facility] [address] [place], [address] Calculated very low density lipoprotein (VLDL) cholesterol measurementOrdered By: Suzanne Leyva on 05-04-2024 VLDL Cholesterol 6 mg/dL 5-40 [facility] Carbon dioxide, total [Moles /volume] in Central venous bloodOrdered By: Suzanne Leyva on 05-04-2024 CO2 [Moles/Vol] 24.9 mmol/L 21.0-32.0 [facility] Chloride assayOrdered By: Darrell Leyva on 05-04-2024 Chloride [Moles/Vol] 101 mmol/L 98-108 [facility] Cotinine Screen Ql (U)Ordere d By: Suzanne Leyva on 05-04-2024 Urine Nicotine & Cotinine Negative Wnddhn=418 [facility] Comment on above: MARKER FOR ACTIVE SM OKING. COTININE IS THE MAJOR METABOLITEOF NICOTINE AND MAY BE DETECTED FOR LONG 7 DAYS AFTEREXPOSURE. CUTOFF IS SET HIGH TO RULE OUT PASSIVE INHALATION. Creatinine Unsp time (U) [Ma ss/Vol]Ordered By: Suzanne Leyva on 05-04-2024 Creatinine (U) [Mass/Vol] 108.00 mg/dL 28-217 [facility] GFR/1.73 sq M.predicted tre g non-blacks MDRD (S/P/Bld) [Vol rate/Area]Ordered By: Suzanne Leyva on 05-04-2024 Estimated GFR (MDRD) Non-Af Amer 85 >60 [facility] Comment on above: mL/min/1.73m2 CKD-EP I Creatinine Equation (2020) Hemoglobin A1con 05-04-2024 HbA1c (Bld) [Mass fraction] 5.1 % Low <=5.6 [facility] Comment on above: Performed By: #### L 3890.6006, L500.2500, L500.4100, L501.9520, L3600.3300, L501.9985, L502.0250 ####[facility] [address] [place], [address] Hemoglobin A1c percentageOrd ered By: Suzanne Leyva on 05-04-2024 HbA1c (Bld) [Mass fraction] 5.1 % Low >5.7 [facility] L3890.6006on 05-04-2024 HIV Non-Reactive Normal Nonreactive [facility] Comment on above: Result Comment: Non- Reactive Reactive Repeatedly reactive samples must be confirmed according to CDC recommended confirmatory algorithms. The subresults for either HIVAG or AHIV can be used as an aid in the selection of the confirmation algorithm for reactive samples. Send out specimens with Reactive results to [facility] for confirmation. Order the HIV antibody detection and differentiation: lc#[id number] Performed By: #### L 3890.6006, L500.2500, L500.4100, L501.9520, L3600.3300, L501.9985, L502.0250 ####[facility] [address] [place], [place], [id number] LDL calc ser/plasOrdered By: Suzanne Leyva on 05-04-2024 LDL Cholesterol, Calculated 69 mg/dL [facility] Comment on above: Exmnkfvehn=080-469 m g/dL & Higher Tpfu=773 mg/dL or greater Lipid Profileon 05-04-2024 CHOL:HDL 1.94 Normal [facility] Comment on above: Performed By: #### L 3890.6006, L500.2500, L500.4100, L501.9520, L3600.3300, L501.9985, L502.0250 ####[facility] [address] [place], [place], [address] Cholesterol [Mass/Vol] 155 mg/dL Normal <=200 [facility] Comment on above: Result Comment: Chol esterol level, Desirable <200 mg/dL Borderline high cholesterol 200-239 mg/dL High cholesterol >=240 mg/dL Recommendations of the NCEP Adult Treatment Panel for the following risk-cutoff thresholds for the [place] population. Performed By: #### L 3890.6006, L500.2500, L500.4100, L501.9520, L3600.3300, L501.9985, L502.0250 ####[facility] [address] [place], [address] Cholesterol in HDL [Mass/Vol] 80 mg/dL Normal [facility] Comment on above: Result Comment: Rosanne onal Cholesterol Education Program (NCEP) guidelines: <40 mg/dL: Low HDL-cholesterol (major risk factor for CHD) >= 60 mg/dL: High HDL-cholesterol (negative risk factor for CHD) HDL-cholesterol is affected by a number of factors, e.g. smoking, exercise, hormones, sex and age. Performed By: #### L 3890.6006, L500.2500, L500.4100, L501.9520, L3600.3300, L501.9985, L502.0250 ####[facility] [address] [place], [address] Cholesterol in LDL [Mass/Vol] 69 mg/dL Normal [facility] Comment on above: Result Comment: Bord cdgsbv=129-640 mg/dL Higher Xrzf=601 mg/dL or greater Performed By: #### L 3890.6006, L500.2500, L500.4100, L501.9520, L3600.3300, L501.9985, L502.0250 ####[facility] [address] [place], [address] Cholesterol in VLDL [Mass/Vol] 6 mg/dL Normal 5-40 [facility] Comment on above: Performed By: #### L 3890.6006, L500.2500, L500.4100, L501.9520, L3600.3300, L501.9985, L502.0250 ####[facility] [address] [place], [address] Triglyceride [Mass/Vol] 29 mg/dL Normal [facility] Comment on above: Result Comment: The drugs N-Acetylcysteine and Metamizole may falsely depress this assay. Normal range: <150 mg/dL Borderline High: 150-199 mg/dL High: 200-499 mg/dL Very High: >500 mg/dL Performed By: #### L 3890.6006, L500.2500, L500.4100, L501.9520, L3600.3300, L501.9985, L502.0250 ####[facility] [address] [place], [address] Microalb:Creat Ratio,Random URon 05-04-2024 Creatinine [Mass/Vol] 108.00 mg/dL Normal 28-217 [facility] Comment on above: Performed By: #### L 3890.6006, L500.2500, L500.4100, L501.9520, L3600.3300, L501.9985, L502.0250 ####[facility] [address] [place], [place], [id number] MALB:CREAT UNABLE TO CALCULATE Normal [facility] Comment on above: Performed By: #### L 3890.6006, L500.2500, L500.4100, L501.9520, L3600.3300, L501.9985, L502.0250 ####[facility] [address] [place], [address] MICROALBUMIN,UR < 12.0 Normal NO RANGE EST. [facility] Comment on above: Performed By: #### L 3890.6006, L500.2500, L500.4100, L501.9520, L3600.3300, L501.9985, L502.0250 ####[facility] [address] [place], [place], [phone] Microalbumin/creat ratio urO rdered By: Suzanne Leyva on 05-04-2024 Urine Microalbumin/Creatinine Ratio UNABLE TO CALCULATE mg/g CRE [facility] No Panel InformationOrdered By: Suzanne Leyva on 05-04-2024 HIV (1&2) Antibody Non-Reactive Nonreactive [facility] Comment on above: Non-ReactiveReactive Repeatedly reactive samples must be confirmed according to CDC recommended confirmatory algorithms. The subresults for either HIVAG or AHIV can be used as an aid in the selection of the confirmation algorithm for reactive samples.Send out specimens with Reactive results to [facility] for confirmation.Order the HIV antibody detection and differentiation: #[id number] Potassium (Unsp spec) [Mass/ Vol]Ordered By: Suzanne Leyva on 05-04-2024 Potassium [Moles/Vol] 4.4 mmol/L 3.3-5.1 [facility] Screening total cholesterol/ high density lipoprotein (HDL) cholesterol ratioOrdered By: Suzanne Leyva on 05-04-2024 Cholesterol.total/Paola sterol in HDL [Mass ratio] 1.94 {ratio} [facility] Serum creatinine measurement (mass/volume)Ordered By: Suzanne Leyva on 05-04-2024 Creatinine [Mass/Vol] 0.90 mg/dL 0.70-1.20 [facility] Serum glucose measurement (m ass/volume)Ordered By: Suzanne Leyva on 05-04-2024 Glucose [Mass/Vol] 94 mg/dL 70-99 [facility] Serum or plasma calcium sunshine urement (mass/volume)Ordered By: Suzanne Leyva on 05-04-2024 Calcium [Mass/Vol] 9.0 mg/dL 7.6-11.0 [facility] Serum or plasma cholesterol in HDL measurement (mass/volume)Ordered By: Suzanne Leyva on 05-04-2024 Cholesterol in HDL [Mass/Vol] 80 mg/dL >40 [facility] Comment on above: National Cholesterol Education Program (NCEP) guidelines:<40 mg/dL: Low HDL-cholesterol (major risk factor for CHD)>= 60 mg/dL: High HDL-cholesterol (negative risk factor for CHD)HDL-cholesterol is affected by a number of factors, e.g. smoking, exercise, hormones, sex and age. Serum or plasma cholesterol measurement (mass/volume)Ordered By: Suzanne Leyva on 05-04-2024 Cholesterol [Mass/Vol] 155 mg/dL <201 [facility] Comment on above: Cholesterol level, D esirable <200 mg/dLBorderline high cholesterol 200-239 mg/dLHigh cholesterol >=240 mg/dLRecommendations of the NCEP Adult Treatment Panel for the following risk-cutoff thresholds for the [place] population. Serum or plasma urea nitroge n measurement (mass/volume)Ordered By: Suzanne Leyva on 05-04-2024 Urea nitrogen [Mass/Vol] 14 mg/dL 4-19 [facility] Sodium levelOrdered By: Suzanne Leyva on 05-04-2024 Sodium [Moles/Vol] 138 mmol/L 133-145 [facility] TSH DL <= 0.005 mIU/L QnOrde red By: Suzanne Leyva on 05-04-2024 Thyroid Stimulating Hormone (TSH) 0.563 uIU/mL 0.300-4.200 [facility] Thyroid Stim Hormone (TSH)on 05-04-2024 TSH 0.563 uIU/mL Normal 0.300-4.200 [facility] Comment on above: Performed By: #### L 3890.6006, L500.2500, L500.4100, L501.9520, L3600.3300, L501.9985, L502.0250 ####[facility] [address] [place], [address] Triglycerides measurementOrd ered By: Suzanneisi Leyva on 05-04-2024 Triglyceride [Mass/Vol] 29 mg/dL <199 [facility] Comment on above: The drugs N-Acetylcy steine and Metamizole may falsely depress this assay. Normal range: <150 mg/dLBorderline High: 150-199 mg/dLHigh: 200-499 mg/dLVery High: >500 mg/dL Virtual Office Visiton 03-04 Virtual Office Visit [facility] [address] [place] [address] OFFICE VISIT Date of Service: 03/04/24 MR#: [id number] Acct: [id number] Patient: IDALMIS MAHONEY Rep #: [id number] : 1990 Provider: Enma Knott NP Age/Sex: 33/F Location[place] [facility] [place] Status: Signed Intake Vital Signs 01/03/24 15:22 [...] History History of removal of skin mole [place] teeth extracted Family History Father Skin cancer [...] weight training frequency: daily duration: 45-60 minutes/day corina/congregational: Episcopal seatbelt use: always do you feel safe at home: Yes 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 03/05/24 1015 Date Enma Fortune METAL PRECISION MACHINE ASSEMBLER METAL PRECISION MACHINE ASSEMBLER-C Cosigner Signature: Date (if applicable) CC: Normal [facility] Serum or plasma thyroxine (T 4) measurement (mass/volume)Ordered By: Malorie Wilkins on 01-23-2024 T4 [Mass/Vol] 8.5 ug/dL 4.8-13.9 [facility] T4 Total, Thyroxinon 024 T4 [Mass/Vol] 8.5 ug/dL Normal 4.8-13.9 [facility] Comment on above: Performed By: #### L 501.9310, L501.9520 ####[facility] [address] [place], [place], [id number] TSH QnOrdered By: Malorie mott on 01-23-2024 Thyroid Stimulating Hormone (TSH) 0.315 uIU/mL Low 0.358-3.740 [facility] Thyroid Stim Hormone (TSH)on 01-23-2024 TSH 0.315 uIU/mL Low 0.358-3.740 [facility] Comment on above: Performed By: #### L 501.9310, L501.9520 ####[facility] [address] [place], [place], [address] Global Marketing Coordinator Office Visit Reporton 01-03-2024 Global Marketing Coordinator Office Visit Report [facility] [address] [place] [address], [address] [place] [address] OFFICE VISIT Date of Service: 01/03/24 MR#: [id number] Acct: [id number] Name: IDALMIS MAHONEY Rep #: [id number] : 1990 Provider: SCHUYLER Garzon ams Age/Sex: 33/F Location: [facility] [place] Status: Signed Intake Vital Signs 11/25/23 07:16 01/03/24 15:22 Height 5 ft 7 in 5 ft 7 in Weight: 149 lb 4 oz BMI 23.3 BP 108/68 Intake Visit Reasons: visit (obstetrics) Irish Moss Operator Required: No Is patient in pain?: No [...] History History of removal of skin mole [place] teeth extracted Family History Father Skin cancer [...] weight training frequency: daily duration: 45-60 minutes/day corina/congregational: Episcopal seatbelt use: always do you feel safe at home: Yes 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 Date Name GA/Weeks Outcome Route Bth Weight Infant Gen Labor Lgth Anesthesia Del Locatn Provider FOB 02/24/17 Idamarie 40 live - full term 6lb 4oz Female 23 none [facility] Se als Bran 08/29/20 Tamara 39 live - full term 7#12oz Female none [facility] Hol mes-Arian Bran 11/25/23 Renita 38 live - full term Female epidural [facility] KW Bran Delivery Date: 11/25/23 Last [...] post visit. Feeding: Breast Menses resumed: No [place] since delivery: No Emotional Support: Yes Last [...] oriented x3 (more content not included)... Normal [facility] CBC W/Diff, Automatedon 10-0 Absolute Lymph 1.52 X10 3/uL Normal 0.83-4.51 [facility] Comment on above: Performed By: #### Shanti RON, L100.0100 ####[facility] [address] [place], [address] Absolute Neut 6.3 X10 3/uL Normal 2.0-7.7 [facility] Comment on above: Performed By: #### Shanti RON, L100.0100 ####[facility] [address] [place], [address] Basophils/100 WBC (Bld) 0.4 % Normal 0-1 [facility] Comment on above: Performed By: #### Shanti RON, L100.0100 ####[facility] [address] [place], [address] Eosinophils/100 WBC (Bld) 0.5 % Normal 0-5 [facility] Comment on above: Performed By: #### Shanti RON, L100.0100 ####[facility] [address] [place], [address] Erythrocyte distribution width (RBC) [Ratio] 12.3 % Normal 11.6-14.6 [facility] Comment on above: Performed By: #### Shanti RON, L100.0100 ####[facility] [address] [place], [address] Hematocrit (Bld) [Volume fraction] 41.8 % Normal 37-47 [facility] Comment on above: Performed By: #### Shanti RON, L100.0100 ####[facility] [address] [place], [address] Hemoglobin (Bld) [Mass/Vol] 13.6 g/dL Normal 12.0-15.0 [facility] Comment on above: Performed By: #### Shanti RON, L100.0100 ####[facility] [address] [place], [address] IG% 0.500 Normal 0.0-0.9 [facility] Comment on above: Result Comment: IG% - Immature Granulocytes (promyelocytes, myelocytes and metamyelocytes) > 1% indicates that a LEFT SHIFT is Present. Performed By: #### Shanti RON, L100.0100 ####[facility] [address] [place], [address] Lymphocytes/100 WBC (Bld) 18.3 % Low 19-41 [facility] Comment on above: Performed By: #### Shanti RON, L100.0100 ####[facility] [address] [place], [address] MCH (RBC) [Entitic mass] 34.2 pg High 27.0-32.0 [facility] Comment on above: Performed By: #### Shanti RON, L100.0100 ####[facility] [address] [place], [address] MCHC (RBC) [Mass/Vol] 32.5 g/dL Normal 32-36 [facility] Comment on above: Performed By: #### Shanti RON, L100.0100 ####[facility] [address] [place], [address] MCV (RBC) [Entitic vol] 105.0 fL High 81-99 [facility] Comment on above: Performed By: #### Shanti RON, L100.0100 ####[facility] [address] [place], [address] Monocytes/100 WBC (Bld) 4.6 % Normal 0-10 [facility] Comment on above: Performed By: #### Shanti RON, L100.0100 ####[facility] [address] [place], [address] Neutrophils/100 WBC (Bld) 75.7 % High 47-70 [facility] Comment on above: Performed By: #### Shanti RON, L100.0100 ####[facility] [address] [place], [address] Nucleated RBC (Bld) [#/Vol] 0 10*3/uL Normal 0-5 [facility] Comment on above: Performed By: #### Shanti RON, L100.0100 ####[facility] [address] [place], [address] Platelet mean volume (Bld) [Entitic vol] 12.4 fL High 6.2-12.0 [facility] Comment on above: Performed By: #### Shanti RON, L100.0100 ####[facility] [address] [place], [address] Platelets (Bld) [#/Vol] 120 10*3/uL Low 150-450 [facility] Comment on above: Performed By: #### Shanti RON, L100.0100 ####[facility] [address] [place], [address] RBC (Bld) [#/Vol] 3.98 10*6/uL Low 4.2-5.4 [facility] Comment on above: Performed By: #### Shanti RON, L100.0100 ####[facility] [address] [place], [address] RDW SD 48.0 fl High 35.1-43.9 [facility] Comment on above: Performed By: #### B TS, L100.0100 ####[facility] [address] [place], [address] WBC (Bld) [#/Vol] 8.3 10*3/uL Normal 4.4-11.0 [facility] Comment on above: Performed By: #### B TS, L100.0100 ####[facility] [address] [place], [address] Discharge Instructionon 0 Discharge Instruction [facility] Medical Records Department [address] [place] [address] Instructions for Home/Discharge Instructions 11/25/23 1347 MR#: [id number] Acct: [id number] Name: IDALMIS MAHONEY Rep #: [id number] : 1990 33 From: Chris Leslie CNM [...] 75 mcg tablet 75 mcg PO DAILY vit,xleh08-[id number]-buxfw 1 TABLET tablet 1 tab PO DAILY Referrals / Follow Up: Suzanne Leyva MD [Primary Care Provider] - 11/25/23 1347 Chris Leslie CNM CC: Dr. Suzanne Leyva MD Signed Normal [facility] H AND P Exam - OB/GYNon H&P Exam - GANG SAWYER [facility] Medical Records Department [address] [place] [address] H P Exam - GANG SAWYER 11/25/23 0737 MR#: [id number] Acct: [id number] Name: IDALMIS MAHONEY Rep #: [id number] : 1990 33 From: Chris Leslie CNM PCP: Dr. 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 Date Name GA/Weeks Outcome Route Bth Weight Infant Gen Labor Lgth Anesthesia Del Locatn Provider FOB 02/24/17 Mattie 40 live - full term 6lb 4oz Female 23 none [facility] Se als Bran 08/29/20 Tamara 41 live - full term 7#12oz Female none [facility] Maxine chavez-Arian Sotomayor Visit Details Expected Delivery [...] Don. Th (more content not included)... Normal [facility] L509.8000on 11-25-2023 Syphilis Abs Non-Reactive [facility] Comment on above: Performed By: #### L 509.8000 ####[facility] [address] [place], [address] Operative Reporton 4 Operative Report [facility] Medical Records Department [address] [place] [address] Operative Report 11/25/23 1343 MR#: [id number] Acct: [id number] Name: IDALMIS MAHONEY Rep #: [id number] : 1990 33 From: Chris Leslie CNM PCP: Dr. Suzanne Leyva MD Status:ADM IN Location: [id number] Assessment Plan (1) Vaginal delivery: COMMENT: KW [...] consult placed, 08/02/23 approved for delivery at [facility] if >100K. 28w:121k. Recheck 4 wk [...] Surgery / Procedure Performed: Spontaneous Vaginal Delivery department chair #1: Chris Leslie Type of Anesthesia: Epidural [...] Multi Select Codes Urinary/Genital Urinary/Genital CPT Codes: 25504 Vaginal Delivery [facility] 11/25/23 1347 Cosigner Signature (if applicable): CC: SCHUYLER Leslie; Dr. Suzanne Leyva MD Signed ADDENDUM by SCHUYLER Leslie on 11/25/23 at 1650 Addendum 11/25/23 1650 Cosigner Signature (if applicable): cc: SCHUYLER Leslie; Dr. Suzanne Leyva MD * Signed Normal [facility] Type AND Screenon 11-25-2023 Ab SCREEN GEL Negative Normal [facility] Comment on above: Order Comment: Labor Performed By: #### B TS, L100.0100 ####[facility] [address] [place], [address] ABO and Rh group Nom (Bld) Blood group A Rh(D) positive [facility] Comment on above: Order Comment: Labor Performed By: #### B TS, L100.0100 ####[facility] [address] [place], [address] Global Marketing Coordinator Office Visit Reporton 11-23-2023 Global Marketing Coordinator Office Visit Report [facility] Women[facility] [address], [address] [place] [address] OFFICE VISIT Date of Service: 11/23/23 MR#: [id number] Acct: [id number] Name: IDALMIS MAHONEY Rep #: [id number] : 1990 Provider: Dr. 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 Date Name GA/Weeks Outcome Route Bth Weight Infant Gen Labor Lgth Anesthesia Del Locatn Provider FOB 02/24/17 Idamarie 40 live - full term 6lb 4oz Female 23 none [facility] Se als Bran 08/29/20 Tamara 41 live - full term 7#12oz Female none [facility] Maxine chavez-Arian Sotomayor HPI membrane sweep Details: [...] ordered by (more content not included)... Normal [facility] CBC-Complete Blood Cnt No Di ffon 11-22-2023 Erythrocyte distribution width (RBC) [Ratio] 12.3 % Normal 11.6-14.6 [facility] Comment on above: Performed By: #### L 100.0500 ####[facility] [address] [place], [address] Hematocrit (Bld) [Volume fraction] 39.4 % Normal 37-47 [facility] Comment on above: Performed By: #### L 100.0500 ####[facility] [address] [place], [address] Hemoglobin (Bld) [Mass/Vol] 12.7 g/dL Normal 12.0-15.0 [facility] Comment on above: Performed By: #### L 100.0500 ####[facility] [address] [place], [address] MCH (RBC) [Entitic mass] 33.9 pg High 27.0-32.0 [facility] Comment on above: Performed By: #### L 100.0500 ####[facility] [address] [place], [address] MCHC (RBC) [Mass/Vol] 32.2 g/dL Normal 32-36 [facility] Comment on above: Performed By: #### L 100.0500 ####[facility] [address] [place], [address] MCV (RBC) [Entitic vol] 105.1 fL High 81-99 [facility] Comment on above: Performed By: #### L 100.0500 ####[facility] [address] [place], [address] Platelet mean volume (Bld) [Entitic vol] 12.5 fL High 6.2-12.0 [facility] Comment on above: Performed By: #### L 100.0500 ####[facility] [address] [place], [address] Platelets (Bld) [#/Vol] 122 10*3/uL Low 150-450 [facility] Comment on above: Performed By: #### L 100.0500 ####[facility] [address] [place], [address] RBC (Bld) [#/Vol] 3.75 10*6/uL Low 4.2-5.4 [facility] Comment on above: Performed By: #### L 100.0500 ####[facility] [address] [place], [address] RDW SD 48.1 fl High 35.1-43.9 [facility] Comment on above: Performed By: #### L 100.0500 ####[facility] [address] [place], [address] WBC (Bld) [#/Vol] 8.5 10*3/uL Normal 4.4-11.0 [facility] Comment on above: Performed By: #### L 100.0500 ####[facility] [address] [place], [address] Global Marketing Coordinator Office Visit Reporton 11-22-2023 Global Marketing Coordinator Office Visit Report [facility]'[address], [address] [place] [address] OFFICE VISIT Date of Service: 11/22/23 MR#: [id number] Acct: [id number] Name: IDALMIS MAHONEY Rep #: [id number] : 1990 Provider: Dr. Tyesha Baker DO Age/Sex: 33/F Location[place] [facility] Status: Signed Intake Vital Signs 10/13/23 10:48 11/17/23 09:51 11/17/23 11:53 11/22/23 08:27 11/22/23 08:28 Height 5 ft 7 in 5 ft 7 in 5 ft 7 in 5 ft 7 in 5 ft 7 in Weight: 172 lb BMI 26.9 BP 118/72 Intake Visit Reasons: 40 WK OB MEMBRANE SWEEP Irish Moss Operator Required: No Is patient in pain?: No [...] History History of removal of skin mole [place] teeth extracted Family History Father Skin cancer [...] weight training frequency: daily duration: 45-60 minutes/day corina/congregational: Episcopal seatbelt use: always do you feel safe at home: Yes 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 Date Name GA/Weeks Outcome Route Bth Weight Infant Gen Labor Lgth Anesthesia Del Locatn Provider FOB 02/24/17 Idamarie 40 live - full term 6lb 4oz Female 23 none [facility] Se als Bran 08/29/20 Tamara 41 live - full term 7#12oz Female none [facility] Hol mes-Arian Bran HPI 40 WK [...] cons w (more content not included)... Normal [facility] OB Triage Physician Noteon 0 11-17-2023 OB Triage Physician Note [facility] Medical Records Department [address] [place] [address] OB Triage Physician Note 11/17/23 2327 MR#: [id number] Acct: [id number] Name: IDALMIS MAHONEY Rep #: [id number] : 1990 33 From: Tyesha Bowman DO [...] History History of removal of skin mole [place] teeth extracted Social History adopted: No household [...] weight training frequency: daily duration: 45-60 minutes/day corina/congregational: Episcopal seatbelt use: always do you feel safe at home: Yes 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 Date Name GA/Weeks Outcome Route Bth Weight Gen Labor Lgth Anesthesia Del Locatn Provider FOB 02/24/17 Idamarie 40 live - full term 6lb 4oz Female 23 none [facility] Se als Bran 08/29/20 Tamara 41 live - full term 7#12oz Female none [facility] Hol mes-Arian Sotomayor Visit Details Expected Delivery [...] -???-???-???-???-???-???- ???-???-???-???-?? (more content not included)... Normal [facility] Global Marketing Coordinator Office Visit Reporton 11-17-2023 Global Marketing Coordinator Office Visit Report [facility] [address], [address] [place] [address] OFFICE VISIT Date of Service: 11/17/23 MR#: [id number] Acct: [id number] Name: IDALMIS MAHONEY Rep #: [id number] : 1990 Provider: Dr. Tyesha Baker, Age/Sex: 33/F Location: [facility] [place] Status: Signed Intake Vital Signs 10/13/23 10:48 11/09/23 10:20 11/17/23 09:49 11/17/23 09:51 Height 5 ft 7 in 5 ft 7 in 5 ft 7 in 5 ft 7 in Weight: 174 lb 8 oz BMI 27.3 BP 111/68 Intake Visit Reasons: 39 WK OB/NST Irish Moss Operator Required: No Is patient in pain?: No [...] History History of removal of skin mole [place] teeth extracted Family History Father Skin cancer Grandfather Colon cancer Uncle Colon cancer Social History adopted: No household members: spouse and children number of children: 2 current occupational status: employed 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 Date Name GA/Weeks Outcome Route Bth Weight Infant Gen Labor Lgth Anesthesia Del Locatn Provider FOB 02/24/17 Giancarlo 40 live - full term 6lb 4oz Female 23 none [facility] Se als Bran 08/29/20 Tamara 41 live - full term 7#12oz Female none [facility] Hol mes-Arian Sotomayor HPI 39 WK OB/NST [...] NIPT. NAltr (more content not included)... Normal [facility] Global Marketing Coordinator Office Visit Reporton 11-09-2023 Global Marketing Coordinator Office Visit Report [facility]'s [address], [address] [place] [address] OFFICE VISIT Date of Service: 11/09/23 MR#: [id number] Acct: [id number] Name: IDALMIS MAHONEY Rep #: [id number] : 1990 Provider: Dr. 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 Date Name GA/Weeks Outcome Route Bth Weight Gen Labor Lgth Anesthesia Del Locatn Provider FOB 02/24/17 Idamarie 40 live - full term 6lb 4oz Female 23 none [facility] Se als Bran 08/29/20 Tamara 41 live - full term 7#12oz Female none [facility] Hol kathy-Arian Sotomayor HPI 38 WK OB [...] NIPT. NAltrexo (more content not included)... Normal [facility] Global Marketing Coordinator Office Visit Reporton 11-02-2023 Global Marketing Coordinator Office Visit Report [facility] Care [address] [place] [address], [address] [place] [address] OFFICE VISIT Date of Service: 11/02/23 MR#: [id number] Acct: [id number] Name: IDALMIS MAHONEY Rep #: [id number] : 1990 Provider: Dr. Gisela badillo MD Age/Sex: 33/F Location: [facility] [place] Status: Signed Intake Vital Signs 10/13/23 10:48 10/27/23 14:12 11/02/23 14:52 11/02/23 14:53 Height 5 ft 7 in 5 ft 7 in 5 ft 7 in 5 ft 7 in Weight: 172 lb BMI 26.9 BP 106/67 Intake Visit Reasons: 37 WK OB Irish Moss Operator Required: No Allergies No Known Allergies Allergy [...] History History of removal of skin mole [place] teeth extracted Family History Father Skin cancer Grandfather Colon cancer Uncle Colon cancer Social History adopted: No household members: spouse and children number of children: 2 current occupational status: employed 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 Date Name GA/Weeks Outcome Route Bth Weight Gen Labor Lgth Anesthesia Del Locatn Provider FOB 02/24/17 Idamarie 40 live - full term 6lb 4oz Female 23 none [facility] Se als Bran 08/29/20 Tamara 41 live - full term 7#12oz Female none [facility] Hol mes-Arian Bran HPI 37 WK [...] -???-???-???-???-???-???- ???-???-??? (more content not included)... Normal [facility] Rule out Beta Strep (Grp. B) on 10-29-2023 DARRION Group B Beta Streptococcus is not isolated. Normal [facility] Comment on above: Performed By: #### M 100.3410 ####[facility] [address] [place], [address] OB Limited With Biometricson 10-28-2023 OB Limited With Biometrics [facility] Imaging Services [address] [place] [address] OB Limited With Biometrics MR#: [id number] Acct: [id number] Name: IDALMIS MAHONEY Rep #: [id number] : 1990 F 33 From: Neel Delacruz MD PCP: Dr. Suzanne Leyva MD Status: [facility] Study: OB Limited With Biometrics Date of Exam: 10/27 Exam# [id number] Ordering Dr: Gisela Aparicio ADDENDUM by Dr. Neel Delacruz MD on 11/03/23 at 1600 ADDENDUM [id number] ADDENDUM: Biparietal diameter 9.18 cm 83.79% OFD: 12.1 cm 99.99% HC: 34.25 cm 90.35% Abdominal circumference: 32.79 cm 72.75% Femoral length: 6.73 cm 10.65% Electronically Signed: Neel Delacruz MD at 16:00 EDT , 11/03/23 1600 Date cc: Dr. Suzanne Lyeva MD; Dr. Gisela Aparicio MD * Signed ADDENDUM by Dr. Neel Delacruz MD on 11/02/23 at 1609 ADDENDUM [id number] ADDENDUM: Biparietal diameter 9.18 cm +/- 47.7 [...] Delacruz MD on 11/01/23 at 1606 ADDENDUM [id number] ADDENDUM: FL/AC 20.53% FL/BPD 73.37% FL/HC 19.66% [...] MD; Dr. Gisela Aparicio MD * Signed [id number] STUDY: SECOND AND THIRD TRIMESTER OBSTETRICAL ULTRASOUND [...] 20:54 EDT Reading Location ID and State: [address] [place] [address] Tel , Service support , CC: Dr. Suzanne Leyva MD; Dr. Gisela Aparicio MD Tile Layer Drainage: Signed Normal [facility] Global Marketing Coordinator Office Visit Reporton 10-27-2023 Global Marketing Coordinator Office Visit Report [facility]'[address], [address] [place] [address] OFFICE VISIT Date of Service: 10/27/23 MR#: [id number] Acct: [id number] Name: IDALMIS MAHONEY Rep #: [id number] : 1990 Provider: SCHUYLER Garzon ams Age/Sex: 33/F Location: [facility] [place] Status: Signed Intake Vital Signs 09/28/23 11:43 10/19/23 11:29 10/27/23 14:12 Height 5 ft 7 in 5 ft 7 in 5 ft 7 in Weight: 172 lb BMI 26.9 BP 96/62 Intake Visit Reasons: 36 WK OB Irish Moss Operator Required: No Is patient in pain?: No [...] History History of removal of skin mole [place] teeth extracted Family History Father Skin cancer [...] weight training frequency: daily duration: 45-60 minutes/day corina/congregational: Episcopal seatbelt use: always do you feel safe at home: Yes 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 Date Name GA/Weeks Outcome Route Bth Weight Gen Labor Lgth Anesthesia Del Locatn Provider FOB 02/24/17 Giancarlo 40 live - full term 6lb 4oz Female 23 none [facility] Se als Bran 08/29/20 Tamara 41 live - full term 7#12oz Female none [facility] Hol mes-Arian Bran HPI 36 WK OB [...] 05/06/23 -???-? (more content not included)... Normal [facility] Oncology Visit Reporton 09-22 Oncology Visit Report [facility] [address] [place] [address] OFFICE VISIT Date of Service: 10/19/23 1125 MR#: [id number] Acct: [id number] Name: IDALMIS MAHONEY Rep #: [id number] : 1990 From: Ozzy Murry MD Age/Sex: 33/F [place] [facility] Status: Signed HPI Subjective Date of Service [...] regularly, and on replacement therapy for hypothyroidism. 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 Normal [facility] Global Marketing Coordinator Office Visit Reporton 10-13-2023 Global Marketing Coordinator Office Visit Report [facility]'s [address], [address] [place] [address] OFFICE VISIT Date of Service: 10/13/23 MR#: [id number] Acct: [id number] Name: IDALMIS MAHONEY Rep #: [id number] : 1990 Provider: SCHUYLER Garzon ams Age/Sex: 32/F Location: [facility] [place] Status: Signed Intake Vital Signs 08/24/23 08:26 09/28/23 11:43 10/13/23 10:41 10/13/23 10:48 Height 5 ft 7 in 5 ft 7 in 5 ft 7 in 5 ft 7 in Weight: 170 lb BMI 26.6 BP 95/66 Intake Visit Reasons: 32 WK OB Irish Moss Operator Required: No Allergies No Known Allergies Allergy [...] History History of removal of skin mole [place] teeth extracted Family History Father Skin cancer [...] weight training frequency: daily duration: 45-60 minutes/day corina/congregational: Episcopal seatbelt use: always do you feel safe at home: Yes 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 Date Name GA/Weeks Outcome Route Bth Weight Infant Gen Labor Lgth Anesthesia Del Locatn Provider FOB 02/24/17 Idamarie 40 live - full term 6lb 4oz Female 23 none [facility] Se als Bran 08/29/20 Tamara 41 live - full term 7#12oz Female none [facility] Hol mes-Arian Bran HPI 32 WK [...] ???-???-???-???-???-???- 1 (more content not included)... Normal [facility] Global Marketing Coordinator Office Visit Reporton 09-28-2023 Global Marketing Coordinator Office Visit Report [facility] [address] [place] [address] OFFICE VISIT Date of Service: 09/28/23 MR#: [id number] Acct: [id number] Name: IDALMIS MAHONEY Rep #: [id number] : 1990 Provider: Dr. 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 Date Name GA/Weeks Outcome Route Bth Weight Gen Labor Lgth Anesthesia Del Locatn Provider FOB 02/24/17 Idamarie 40 live - full term 6lb 4oz Female 23 none [facility] Se als Bran 08/29/20 Tamara 41 live - full term 7#12oz Female none [facility] Hol mes-Arian Bran HPI 30 WK [...] Thyroid lab (more content not included)... Normal [facility] Culture, urineOrdered By: Hieu Perez on 06-28-2023 Bacteria identified Cx Nom (U) Culture exhibits no growth. [facility] Laboratory - Chemistry and C hemistry - challengeon 06-28-2023 Glucose Ql (U) Negative [facility] Laboratory - Urinalysison Protein Ql (U) Negative [facility] Absolute lymphocyte countOrd ered By: Laureen Hawkins on 05-31-2023 Lymphocytes Auto (Unsp spec) [#/Vol] 1.39 10*3/uL 0.83-4.51 [facility] Automated lymphocyte count a s percentage of total leukocytesOrdered By: Laureen Hawkins on 05-31-2023 Lymphocytes/100 WBC Auto (Unsp spec) 19.1 % 19-41 [facility] Basophil percentageOrdered B y: Laureen Hawkins on 05-31-2023 Basophils/100 WBC (Bld) 0.3 % 0-1 [facility] Eosinophils/100 WBC (Bld) 0.5 % 0-5 [facility] Hemoglobin (Bld) [Mass/Vol] 12.2 g/dL 12.0-15.0 [facility] Monocytes/100 WBC (Bld) 4.3 % 0-10 [facility] Neutrophils (Bld) [#/Vol] 5.5 10*3/uL 2.0-7.7 [facility] Neutrophils/100 WBC (Bld) 75.5 % 47-70 [facility] WBC (Bld) [#/Vol] 7.3 10*3/uL 4.4-11.0 [facility] Determination of erythrocyte mean corpuscular volume (MCV)Ordered By: Laureen Hawkins on 05-31-2023 MCV (RBC) [Entitic vol] 99.2 fL 81-99 [facility] Erythrocyte distribution wid th ratioOrdered By: Laureen Hawkins on 05-31-2023 Erythrocyte distribution width (RBC) [Ratio] 13.1 % 11.6-14.6 [facility] Erythrocyte distribution wid th standard deviationOrdered By: Laureen Hawkins on 05-31-2023 Erythrocyte distribution width (RBC) [Entitic vol] 47.6 fL 35.1-43.9 [facility] Hematocrit Auto (Bld) [Volum e fraction]Ordered By: Laureen Hawkins on 05-31-2023 Hematocrit (Bld) [Volume fraction] 37.3 % 37-47 [facility] Immature granulocytes/100 WB C Auto (Bld)Ordered By: Laureen Hawkins on 05-31-2023 Immature granulocytes/100 WBC (Bld) 0.300 % 0.0-0.9 [facility] Comment on above: IG% - Immature Granu locytes (promyelocytes, myelocytes and metamyelocytes) > 1% indicates that a LEFT SHIFT is Present. Laboratory - Hematology and Cell countsOrdered By: Laureen Hawkins on 05-31-2023 MCH (RBC) [Entitic mass] 32.4 pg 27.0-32.0 [facility] MCHC (RBC) [Mass/Vol] 32.7 g/dL 32-36 [facility] Nucleated RBC/100 WBC (Bld) [Ratio] 0 % 0-5 [facility] Platelet mean volume (Bld) [Entitic vol] 12.2 fL 6.2-12.0 [facility] Platelets (Bld) [#/Vol] 120 10*3/uL 150-450 [facility] No Panel InformationOrdered By: Chris Leslie on 05-31-2023 Miscellaneous Test See comment [facility] Comment on above: TEST RESULTS LIMITST hyrotropin Receptor Ab,Serum <1.10 IU/L 0.00-1.75 TESTING PERFORMED AT [facility]. ORIGINAL REPORT ON FILE IN LAB CONTAINS ADDITIONAL TEST SITE INFORMATION. RBC Auto (Bld) [#/Vol]Ordere d By: Laureen Hawkins on 05-31-2023 RBC (Bld) [#/Vol] 3.76 10*6/uL 4.2-5.4 [facility] Laboratory - Chemistry and C hemistry - challengeon 05-16-2023 Glucose Ql (U) Negative [facility] Laboratory - Urinalysison Protein Ql (U) Negative [facility] Progress Noteon 05-12-2023 Real Estate Services Administrator Authentication Interface Message Text MFM attending note: [...] 1d with an EROS of 11/23/2023. 2. [place] rump length measurement is consistent with established [...] are truly unique to this visit. Normal [facility] Laboratory - Chemistry and C hemistry - challengeon 05-06-2023 Glucose Ql (U) Negative [facility] Laboratory - Urinalysison Protein Ql (U) Negative [facility] Absolute lymphocyte countOrd ered By: Chris Leslie on 04-22-2023 Lymphocytes Auto (Unsp spec) [#/Vol] 1.52 10*3/uL 0.83-4.51 [facility] Automated lymphocyte count a s percentage of total leukocytesOrdered By: Chris Leslie on 04-22-2023 Lymphocytes/100 WBC Auto (Unsp spec) 26.5 % 19-41 [facility] Basophil percentageOrdered B y: Chris Leslie on 04-22-2023 Basophils/100 WBC (Bld) 0.5 % 0-1 [facility] Eosinophils/100 WBC (Bld) 0.7 % 0-5 [facility] Hemoglobin (Bld) [Mass/Vol] 13.4 g/dL 12.0-15.0 [facility] Monocytes/100 WBC (Bld) 5.9 % 0-10 [facility] Neutrophils (Bld) [#/Vol] 3.8 10*3/uL 2.0-7.7 [facility] Neutrophils/100 WBC (Bld) 66.2 % 47-70 [facility] WBC (Bld) [#/Vol] 5.7 10*3/uL 4.4-11.0 [facility] Determination of erythrocyte mean corpuscular volume (MCV)Ordered By: Chris Leslie on 04-22-2023 MCV (RBC) [Entitic vol] 98.1 fL 81-99 [facility] Erythrocyte distribution wid th ratioOrdered By: Chris Leslie on 04-22-2023 Erythrocyte distribution width (RBC) [Ratio] 12.7 % 11.6-14.6 [facility] Erythrocyte distribution wid th standard deviationOrdered By: Chris Leslie on 04-22-2023 Erythrocyte distribution width (RBC) [Entitic vol] 45.7 fL 35.1-43.9 [facility] HIV 1 and HIV-2 antibody ass ay with HIV-1 p24 antigen detectionOrdered By: Chris Leslie on 04-22-2023 HIV 1+2 Ab+HIV1 p24 Ag IA Ql Non-Reactive Nonreactive [facility] Hematocrit Auto (Bld) [Volum e fraction]Ordered By: Chris Leslie on 04-22-2023 Hematocrit (Bld) [Volume fraction] 40.6 % 37-47 [facility] Immature granulocytes/100 WB C Auto (Bld)Ordered By: Chris Leslie on 04-22-2023 Immature granulocytes/100 WBC (Bld) 0.200 % 0.0-0.9 [facility] Comment on above: IG% - Immature Granu locytes (promyelocytes, myelocytes and metamyelocytes) > 1% indicates that a LEFT SHIFT is Present. Laboratory - Hematology and Cell countsOrdered By: Chris Leslie on 03-01-2024 MCH (RBC) [Entitic mass] 32.4 pg 27.0-32.0 [facility] MCHC (RBC) [Mass/Vol] 33.0 g/dL 32-36 [facility] Nucleated RBC/100 WBC (Bld) [Ratio] 0 % 0-5 [facility] Platelet mean volume (Bld) [Entitic vol] 12.4 fL 6.2-12.0 [facility] Platelets (Bld) [#/Vol] 129 10*3/uL 150-450 [facility] No Panel InformationOrdered By: Chris Leslie on 04-22-2023 Hepatitis B Surface Antigen Non-Reactive Nonreactive [facility] Hepatitis C Antibody Non-Reactive Nonreactive [facility] Comment on above: Non Reactive: < 0.8 Equivocal: >/= 0.8 to < 1.0 Reactive: >/= 1.0The CDC requires that a reactive/equivocal HCV antibody result be sent out for confirmation. HCV Quant by PCR testing. Rubella IgG Antibody Reactive Nonreactive [facility] Comment on above: Antibody Results Int erpretation of Immune Status Non Reactive Presumed Non-Immune Equivocal Equivocal Reactive Presumed Immune RBC Auto (Bld) [#/Vol]Ordere d By: Chris Leslie on 04-22-2023 RBC (Bld) [#/Vol] 4.14 10*6/uL 4.2-5.4 [facility] Serum Treponema species anti body detectionOrdered By: Chris Leslie on 04-22-2023 Treponema sp Ab Ql (S) Non-Reactive [facility] Serum or plasma thyroid stim ulating hormone (TSH) measurement (units/volume)Ordered By: Chris Leslie on 04-22-2023 TSH Qn 0.59 uIU/mL 0.358-3.74 [facility] Thin prep Papanicolaou smear with manual screeningOrdered By: Chris Leslie on 04-22-2023 Thin prep Papanicolaou smear with manual screening 0.85 ng/dL 0.76-1.46 [facility] Cervical or vaginal specimen microscopic examination by liquid based cytology (reportOrdered By: Chris Leslie on 04-21-2023 Cytology report Cyto stain.thin prep Doc (Cvx/Vag) Comment . [facility] Comment on above: Criteria not met, HP V Genotype not performed.Performed at: WB - [facility] [address] [id number] Director: Jaqui Doshi MD, Phone: [phone] at: = - [facility] [address] [id number] Director: Jaqui Doshi MD, Phone: [phone] Cervical or vagninal specime n microscopic examination by cytology stain (reported asOrdered By: Chris Leslie on 04-21-2023 Cytology report Cyto stain Doc (Cvx/Vag) Comment . [facility] Comment on above: The Pap smear is [...] rRNA AISHA+probe Ql (Unsp spec) Negative Negative [facility] Detection in cervical specim en of any of human papilloma virus (HPV) 16, 18, 31, 33,Ordered By: Chris Leslie on 04-21-2023 HPV 16+18+31+33+35+39+45+51 +52+56+58+59+66+68 DNA Probe+sig amp Ql (Cvx) Negative Negative [facility] Comment on above: This nucleic acid am plification test detects fourteen high-risk HPV types (16,18,31,33,35,39,45,51,52,56,58,59,66,68)without differentiation. Laboratory - CytologyOrdered By: Chris Leslie on 04-21-2023 Build Automation Engineer Cyto stain Nom (Cvx/Vag) [ID] Comment . [facility] Comment on above: Heike jenkins, White Spooler (ASCP) Laboratory - Microbiology an d Antimicrobial susceptibilityOrdered By: Chris Leslie on 04-21-2023 N. gonorrhoeae DNA AISHA+probe Ql (Unsp spec) Negative Negative [facility] Comment on above: Performed at: =G - [facility] [address] [id number] Director: Jaqui Doshi MD, Phone: [phone] Laboratory - Miscellaneous t estsOrdered By: Chris Leslie on 04-21-2023 Service comment (Unsp spec) [Interp] . . [facility] Thin prep Papanicolaou smear with manual screeningOrdered By: Chris Leslie on 04-21-2023 Thin prep Papanicolaou smear with manual screening Comment . [facility] Comment on above: NEGATIVE FOR INTRAEP ITHELIAL LESION OR MALIGNANCY. This liquid based Th inPrep(R) pap test was screened withthe use of an image guided system. Basophil percentageOrdered B y: Abby Don on 04-08-2023 Testosterone [Mass/Vol] 31.82 ng/dL [facility] Comment on above: CENTRAL 90% REFERENC E RANGES MALE AGE <50 197.44 - 669.58 ng/dL MALE AGE > or = 50 187.72 - 684.19 ng/dL FEMALE AGE <50 8.38 - 35.01 ng/dL FEMALE AGE > or = 50 <7.00 - 35.92 ng/dL Effective as of 09/16/20 No Panel InformationOrdered By: Abby Don on 04-08-2023 Estradiol (E2) Level 772.6 pg/mL [facility] Comment on above: NORMAL REFERENCE [...] 04-08-2023 Progesterone [Mass/Vol] 28.50 ng/mL See Comment [facility] Comment on above: Progesterone Referen ce Table: UNITS Female: Follicular 0.15 - 1.40 ng/mL Luteal 3.34 - 25.56 ng/mL Mid-luteal 4.44 - 28.03 ng/mL Postmenopausal 0.0 - 0.73 ng/mL : 1st Trimester 11.22 - 90.00 ng/mL 2nd Trimester 25.55 - 89.40 ng/mL 3rd Trimester 48.40 -422.50 ng/mL No Panel InformationOrdered By: Abby Don on 04-01-2023 Dehydroepiandrosterone Sulfate 236.0 ug/dL 84.8-378.0 [facility] Comment on above: Performed at: [address] [id number] Director: Yair Raza PhD, Phone: [phone] Estradiol (E2) Level 248.3 pg/mL [facility] Comment on above: NORMAL REFERENCE [...] DETERMINE ESTRADIOL CONCENTRATION. Miscellaneous Test See comment [facility] Comment on above: TEST RESULTS LIMITS DHEA, SerumDehydroepiandrosterone(DHEA) A, 147 ng/dL 31-701CommentsA: This test was developed and its performance characteristics determined by [employer]. It has not been cleared or approved by the Food and Drug Administration. [facility] ORIGINAL REPORT ON FILE IN LAB CONTAINS ADDITIONAL TEST SITE INFORMATION. Serum or plasma choriogonado tropin detectionOrdered By: Abby Don on 04-01-2023 HCG ( test) Ql 7034 mIU/mL <4 [facility] Comment on above: hCG levels with Gest ational AgeGestational Age hCG mIU/mL (IU/L)0.2 - 1 week 5 - 501-2 weeks 50 - 5002-3 weeks 100 - 27107-9 weeks 500 - 267336-4 weeks 1000 - 007013-8 weeks 15203 - 100,0006-8 weeks 07578 - 200,0002-3 months 97169 - 100,000 Serum or plasma progesterone measurement (mass/volume)Ordered By: Abby Don on 04-01-2023 Progesterone [Mass/Vol] 25.80 ng/mL See Comment [facility] Comment on above: Progesterone Referen ce Table: UNITS Female: Follicular 0.15 - 1.40 ng/mL Luteal 3.34 - 25.56 ng/mL Mid-luteal 4.44 - 28.03 ng/mL Postmenopausal 0.0 - 0.73 ng/mL : 1st Trimester 11.22 - 90.00 ng/mL 2nd Trimester 25.55 - 89.40 ng/mL 3rd Trimester 48.40 -422.50 ng/mL Estradiol measurementOrdered By: Abby Don on 03-25-2023 E2 IA [Moles/Vol] 100.7 pg/mL [facility] Comment on above: NORMAL REFERENCE [...] HCG ( test) Ql 658 mIU/mL <4 [facility] Comment on above: hCG levels with Gest ational AgeGestational Age hCG mIU/mL (IU/L)0.2 - 1 week 5 - 501-2 weeks 50 - 5002-3 weeks 100 - 36602-9 weeks 500 - 167873-5 weeks 1000 - 186612-5 weeks 37844 - 100,0006-8 weeks 10885 - 200,0002-3 months 83578 - 100,000 Serum or plasma progesterone measurement (mass/volume)Ordered By: Abby Don on 03-25-2023 Progesterone [Mass/Vol] 25.09 ng/mL See Comment [facility] Comment on above: Progesterone Referen ce Table: [...] ( test) Ql 253 mIU/mL <4 [facility] Comment on above: hCG levels with Gest ational AgeGestational Age hCG mIU/mL (IU/L)0.2 - 1 week 5 - 501-2 weeks 50 - 5002-3 weeks 100 - 23364-0 weeks 500 - 343460-1 weeks 1000 - 589157-7 weeks 88648 - 100,0006-8 weeks 90500 - 200,0002-3 months 12166 - 100,000 Serum or plasma choriogonado tropin detectionOrdered By: Abby Don on 03-21-2023 HCG ( test) Ql 99 mIU/mL <4 [facility] Comment on above: hCG levels with Gest ational AgeGestational Age hCG mIU/mL (IU/L)0.2 - 1 week 5 - 501-2 weeks 50 - 5002-3 weeks 100 - 31391-6 weeks 500 - 189574-4 weeks 1000 - 516474-5 weeks 45206 - 100,0006-8 weeks 75606 - 200,0002-3 months 65471 - 100,000 Estradiol measurementOrdered By: Abby Don on 03-19-2023 E2 IA [Moles/Vol] 68.6 pg/mL [facility] Comment on above: NORMAL REFERENCE RAN GES [...] Don on 03-19-2023 Dehydroepiandrosterone Sulfate See comment [facility] Comment on above: TEST RESULTS LIMITSD HEA-Sulfate 155.0 ug/dL 84.8-378.0 TESTING PERFORMED AT [facility]. ORIGINAL REPORT ON FILE IN LAB CONTAINS ADDITIONAL TEST SITE INFORMATION. Miscellaneous Test See comment [facility] Comment on above: TEST RESULTS LIMITSD HEA, Serum Dehydroepiandrosterone (DHEA) 131 ng/dL 31-701 [facility]. ORIGINAL REPORT ON FILE IN LAB CONTAINS ADDITIONAL TEST SITE INFORMATION. Serum or plasma choriogonado tropin detectionOrdered By: Abby Don on 03-19-2023 HCG ( test) Ql 46 mIU/mL <4 [facility] Comment on above: hCG levels with Gest ational AgeGestational Age hCG mIU/mL (IU/L)0.2 - 1 week 5 - 501-2 weeks 50 - 5002-3 weeks 100 - 83799-8 weeks 500 - 966450-9 weeks 1000 - 138920-7 weeks 46490 - 100,0006-8 weeks 97507 - 200,0002-3 months 75087 - 100,000 Serum or plasma progesterone measurement (mass/volume)Ordered By: Abby Don on 03-19-2023 Progesterone [Mass/Vol] 18.45 ng/mL See Comment [facility] Comment on above: Progesterone Referen ce Table: UNITS Female: Follicular 0.15 - 1.40 ng/mL Luteal 3.34 - 25.56 ng/mL Mid-luteal 4.44 - 28.03 ng/mL Postmenopausal 0.0 - 0.73 ng/mL : 1st Trimester 11.22 - 90.00 ng/mL 2nd Trimester 25.55 - 89.40 ng/mL 3rd Trimester 48.40 -422.50 ng/mL Basophil percentageOrdered B y: Abby Don on 03-04-2023 Testosterone [Mass/Vol] 14 ng/dL 8-60 [facility] Free testosterone percentage Ordered By: Abby Don on 03-04-2023 Testosterone Free/Testosterone.total [Mass fraction] 2.84 % 0.50-2.80 [facility] No Panel InformationOrdered By: Abby Don on 03-04-2023 Anti-Cardiolipin IgM Antibody < 9 MPL U/mL 0-12 [facility] Comment on above: Negative: <13 Indete rminate: 13 - 20 Low-Med Positive: >20 - 80 High Positive: >80 Dehydroepiandrosterone Sulfate 147.0 ug/dL 84.8-378.0 [facility] Serum cardiolipin IgG antibo dy assay by immunoassay (units/volume)Ordered By: Abby Don on 03-04-2023 Cardiolipin IgG IA Qn (S) < 9 GPL U/mL 0-14 [facility] Comment on above: Negative: <15 Indete rminate: 15 - 20 Low-Med Positive: >20 - 80 High Positive: >80 Serum or plasma testosterone free measurement (mass/volume)Ordered By: Abby Don on 03-04-2023 Testosterone Free [Mass/Vol] 0.40 ng/dL 0.10-0.85 [facility] Serum or plasma thyroperoxid ase antibody assay (units/volume)Ordered By: Abby Don on 03-04-2023 TPO Ab Qn [IU]/mL 0-34 [facility] Comment on above: Performed at: [facility] [employer] [id number] Director: Yair Raza PhD, Phone: [phone] at: [facility] [id number] Director: Belén Sanches MD, Phone: [phone] Basophil percentageOrdered B y: Abby Don on 01-12-2023 Testosterone [Mass/Vol] 55 ng/dL 8-60 [facility] Free testosterone percentage Ordered By: Abby Arian on 01-12-2023 Testosterone Free/Testosterone.total [Mass fraction] 2.33 % 0.50-2.80 [facility] Laboratory - Chemistry and C hemistry - challengeOrdered By: Abby Don on 01-12-2023 Free T4 [Mass/Vol] 1.03 ng/dL 0.76-1.46 [facility] No Panel InformationOrdered By: Abby Don on 01-12-2023 Dehydroepiandrosterone Sulfate 730.0 ug/dL 84.8-378.0 [facility] Follicle Stimulating Hormone 8.8 mIU/mL [facility] Comment on above: NORMAL REFERENCE RAN [facility] FEMALE FOLLICULAR 2.3 - 12.6 mIU/mL MID-CYCLE PEAK 5.2 - 17.5 mIU/mL LUTEAL 1.7 - 12.9 mIU/mL POST-MENOPAUSAL ON MHT 5.9 - 72.8 mIU/mL NOT ON MHT 12.7 - 132.2 mlU/mL MALE 0.7 - 10.8 mIU/mL Free Triiodothyronine (T3) pg/dL 2.2 pg/mL 2.18-3.98 [facility] Luteinizing Hormone 4.1 mIU/mL [facility] Comment on above: NORMAL REFERENCE RAN GES FEMALE FOLLICULAR 1.9 - 26.2 mIU/mL MID-CYCLE PEAK 22.8 - 76.1 mIU/mL LUTEAL 0.6 - 16.6 mIU/mL POST-MENOPAUSAL ON MHT 1.1 - 52.4 mIU/mL NOT ON MHT 8.6 - 61.8 mIU/mL MALE 1.2 - 10.6 mIU/mL Thyroid Stimulating Hormone (TSH) 0.19 uIU/mL 0.358-3.74 [facility] Serum or plasma estradiol (E 2) measurement (mass/volume)Ordered By: Abby Don on 01-12-2023 E2 [Mass/Vol] 16.5 pg/mL [facility] Comment on above: NORMAL REFERENCE RAN GES [...] hormone binding globulin [Moles/Vol] 34.9 nmol/L 24.6-122.0 [facility] Comment on above: Performed at: [address] [id number] Director: Yair Raza PhD, Phone: [phone] at: - [facility] [id number] Director: Belén Sanches MD, Phone: [phone] Serum or plasma testosterone free measurement (mass/volume)Ordered By: Abby Don on 01-12-2023 Testosterone Free [Mass/Vol] 1.28 ng/dL 0.10-0.85 [facility] Serum or plasma estradiol (E 2) measurement (mass/volume)Ordered By: Abby Don on 11-30-2022 E2 [Mass/Vol] 18.2 pg/mL [facility] Comment on above: NORMAL REFERENCE RAN GES [...] on 11-29-2022 Testosterone [Mass/Vol] ng/dL 8-60 [facility] Free testosterone percentage Ordered By: Abby Arian on 11-29-2022 Testosterone Free/Testosterone.total [Mass fraction] 1.50 % 0.50-2.80 [facility] Iron measurement (mass/mass) Ordered By: Abby Don on 11-29-2022 Iron (Unsp spec) [Mass/Mass] 67 ug/dL 50-170 [facility] Laboratory - Chemistry and C hemistry - challengeOrdered By: Abby Don on 11-29-2022 Free T4 [Mass/Vol] 0.68 ng/dL 0.76-1.46 [facility] No Panel InformationOrdered By: Abby Arian on 11-29-2022 Dehydroepiandrosterone Sulfate 72.5 ug/dL 84.8-378.0 [facility] Comment on above: Performed at: - [address] [facility] [id number] Director: Yair Raza PhD, Phone: [phone] at: [facility] [address] [id number] Director: Belén Sanches MD, Phone: [phone] Follicle Stimulating Hormone 6.7 mIU/mL [facility] Comment on above: NORMAL REFERENCE RAN GES FEMALE FOLLICULAR 2.3 - 12.6 mIU/mL MID-CYCLE PEAK 5.2 - 17.5 mIU/mL LUTEAL 1.7 - 12.9 mIU/mL POST-MENOPAUSAL ON MHT 5.9 - 72.8 mIU/mL NOT ON MHT 12.7 - 132.2 mlU/mL MALE 0.7 - 10.8 mIU/mL Free Triiodothyronine (T3) pg/dL 1.7 pg/mL 2.18-3.98 [facility] Luteinizing Hormone 2.6 mIU/mL [facility] Comment on above: NORMAL REFERENCE RAN GES FEMALE FOLLICULAR 1.9 - 26.2 mIU/mL MID-CYCLE PEAK 22.8 - 76.1 mIU/mL LUTEAL 0.6 - 16.6 mIU/mL POST-MENOPAUSAL ON MHT 1.1 - 52.4 mIU/mL NOT ON MHT 8.6 - 61.8 mIU/mL MALE 1.2 - 10.6 mIU/mL Thyroid Stimulating Hormone (TSH) 3.21 uIU/mL 0.358-3.74 [facility] Total Iron Binding Capacity 315 ug/dL 250-450 [facility] Total Triiodothyronine 0.82 ng/mL 0.6-1.81 [facility] Serum or plasma choriogonado tropin detectionOrdered By: Abby Don on 11-29-2022 HCG ( test) Ql < 1 mIU/mL <4 [facility] Comment on above: hCG levels with Gest ational AgeGestational Age hCG mIU/mL (IU/L)0.2 - 1 week 5 - 501-2 weeks 50 - 5002-3 weeks 100 - 43095-2 weeks 500 - 598942-8 weeks 1000 - 137402-7 weeks 72087 - 100,0006-8 weeks 01038 - 200,0002-3 months 79800 - 100,000 Serum or plasma ferritin tricia surement (mass/volume)Ordered By: Abby Don on 11-29-2022 Ferritin [Mass/Vol] 34 ng/mL 8-252 [facility] Serum or plasma iron saturat ion measurement (mass fraction)Ordered By: Abby Don on 11-29-2022 Iron saturation [Mass fraction] 21.3 % 15.0-55.0 [facility] Serum or plasma progesterone measurement (mass/volume)Ordered By: Abby Don on 11-29-2022 Progesterone [Mass/Vol] 0.26 ng/mL See Comment [facility] Comment on above: Progesterone Referen ce Table: [...] Testosterone Free [Mass/Vol] < 0.05 ng/dL 0.10-0.85 [facility] Absolute lymphocyte countOrd ered By: Ozzy Murry on 10-19-2022 Lymphocytes Auto (Unsp spec) [#/Vol] 1.78 10*3/uL 0.83-4.51 [facility] Basophil percentageOrdered B y: Ozzy Murry on 10-19-2022 Basophils/100 WBC (Bld) 0.5 % 0-1 [facility] Eosinophils/100 WBC (Bld) 1.4 % 0-5 [facility] Neutrophils (Bld) [#/Vol] 2.0 10*3/uL 2.0-7.7 [facility] Neutrophils/100 WBC (Bld) 48.4 % 47-70 [facility] WBC (Bld) [#/Vol] 4.2 10*3/uL 4.4-11.0 [facility] Blood erythrocytes count (nu mber/volume)Ordered By: Ozzy Murry on 10-19-2022 RBC (Bld) [#/Vol] 4.07 10*6/uL 4.2-5.4 [facility] Blood hemoglobin measurement (mass/volume)Ordered By: Ozzy Murry on 10-19-2022 Hemoglobin (Bld) [Mass/Vol] 13.0 g/dL 12.0-15.0 [facility] Blood lymphocytes/100 leukoc ytesOrdered By: Ozzy Murry on 10-19-2022 Lymphocytes/100 WBC (Bld) 42.4 % 19-41 [facility] Blood monocytes/100 leukocyt esOrdered By: Ozzy Murry on 10-19-2022 Monocytes/100 WBC (Bld) 7.1 % 0-10 [facility] Blood platelet mean volumeOr dered By: Ozzy Murry on 10-19-2022 Platelet mean volume (Bld) [Entitic vol] 11.8 fL 6.2-12.0 [facility] Determination of erythrocyte mean corpuscular volume (MCV)Ordered By: Ozzy Murry on 10-19-2022 MCV (RBC) [Entitic vol] 102.5 fL 81-99 [facility] Hematocrit Auto (Bld) [Volum e fraction]Ordered By: Ozzy Murry on 10-19-2022 Hematocrit (Bld) [Volume fraction] 41.7 % 37-47 [facility] Laboratory - Hematology and Cell countsOrdered By: Ozzy Murry on 10-19-2022 Erythrocyte distribution width (RBC) [Entitic vol] 46.9 fL 35.1-43.9 [facility] Erythrocyte distribution width (RBC) [Ratio] 12.4 % 11.6-14.6 [facility] Immature granulocytes/100 WBC (Bld) 0.200 % 0.0-0.9 [facility] Comment on above: IG% - Immature Granu locytes (promyelocytes, myelocytes and metamyelocytes) > 1% indicates that a LEFT SHIFT is Present. MCH (RBC) [Entitic mass] 31.9 pg 27.0-32.0 [facility] Nucleated RBC/100 WBC (Bld) [Ratio] 0 % 0-5 [facility] MCHC Auto (RBC) [Mass/Vol]Or dered By: Ozzy Murry on 10-19-2022 MCHC (RBC) [Mass/Vol] 31.2 g/dL 32-36 [facility] Platelets bldOrdered By: José Luis Murry on 10-19-2022 Platelets (Bld) [#/Vol] 115 10*3/uL 150-450 [facility] Serum or plasma choriogonado tropin detectionOrdered By: Abby Don on 08-20-2022 HCG ( test) Ql 15 mIU/mL <4 [facility] Comment on above: hCG levels with Gest ational AgeGestational Age hCG mIU/mL (IU/L)0.2 - 1 week 5 - 501-2 weeks 50 - 5002-3 weeks 100 - 14759-1 weeks 500 - 788486-6 weeks 1000 - 134396-1 weeks 67951 - 100,0006-8 weeks 93049 - 200,0002-3 months 04090 - 100,000 Serum or plasma choriogonado tropin detectionOrdered By: Abby Don on 08-17-2022 HCG ( test) Ql 43 mIU/mL <4 [facility] Comment on above: hCG levels with Gest ational AgeGestational Age hCG mIU/mL (IU/L)0.2 - 1 week 5 - 501-2 weeks 50 - 5002-3 weeks 100 - 48118-8 weeks 500 - 528867-0 weeks 1000 - 004945-3 weeks 48660 - 100,0006-8 weeks 52026 - 200,0002-3 months 45107 - 100,000 Serum or plasma estradiol (E 2) measurement (mass/volume)Ordered By: Abby Don on 08-17-2022 E2 [Mass/Vol] 96.1 pg/mL [facility] Comment on above: NORMAL REFERENCE RAN GES [...] 08-17-2022 Progesterone [Mass/Vol] 20.23 ng/mL See Comment [facility] Comment on above: Progesterone Referen ce Table: [...] Auto (Unsp spec) [#/Vol] 1.00 10*3/uL 0.83-4.51 [facility] Basophil percentageOrdered B y: Jez Goodwin on 08-16-2022 Basophil percentage 0 SEEN /hpf 0-5 [facility] Basophils/100 WBC (Bld) 0.3 % 0-1 [facility] Bilirubin [Mass/Vol] 0.50 mg/dL 0.20-1.00 [facility] Comment on above: For patients on eltr ombopag therapy, use of Dimension [place] TBIL is not recommended. Chloride [Moles/Vol] 108 mmol/L 98-107 [facility] Eosinophils/100 WBC (Bld) 0.0 % 0-5 [facility] Glucose [Mass/Vol] 111 mg/dL 74-106 [facility] Comment on above: Fasting Glucose resu lt from 100 to 125 mg/dL suggests IMPAIRED HOMEOSTASIS per A.D.A. criteria. Lactate [Moles/Vol] 1.1 mmol/L 0.4-2.0 [facility] Neutrophils (Bld) [#/Vol] 5.0 10*3/uL 2.0-7.7 [facility] Neutrophils/100 WBC (Bld) 78.7 % 47-70 [facility] Potassium [Moles/Vol] 4.1 mmol/L 3.5-5.1 [facility] Protein [Mass/Vol] 6.1 g/dL 6.4-8.2 [facility] Sodium [Moles/Vol] 139 mmol/L 136-145 [facility] WBC (Bld) [#/Vol] 6.3 10*3/uL 4.4-11.0 [facility] Bilirubin Test strip Ql (U)O rdered By: Jez Goodwin on 08-16-2022 Bilirubin Ql (U) Negative Negative [facility] Blood erythrocytes count (nu mber/volume)Ordered By: Jez Goodwin on 08-16-2022 RBC (Bld) [#/Vol] 4.04 10*6/uL 4.2-5.4 [facility] Blood hemoglobin measurement (mass/volume)Ordered By: Jez Goodwin on 08-16-2022 Hemoglobin (Bld) [Mass/Vol] 13.1 g/dL 12.0-15.0 [facility] Blood lymphocytes/100 leukoc ytesOrdered By: Jez Goodwin on 08-16-2022 Lymphocytes/100 WBC (Bld) 15.9 % 19-41 [facility] Blood monocytes/100 leukocyt esOrdered By: Jez Goodwin on 08-16-2022 Monocytes/100 WBC (Bld) 4.8 % 0-10 [facility] Blood platelet mean volumeOr dered By: Jez Goodwin on 08-16-2022 Platelet mean volume (Bld) [Entitic vol] 12.9 fL 6.2-12.0 [facility] Determination of erythrocyte mean corpuscular volume (MCV)Ordered By: Jez Goodwin on 08-16-2022 MCV (RBC) [Entitic vol] 98.5 fL 81-99 [facility] Direct bilirubinOrdered By: Jez Goodwin on 08-16-2022 Bilirubin.direct [Mass/Vol] 0.18 mg/dL 0.00-0.30 [facility] Hematocrit Auto (Bld) [Volum e fraction]Ordered By: Jez Goodwin on 08-16-2022 Hematocrit (Bld) [Volume fraction] 39.8 % 37-47 [facility] Ketones Test strip Ql (U)Ord ered By: Jez Goodwin on 08-16-2022 Ketones Ql (U) 15 mg/dl Negative [facility] Laboratory - Chemistry and C hemistry - challengeOrdered By: Jez Goodwin on 08-16-2022 ALP [Catalytic activity/Vol] 34 U/L 45-117 [facility] ALT [Catalytic activity/Vol] 23 U/L -56 [facility] CO2 [Moles/Vol] 25.0 mmol/L 21.0-32.0 [facility] Globulin (S) [Mass/Vol] 2.9 g/dL 2.2-4.2 [facility] Lipase [Catalytic activity/Vol] 28 U/L -75 [facility] Comment on above: Please note:LIPASE r evised reference range effective 22. New Lipase methodology. Expected to produce lower values than the previous assay method. NEW Reference Range: 13 - 75 U/L Urea nitrogen/Creatinine [Mass ratio] 23.2 mg/mg 10-20 [facility] Laboratory - Hematology and Cell countsOrdered By: Jez Goodwin on 08-16-2022 Erythrocyte distribution width (RBC) [Entitic vol] 43.6 fL 35.1-43.9 [facility] Erythrocyte distribution width (RBC) [Ratio] 11.9 % 11.6-14.6 [facility] Immature granulocytes/100 WBC (Bld) 0.300 % 0.0-0.9 [facility] Comment on above: IG% - Immature Granu locytes (promyelocytes, myelocytes and metamyelocytes) > 1% indicates that a LEFT SHIFT is Present. MCH (RBC) [Entitic mass] 32.4 pg 27.0-32.0 [facility] Nucleated RBC/100 WBC (Bld) [Ratio] 0 % 0-5 [facility] MCHC Auto (RBC) [Mass/Vol]Or dered By: Jez Goodwin on 08-16-2022 MCHC (RBC) [Mass/Vol] 32.9 g/dL 32-36 [facility] Mucus LM Ql (Urine sed)Order ed By: Jez Goodwin on 08-16-2022 Mucus Ql (Urine sed) 0 SEEN /hpf [facility] Nitrite Test strip Ql (U)Ord ered By: Jez Goodwin on 08-16-2022 Nitrite Ql (U) Negative Negative [facility] No Panel InformationOrdered By: Jez Goodwin on 08-16-2022 Estimated Creatinine Clearance Calc 119.71 ml/min [facility] Estimated GFR (MDRD) Amer 135 mL/min >60 [facility] Comment on above: GFR Calc Estimated GFR (MDRD) Non-Af Amer 112 mL/min >60 [facility] Comment on above: Non- GFR Calc Platelets bldOrdered By: Martin Goodwin on 08-16-2022 Platelets (Bld) [#/Vol] 112 10*3/uL 150-450 [facility] Protein Test strip Ql (U)Ord ered By: Jez Goodwin on 08-16-2022 Protein Ql (U) 15 mg/dl Negative [facility] Serum or plasma albumin sunshine urement (mass/volume)Ordered By: Jez Goodwin on 08-16-2022 Albumin [Mass/Vol] 3.2 g/dL 3.2-5.0 [facility] Serum or plasma calcium sunshine urement (mass/volume)Ordered By: Jez Goodwin on 08-16-2022 Calcium [Mass/Vol] 7.9 mg/dL 8.5-10.1 [facility] Serum or plasma choriogonado tropin detectionOrdered By: Jez Goodwin on 08-16-2022 HCG ( test) Ql 66 mIU/mL <4 [facility] Comment on above: hCG levels with Gest ational AgeGestational Age hCG mIU/mL (IU/L)0.2 - 1 week 5 - 501-2 weeks 50 - 5002-3 weeks 100 - 94214-9 weeks 500 - 954160-3 weeks 1000 - 696836-7 weeks 98929 - 100,0006-8 weeks 63774 - 200,0002-3 months 64148 - 100,000 Serum or plasma creatinine m easurement (mass/volume)Ordered By: Jez Goodwin on 08-16-2022 Creatinine [Mass/Vol] 0.65 mg/dL 0.55-1.02 [facility] Comment on above: The validity of the calculated GFR & GFRAA in patients over 70 years has not been determined. Clinical correlation is essential. Serum or plasma urea nitroge n measurement (mass/volume)Ordered By: Jez Goodwin on 08-16-2022 Urea nitrogen [Mass/Vol] 15 mg/dL 7-18 [facility] Serum procalcitonin measurem entOrdered By: Jez Goodwin on 08-16-2022 Procalcitonin [Mass/Vol] ng/mL 0.00-0.09 [facility] Comment on above: A procalcitonin (PCT ) [...] Ql (Urine sed) 0-5 SEEN /hpf 5-10 [facility] Thin prep Papanicolaou smear with manual screeningOrdered By: Jez Goodwin on 08-16-2022 Thin prep Papanicolaou smear with manual screening 20 U/L 15-37 [facility] Thin prep Papanicolaou smear with manual screening 6 5-15 [facility] Urine blood detectionOrdered By: Jez Goodwin on 08-16-2022 RBC Ql (U) Negative Negative [facility] RBC Ql (U) 0 SEEN /hpf 0-5 [facility] Urine clarityOrdered By: Martin Goodwin on 08-16-2022 Clarity (U) Clear Clear [facility] Urine color determinationOrd ered By: Jez Goodwin on 08-16-2022 Color (U) Yellow Yellow [facility] Urine glucose detectionOrder ed By: Jez Goodwin on 08-16-2022 Glucose Ql (U) Normal mg/dl Normal [facility] Urine leukocyte esterase det ection by dipstickOrdered By: Jez Goodwin on 08-16-2022 Leukocyte esterase Test strip Ql (U) Negative Negative [facility] Urine pHOrdered By: Jez booker on 08-16-2022 pH (U) 6.5 [pH] 5.0 - 8.0 [facility] Urine sediment bacteria coun t by microscopy (number/high power field)Ordered By: Jez Goodwin on 08-16-2022 Bacteria LM.HPF (Urine sed) [#/Area] 0 /[HPF] None Seen [facility] Urine specific gravity measu rementOrdered By: Jez Goodwin on 08-16-2022 Specific gravity (U) [Rel density] 1.010 1.002-1.030 [facility] Urobilinogen Auto test strip Ql (U)Ordered By: Jez Goodwin on 08-16-2022 Urobilinogen Ql (U) Normal mg/dl Normal [facility] Absolute lymphocyte countOrd ered By: Yulia Duran on 08-15-2022 Lymphocytes Auto (Unsp spec) [#/Vol] 0.75 10*3/uL 0.83-4.51 [facility] Basophil percentageOrdered B y: Yulia Duran on 08-15-2022 Basophil percentage 0 SEEN /hpf 0-5 [facility] Basophils/100 WBC (Bld) 0.4 % 0-1 [facility] Chloride [Moles/Vol] 107 mmol/L 98-107 [facility] Eosinophils/100 WBC (Bld) 0.2 % 0-5 [facility] Glucose [Mass/Vol] 133 mg/dL 74-106 [facility] Comment on above: Fasting Glucose resu lt greater than or equal to 126 mg/dL suggests DIABETES MELLITUS per A.D.A. criteria. Neutrophils (Bld) [#/Vol] 4.2 10*3/uL 2.0-7.7 [facility] Neutrophils/100 WBC (Bld) 81.1 % 47-70 [facility] Potassium [Moles/Vol] 3.9 mmol/L 3.5-5.1 [facility] Sodium [Moles/Vol] 139 mmol/L 136-145 [facility] WBC (Bld) [#/Vol] 5.2 10*3/uL 4.4-11.0 [facility] Basophil percentageOrdered B y: Dr. Don on 08-15-2022 Bilirubin [Mass/Vol] 0.40 mg/dL 0.20-1.00 [facility] Comment on above: For patients on eltr ombopag therapy, use of Dimension [place] TBIL is not recommended. Protein [Mass/Vol] 7.3 g/dL 6.4-8.2 [facility] Beta hCG serum qualOrdered B y: Yulia Duran on 08-15-2022 Beta HCG ( test) Ql Negative [facility] Comment on above: TEST is *P OSITIVE*CRITICAL VALUE VERIFIED. CALLED TO [id number] Becky Burton.RESULTS READ BACK BY SAME . Bilirubin Test strip Ql (U)O rdered By: Yulia Duran on 08-15-2022 Bilirubin Ql (U) Negative Negative [facility] Blood erythrocytes count (nu mber/volume)Ordered By: Yulia Duran on 08-15-2022 RBC (Bld) [#/Vol] 4.32 10*6/uL 4.2-5.4 [facility] Blood hemoglobin measurement (mass/volume)Ordered By: Yulia Duran on 08-15-2022 Hemoglobin (Bld) [Mass/Vol] 14.1 g/dL 12.0-15.0 [facility] Blood lymphocytes/100 leukoc ytesOrdered By: Yulia Duran on 08-15-2022 Lymphocytes/100 WBC (Bld) 14.4 % 19-41 [facility] Blood monocytes/100 leukocyt esOrdered By: Yulia Duran on 08-15-2022 Monocytes/100 WBC (Bld) 3.7 % 0-10 [facility] Blood platelet mean volumeOr dered By: Yulia Duran on 08-15-2022 Platelet mean volume (Bld) [Entitic vol] 12.3 fL 6.2-12.0 [facility] Determination of erythrocyte mean corpuscular volume (MCV)Ordered By: Yulia Duran on 08-15-2022 MCV (RBC) [Entitic vol] 101.4 fL 81-99 [facility] Direct bilirubinOrdered By: Dr. Don on 08-15-2022 Bilirubin.direct [Mass/Vol] 0.12 mg/dL 0.00-0.30 [facility] Hematocrit Auto (Bld) [Volum e fraction]Ordered By: Yulia Duran on 08-15-2022 Hematocrit (Bld) [Volume fraction] 43.8 % 37-47 [facility] Ketones Test strip Ql (U)Ord ered By: Yulia Duran on 08-15-2022 Ketones Ql (U) 15 mg/dl Negative [facility] Laboratory - Chemistry and C hemistry - challengeOrdered By: Dr. Don on 08-15-2022 ALP [Catalytic activity/Vol] 39 U/L 45-117 [facility] ALT [Catalytic activity/Vol] 28 U/L 13-56 [facility] Globulin (S) [Mass/Vol] 3.2 g/dL 2.2-4.2 [facility] Laboratory - Chemistry and C hemistry - challengeOrdered By: Yulia Duran on 08-15-2022 CO2 [Moles/Vol] 25.0 mmol/L 21.0-32.0 [facility] Urea nitrogen/Creatinine [Mass ratio] 34.9 mg/mg 10-20 [facility] Laboratory - Hematology and Cell countsOrdered By: Yulia Duran on 08-15-2022 Erythrocyte distribution width (RBC) [Entitic vol] 45.3 fL 35.1-43.9 [facility] Erythrocyte distribution width (RBC) [Ratio] 12.0 % 11.6-14.6 [facility] Immature granulocytes/100 WBC (Bld) 0.200 % 0.0-0.9 [facility] Comment on above: IG% - Immature Granu locytes (promyelocytes, myelocytes and metamyelocytes) > 1% indicates that a LEFT SHIFT is Present. MCH (RBC) [Entitic mass] 32.6 pg 27.0-32.0 [facility] Nucleated RBC/100 WBC (Bld) [Ratio] 0 % 0-5 [facility] MCHC Auto (RBC) [Mass/Vol]Or dered By: Yulia Duran on 08-15-2022 MCHC (RBC) [Mass/Vol] 32.2 g/dL 32-36 [facility] Mucus LM Ql (Urine sed)Order ed By: Yulia Duran on 08-15-2022 Mucus Ql (Urine sed) 0 SEEN /hpf [facility] Nitrite Test strip Ql (U)Ord ered By: Yulia Duran on 08-15-2022 Nitrite Ql (U) Negative Negative [facility] No Panel InformationOrdered By: Yulia Duran on 08-15-2022 Estimated Creatinine Clearance Calc 108.07 ml/min [facility] Estimated GFR (MDRD) Amer 120 mL/min >60 [facility] Comment on above: GFR Calc Estimated GFR (MDRD) Non-Af Amer 99 mL/min >60 [facility] Comment on above: Non- GFR Calc Platelets bldOrdered By: Irma Duran on 08-15-2022 Platelets (Bld) [#/Vol] 107 10*3/uL 150-450 [facility] Protein Test strip Ql (U)Ord ered By: Yulia Duran on 08-15-2022 Protein Ql (U) 15 mg/dl Negative [facility] Serum or plasma albumin sunshine urement (mass/volume)Ordered By: Dr. Don on 08-15-2022 Albumin [Mass/Vol] 4.1 g/dL 3.2-5.0 [facility] Serum or plasma calcium sunshine urement (mass/volume)Ordered By: Yulia Duran on 08-15-2022 Calcium [Mass/Vol] 8.4 mg/dL 8.5-10.1 [facility] Serum or plasma choriogonado tropin detectionOrdered By: Yulia Duran on 08-15-2022 HCG ( test) Ql 102 mIU/mL <4 [facility] Comment on above: hCG levels with Gest ational AgeGestational Age hCG mIU/mL (IU/L)0.2 - 1 week 5 - 501-2 weeks 50 - 5002-3 weeks 100 - 21622-9 weeks 500 - 354764-2 weeks 1000 - 500928-0 weeks 50296 - 100,0006-8 weeks 18954 - 200,0002-3 months 83816 - 100,000 Serum or plasma creatinine m easurement (mass/volume)Ordered By: Yulia Duran on 08-15-2022 Creatinine [Mass/Vol] 0.72 mg/dL 0.55-1.02 [facility] Comment on above: The validity of the calculated GFR & GFRAA in patients over 70 years has not been determined. Clinical correlation is essential. Serum or plasma urea nitroge n measurement (mass/volume)Ordered By: Yulia Duran on 08-15-2022 Urea nitrogen [Mass/Vol] 25 mg/dL 7-18 [facility] Squamous epithelial cells de tection in urine sediment by light microscopyOrdered By: Yulia Duran on 08-15-2022 Epithelial cells.squamous LM Ql (Urine sed) 0 SEEN /hpf 5-10 [facility] Thin prep Papanicolaou smear with manual screeningOrdered By: Dr. Don on 08-15-2022 Thin prep Papanicolaou smear with manual screening 24 U/L 15-37 [facility] Thin prep Papanicolaou smear with manual screeningOrdered By: Yulia Duran on 08-15-2022 Thin prep Papanicolaou smear with manual screening 7 5-15 [facility] Urine blood detectionOrdered By: Yulia Duran on 08-15-2022 RBC Ql (U) Negative Negative [facility] RBC Ql (U) 0 SEEN /hpf 0-5 [facility] Urine clarityOrdered By: Irma Duran on 08-15-2022 Clarity (U) Clear Clear [facility] Urine color determinationOrd ered By: Yulia Duran on 08-15-2022 Color (U) Yellow Yellow [facility] Urine glucose detectionOrder ed By: Yulia Duran on 08-15-2022 Glucose Ql (U) Normal mg/dl Normal [facility] Urine leukocyte esterase det ection by dipstickOrdered By: Yulia Duran on 08-15-2022 Leukocyte esterase Test strip Ql (U) Negative Negative [facility] Urine pHOrdered By: Yulia mock on 08-15-2022 pH (U) 6.0 [pH] 5.0 - 8.0 [facility] Urine sediment bacteria coun t by microscopy (number/high power field)Ordered By: Yulia Duran on 08-15-2022 Bacteria LM.HPF (Urine sed) [#/Area] 0 /[HPF] None Seen [facility] Urine specific gravity measu rementOrdered By: Yulia Duran on 08-15-2022 Specific gravity (U) [Rel density] 1.020 1.002-1.030 [facility] Urobilinogen Auto test strip Ql (U)Ordered By: Yulia Duran on 08-15-2022 Urobilinogen Ql (U) Normal mg/dl Normal [facility] Serum or plasma progesterone measurement (mass/volume)Ordered By: Dr. Don on 05-18-2022 Progesterone [Mass/Vol] 21.11 ng/mL See Comment [facility] Comment on above: Progesterone Referen ce Table: UNITS Female: Follicular 0.15 - 1.40 ng/mL Luteal 3.34 - 25.56 ng/mL Mid-luteal 4.44 - 28.03 ng/mL Postmenopausal 0.0 - 0.73 ng/mL : 1st Trimester 11.22 - 90.00 ng/mL 2nd Trimester 25.55 - 89.40 ng/mL 3rd Trimester 48.40 -422.50 ng/mL Serum or plasma progesterone measurement (mass/volume)on 01-20-2022 Progesterone [Mass/Vol] 1.30 ng/mL See Comment [facility] Work Phone: Comment on above: Progesterone Referen ce Table: UNITS Female: Follicular 0.15 - 1.40 ng/mL Luteal 3.34 - 25.56 ng/mL Mid-luteal 4.44 - 28.03 ng/mL Postmenopausal 0.0 - 0.73 ng/mL : 1st Trimester 11.22 - 90.00 ng/mL 2nd Trimester 25.55 - 89.40 ng/mL 3rd Trimester 48.40 -422.50 ng/mL Absolute lymphocyte counton 09-24-2021 Lymphocytes Auto (Unsp spec) [#/Vol] 1.70 10*3/uL 0.83-4.51 [facility] Work Phone: Basophil percentageon 2021 Basophils/100 WBC (Bld) 0.9 % 0-1 [facility] Work Phone: Eosinophils/100 WBC (Bld) 1.6 % 0-5 [facility] Work Phone: Neutrophils (Bld) [#/Vol] 1.2 10*3/uL 2.0-7.7 [facility] Work Phone: Neutrophils/100 WBC (Bld) 37.0 % 47-70 [facility] Work Phone: WBC (Bld) [#/Vol] 3.2 10*3/uL 4.4-11.0 [facility] Work Phone: Basophil percentageOrdered B y: Ozzy Murry on 09-24-2021 Bilirubin [Mass/Vol] 0.50 mg/dL 0.20-1.00 [facility] Comment on above: For patients on eltr ombopag therapy, use of Dimension [place] TBIL is not recommended. Chloride [Moles/Vol] 104 mmol/L 98-107 [facility] Glucose [Mass/Vol] 82 mg/dL 74-106 [facility] Potassium [Moles/Vol] 4.3 mmol/L 3.5-5.1 [facility] Protein [Mass/Vol] 7.1 g/dL 6.4-8.2 [facility] Sodium [Moles/Vol] 136 mmol/L 136-145 [facility] Blood erythrocytes count (nu mber/volume)on 09-24-2021 RBC (Bld) [#/Vol] 4.06 10*6/uL 4.2-5.4 [facility] Work Phone: Blood hemoglobin measurement (mass/volume)on 09-24-2021 Hemoglobin (Bld) [Mass/Vol] 13.3 g/dL 12.0-15.0 [facility] Work Phone: [phone] Blood lymphocytes/100 leukoc yteson 09-24-2021 Lymphocytes/100 WBC (Bld) 53.0 % 19-41 [facility] Work Phone: [phone] Blood monocytes/100 leukocyt eson 09-24-2021 Monocytes/100 WBC (Bld) 7.5 % 0-10 [facility] Work Phone: Blood platelet mean volumeon 09-24-2021 Platelet mean volume (Bld) [Entitic vol] 11.5 fL 6.2-12.0 [facility] Work Phone: Determination of erythrocyte mean corpuscular volume (MCV)on 09-24-2021 MCV (RBC) [Entitic vol] 100.7 fL 81-99 [facility] Work Phone: Hematocrit Auto (Bld) [Volum e fraction]on 09-24-2021 Hematocrit (Bld) [Volume fraction] 40.9 % 37-47 [facility] Work Phone: [phone] Hemoglobin in reticulocytes (mass per reticulocyte)Ordered By: Ozzy Murry on 09-24-2021 Hemoglobin (Reticulocytes) [Entitic mass] 32.9 pg 30-35 [facility] Iron measurement (mass/mass) Ordered By: Ozzy Murry on 09-24-2021 Iron (Unsp spec) [Mass/Mass] 80 ug/dL 50-170 [facility] Laboratory - Chemistry and C hemistry - challengeOrdered [facility] ALP [Catalytic activity/Vol] 49 U/L 45-117 [facility] ALT [Catalytic activity/Vol] 42 U/L 13-56 [facility] CO2 [Moles/Vol] 30.0 mmol/L 21.0-32.0 [facility] Cobalamin (Vitamin B12) [Mass/Vol] 1093 pg/mL 211-911 [facility] Free T4 [Mass/Vol] 0.70 ng/dL 0.76-1.46 [facility] Globulin (S) [Mass/Vol] 3.1 g/dL 2.2-4.2 [facility] Urea nitrogen/Creatinine [Mass ratio] 42.6 mg/mg 10-20 [facility] Laboratory - Hematology and Cell countson 09-24-2021 Erythrocyte distribution width (RBC) [Entitic vol] 44.9 fL 35.1-43.9 [facility] Work Phone: [phone] Erythrocyte distribution width (RBC) [Ratio] 11.9 % 11.6-14.6 [facility] Work Phone: Immature granulocytes/100 WBC (Bld) 0.000 % 0.0-0.9 [facility] Work Phone: [phone] Comment on above: IG% - Immature Granu locytes (promyelocytes, myelocytes and metamyelocytes) > 1% indicates that a LEFT SHIFT is Present. MCH (RBC) [Entitic mass] 32.8 pg 27.0-32.0 [facility] Work Phone: Nucleated RBC/100 WBC (Bld) [Ratio] 0 % 0-5 [facility] Work Phone: MCHC Auto (RBC) [Mass/Vol]on 09-24-2021 MCHC (RBC) [Mass/Vol] 32.5 g/dL 32-36 [facility] Work Phone: No Panel InformationOrdered By: Ozzy Murry on 09-24-2021 Estimated Creatinine Clearance Calc 95.78 ml/min [facility] Estimated GFR (MDRD) Amer 103 mL/min >60 [facility] Comment on above: GFR Calc Estimated GFR (MDRD) Non-Af Amer 85 mL/min >60 [facility] Comment on above: Non- GFR Calc Immature Platelet Fraction 9.0 % 1.0-7.9 [facility] Comment on above: Low PLT + Low IPF [place] ggest a bone marrow production disorderLow PLT + high IPF suggests peripheral destruction(e.g.ITP, TTP, HIT, DIC, autoimmune) or bone marrow recoveryTrending of serial IPF measurements is recommended when evaluating for bone marrow responesValue above normal range indicates an increase in RBC cellular response from bone marrow. Immature Reticulocyte Fraction 6.00 % 3.00-15.90 [facility] Reticulocyte Count 1.25 % 0.5-1.5 [facility] [facility] Thyroid Stimulating Hormone (TSH) 2.76 uIU/mL 0.358-3.74 [facility] Total Iron Binding Capacity 295 ug/dL 250-450 [facility] Platelets bldon 09-24-2021 Platelets (Bld) [#/Vol] 115 10*3/uL 150-450 [facility] Work Phone: Serum or plasma albumin sunshine urement (mass/volume)Ordered By: Ozzy Murry on 09-24-2021 Albumin [Mass/Vol] 4.0 g/dL 3.2-5.0 [facility] Serum or plasma albumin/glob ulin mass ratioOrdered By: Ozzy Murry on 09-24-2021 Albumin/Globulin [Mass ratio] 1.3 {ratio} 0.9-2.4 [facility] Serum or plasma calcium sunshine urement (mass/volume)Ordered By: Ozzy Murry on 09-24-2021 Calcium [Mass/Vol] 8.5 mg/dL 8.5-10.1 [facility] Serum or plasma creatinine m easurement (mass/volume)Ordered By: Ozzy Murry on 09-24-2021 Creatinine [Mass/Vol] 0.82 mg/dL 0.55-1.02 [facility] Comment on above: The validity of the calculated GFR & GFRAA in patients over 70 years has not been determined. Clinical correlation is essential. Serum or plasma ferritin tricia surement (mass/volume)[facility]21 Ferritin [Mass/Vol] 53 ng/mL 8-252 [facility] Serum or plasma folate measu rement (mass/volume)Ordered By: [facility] on 09-24-2021 Folate [Mass/Vol] 32.50 ng/mL 3.1-55.4 [facility] Serum or plasma iron saturat ion measurement (mass fraction)Ordered By: [facility] on 09-24-2021 Iron saturation [Mass fraction] 27.1 % 15.0-55.0 [facility] Serum or plasma urea nitroge n measurement (mass/volume)Ordered By: [facility] Lovely on 09-24-2021 Urea nitrogen [Mass/Vol] 35 mg/dL 7-18 [facility] Thin prep Papanicolaou smear with manual screeningOrdered By: [facility] on 09-24-2021 Thin prep Papanicolaou smear with manual screening 27 U/L 15-37 [facility] Thin prep Papanicolaou smear with manual screening 2 5-15 [facility] Thin prep Papanicolaou smear with manual screening 179 U/L 84-246 [facility] Basophil percentageon 2021 Testosterone [Mass/Vol] 8.90 ng/dL [facility] Work Phone: Comment on above: CENTRAL 90% REFERENC E RANGES MALE AGE <50 197.44 - 669.58 ng/dL MALE AGE > or = 50 187.72 - 684.19 ng/dL FEMALE AGE <50 8.38 - 35.01 ng/dL FEMALE AGE > or = 50 <7.00 - 35.92 ng/dL Effective as of 09/16/20 Insulin-like growth factor ( IGF) measurementon 08-25-2021 Insulin-like growth factor [Moles/Vol] 237 ng/mL 84-281 [facility] Work Phone: Laboratory - Chemistry and C hemistry - challengeon 08-25-2021 Free T4 [Mass/Vol] 0.66 ng/dL 0.76-1.46 [facility] Work Phone: No Panel Informationon 08-25 Dehydroepiandrosterone Sulfate 52.2 ug/dL 84.8-378.0 [facility] Work Phone: Follicle Stimulating Hormone 7.1 mIU/mL [facility] Work Phone: Comment on above: NORMAL REFERENCE RAN GES FEMALE FOLLICULAR 2.3 - 12.6 mIU/mL MID-CYCLE PEAK 5.2 - 17.5 mIU/mL LUTEAL 1.7 - 12.9 mIU/mL POST-MENOPAUSAL ON MHT 5.9 - 72.8 mIU/mL NOT ON MHT 12.7 - 132.2 mlU/mL MALE 0.7 - 10.8 mIU/mL Reverse Triiodothyronine (T3) 8.9 ng/dL 9.2-24.1 [facility] Work Phone: Comment on above: This test was develo ped and its performance characteristicsdetermined by [facility]. It has not been cleared orapproved by the Food and Drug Administration. Thyroid Stimulating Hormone (TSH) 2.37 uIU/mL 0.358-3.74 [facility] Work Phone: Total Triiodothyronine 0.79 ng/mL 0.6-1.81 [facility] Work Phone: Serum or plasma cortisol tricia surement (mass/volume)on 08-25-2021 Cortisol [Mass/Vol] 11.50 ug/dL 3.44-22.45 [facility] Work Phone: Comment on above: Adult (AM) 5.27 - 22 .45 ug/dL Adult (PM) 3.44 - 16.76 ug/dLPlease note revised CORTISOL reference range effective 2019. Serum or plasma estradiol (E 2) measurement (mass/volume)on 08-25-2021 E2 [Mass/Vol] 23.2 pg/mL [facility] Work Phone: Comment on above: NORMAL REFERENCE [...] 08-25-2021 Prolactin [Mass/Vol] 2.9 ng/mL [facility] Work Phone: Comment on above: NORMAL REFERENCE RAN GES FEMALE NON- 2.2 - 30.3 ng/mL 8.1 - 347.6 ng/mL POST-MENOPAUSAL 0.7 - 31.5 ng/mL MALE 2.5 - 17.4 ng/mL Serum or plasma sex hormone binding globulin measurement (moles/volume)on 08-25-2021 Sex hormone binding globulin [Moles/Vol] 51.7 nmol/L 24.6-122.0 [facility] Work Phone: Comment on above: Performed at: [address] [id number] Director: Yair Raza PhD, Phone: [phone] at: [facility] [address] [id number] Director: Belén Sanches MD, Phone: [phone] Erythrocyte distribution wid th standard deviationon 04-12-2018 Erythrocyte distribution width (RBC) [Entitic vol] 46.6 fL 35.1-43.9 [facility] Laboratory - Hematology and Cell countson 04-12-2018 Erythrocyte distribution width (RBC) [Ratio] 12.8 % 11.6-14.6 [facility] Total cell counton 9 Cells counted Molgen (Bld/Tiss) [#] Not Reportable [facility] Vital Signs Date Time Vital Sign Value Performing Clinician Faci lity 06-28-2023 16:01-0400 Body height 170.[address] Suzanne Leyva Work Phone: [facility] 06-28-2023 16:01-0400 Body mass index (BMI) [Ratio] 24.8 kg/m2 Dr. Suzanne Leyva Work Phone: [facility] 06-28-2023 16:01-0400 Body weight 71.[address] Suzanne Leyva Work Phone: [facility] 06-28-2023 16:01-0400 Diastolic blood pressure 56 mm[Hg] Dr. Suzanne Leyva Work Phone: [facility] 06-28-2023 16:01-0400 Systolic blood pressure 92 mm[Hg] Dr. Suzanne Leyva Work Phone: [facility] 05-31-2023 09:24-0400 Body height 170.[address] Suzanne Leyva Work Phone: [facility] 05-31-2023 09:23-0400 Body mass index (BMI) [Ratio] 24.1 kg/m2 Dr. Suzanne Leyva Work Phone: [facility] 05-31-2023 09:23-0400 Body weight 69.[address] Suzanne Leyva Work Phone: [facility] 05-31-2023 09:23-0400 Diastolic blood pressure 61 mm[Hg] Dr. Suzanne Leyva Work Phone: [facility] 05-31-2023 09:23-0400 Systolic blood pressure 94 mm[Hg] Dr. Suzanne Leyva Work Phone: [facility] 05-16-2023 09:20-0400 Body mass index (BMI) [Ratio] 24.2 kg/m2 Dr. Suzanne Leyva Work Phone: [facility] 05-16-2023 09:20-0400 Body weight 70.[address] Suzanne Leyva Work Phone: [facility] 05-16-2023 09:20-0400 Diastolic blood pressure 63 mm[Hg] Dr. Suzanne Leyva Work Phone: [facility] 05-16-2023 09:20-0400 Systolic blood pressure 97 mm[Hg] Dr. Suzanne Leyva Work Phone: [facility] 05-06-2023 14:16-0400 Body mass index (BMI) [Ratio] 24 kg/m2 Dr. Suzanne Leyva Work Phone: [phone] [place] [address] 05-06-2023 14:16-0400 Body weight 69.[address] Suzanne Leyva Work Phone: [facility] 05-06-2023 14:16-0400 Diastolic blood pressure 66 mm[Hg] Dr. Suzanne Leyva Work Phone: [phone] [place] [address] 05-06-2023 14:16-0400 Systolic blood pressure 114 mm[Hg] Dr. Suzanne Leyva Work Phone: [facility] 04-21-2023 12:59-0500 Body height 170.[address] Suzanne Leyva Work Phone: [facility] 04-21-2023 12:59-0500 Body mass index (BMI) [Ratio] 23.9 kg/m2 Dr. Suzanne Leyva Work Phone: [facility] 04-21-2023 12:59-0500 Body weight 69.[address] Suzanne Leyva Work Phone: [facility] 04-21-2023 12:59-0500 Diastolic blood pressure 45 mm[Hg] Dr. Suzanne Leyva Work Phone: [facility] 04-21-2023 12:59-0500 Systolic blood pressure 103 mm[Hg] Dr. Suzanne Leyva Work Phone: [facility] 10-19-2022 10:44-0400 Body height 170.[address] Suzanne Leyva Work Phone: [facility] 10-19-2022 10:44-0400 Body mass index (BMI) [Ratio] 22.4 kg/m2 Dr. Suzanne Leyva Work Phone: [facility] 10-19-2022 10:44-0400 Body temperature 99 [degF] Dr. Suzanne Leyva Work Phone: [facility] 10-19-2022 10:44-0400 Body weight 64.[address] Suzanne Leyav Work Phone: [facility] 10-19-2022 10:44-0400 Diastolic blood pressure 70 mm[Hg] Dr. Suzanne Leyva Work Phone: [facility] 10-19-2022 10:44-0400 Heart rate 55 /min Dr. Suzanne Leyva Work Phone: [facility] 10-19-2022 10:44-0400 Respiratory rate 16 /min Dr. Suzanne Leyva Work Phone: [facility] 10-19-2022 10:44-0400 SaO2% (BldA) [Mass fraction] 98 % Dr. Suzanne Leyva Work Phone: [facility] 10-19-2022 10:44-0400 Systolic blood pressure 102 mm[Hg] Dr. Suzanne Leyva Work Phone: [facility] 08-15-2022 23:43-0400 Body height 170.[address] [facility] 08-15-2022 23:43-0400 Body mass index (BMI) [Ratio] 22.5 kg/m2 [facility] 08-15-2022 23:43-0400 Body temperature 98.3 [degF] [facility] 08-15-2022 23:43-0400 Body weight 65.[address] [facility] 08-15-2022 23:43-0400 Diastolic blood pressure 58 mm[Hg] [facility] 08-15-2022 23:43-0400 Heart rate 52 /min [facility] 08-15-2022 23:43-0400 Respiratory rate 16 /min [facility] 08-15-2022 23:43-0400 SaO2% (BldA) [Mass fraction] 95 % [facility] 08-15-2022 23:43-0400 Systolic blood pressure 117 mm[Hg] [facility] 08-15-2022 15:21-0400 Diastolic blood pressure 65 mm[Hg] [facility] 08-15-2022 15:21-0400 Heart rate 60 /min [facility] 08-15-2022 15:21-0400 Respiratory rate 16 /min [facility] 08-15-2022 15:21-0400 SaO2% (BldA) [Mass fraction] 98 % [facility] 08-15-2022 15:21-0400 Systolic blood pressure 114 mm[Hg] [facility] 08-15-2022 11:00-0400 Body mass index (BMI) [Ratio] 21.6 kg/m2 [facility] 08-15-2022 11:00-0400 Body temperature 98.2 [degF] [facility] 08-15-2022 11:00-0400 Body weight 62.[address] [facility] 09-24-2021 10:38-0400 Body height 170.[address] Suzanne Leyva Work Phone: [facility] Work Phone: 09-24-2021 10:38-0400 Body mass index (BMI) [Ratio] 21.7 kg/m2 Dr. Suzanne Leyva Work Phone: [facility] Work Phone: 09-24-2021 10:38-0400 Body temperature 97.8 [degF] Dr. Suzanne Leyva Work Phone: [facility] Work Phone: 09-24-2021 10:38-0400 Body weight 63.[address] Suzanne Leyva Work Phone: [facility] Work Phone: 09-24-2021 10:38-0400 Diastolic blood pressure 65 mm[Hg] Dr. Suzanne Leyva Work Phone: [facility] Work Phone: 09-24-2021 10:38-0400 Heart rate 48 /min Dr. Suzanne Leyva Work Phone: [facility] Work Phone: 09-24-2021 10:38-0400 Respiratory rate 16 /min Dr. Suzanne Leyva Work Phone: [facility] Work Phone: 09-24-2021 10:38-0400 SaO2% (BldA) [Mass fraction] 99 % Dr. Suzanne Leyva Work Phone: [facility] Work Phone: 09-24-2021 10:38-0400 Systolic blood pressure 97 mm[Hg] Dr. Suzanne Leyva Work Phone: [facility] Work Phone: 03-05-2020 11:11-0500 Body mass index (BMI) [Ratio] 23.6 kg/m2 Dr. Suzanne Leyva Work Phone: [facility] 03-05-2020 11:11-0500 Body temperature 98.2 [degF] Dr. Suzanne Leyva Work Phone: [facility] 03-05-2020 11:11-0500 Body weight 68.[address] Suzanne Leyva Work Phone: [facility] Work Phone: 03-05-2020 11:11-0500 Diastolic blood pressure 70 mm[Hg] Dr. Suzanne Leyva Work Phone: [facility] 03-05-2020 11:11-0500 Heart rate 62 /min Dr. Suzanne Leyva Work Phone: [facility] 03-05-2020 11:11-0500 Respiratory rate 16 /min Dr. Suzanne Leyva Work Phone: [facility] 03-05-2020 11:11-0500 SaO2% (BldA) [Mass fraction] 100 % Dr. Suzanne Leyva Work Phone: [facility] 03-05-2020 11:11-0500 Systolic blood pressure 108 mm[Hg] Dr. Suzanne Leyva Work Phone: [facility] Encounters Encounter Date Encounter Type Care Provider Facility Start: 09-04-2024 ambulatory Abby Don [facility] ility:[facility] Start: 08-31-2024 End: 08-31-[address] Suzanne Leyva MD Work Phone: -Laboratory Start: 08-31-2024 End: 08-31-[address] Abby Don MD -Laboratory Work Phone: Start: 08-31-2024 End: 08-31-2024 ambulatory Abby Don Facility:[facility] Start: 05-15-2024 Encounter for genera l adult medical [facility] Start: 05-04-2024 End: 05-04-[address] Suzanne Leyva MD Work Phone: [facility] Work Phone: Start: 05-04-2024 End: 05-04-[address] Suzanne Leyva MD -Laboratory, [facility] Start: 05-04-2024 End: 05-04-2024 ambulatory Suzanne Leyva Facility:[facility] Start: 03-04-2024 End: 03-04-2024 Patient encounter procedure JANN Knott [facility] Work Phone: Start: 03-04-2024 End: 03-04-2024 ambulatory Suzanne Leyva [facility] Start: 01-23-2024 End: 01-23-[address] Malorie Wilkins MD -Laboratory, [facility] Start: 01-23-2024 End: 01-23-2024 ambulatory Suzanne eLyva Facility:[facility] Start: 01-03-2024 End: 01-03-2024 ambulatory Suzanne Leyva Facility:[facility] Start: 11-25-2023 End: 11-26-2023 Evaluation and management of inpatient Suzanne Leyva Facility:[facility] Start: 11-25-2023 ambulatory Suzanne Leyva Facility:[facility] Start: 11-23-2023 End: 11-23-2023 ambulatory Giselarandy Hernandezsakina Facility:[facility] Start: 11-22-2023 End: 11-22-2023 ambulatory Tyesha Tim Perez Facility:[facility] Start: 11-22-2023 End: 11-22-2023 ambulatory Tyesha Dumont Ana Facility:[facility] Start: 11-17-2023 End: 11-17-2023 ambulatory Tyesha Dumont Ana Facility:[facility] Start: 11-17-2023 End: 11-17-2023 ambulatory Tyesha Dumont Ana Facility:[facility] Start: 11-09-2023 End: 11-09-2023 ambulatory Giselarandy Hernandezsakina Facility:[facility] Start: 11-02-2023 End: 11-02-2023 ambulatory Gisela Aparicio Facility:[facility] Start: 10-27-2023 End: 10-28-2023 ambulatory Gisela Aparicio Facility:[facility] Start: 10-19-2023 End: 10-19-2023 ambulatory Suzanne Leyva Facility:[facility] Start: 10-13-2023 End: 10-13-2023 ambulatory Suzanne Leyva Facility:[facility] Start: 09-28-2023 End: 09-28-2023 ambulatory Suzanne Leyva Facility:[facility] Start: 07-26-2023 End: 07-26-2023 ambulatory [facility] Start: 06-28-2023 End: 06-28-[address] Suzanne Leyva Work Phone: [facility] Work Phone: Start: 06-28-2023 End: 06-28-[address] Suzanne Leyva Work Phone: [facility]-Laboratory, Specimen Work Phone: Start: 06-28-2023 End: 06-28-[address] Suzanne Leyva Work Phone: [facility] Work Phone: Start: 05-31-2023 End: 05-31-[address] Suzanne Leyva Work Phone: [facility] Work Phone: Start: 05-31-2023 End: 05-31-[address] Suzanne Leyva Work Phone: [facility] Work Phone: Start: 05-16-2023 End: 05-16-[address] Suzanne Leyva Work Phone: [facility] Work Phone: Start: 05-12-2023 End: 05-12-2023 [facility] Start: 05-12-2023 End: 05-12-2023 ambulatory SUZANNE SURYA [facility] Start: 05-06-2023 End: 05-06-[address] Suzanne Leyva Work Phone: [facility] Work Phone: Start: 04-22-2023 End: 04-22-[address] Suzanne Leyva Work Phone: [facility] Work Phone: Start: 04-22-2023 End: 04-22-[address] Suzanne Leyva Work Phone: [facility]-Laboratory Work Phone: Start: 04-21-2023 End: 04-21-[address] Suzanne Leyva Work Phone: [facility] Work Phone: Start: 04-21-2023 End: 04-21-[address] Suzanne Leyva Work Phone: [facility]-Laboratory, Specimen Work Phone: Start: 04-21-2023 End: 04-21-[address] Suzanne Leyva Work Phone: [facility] Work Phone: Start: 04-11-2023 End: 04-11-2023 ambulatory [facility] Work Phone: Start: 04-11-2023 End: 04-11-2023 Patient encounter procedure [facility]-Ultrasound, [facility] Work Phone: Start: 04-08-2023 End: 04-08-2023 ambulatory [facility] Work Phone: Start: 04-08-2023 End: 04-08-2023 Patient encounter procedure [facility]-Laboratory Work Phone: Start: 04-01-2023 End: 04-01-2023 ambulatory [facility] Work Phone: Start: 04-01-2023 End: 04-01-2023 Patient encounter procedure [facility]Laboratory Work Phone: Start: 03-25-2023 End: 03-25-2023 ambulatory [facility] Work Phone: Start: 03-25-2023 End: 03-25-2023 Patient encounter procedure [facility]Laboratory Work Phone: Start: 03-23-2023 End: 03-23-2023 ambulatory [facility] Work Phone: Start: 03-23-2023 End: 03-23-2023 Patient encounter procedure [facility]Laboratory Work Phone: Start: 03-21-2023 End: 03-21-2023 ambulatory [facility] Work Phone: Start: 03-21-2023 End: 03-21-2023 Patient encounter procedure [facility]Laboratory Work Phone: Start: 03-19-2023 End: 03-19-2023 ambulatory [facility] Work Phone: Start: 03-19-2023 End: 03-19-2023 Patient encounter procedure [facility] Work Phone: Start: 03-04-2023 End: 03-04-2023 ambulatory [facility] Work Phone: Start: 03-04-2023 End: 03-04-2023 Patient encounter procedure [facility]Laboratory Work Phone: Start: 01-12-2023 End: 01-12-[address] Suzanne Leyva Work Phone: [facility] Work Phone: Start: 01-12-2023 End: 01-12-[address] [facility] Start: 12-13-2022 End: 12-13-[address] Suzanne Leyva Work Phone: [facility]-Radiology, [facility] Work Phone: Start: 11-29-2022 End: 11-29-[address] Suzanne Leyva Work Phone: [facility] Work Phone: Start: 11-29-2022 End: 11-29-[address] [facility] Start: 10-19-2022 End: 10-19-[address] Suzanne Leyva Work Phone: [facility] Work Phone: Start: 10-19-[address] Suzanne Leyva Work Phone: [facility] [facility] Start: 08-20-2022 End: 08-20-2022 ambulatory [facility] Work Phone: Start: 08-20-2022 End: 08-20-2022 Patient encounter procedure [facility]Labor[facility] Work Phone: Start: 08-17-2022 End: 08-17-2022 ambulatory [facility] Work Phone: Start: 08-17-2022 End: 08-17-2022 Patient encounter procedure [facility]Labor[facility] Work Phone: Start: 08-15-2022 End: 08-16-2022 Emergency department patient visit [facility] Start: 08-15-2022 End: 08-15-2022 Emergency department patient visit [facility] Start: 05-18-2022 End: 05-18-2022 ambulatory [facility] Work Phone: Start: 05-18-2022 End: 05-18-2022 Patient encounter procedure [facility]Labor[facility] Start: 01-20-2022 End: 01-20-2022 ambulatory [facility] Work Phone: Start: 01-20-2022 End: 01-20-2022 Patient encounter procedure [facility]Labor[facility] Start: 10-15-2021 End: 10-15-[address] Suzanne Leyva Work Phone: [facility] Work Phone: Start: 10-15-2021 End: 10-15-[address] Suzanne Leyva Work Phone: [facility] [place] Start: 09-24-2021 End: 09-24-[address] Suzanne Leyva Work Phone: [facility] Start: 09-24-[address] Suzanne Leyva Work Phone: [facility] Start: 08-25-2021 End: 08-25-2021 Patient encounter procedure [facility] Procedures Date Procedure Procedure Detail Performing Clinician [...] Detail Author Start: 08-31-2024 Blood zinc measurement [facility] Start: 08-31-2024 Prolactin measurement [facility] Start: 05-31-2023 Procedure [facility] Start: 04-01-2023 Procedure [facility] Start: 03-19-2023 Procedure [facility] Start: 08-25-2021 [facility] Work Phone: Cardiolipin IgG Ab [ Units/volume] in Serum or Plasma [facility] Cardiolipin IgM Ab [ Units/volume] in Serum or Plasma [facility] CBC W Auto Differential panel - Blood [facility] Dehydroepiandrostero ne sulfate (DHEA-S) [Mass/volume] in Serum or Plasma [facility] Work Phone: Dehydroepiandrostero ne sulfate (DHEA-S) [Mass/volume] in Serum or Plasma [facility] Dehydroepiandrostero ne sulfate (DHEA-S) [Mass/volume] in Serum or Plasma [facility] Dehydroepiandrostero ne sulfate (DHEA-S) [Mass/volume] in Serum or Plasma [facility] Dehydroepiandrostero ne sulfate (DHEA-S) [Mass/volume] in Serum or Plasma [facility] Dehydroepiandrostero ne sulfate (DHEA-S) [Mass/volume] in Serum or Plasma [facility] Patient Education [facility] Work Phone: Patient referral [facility] Work Phone: Procedure [facility] Retinol [Mass/volume ] in Serum or Plasma [facility] Serum testosterone measurement [facility] Sex hormone binding globulin [Moles/volume] in Serum or Plasma [facility] Work Phone: Sex hormone binding globulin [Moles/volume] in Serum or Plasma [facility] Sex hormone binding globulin [Moles/volume] in Serum or Plasma [facility] Testosterone [Mass/v olume] in Serum or Plasma [facility] Testosterone Free [M ass/volume] in Serum or Plasma [facility] Testosterone Free [M ass/volume] in Serum or Plasma [facility] Testosterone Free [M ass/volume] in Serum or Plasma [facility] Testosterone Free [M ass/volume] in Serum or Plasma [facility] Testosterone measurement [facility] Testosterone measurement [facility] Testosterone measurement [facility] Testosterone measurement [facility] Thyroid stimulating hormone measurement [facility] Thyroperoxidase Ab [ Units/volume] in Serum or Plasma [facility] Triiodothyronine (T3 ).reverse [Mass/volume] in Serum or Plasma [facility] Work Phone: [facility] Immunizations Immunization Date Immunization Notes Care Provider Fa [facility] 11-26-2023 influenza, seasonal, injectable, preservative free Dr. Suzanne Leyva MD Work Phone: [facility] 09-05-2023 tetanus toxoid, redu kathryn diphtheria toxoid, and acellular pertussis vaccine, adsorbed Dr. Suzanne Leyva MD Work Phone: [facility] 06-12-2020 Covid (Moderna) [facility] 05-27-2020 tetanus toxoid, redu kathryn diphtheria toxoid, and acellular pertussis vaccine, adsorbed [facility] 03-03-2017 influenza, injectabl e, quadrivalent, preservative free Dr. Suzanne Leyva Work Phone: [facility] 03-03-2017 influenza, seasonal, injectable [facility] 02-07-2017 tetanus toxoid, redu kathryn diphtheria toxoid, and acellular pertussis vaccine, adsorbed [facility] Payers Date Payer Category Payer Self-pay [id number] 2023 Unknown [id number] 2016 Unknown [id number] 1988 Unknown [id number] . [id number] 1988 Unknown [id number] 1988 Unknown [id number] . [id number] 1988 Unknown [id number] . [id number] Private Health Insurance [id number] Unknown [id number]. [id number] Unknown [id number]. [id number] Unknown [id number] Unknown [id number] 40.1.757146.3.579.2.462 Unknown [id number] 2.16.8 40.1.813858.3.579.2.462 Unknown [id number] 2.16.8 40.1.632156.3.579.2.462 Unknown [id number] 2.16.8 40.1.986371.3.579.2.462 Unknown [id number] 2.16.8 40.1.906452.3.579.2.462 Unknown [id number] 2.16.8 40.1.960581.3.579.2.462 Unknown [id number] 2.16.8 40.1.490974.3.579.2.462 Unknown [id number] 2.16.8 40.1.093315.3.579.2.462 Unknown [id number] 2.16.8 40.1.640683.3.579.2.462 Unknown [id number] 2.16.8 40.1.956854.3.579.2.462 Unknown [id number] 2.16.8 40.1.082836.3.579.2.462 Unknown [id number] 2.16.8 40.1.272680.3.579.2.462 Unknown [id number] 2.16.8 40.1.548661.3.579.2.462 Unknown [id number] 2.16.8 40.1.363781.3.579.2.462 Unknown [id number] 2.16.8 40.1.435614.3.579.2.462 Unknown [id number] 2.16.8 40.1.816262.3.579.2.462 Unknown [id number] 2.16.8 40.1.886411.3.579.2.462 Unknown [id number] 2.16.8 40.1.817989.3.579.2.462 Unknown [id number] 2.16.8 40.1.090952.3.579.2.462 Unknown [id number] 2.16.8 40.1.253083.3.579.2.462 Social History Date Type Detail Facility Start: 08-29-2020 End: 05-31-2023 Tobacco smoking status NHIS Unknown if ever smoked [facility] Start: 03-05-2020 Non-smoker [facility] Start: 1990 Sex Assigned At Female [facility] Start: 11-25-2023 Tobacco smoking status NHIS Never smoked tobacco (finding) [facility] Start: 05-15-2024 Sex Female (finding) [facility] NEGATED: Highlighted row [facility] Clinical Notes 08-15-2022 to 03-04-2024 Note Date & Type Note Facility 03-04-2024 Evaluation note Diagnosis Onset Date Resolution Care and examination of lactating mother noneactive March 04 8:35am Mastitis noneactive March 04, 2024 8:35am [facility] Work Phone: 1(825) 770-978802-29-2024 NotePap Smear Specimen AdequacyFebruary 2023 4:02pmComment.Satisfactory for evaluation. No endocervical component is identified.An endocervical component is not commonly seen in the patient.LAB[facility]unch [facility] INTERFACED A#[id number] Health SystemComment on above: Satisfactory for evaluation. No endocervical component is identified.An endocervical component is not commonly seen in the patient.04-21-2023 NotePap Smear Specimen AdequacyFebruary 2023 4:02pmComment.Satisfactory for evaluation. No endocervical component is identified.An endocervical component is not commonly seen in the patient.[facility] INTERFACED A#[id number] Health SystemComment on above:Satisfactory for evaluation. No endocervical component is identified.An endocervical component is not commonly seen in the patient.04-21-2023 NotePap Smear Specimen AdequacyFebruary 29th, 2024 5:02pmComment.Satisfactory for evaluation. No endocervical component is identified.An endocervical component is not commonly seen in the patient.[facility] INTERFACED A#[id number] Health SystemComment on above:Satisfactory for evaluation. No endocervical component is identified.An endocervical component is not commonly seen in the patient.04-21-2023 NotePap Smear Specimen AdequacyFebruary 2023 5:02pm Comment.Satisfactory for evaluation. No endocervical component is identified.An endocervical component is not commonly seen in the patient.[facility] INTERFACED A#[id number] Health SystemComment on above:Satisfactory for evaluation. No endocervical component is identified.An endocervical component is not commonly seen in the patient.08-16-2022 Discharge summary [facility] August 16, 2022 2:30am Note Date/Time August 16, 2022 12:5 4am [facility] Medical Records Department [address] [place] [address] Emergency Department Summary 08/16/22 MR#: [id number] Acct: [id number] Name: IDALMIS MAHONEY Rep #:[id number] : 1990 31 From: Jez Goodwin [...] vomiting but does admit to loose stool/diarrhea [facility] Medical History Macrocytic anemia Ovarian cyst Thrombocytopenia [...] skin mole No history of previous surgery [place] teeth extracted Social History Smoking Status: Never smoker [facility] ED Constitutional Constitutional ED: Reports fever(s) and [...] use. I discussed the case with her [facility]. She is in agreement at this time [...] 78.7 H Lymph % (Auto) 15.9 L Cobb % (Auto) 4.8 Eos % (Auto) 0.0 [...] Color Urine Clarity Urine pH Ur Specific [place] Urine Protein Urine Glucose (UA) Urine Ketones [...] (Auto) Neut % (Auto) Lymph % (Auto) Cobb % (Auto) Eos % (Auto) Baso % [...] Clarity Clear Urine pH 6.5 Ur Specific [place] 1.010 Urine Protein 15 H Urine Glucose [...] 50 mg tablet 4.5 mg PO DAILY vit,[id number] 1 TABLET tablet 1 tab PO DAILY [...] taking your naltrexone as well as the [place]. Begin taking the oxycodone/Percocet as directed for improved pain control. Contact your [facility] office today to schedule an appointment for later this week [facility]. Disposition Disposition: Home, Self Care What to do if you have Problems For any increased pain, shortness of breath, bleeding, nausea or vomiting, chestpain, or any unexpected problems, contact your Primary Care Provider. Call [facility] ([phone]) or report to the closest Emergency Room. Call 911 if necessary. 08/16/22 0230 <Electronically signed by Jez Goodwin DO> Cosigner Signature (if applicable): CC: Dr. Suzanne Leyva MD ~ Signed [facility] Work Phone: 1(272) 926-155106-25-2023 Hospital Discharge instructions Additional Instructions Please stop taking your naltrexone as well as the [place]. Begin taking the oxycodone/Percocet as directed for improved pain control. Contact your [facility] office today to schedule an appointment for later this week and return to the ER should you have any further concerns. [facility] Work Phone: evaluation noteNo assessment information available [facility] Work Phone: evaluation note* Diagnosis Onset Date Resolution Status Macrocytic anemia chronic Thrombocytopenia chronic [facility] Work Phone: evaluation note* Diagnosis Onset Date Resolution Status Macrocytosis without anemia chronic Thrombocytopenia chronic [facility] Work Phone: evaluation note* Diagnosis Onset Date Resolution Status AMA (advanced maternal age) multigravida 35+ acute Hypothyroidism acute Infertility acute acute Supervision of high-risk acute Macrocytosis without anemia chronic Thrombocytopenia [facility] Work Phone: evaluation note* Diagnosis Onset [...] high-risk acute Macrocytosis without anemia chronic Thrombocytopenia [facility] Work Phone: evaluation note* Diagnosis Onset [...] Macrocytosis without anemia chronic Thrombocytopenia chronic [facility] Work Phone: Reason for referral (narrative)No reason for referral information availableWSumma Health Work Phone: Family History No Family History Records Found Relationship Condition Age at Onset Recorded Date/T jonathan father Malignant neoplasm of skin Unknown grandfather Malignant neoplasm of colon Unknown uncle Malignant neoplasm of colon Unknown Advance Directives No Advanced Directives Records Found Advance Directive Response Recorded Date/ Time Living Will Yes August 29, 2020 1 2:55am Power of Collateral Clerk Yes August 29, 2020 12:55am Advance Directive Response Recorded Date/ Time Living Will Yes August 28, 2020 1 1:55pm Power of Collateral Clerk Yes August 28, 2020 11:55pm Advance Directive Response Recorded Date/ Time Name of Medical Power of Collateral Clerk bran August 15, 2022 11:07am Name of Medical Power of Collateral Clerk bran mahoney August 15, 2022 11:54pm Living Will Yes August 15, 2022 11:54pm Power of Collateral Clerk Yes August 15 11:54pm Advance Directive Response Recorded Date/ Time Living Will Yes August 15, 2022 10:54pm Power of Collateral Clerk Yes August 15 10:54pm Advance Directive Response Recorded Date/ Time Living Will Yes August 15, 2022 11:54pm Power of Collateral Clerk Yes August 15 11:54pm Chief Complaint and [...] EROS 10/8 E-ORDER cramping 13 [facility] [place] [facility] follow up for bleeding Reason for [...] EROS 10 E-ORDER cramping 13 [facility] [place] ED follow up for bleeding 17 [facility] [...] End: March 04, 2024 Enma Knott NP, METAL PRECISION MACHINE ASSEMBLER-C Attending Provider Active Start: March 04, 2024 [...] August 31, 2024 Dr. Abby Don MD Referring Provider Active Start: August 31, 2024 End: August 31, 2024 INFORMATION SOURCE (unrecogn ized section and content) DATE CREATED AUTHOR 07/27/2023 [facility] DATE CREATED AUTHOR AUTHOR'S ORGANIZ ATION 09/08/2024 [facility] FOR RECORDS PERTAINING TO PATIENTS WHO [...] BE BASED ON THE PRIMARY CLINICAL RECORDS. [facility] [employer] [facility]. provides no warranty or guarantee of the accuracy or completeness of information in this document.
[2024-09-27 08:11] LABS: Hematocrit 39.0 % (37-47); Hemoglobin 12.4 g/dL (12.0-15.0); Immature Granulocytes Count 0.010 X10^3/uL (0.0-0.0); Immature Platelet Fraction 9.1 % (1.0-7.9); Immature Reticulocyte Fraction 10.50 % (3.00-15.90); Mean Corp Hgb Conc 31.8 g/dL (32-36); Mean Corpuscular Volume 102.6 fL (81-99); Mean Platelet Vol. 13.4 fl (6.2-12.0); NRBC Flagged by Analyzer 0 % (0-5); POSITIVE COUNT YES; Platelet Count 93 K/mm3 (150-450); RBC Distribution Width CV 12.1 % (11.6-14.6); RBC Distribution Width SD 45.7 fl (35.1-43.9); Red Blood Count 3.80 M/mm3 (4.2-5.4); Reticulocyte Count 1.54 % (0.5-1.5); White Blood Count 3.3 K/mm3 (4.4-11.0)
[2024-09-27 08:14] LABS: Differential Indicated SCAN CRITERIA MET
[2024-09-27 09:03] LABS: FOLATES,SERUM (FOLIC ACID) 15.90 ng/mL (4.60-34.80)
[2024-09-27 09:13] LABS: Cholesterol 133 mg/dL (<=200); Low Density Lipoprotein Calc. 46 mg/dL; Triglycerides 50 mg/dL; Very Low Density Lipoprotein 10 mg/dL (5-40); cholesterol:hdl ratio screen 1.72
[2024-09-27 09:53] LABS: Hepatitis B Surface Antigen Nonreactive (Nonreactive); Hepatitis C Antibody Nonreactive (Nonreactive)
[2024-10-02 19:08] LABS: Vitamin A, Retinol 50.7 ug/dL (18.9-57.3)
== END | disposition home or self-care (01) ==
LOC: LAB 06:56
PROVIDERS: PCP Family Medicine; Referring Provider Obstetrics & Gynecology; Visit Provider Obstetrics & Gynecology
DX: D75.9 Disease of blood and blood-forming organs, unspecified (principal); R74.01 Elevation of levels of liver transaminase levels
CPT/HCPCS: 36415; 80061; 82746; 84590; 85025; 85045; 86706; 86708; 86709; 86803; 87340

== ENCOUNTER → 2024-10-26 | Outpatient (CLI) | payer OTHER, SELFPAY ==
[2024-10-26 16:01] LABS: AST(SGOT) 33 U/L (<=31); Alanine Aminotransfer ALT/SGPT 24 U/L (<=34); Albumin, Serum 4.3 g/dL (3.5-5.0); Alkaline Phosphatase 51 U/L (35-104); Anion Gap 10 (5-15); BUN 16 mg/dL (4-19); BUN/Creat Ratio 23.7 RATIO (10-20); Calcium,Total 8.6 mg/dL (7.6-11.0); Carbon Dioxide 24.7 mmol/L (21.0-32.0); Chloride 105 mmol/L (98-108); Free T3 2.1 pg/mL (2.18-3.98); Globulin 2.2 g/dL (2.2-4.2); Glucose 81 mg/dL (70-99); Potassium 4.2 mmol/L (3.3-5.1)
[2024-10-28 08:39] LABS: Alpha Antitrypsin Serum 109 mg/dL (100-188)
[2024-10-30 08:09] LABS: Anti-Smooth Muscle ABS 5 Units (0-19); GGTP 10 IU/L (0-60); Immunoglobulin A 98 mg/dL (87-352)
== END | disposition home or self-care (01) ==
LOC: MFPLAB 12:10
PROVIDERS: PCP Family Medicine; Visit Provider Family Medicine
DX: R74.01 Elevation of levels of liver transaminase levels (principal); E03.9 Hypothyroidism, unspecified
CPT/HCPCS: 36415; 80053; 82103; 82105; 82784; 82977; 83516; 84439; 84443; 84481; 86255; 86376; 86800

== ENCOUNTER → 2024-11-05 | Outpatient (CLI) | payer OTHER, SELFPAY ==
--- NOTE | 2024-11-05 09:21 | US_ITS ---
PROCEDURE: ABD LIMITED W/ ELASTOGRAPHY REASON FOR EXAM: ELEVATION OF LEVELS OF LIVER TRANSAMINASE LEVELS COMPARISON: None. TECHNIQUE: Procedure Code: [id number] Modality: US Procedure: ABD LIMITED W/ ELASTOGRAPHY Right upper quadrant abdominal ultrasound. [facility] El[facility] shear wave elastography for non-invasive assessment of liver tissue stiffness. [facility] EPIQ Elite. FINDINGS: LIVER: Size: Borderline hepatomegaly. Length: 17.5 cm Echotexture: Normal Contour: Normal Lesions: None identified Elastography: EQI Med: 4.7 kPa EQI Med Xavi: 1.3 m/s IQR/Med: 16.6 %* GALLBLADDER: No stones sludge wall thickening or tenderness. COMMON BILE DUCT: Normal measuring 2.1 mm . PANCREAS: Normal Visualized portions of the right kidney are unremarkable. No right upper quadrant ascites. US/ABD Limited w/ Elastography IMPRESSION: No evidence of hepatic fibrosis. Reference Values: SRU <1.37 m/s (5.7kPa): No to mild fibrosis 1.37 m/s - 2.2 m/s: Moderate to severe fibrosis >2.2 m/s (15kPa): Significant fibrosis / cirrhosis METAVIR Score F2 or higher: 1.34 m/s (5.7kPa) F3 or higher: 1.55 m/s (7.3kPa) F4: 1.80 m/s (10kPa) * If the IQR/Med is >30%, the variance in the measurements is a large and the a ccuracy of the measurement may be in question. Reading Location: [place] [address]
== END | disposition home or self-care (01) ==
PROVIDERS: PCP Family Medicine; Referring Provider Family Medicine; Visit Provider Family Medicine
DX: R74.01 Elevation of levels of liver transaminase levels (principal)
CPT/HCPCS: 76705; 76981

== ENCOUNTER → 2024-12-14 | Outpatient (CLI) | payer OTHER, SELFPAY ==
[2024-12-14 12:32] LABS: Color, Urine Straw (Yellow); Glucose, Dipstick Normal (Normal); Ketone-Dipstick Negative (Negative); Leukocyte Esterase-Dipstick Negative /ul (Negative); Nitrite-Dipstick Negative (Negative); Occult Blood-Urine Negative /ul (Negative); Protein-Dipstick 15 mg/dl (Negative); Specific Gravity, Urine 1.010 (1.002-1.030); Urine Bilirubin Dipstick Negative (Negative)
[2024-12-14 12:42] LABS: AST(SGOT) 33 U/L (<=31); Alanine Aminotransfer ALT/SGPT 22 U/L (<=34); Albumin, Serum 4.5 g/dL (3.5-5.0); Alkaline Phosphatase 55 U/L (35-104); Anion Gap 9 (5-15); BUN 19 mg/dL (4-19); BUN/Creat Ratio 23.2 RATIO (10-20); Calcium,Total 9.2 mg/dL (7.6-11.0); Carbon Dioxide 27.7 mmol/L (21.0-32.0); Chloride 105 mmol/L (98-108); Cholesterol 168 mg/dL (<=200); Globulin 2.5 g/dL (2.2-4.2); Glucose 56 mg/dL (70-99); Low Density Lipoprotein Calc. 76 mg/dL; Potassium 4.9 mmol/L (3.3-5.1); Triglycerides 33 mg/dL; Very Low Density Lipoprotein 7 mg/dL (5-40); cholesterol:hdl ratio screen 2.00
== END | disposition home or self-care (01) ==
LOC: MFPLAB 10:33
PROVIDERS: PCP Family Medicine; Referring Provider Family Medicine; Visit Provider Family Medicine
DX: Z00.00 Encounter for general adult medical examination without abnormal findings (principal)
CPT/HCPCS: 36415; 80053; 80061; 81002; 83036; 84443

== ENCOUNTER → 2024-12-19 | Outpatient (CLI) | payer OTHER, SELFPAY ==
[2024-12-19 10:21] LABS: 24 HR MICROALBUMIN COLL TIME 24.0 HR (24.0-24.0)
[2024-12-19 10:22] LABS: 24 HR UR TOTAL VOLUME 3250 ML; Microalbumin,Random Urine 15.2 mg/L (<20 mg/L); Urine Microalbumin (24 Hour) 49.4 mg/24 HR (0.0-30.0)
== END | disposition home or self-care (01) ==
LOC: LABSPEC 06:34
PROVIDERS: PCP Family Medicine; Referring Provider Family Medicine; Visit Provider Family Medicine
DX: Z00.00 Encounter for general adult medical examination without abnormal findings (principal)
CPT/HCPCS: 81050; 82043